=== PATIENT | female | born 1950 | race Caucasian/White ===

== ENCOUNTER 2021-01-18 08:19 | Outpatient (CLI) | payer MEDICARE, SELFPAY ==
--- NOTE | 2021-01-18 08:35 | USCV_ITS ---
Hermelinda Chamberlain Age: 71 Gender: F : 1950 Exam Date: 01/18/2021 08:39 Ordering Phys: Gayatri Russo MD ([email or web address]) Technologist: Carrol Izaguirre Exam Location: [facility] [place] Indication: STENOSIS Risk Factors: Previous Vascular Surgery: Right Brachial BP: / Left Brachial BP: / Right Left Velocity (cm/s) Spectral Plaque Velocity (cm/s) Spectral Plaque Syst/Diast Broadening Syst/Diast Broadening 62.80/ 17.60 Prox CCA 59.80 / 14.00 58.40/ 16.50 Mid CCA 51.30 / 15.50 66.20/ 16.50 Distal CCA 62.10 / 17.10 36.40/ 15.40 Prox ICA 67.10 / 24.00 59.50/ 20.90 Mid ICA 83.20 / 27.10 76.10/ 28.70 Distal ICA 96.20 / 35.10 102.50 ECA 93.20 1.30 ICA/CCA 1.88 Antegrade Vertebral Antegrade 36.30/ 6.90 cm/s 30.10/ 12.00 cm/s Tri Subclavian Tri 150.8 50.60 0 FINDINGS Mild to moderate scattered plaques in the right common carotid artery. Moderate plaques of the right bifurcation. Moderate heterogeneous plaques at the left bifurcation Mild to moderate scattered plaques in the left common carotid artery CONCLUSIONS Moderate heterogeneous plaques at the bifurcations bilaterally with Doppler velocities consistent with less than 50% stenosis. Mild to moderate scattered plaques in the common carotid arteries bilaterally. No similar previous studies are available for comparison. Dr Gayatri Russo MD [facility] (Electronically Signed) Final Date: 18 January 2021 19:57 S
== END 2021-01-18 08:20 | disposition home or self-care (01) ==
LOC: RAD 08:22
PROVIDERS: PCP Nurse Practitioner Family; Visit Provider Internal Medicine Cardiovascular Disease
DX: I65.23 Occlusion and stenosis of bilateral carotid arteries (principal)
CPT/HCPCS: 93880

== ENCOUNTER 2021-04-03 08:34 | Outpatient (CLI) | payer MEDICARE, SELFPAY ==
[2021-04-03 08:52] VITALS: BMI 23.6
--- NOTE | 2021-04-03 08:52 | ECG_ITS ---
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 Interpretive Statements NAME OF STUDY: LEXISCAN SESTAMIBI STRESS TEST INDICATION: Shortness of Breath PROCEDURE: At the baseline, the blood pressure was 138/68 mmHg, oxygen saturation 94% with a heart rate of 96 bpm. The electrocardiogram showed normal sinus rhythm, normal axis with nonspecific inferolateral ST depression. The Lexiscan was infused over a period of 20 seconds. A total of 0.4 milligrams of Lexiscan was infused. The stress phase was continued for a total of 5 minutes. Heart rate at the end of the stress phase was 96 bpm, oxygen saturation 94% with a blood pressure of 136/55 mmHg. The EKG at the peak infusion revealed sinus rhythm with no significant ST-T wave changes. Sestamibi was injected 20 seconds after the Lexiscan infusion. Blood pressure at the end of the recovery phase was 130/53 mmHg, oxygen saturation 94% with a heart rate of 96 beats per minute. CONCLUSION: 1. No significant EKG changes with the LexiScan infusion. 2. No LexiScan induced chest pain or cardiac arrhythmia. 3. Normal blood pressure and heart rate response. 4. Sestamibi/sestamibi perfusion scan pending; see separate report. Electronically Signed On 04-06-2021 18:20:58 CDT by Anju Spencer M.D. [id number]
--- NOTE | 2021-04-03 08:52 | NMCV_ITS ---
NM yvrose perf SPECT r/s* [id number] PrebbHermelinda davies Age: 71 Gender: F : 1950 Exam Date: 04/03/2021 09:24 Ordering Phys: Gayatri Russo MD ([email or web address]) Technologist: RADHA Little Exam Location: [facility] Indications: SOB STRESS TEST [facility] IMAGE PROTOCOL Rest/Stress 1 Lexiscan Day Radiopharmaceutical Dose (mCi) Administration Site Administered by Rest: Tc-99m 10.8 IV RADHA Arroyo Sestamibi Stress:Tc-99m 32.9 IV RADHA Arroyo Sestamibi Rest: 03-Apr-2021 60 Discovery 630 Stress: 03-Apr-2021 30 Discovery 630 0.4mg Lexiscan. Images obtained in supine and prone position. SPECT RESULTS Technical Quality: Excellent Raw Data Analysis: Image Corrections: No attenuation or motion correction applied Summed Stress Score: 0 Summed Rest Score: 1 Summed Difference Score: 0 PERFUSION FINDINGS Small sized perfusion abnormality of mild severity of apical lateral wall on rest images with subtle reversibility in supine stress images with improved tracer uptake in prone stress images. This is likely suggestive of attenuation artifact. FUNCTIONAL RESULTS (calculated via Gated SPECT) Stress Image LV EF (%): 79 Stress EDV (mL):57 TID: 1 Stress ESV (mL):12 FUNCTIONAL FINDINGS: The left ventricle is normal in size. Transient Ischemia Dilatation of 1. There is normal left ventricular systolic function. The left ventricular ejection fraction is normal with a value of 79%. There is normal left ventricular wall thickening with no regional wall motion abnormality. Normal end-diastolic and end-systolic volumes. IMPRESSIONS 1. Myocardial perfusion imaging is normal. Attenuation artifact noted in apical lateral wall. 2. Overall left ventricular systolic function is normal without regional wall motion abnormalities. 3. The left ventricular ejection fraction is normal with a value of 79%. 4. No coronary ischemia based on the study. Anju Spencer MD (Electronically Signed) Final Date: 06 Apr 2021 18:34 S
[2021-04-03] MEDS: regadenoson 0.4 Mg/5 ml Syringe IVP (10:45)
[2021-04-03 10:46] VITALS: BP 130/53; PULSE 96
== END 2021-04-03 08:35 | disposition home or self-care (01) ==
LOC: CDL 08:39
PROVIDERS: PCP Nurse Practitioner Family; Visit Provider Internal Medicine Cardiovascular Disease
DX: R06.02 Shortness of breath (principal)
CPT/HCPCS: 78452; 93017; A9500; J2785

== ENCOUNTER → 2022-03-31 14:27 | Outpatient (BNVA) | payer MEDICARE, SELFPAY | PROVIDERS: PCP Nurse Practitioner Family; Visit Provider Specialist | DX: J98.59 Other diseases of mediastinum, not elsewhere classified (principal); M19.012 Primary osteoarthritis, left shoulder; M25.512 Pain in left shoulder | CPT/HCPCS: 73030; 99203; 99205 ==

== ENCOUNTER 2022-04-21 09:09 | Outpatient (CLI) | payer MEDICARE, SELFPAY ==
[2022-04-21 10:05] LABS: Blood Urea Nitrogen 25 mg/dL (8-23); Glomerular Filtration Rate 44.4 mL/min (90-130)
[2022-04-21] MEDS: iodixanol 320 mg/mL 100mL Btl IV (10:10)
--- NOTE | 2022-04-21 10:30 | CT_ITS ---
WS: [id number] CT CHEST TECHNIQUE: Contrast enhanced CT of the chest with coronal and sagittal reformatted images. CLINICAL INFORMATION: mass COMPARISON: Radiograph March 31, 2022 DLP: 551.[address] scans at [facility] use at least one of these dose optimization techniques: automated e xposure control; mA and/or kV adjustment per patient size (includes targeted exams where dose is matc hed to clinical indication); or iterative reconstruction. FINDINGS: Heterogeneously enhancing RIGHT upper lobe mass with mediastinal invasion. Findings compatible with n eoplasm. Heterogeneous mass measures approximately 4.7 x 4.4 x 7.4 cm AP by transverse by craniocauda l. Associated mass effect and compression of the SVC. Associated anterior mediastinal and paratrachea l lymphadenopathy. Subcarinal lymphadenopathy.Interlobular septal thickening about the RIGHT upper lo be mass suspicious for lymphangitic spread of disease. Slightly prominent ascending thoracic aorta measuring 3.4 CM. Moderate aortic calcification. Normal c aliber descending thoracic aorta. Celiac and SMA are patent. Cholecystectomy clips. Partially visualized enhancing lesions in the liver incompletely evaluated and may represent incidental hemangiomas. Recommend CT abdomen pelvis with co ntrast for further evaluation considering concern for metastatic disease. Normal portal vein and sple barbara vein. Postoperative changes partially visualized cervical spine. Moderate spondylitic changes tho racic spine. CT/CT chest w con* [id number] IMPRESSION: 1. Large RIGHT upper lobe mass compatible with neoplasm with mediastinal invas ion and compression of the SVC described above. 2. Associated anterior mediastinal, peribronchial, and subcarinal lymphadenopa thy. 3. Enhancing lesions partially visualized in the RIGHT hepatic lobe nonspecifi c but may represents flash hemangiomas. Recommend further evaluation contrast-e nhanced CT abdomen pelvis with liver protocol to exclude metastatic disease. La rgest measures 9 mm. 4. Prior cholecystectomy. Message LEFT for Dr. Pal via the dial lathe operator 04/21/2022 10:57 AM
== END 2022-04-21 09:10 | disposition home or self-care (01) ==
PROVIDERS: Radiology Neuroradiology; PCP Nurse Practitioner Family; Visit Provider Specialist
DX: J98.59 Other diseases of mediastinum, not elsewhere classified (principal); R59.0 Localized enlarged lymph nodes; K76.9 Liver disease, unspecified; Z90.49 Acquired absence of other specified parts of digestive tract
CPT/HCPCS: 71260; 82565; 84520

== ENCOUNTER 2022-04-29 06:28 | Day surgery (SDC) | payer MEDICARE, SELFPAY ==
[2022-04-29 06:52] VITALS: BP 128/72; PULSE 93; RESP 18; TEMP 36.2; O2SAT 98
--- NOTE | 2022-04-29 06:57 | ECG_ITS ---
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 Measurements Intervals [place] Rate: 84 P: 70 ND: 126 QRS: 38 QRSD: 94 T: 82 QT: 387 QTc: 458 Interpretive Statements SINUS RHYTHM POSSIBLE LEFT ATRIAL ENLARGEMENT [-0.1mV P-WAVE IN V1/V2] NONSPECIFIC T-WAVE ABNORMALITY No previous ECG available for comparison Electronically Signed On 04-29-2022 22:33:09 CDT by Gayatri Russo M.D. [id number]
[2022-04-29] MEDS: sodium chloride 0.9% 1,000 ML 30 ML IV (07:10)
[2022-04-29 07:35] LABS: Anion Gap 15.4 (5-19); Blood Urea Nitrogen 40 mg/dL (8-23); Calcium 8.9 mg/dL (8.5-10.5); Carbon Dioxide 25 mmol/L (22-29); Chloride 100 mmol/L (98-107); Glomerular Filtration Rate 40.5 mL/min (90-130); Glucose 126 mg/dL (65-115); Osmolality Calculated 295 mOsm/kg (285-295); Potassium 3.4 mmol/L (3.5-5.1); Sodium 137 mmol/L (136-145)
--- NOTE | 2022-04-29 08:28 | ANES.PREANE2 ---
Pre-Anesthetic Assessment Height/Weight: Height 1.63 m Weight 60.781 kg Temp Pulse Resp BP Pulse Ox 97.1 F L 93 18 128/72 98 04/29/22 06:52 04/29/22 06:52 04/29/22 06:52 04/29/22 06:52 04/29/22 06:52 Preop Diagnosis: Right paratracheal mass Operation Date: 04/29/22 08:25 Proposed Procedures p Bronch, EBUS, 45098, 21756, 20585,91472(Not Applicable) - Cole Sarah MD s Ebus(Not Applicable) - Cole Sarah MD Familial anesthetic complications: none Was Beta Airam taken within 24 hours: N/A Was Clonidine taken within 24 hours: N/A Last intake: Intake Last Liquid Date 04/28/22 Last Liquid Time 20:00 Last Solid Date 04/28/22 Last Solid Time 20:00 Last Intake: 20:00 Social Tobacco and No alcohol 1ppd pack(s) per day 50+ pack years Exam alert, oriented x 3, clear to auscultation bilaterally and regular rate & rhythm Airway Submandibular: within normal limits Cervical ROM: within normal limits Mallampati: Class I Dentition: false Pulmonary Chronic Obstructive Pulmonary Disease lung mass CV/HEM Hypertension neg stress test last year Chronic Renal Insufficiency Hepatic None reported GI None reported Metabolic Diabetes Mellitus (avg 150) and Thyroid Disease Musc/skel Lower Back Pain and Osteoarthritis/DJD Neuropsych None reported Anesthetic Plan ASA status: 3 Anesthesia: General Risk of > 500 ml blood loss (7ml/kg in children): No Medications/Allergies Home Medications Medication Instructions Recorded Confirmed Last Taken Type diphenhydramine HCl 25 mg capsule 25 mg PO TID PRN 12/07/20 04/28/22 Unknown History (Benadryl) insulin aspart U-100 100 unit/mL 5 unit SUBCUT TID 12/07/20 04/29/22 04/28/22 History (3 mL) subcutaneous pen (Novolog 4 units Flexpen U-100 Insulin aspart) levothyroxine 125 mcg capsule 125 mcg PO DAILY 12/07/20 04/28/22 04/28/22 History losartan 25 mg tablet 12.5 mg PO DAILY tab 12/07/20 04/28/22 04/28/22 History topiramate 25 mg tablet 50 mg PO .QHS 12/07/20 04/28/22 04/28/22 History triamterene 37.5 1 tab PO DAILY 12/07/20 04/29/22 04/27/22 History mg-hydrochlorothiazide 25 mg tablet insulin detemir U-100 100 unit/mL 18 unit SUBCUT BID ml 12/12/20 04/29/22 04/28/22 History (3 mL) subcutaneous pen (Levemir 9 units FlexTouch U-100 Insulin) loratadine 10 mg capsule 10 mg PO DAILY PRN 12/12/20 04/29/22 04/25/22 History hydrocodone 5 mg-acetaminophen 325 1 tab PO BID PRN 04/28/22 04/28/22 04/28/22 History mg tablet Allergies Allergy/AdvReac Type Severity Reaction Status Date / Time azithromycin Allergy rash Verified 04/28/22 14:59 phenylephrine Allergy rash Verified 04/28/22 14:59 Shugasi-MBU-BbG Reductase Allergy Blindness Verified 04/28/22 14:59 Inhibitor [Leswcqq-Ziq-Npv Reductase Inhibitor] Sulfa (Sulfonamide Allergy rash Verified 04/28/22 14:59 Antibiotics) Current Medications Generic Name Dose Route Start Last Admin Trade Name Freq PRN Reason Stop Dose Admin Sodium Chloride 1,000 mls @ 30 mls/hr 04/29/22 06:45 04/29/22 07:10 Sodium Chloride 0.9% IV 04/30/22 06:44 30 mls/hr .Q24H SHAGUFTA Administration PFSH Anesthesia Medical History Abnormal ankle brachial index (RAYMUNDO) History of diabetes mellitus History of hypertension History of hypothyroidism Hx of chronic kidney disease Hx of degenerative disc disease Hx of hyperlipidemia Hx of obesity Hx of osteoarthritis Hx of recurrent urinary tract infection Hx of smoking Rupture of colon Surgical History History of back surgery Family History Father Hypertension CAD (coronary artery disease) Chronic kidney disease (CKD) Diabetes Mother Cancer Lung disease Grandfather Stroke Denies family history of Clotting disorder Dementia Suicide Anesthesia complication Bleeding disorder Social History Smoking and tobacco status: current every day smoker Alcohol intake: never Data Anesthesia : 04/29/22 07:10 BMP 04/29/22 07:10 Sodium 137 Potassium 3.4 L Chloride 100 Carbon Dioxide 25 BUN 40 H Creatinine 1.3 H Glucose 126 H Calcium 8.9 Cardiac Studies: Sestamibi Stress Test (Cardiology) 04/03/21
--- NOTE | 2022-04-29 08:28 | W.PM.OPSFHP ---
Same Day Surgery H&P Indication for Procedure/HPI DATE OF PROCEDURE: April 29, 2022 CHIEF COMPLAINT/INDICATIONFOR SURGICAL PROCEDURE: This is a 72-year-old lady coming in with a recently identified lung mass suspicious for malignancy. PREOP DIAGNOSIS: Right paratracheal mass PLANNED PROCEDURE: Bronchoscopy with inspection of the airway, possible endobronchial biopsy, bronchoalveolar lavage, endobronchial sound guided transbronchial needle aspiration of lymph nodes and control of bleeding. Operation Date: 04/29/22 08:25 Proposed Procedures p Bronch, EBUS, 62859, 27245, 61973,13485(Not Applicable) - Cole Sarah MD s Ebus(Not Applicable) - Cole Sarah MD The patient underwent a chest x-ray for evaluation of shoulder pain and was incidentally found to have right paratracheal lesion. This was followed by a CT scan of the chest which revealed large right upper lobe lung mass measuring 4.7 x 4.4 x 7.4 cm. There is also prominent paratracheal and mediastinal lymphadenopathy. The patient had a PET CT scan performed yesterday meriting the result. The patient complains of minimal weight loss. Her appetite is good. She has been experiencing deconditioning over some time. Medications/Allergies* Home Medications Medication Instructions Recorded Confirmed Type diphenhydramine HCl 25 mg capsule 25 mg PO TID PRN 12/07/20 04/28/22 History (Benadryl) insulin aspart U-100 100 unit/mL 5 unit SUBCUT TID 12/07/20 04/29/22 History (3 mL) subcutaneous pen (Novolog Flexpen U-100 Insulin aspart) levothyroxine 125 mcg capsule 125 mcg PO DAILY 12/07/20 04/28/22 History losartan 25 mg tablet 12.5 mg PO DAILY tab 12/07/20 04/28/22 History topiramate 25 mg tablet 50 mg PO .QHS 12/07/20 04/28/22 History triamterene 37.5 1 tab PO DAILY 12/07/20 04/29/22 History mg-hydrochlorothiazide 25 mg tablet insulin detemir U-100 100 unit/mL 18 unit SUBCUT BID ml 12/12/20 04/29/22 History (3 mL) subcutaneous pen (Levemir FlexTouch U-100 Insulin) loratadine 10 mg capsule 10 mg PO DAILY PRN 12/12/20 04/29/22 History hydrocodone 5 mg-acetaminophen 325 1 tab PO BID PRN 04/28/22 04/28/22 History mg tablet Allergies/Adverse Reactions Allergy/AdvReac Type Severity Reaction Status Date / Time azithromycin Allergy rash Verified 04/28/22 14:59 phenylephrine Allergy rash Verified 04/28/22 14:59 Xpsajdq-OLS-NvF Reductase Allergy Blindness Verified 04/28/22 14:59 Inhibitor [Ofqimsg-Eis-Xpu Reductase Inhibitor] Sulfa (Sulfonamide Allergy rash Verified 04/28/22 14:59 Antibiotics) Current Medications: Generic Name Dose Route Start Last Admin Trade Name Freq PRN Reason Stop Dose Admin Sodium Chloride 1,000 mls @ 30 mls/hr 04/29/22 06:45 04/29/22 07:10 Sodium Chloride 0.9% IV 04/30/22 06:44 30 mls/hr .Q24H SHAGUFTA Administration Pertinent History/Comorbid Conditions* Medical History (Updated 04/02/22 @ 17:25 by Jacqueline Pal MD) Abnormal ankle brachial index (RAYMUNDO) History of diabetes mellitus History of hypertension History of hypothyroidism Hx of chronic kidney disease Hx of degenerative disc disease Hx of hyperlipidemia Hx of obesity Hx of osteoarthritis Hx of recurrent urinary tract infection Hx of smoking Rupture of colon Surgical History (Updated 12/12/20 @ 16:28 by Gayatri Russo MD) History of back surgery Family History (Updated 12/12/20 @ 16:08 by Jayne Ellis RN) Diabetes Father CAD (coronary artery disease) Father Chronic kidney disease (CKD) Father Lung disease Mother Cancer Mother Hypertension Father Stroke Grandfather Denies family history of Clotting disorder Dementia Suicide Anesthesia complication Bleeding disorder Social History Smoking and tobacco status: current every day smoker Alcohol intake: never Pertinent Exam Findings alert, oriented x 3 and clear to auscultation bilaterally General: Patient is awake alert and oriented, in no distress. Neck: No JVD Respiratory: Auscultation: Bilateral clear to auscultation both anterior and posteriorly, no crackles wheezing or rhonchi Cardiovascular: Regular rate and rhythm, S1-S2 present, no murmur, no peripheral edema Abdomen: Soft, nontender, nondistended, positive bowel sound Musculoskeletal: No clubbing Skin: No rash Neuro: Mental status is normal, no gross cranial nerve deficit, gross normal motor function Recommendations Surgery/Procedure today Other Plans: I have discussed the risk and benefit of the procedure with the patient including complications. Will proceed with the procedure. Coding Level of Care Code Acute Calibrator Barometers for Simon Ash
[2022-04-29] MEDS: lidocaine 1% INJ 20 mL XX (09:08)
--- NOTE | 2022-04-29 09:49 | PM.OP ---
Operative Report Date of procedure: April 29, 2022 Pre-op diagnosis: Preop Diagnosis Right paratracheal mass Post-op diagnosis: Lung cancer Brief History: This is a 72-year-old lady with incidentally found large right upper lobe lung mass as well as evidence mediastinal and paratracheal PET positive lymphadenopathy coming in for bronchoscopic evaluation. Procedure: Name of the procedure: Bronchoscopy with inspection of the airway, endobronchial ultrasound-guided transbronchial needle aspiration of lymph nodes and control of bleeding. Indication: Suspected lung cancer Anesthesia: General anesthesia. Local anesthesia: The vocal cords, trachea, maritza in the right and left mainstem bronchi were anesthetized with 1% lidocaine, 8 mL. Description of the procedure: The procedure was explained to the patient and the consent was obtained. The patient was brought to the OR. The patient underwent laryngeal mask airway placement for general anesthesia. Following induction of general anesthesia, the bronchoscope was advanced through the LMA. The vocal cords were normal. The vocal cords were anesthetized with 1% lidocaine. 3 mL of lidocaine was used. The bronchoscope was passed through the vocal cords under direct visualization. Upper and lower trachea appeared normal. The upper and lower trachea arrested with 1% lidocaine. The maritza was sharp. The maritza, the right and left mainstem bronchi are anesthetized with 1% lidocaine. In a systematic manner bilateral bronchial tree was then examined. The bronchoscope was advanced into the left mainstem bronchus.The left upper lobe, lingula and left lower lobe bronchi were examined up to the third subsegmental level and no abnormalities were identified. There is no endobronchial lesion, active bleeding or mucous plug. The bronchoscope was then introduced into the right mainstem bronchus. The right upper lobe, right middle lobe and right lower lobe bronchi were examined up to the third subsegmental level and no abnormalities were identified. The endobronchial ultrasound was introduced through the ET tube. Large right paratracheal mass involving 4R station was seen. There was also subcarinal lymphadenopathy. Fine-needle aspiration was obtained from the right paratracheal lung mass and station 4 lymph node . Inga was positive for malignancy. Samples: 1. Fine-needle aspiration was sent for histopathology. Complications: There was no immediate complications.
[2022-04-29 09:54] VITALS: BP 118/84; PULSE 83; RESP 16; TEMP 36.3; O2SAT 99
[2022-04-29 10:00] VITALS: BP 124/60; PULSE 79; RESP 16; TEMP 36.3; O2SAT 97
[2022-04-29 10:05] VITALS: BP 118/61; PULSE 78; RESP 16; TEMP 36.3; O2SAT 97
[2022-04-29 10:15] VITALS: BP 105/59; PULSE 79; RESP 18; TEMP 36.3; O2SAT 97
--- NOTE | 2022-04-29 14:12 | ANE.PACU2 ---
Inpatient post-anesthesia follow up: Airway intact: Yes Vital signs: Temperature 97.3 F Pulse Rate 79 Respiratory Rate 18 Blood Pressure 105/59 Pulse Oximetry 97 Oxygen Delivery Me thod Room Air Oxygen Flow Rate 5 Fraction of Inspir ed Oxygen Hydration adequate: Yes Nausea and vomiting: No Pain level: 2 Mental status: Baseline
[2022-04-29 21:58] LABS: Cyto Order Verification Order Verified
[2022-05-02 15:10] LABS: Miscellaneous Test See Scanned Lab Rpt
== END 2022-04-29 10:40 | disposition home or self-care (01) ==
PROVIDERS: Anesthesiology; PCP Nurse Practitioner Family; Visit Provider Internal Medicine Critical Care Medicine
PROC: 0BJ08ZZ Inspection of Tracheobronchial Tree, Via Natural or Artificial Opening Endoscopic (ICD-10-PCS; CPT 31622; principal; 2022-04-29 08:15)
PROC: BB4BZZZ Ultrasonography of Pleura (ICD-10-PCS; 2022-04-29 08:15)
DX: C34.90 Malignant neoplasm of unspecified part of unspecified bronchus or lung (principal); J44.9 Chronic obstructive pulmonary disease, unspecified; E11.22 Type 2 diabetes mellitus with diabetic chronic kidney disease; I12.9 Hypertensive chronic kidney disease with stage 1 through stage 4 chronic kidney disease, or unspecified chronic kidney disease; N18.9 Chronic kidney disease, unspecified; Z79.4 Long term (current) use of insulin; E78.5 Hyperlipidemia, unspecified; M19.90 Unspecified osteoarthritis, unspecified site; Z82.49 Family history of ischemic heart disease and other diseases of the circulatory system; F17.200 Nicotine dependence, unspecified, uncomplicated
CPT/HCPCS: 31622; 31652; 36415; 80048; 80503; 88305; 88342; 93005; J2704; J7030

== ENCOUNTER 2022-05-05 07:59 | Oncology outpatient (recurring) (ONCR) | payer MEDICARE, SELFPAY | END 2022-05-05 23:59 | disposition home or self-care (01) | PROVIDERS: PCP Nurse Practitioner Family; Visit Provider Internal Medicine Hematology & Oncology | DX: C34.11 Malignant neoplasm of upper lobe, right bronchus or lung (principal); F17.210 Nicotine dependence, cigarettes, uncomplicated; E11.65 Type 2 diabetes mellitus with hyperglycemia; Z79.4 Long term (current) use of insulin; E11.51 Type 2 diabetes mellitus with diabetic peripheral angiopathy without gangrene; G89.29 Other chronic pain; M25.511 Pain in right shoulder; M25.512 Pain in left shoulder; F43.22 Adjustment disorder with anxiety | CPT/HCPCS: 99204 ==

== ENCOUNTER → 2022-05-14 13:41 | Outpatient (BNVA) | payer MEDICARE, SELFPAY | PROVIDERS: PCP Nurse Practitioner Family; Visit Provider Surgery | DX: C34.91 Malignant neoplasm of unspecified part of right bronchus or lung (principal) | CPT/HCPCS: 99203 ==

== ENCOUNTER 2022-05-20 11:15 | Day surgery (SDC) | payer MEDICARE, SELFPAY ==
[2022-05-20] VITALS (11 sets, daily range): BP systolic 131–146; BP diastolic 56–89; PULSE 78–91; RESP 16–18; TEMP 36.2–36.6; O2SAT 95–99; BMI 22.3
--- NOTE | 2022-05-20 | SCC_ITS ---
Procedure done: 1. Placement of PowerPort catheter via the right internal jugular vein 2. Fluoroscopic guidance and interpretation for placement of catheter 3. Ultrasound guidance to access the right internal jugular vein 12 seconds of fluoroscopic guidance, for a cumulative dose of 1.34 mGy, was provided to Dr. Ramirez by the radiology department. C-arm images of the chest were saved for the patient's permanent record. [facility]
--- NOTE | 2022-05-20 11:25 | SC_ITS ---
WS: [id number] INTRAOPERATIVE TECHNIQUE: 2 Spot fluoroscopic images for intraoperative purposes. FLUOROSCOPY TIME: 12 seconds CLINICAL INFORMATION: PowerPort placement COMPARISON: None. FINDINGS: RIGHT Port-A-Cath with tip in the distal SVC in good position. No visualized pneumothorax. Persistent stable RIGHT upper parasternal lymphadenopathy with known RIGHT upper lobe mass and mediastinal inva trey. Postoperative changes lower cervical spine. SC/C-arm FL for CVA [id number] IMPRESSION: Images obtained for intraoperative purposes.
[2022-05-20 11:51] LABS: Glucose Point of Care 95 mg/dL (70-110)
[2022-05-20] MEDS: sodium chloride 0.9% 1,000 ML 30 ML IV (11:55)
--- NOTE | 2022-05-20 14:03 | W.PM.OPSUD ---
Surgery/Procedure H&P Update DATE OF PROCEDURE: May 20, 2022 DATE H&P PERFORMED: 05/14/22 H&P UPDATE INFORMATION: I have reviewed H&P completed within last 30 days, I have examined patient prior to procedure and No changes to prior documentation PREOP DIAGNOSIS: Lung cancer PRIMARY INDICATION FOR PROCEDURE: The same PLANNED PROCEDURE: Operation Date: 05/20/22 12:50 Proposed Procedures p Placement of power port 50281,C34.91(Not Applicable) - Henri Ramirez MD
[2022-05-20] MEDS: ceFAZolin 2,000 MG in sodium chloride 0.9% (plus) 50 ML 100 MG IV (14:13)
[2022-05-20] MEDS: lidocaine 2% INJ 20 mL INJECTION (14:40)
[2022-05-20] MEDS: heparin, porcine 1,000 unit/mL INJ 10 mL 10000 UNIT IRRIGATION (14:40)
--- NOTE | 2022-05-20 14:53 | ANES.PREANE2 ---
Pre-Anesthetic Assessment Height/Weight: Height 1.63 m Weight 58.967 kg Temp Pulse Resp BP Pulse Ox 97.9 F 91 17 132/68 97 05/20/22 11:46 05/20/22 11:46 05/20/22 11:46 05/20/22 11:46 05/20/22 11:46 Preop Diagnosis: Lung cancer Operation Date: 05/20/22 12:50 Proposed Procedures p Placement of power port 62644,C34.91(Not Applicable) - Henri Ramirez MD Familial anesthetic complications: none Was Beta Airam taken within 24 hours: N/A Was Clonidine taken within 24 hours: N/A Last intake: Intake Last Liquid Date 05/20/22 Last Liquid Time 08:00 Last Solid Date 05/19/22 Last Solid Time 22:00 Social Tobacco and No alcohol Exam alert, oriented x 3 and regular rate & rhythm Airway Submandibular: within normal limits Cervical ROM: within normal limits Mallampati: Class II Dentition: false Pulmonary Chronic Obstructive Pulmonary Disease CV/HEM Hypertension and Peripheral Vascular Disease Metabolic Diabetes Mellitus, Hyperlipidemia and Thyroid Disease Musc/skel Lower Back Pain Neuropsych Anxiety Anesthetic Plan ASA status: 3 Anesthesia: MAC Medications/Allergies Home Medications Medication Instructions Recorded Confirmed Last Taken Type insulin aspart U-100 100 unit/mL 5 unit SUBCUT TID PRN 12/07/20 05/20/22 05/19/22 History (3 mL) subcutaneous pen (Novolog Flexpen U-100 Insulin aspart) levothyroxine 125 mcg capsule 125 mcg PO DAILY 12/07/20 05/20/22 05/20/22 History losartan 25 mg tablet 12.5 mg PO DAILY tab 12/07/20 05/20/22 05/19/22 History topiramate 25 mg tablet 50 mg PO .QHS 12/07/20 05/20/22 05/19/22 History triamterene 37.5 1 tab PO DAILY 12/07/20 05/20/22 05/19/22 History mg-hydrochlorothiazide 25 mg tablet insulin detemir U-100 100 unit/mL See Rx Instructions .ROUTE 12/12/20 05/20/22 05/19/22 History (3 mL) subcutaneous pen (Levemir .COMPLEX ml FlexTouch U-100 Insulin) loratadine 10 mg capsule 10 mg PO DAILY PRN 0205/20/22 05/18/22 History docusate sodium 100 mg capsule 100 mg PO DAILY PRN 05/05/22 05/20/22 05/19/22 History (Colace) hydrocodone 10 mg-acetaminophen 1 tab PO Q6H PRN 05/05/22 05/20/22 05/19/22 History 325 mg tablet lorazepam 0.5 mg tablet (Ativan) 0.5 mg PO .q6-8hr PRN #30 tab 05/05/22 05/20/22 05/19/22 Rx oxycodone-acetaminophen 10 mg-325 1 - 2 tab PO .q4-6hr PRN 30 Days 05/05/22 05/20/22 05/19/22 Rx mg tablet (Percocet) #60 tab Allergies Allergy/AdvReac Type Severity Reaction Status Date / Time azithromycin Allergy rash Verified 05/20/22 11:36 phenylephrine Allergy rash Verified 05/20/22 11:36 Xuvkeqi-MRL-SaW Reductase Allergy Blindness Verified 05/20/22 11:36 Inhibitor [Nspiwwt-Agb-Kfh Reductase Inhibitor] Sulfa (Sulfonamide Allergy rash Verified 05/20/22 11:36 Antibiotics) Current Medications Generic Name Dose Route Start Last Admin Trade Name Freq PRN Reason Stop Dose Admin Sodium Chloride 1,000 mls @ 30 mls/hr 05/20/22 11:30 05/20/22 11:55 Sodium Chloride 0.9% IV 05/21/22 11:29 30 mls/hr .Q24H SHAGUFTA Administration PFSH Anesthesia Medical History Abnormal ankle brachial index (RAYMUNDO) Cancer of right lung History of diabetes mellitus History of hypertension History of hypothyroidism Hx of chronic kidney disease Hx of degenerative disc disease Hx of hyperlipidemia Hx of obesity Hx of osteoarthritis Hx of recurrent urinary tract infection Hx of smoking Rupture of colon Surgical History History of back surgery Family History Father Hypertension CAD (coronary artery disease) Chronic kidney disease (CKD) Diabetes Mother Cancer Lung disease Grandfather Stroke Denies family history of Clotting disorder Dementia Suicide Anesthesia complication Bleeding disorder Social History Smoking and tobacco status: current every day smoker (0.5 ppd) cigarettes Packs smoked per day: 0.5 Alcohol intake: never Data Anesthesia Cardiac Studies: Sestamibi Stress Test (Cardiology) 04/03/21
--- NOTE | 2022-05-20 14:58 | PM.OP ---
Operative Report Date of procedure: May 20, 2022 Pre-op diagnosis: Preop Diagnosis Lung cancer Post-op diagnosis: The same Procedure done: 1. Placement of PowerPort catheter via the right internal jugular vein 2. Fluoroscopic guidance and interpretation for placement of catheter 3. Ultrasound guidance to access the right internal jugular vein Surgeon: Henri Ramirez MD Kaiawhina Kohanga Reo: Shanae Lawrence and Ivy Circulating nurse Na Anesthesia: MAC (Dr. Griffiths) Estimated blood loss (mL): 5 Procedure: Patient was identified in the holding area and taken to the operative room and placed in supine position IV propofol was given by the anesthesia provider ,both arms were tucked,Time-out was done verifying the patient's name/date of /planned procedure and destination after the procedure, all were in agreement. SCDs confirmed to be functioning, preoperative antibiotics administered per protocol, and beta kaela protocol was confirmed, appropriate positioning of the patient was done by me. Medications were reviewed to assess for anticoagulant usage. Risks and benefits and prevention of central line associated blood stream infection (CLABSI) were discussed with the patient/CPOA, and a consent was obtained. Monitors were in place and monitored throughout the procedure. All necessary supplies were available prior to start. Hand hygiene was completed prior to starting. Maximum barrier technique was utilized including a sterile gown, sterile gloves with a hat and mask. Site was was prepped with [chlorhexidine] and a full body drape was placed. 5 mL of 2% lidocaine was injected into the skin with a 25 gauge needle. Prep& drape was done under the usual sterile technique, lidocaine 2% was injected at the site of the stick, started by right Internal Juglar vein stick that retrieved venous blood was obtained from the first stick under ultrasound guidance and there was no evidence of intraluminal thrombosis, interpretation was done by me through the whole entire procedure, a guidewire was then threaded and under the guidance of fluoroscopy position was confirmed to be in the IVC with my interpretation, there was no PVC changes, at that point the guidewire was secured to the drapes with a hemostat and the needle was taken out. There was no resistance while passing the wire. Considering the large superior mediastinal mass. Attention was then deviated towards creation of a pocket for the port were lidocaine 2% was injected using an 15 blade knife skin incision was created at the right upper Chest ,dissection using the Bovie to create a pocket for the poer port to be accommodated, hemostasis was secured, after the port being appropriately flushed it was inserted into the pocket and a tunneler was used to accommodate the catheter of the port cath to be delivered through the incision first created at the site of the stick , and then I was able to retrieve the catheter at the index site of the stick. At that point under fluoroscopy an estimated length was measured for the catheter and was cut at the designed level, followed by that a dilator with the sheath introduced onto the guidewire the dilator and the wire were retrieved and the catheter of the port was introduced via the sheath where it was peeled off and the catheter maintained to be in the SVC that was confirmed with fluoroscopy, and the fluoroscopy interpretation was done by me throughout the entire procedure. Multiple flushes of the port was done by diluted heparin and I was able to retrieve without difficulty venous blood as well as appropriate flushing was achieved. The port was kept in its pocket, 3-0 Vicryl deep subdermal interrupted sutures, skin was then closed by 4-0 Monocryl as subcuticular closure.The port was appropriately flushed with heparin and venous blood was withdrawn without difficulty The stick site was closed by 4-0 Monocryl and Dermabond was used followed by dressing. Patient tolerated the procedure well was taken to the recovery area Count was correct at the end of the procedure I was present for the whole entire procedure CXR was obtained after th eprocedure confrirming the port to be in good position and without Pneumothorax.
--- NOTE | 2022-05-20 15:05 | XRR_ITS ---
PROCEDURE INFORMATION: Exam: XR Chest Exam date and time: 05/20/2022 3:26 PM Age: 72 years old Clinical indication: Other vascular access device placement or adjustment; Port; Additional info: Stat post right internal jugular vein, powerport placement TECHNIQUE: Imaging protocol: Radiologic exam of the chest. Views: 1 view. COMPARISON: CT chest w con* [id number] 04/21/2022 10:03 AM FINDINGS: Tubes, catheters and devices: Indwelling right venous port catheter with tip in the superior vena cava a near the right atrial junction. Lungs: No alveolar consolidation is seen. Pleural spaces: No pleural effusion. Heart/Mediastinum: Right paratracheal masslike opacity is consistent with findings on 04/21/[address] No cardiomegaly. Bones/joints: No acute bony abnormality is seen radiographically. XR/XR chest 1V portable [id number] IMPRESSION: Right paratracheal mass, consistent with findings on 04/21/[address]
[2022-05-20] MEDS: fentaNYL 50 mcg/mL INJ 2mL IVP (15:21)
--- NOTE | 2022-05-20 16:16 | ANE.PACU2 ---
Inpatient post-anesthesia follow up: Airway intact: Yes Vital signs: Temperature 97.9 F Pulse Rate 80 Respiratory Rate 16 Blood Pressure 146/74 Pulse Oximetry 97 Oxygen Delivery Me thod Room Air Oxygen Flow Rate Fraction of Inspir ed Oxygen Hydration adequate: Yes Nausea and vomiting: No Pain level: 2 Mental status: Baseline
== END 2022-05-20 16:30 | disposition home or self-care (01) ==
PROVIDERS: PCP Nurse Practitioner Family; Visit Provider Surgery
PROC: (CPT 36561; principal; 2022-05-20 12:40)
DX: C34.91 Malignant neoplasm of unspecified part of right bronchus or lung (principal); J44.9 Chronic obstructive pulmonary disease, unspecified; E11.22 Type 2 diabetes mellitus with diabetic chronic kidney disease; I73.9 Peripheral vascular disease, unspecified; E78.5 Hyperlipidemia, unspecified; Z79.4 Long term (current) use of insulin; E03.9 Hypothyroidism, unspecified; M19.90 Unspecified osteoarthritis, unspecified site; I12.9 Hypertensive chronic kidney disease with stage 1 through stage 4 chronic kidney disease, or unspecified chronic kidney disease; N18.9 Chronic kidney disease, unspecified; F17.210 Nicotine dependence, cigarettes, uncomplicated
CPT/HCPCS: 36561; 36416; 71045; 77001; 82962; C1788; J1644; J2250; J2405; J2704; J3010; J7030

== ENCOUNTER → 2022-05-27 11:01 | Outpatient (BNVA) | payer MEDICARE, SELFPAY | PROVIDERS: PCP Nurse Practitioner Family; Visit Provider Surgery | DX: Z95.828 Presence of other vascular implants and grafts (principal) | CPT/HCPCS: 99213 ==

== ENCOUNTER 2022-05-29 09:02 | Oncology outpatient (recurring) (ONCR) | payer MEDICARE, SELFPAY ==
--- NOTE | 2022-05-13 09:30 | CT_ITS ---
WS: [id number] CT ABDOMEN CONTRAST TECHNIQUE: Contrast enhanced CT of the abdomen with coronal and sagittal reformatted images. CLINICAL INFORMATION: With Liver Protocol Coordinate with Prior CT Chest from 04/21 COMPARISON: CT chest April 21, 2022 and PET/CT April 28, 2022 DLP: 1394.[address] scans at [facility] use at least one of these dose optimization techniques: automated e xposure control; mA and/or kV adjustment per patient size (includes targeted exams where dose is matc hed to clinical indication); or iterative reconstruction. FINDINGS: The previously described small enhancing lesions are faintly visualized today on the arterial phase a nd likely represent benign flash cavernous/hemangiomas or incidental transient perfusion anomalies. N o enhancing lesions visualized in the portal venous or delayed imaging. No convincing evidence of hep atic metastatic disease. Prior cholecystectomy. Lung bases are well aerated. Normal GE junction. Adrenal glands are normal. LE FT renal atrophy. Incidental bilateral renal cysts largest in the RIGHT measuring 2.5 CM. Normal port al vein and splenic vein. S-shaped thoracolumbar scoliosis. CT/CT abdomen w con* [id number] IMPRESSION: 1. The previously described small enhancing lesions are faintly visualized tod ay on the arterial phase and likely represent benign cavernous/hemangiomas or i ncidental transient perfusion anomalies. These are likely benign. 2. No other suspicious findings.
[2022-05-13] MEDS: iodixanol 320 mg/mL 100mL Btl IV (09:54)
--- NOTE | 2022-05-22 07:15 | MR_ITS ---
WS: [id number] MRI HEAD WITH CONTRAST TECHNIQUE: Sagittal T1, T2 axial, T2 axial FLAIR, axial susceptibility weighted imaging, axial diffus ion weighted images, and coronal T2 images were obtained. Pre and post-T1 axial and post T1 coronal i mages. ADC and FSPGR images. CLINICAL INFORMATION: Staging COMPARISON: None. FINDINGS: Tiny focus of partially restricted diffusion in the LEFT occipital lobe may represent tiny subacute l acunar infarct or T2 shine through. Small amount of T2 signal abnormality in this area. No enhancemen t. No enhancing lesions to indicate metastatic disease. No evidence of mass or mass effect. Dural venous sinuses are patent. Mild small vessel changes. Mild parenchymal volume loss. Normal post erior fossa. Normal vascular flow voids at the skull base. No extra-axial fluid collections. Paranasa l sinuses are well aerated. Slight mucosal thickening mastoid tips. No hemosiderin on the susceptibil ity weighted images. Normal optic chiasm and pituitary infundibulum. Normal cavernous sinuses and Mec conner's cave. No other suspicious findings. MR/MR head wo/w con [id number] IMPRESSION: 1. No enhancing lesions to indicate metastatic disease. 2. No evidence of mass or mass effect. 3. Tiny 2mm focus of partially restricted diffusion LEFT occipital lobe likely due to tiny subacute lacunar infarct or focus of T2 shine through. 4. Mild small vessel changes with mild parenchymal volume loss. 5. No hemosiderin on susceptibly weighted images. 6. No other significant findings.
[2022-05-22] MEDS: gadobenate dimeglumine 20 mL vial IV (08:16)
--- NOTE | 2022-05-28 11:30 | N.ONRAD NP_ITS ---
Radiation Oncology New Patient Visit Patient: Hermelinda Chamberlain MR#: [id number] : 1950> Age: 72> Sex: Female> Dictated by: Dr. Vlad Thakkar Date of Service: 05/28/2022 Referring Physician(s) : Renae Mays M.D. Diagnosis: Lung, right, squamous cell carcinoma Radiotherapy to date: Summary > No prior radiation therapy. Chief Complaint / History of Present Illness: Mrs. Chamberlain is a 72-year-old insulin-dependent diabetic who underwent imaging for shoulder pain. She was found to have a right lung mass. A CT confirmed a large right upper lobe mass with SVC compression and mediastinal lymphadenopathy. 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 She underwent a PET scan which did not show any evidence of metastatic disease, though technical difficulties made it difficult to evaluate the liver. She subsequently underwent a CT of the abdomen which did not show any evidence of metastatic disease. She has had an MRI of the brain but that does not show any metastases. She has seen Dr. Mays who has recommended chemoradiation. He will use CarboTaxol or Abraxane. Being insulin-dependent, she may have difficulty tolerating high-dose steroids. He also plans durvalumab after completing chemoradiation. She is referred for evaluation and the initiation of radiation planning. Current Medications: Insulin, levothyroxine, losartan, topiramate, triamterene-HCTZ. Allergies: Azithromycin phenylephrine, statins, sulfa. Medical History: No history of collagen vascular disease. No previous radiation therapy. Insulin-dependent diabetes, hypothyroidism, hypertension, chronic kidney disease, hyperlipidemia, degenerative disc disease, osteoarthritis Surgical History: Back surgery and neck surgery. Family History: Social History: Current Complaints / Review of Systems: . Vital Signs: Performed on 05/28/2022 9:35 AM BMI - 23.001 kg/m2 (high), Height - 64 in, Weight - 134 lbs, Temperature - 99.1 f, Pulse - 84 /min, Respiration - 20 /min, O2 Sat - 100 %, Pain - 4, Fatigue - 0 and BP - 116/ 57 mm(hg)(/low). Physical Exam: General alert, oriented, no acute distress. Neck: Supple. No masses. No cervical or supraclavicular lymphadenopathy. Lungs: Clear to percussion. On auscultation no rales rhonchi or wheezes. Heart: Regular rhythm. No murmur, gallop, or rub. Abdomen: No distention. No organomegaly, mass, or tenderness. Musculoskeletal: Normal gait. No bone tenderness. Neurologic: No gross abnormalities. Performance Status: ECOG 1 Pathology: Squamous cell carcinoma with clear cell features. Lab: Imaging: See HPI Impression: Locally advanced and unresectable non-small cell carcinoma of the lung. Mrs. Chamberlain is a candidate for chemoradiation. I discussed that with her. She understands the cancer is unresectable. I discussed a typical course of radiation delivered over 6 to 6-1/2 weeks. I reviewed side effects and possible complications. Discussed the possibility of esophageal stenosis requiring dilatation. Also discussed pulmonary fibrosis that could impact her breathing negatively. We also discussed the heart, but based on the location of the cancer, it is not anticipated there is any major risk of injury. She wishes to proceed as recommended. Plan: Schedule simulation. Signed by: 05/28/2022 11:29:07 AM <<Signature on File>> Time spent with patient: CPT Code: CPT Code:
--- NOTE | 2022-05-29 | CT_ITS ---
Radiation Therapy Planning CT images; total exam DLP: 321.72 mGy-cm MTDD
== END 2022-06-08 23:59 | disposition home or self-care (01) ==
PROVIDERS: PCP Nurse Practitioner Family; Visit Provider Specialist
DX: Z51.0 Encounter for antineoplastic radiation therapy (principal); C34.90 Malignant neoplasm of unspecified part of unspecified bronchus or lung
CPT/HCPCS: 70553; 74160; 77300; 77301; 77334; 77338; 77470; 99205

== ENCOUNTER → 2022-07-08 08:00 | Outpatient (BNVA) | payer MEDICARE, SELFPAY | PROVIDERS: PCP Nurse Practitioner Family; Visit Provider Internal Medicine Hematology & Oncology | DX: Z53.9 Procedure and treatment not carried out, unspecified reason (principal) | CPT/HCPCS: 99214 ==

== ENCOUNTER 2022-07-09 07:52 | Oncology outpatient (recurring) (ONCR) | payer MEDICARE, SELFPAY ==
[2022-06-10 08:35] LABS: Basophils # 0.1 10^3/uL (0.0-0.1); Basophils % 0.6 %; Eosinophils # 0.2 10^3/uL (0.0-0.8); Eosinophils % 2.2 %; Hematocrit 31.1 % (37.0-47.0); Hemoglobin 9.9 g/dL (11.5-15.3); Lymphocytes # 1.6 10^3/uL (0.8-4.8); Lymphocytes % 18.2 %; Mean Corpuscular HGB Conc 31.8 g/dL (30.0-36.0); Mean Corpuscular Hemoglobin 30.3 pg (28.0-34.0); Mean Corpuscular Volume 95.1 fl (81-99); Mean Platelet Volume 10.1 fL (7.4-10.4); Monocytes # 0.7 10^3/uL (0.2-0.9); Monocytes % 7.5 %; Neutrophils # 6.22 10^3/uL (1.8-7.7); Neutrophils % 70.8 %; Nucleated Red Blood Cells % 0 %; Platelet Count 337 10^3/cmm (130-400); Red Blood Count 3.27 10^6/uL (4.1-5.3); Red Cell Distribution Width 13.4 % (12.1-15.1); White Blood Count 8.8 10^3/uL (4.0-10.0)
[2022-06-10 09:12] LABS: Alanine Aminotransferase 9 U/L (0-33); Albumin Level 3.3 g/dL (3.5-5.2); Alkaline Phosphatase 110 IU/L (35-105); Anion Gap 15.7 (5-19); Aspartate Amino Transferase 20 U/L (0-32); Blood Urea Nitrogen 18 mg/dL (8-23); Calcium 8.5 mg/dL (8.5-10.5); Carbon Dioxide 23 mmol/L (22-29); Chloride 103 mmol/L (98-107); Glomerular Filtration Rate 49.1 mL/min (90-130); Glucose 280 mg/dL (65-115); Osmolality Calculated 296 mOsm/kg (285-295); Potassium 4.7 mmol/L (3.5-5.1); Sodium 137 mmol/L (136-145); Total Bilirubin 0.2 mg/dL (0.15-1.2); Total Protein 7.3 g/dL (6.6-8.7)
[2022-06-10] MEDS: sodium chloride 0.9% 250 ML 75 ML IV (09:45)
[2022-06-10] MEDS: acetaminophen 325 mg Tablet 650 MG PO (09:46)
[2022-06-10] MEDS: diphenhydrAMINE 50 mg/mL SDV 1mL 25 MG IVP (09:47)
[2022-06-10] MEDS: palonosetron 0.25 mg/5 mL SDV IVP (09:48)
[2022-06-10] MEDS: famotidine 20 mg/2 mL INJ IVP (09:48)
[2022-06-10] MEDS: dexamethasone 20 MG in sodium chloride 0.9% 50 ML 188 MG IV (10:10)
[2022-06-10] MEDS: CARBOplatin 140 MG in sodium chloride 0.9% 500 ML 514 MG IV (12:02)
[2022-06-10 13:21] VITALS: BP 109/62; PULSE 62; RESP 18; TEMP 36.4; O2SAT 96
[2022-06-10 13:33] VITALS: BP 118/59; PULSE 88; TEMP 35.6; O2SAT 98
--- NOTE | 2022-06-16 08:56 | ONCRAD TMN_ITS ---
Radiation Oncology Treatment Management Note Patient Name: Hermelinda Chamberlain Date of : 1950 Date of Service: 06/16/2022 Attending Physician: Ariel Quesada M.D. Hremelinda Chamberlain is a 67 year-old white female diagnosed with a recently diagnosed clinical stage IIIA (T2N2) squamous cell carcinoma of the lung. The patient has received 10 Gy of a prescribed 60 Singh with an intensity modulated radiotherapy plan utilizing a step and shoot treatment technique. She has been prescribed carboplatin (AUC 2) and paclitaxel (50 mg/m???) weekly during therapy. Upon review of systems, she denied pulmonary symptoms. On physical examination, the patient weighed 135 lbs. Her temperature was 98.1 ???F and the blood pressure was 106/64 mmHg. The pulse was 102 bpm and her respiratory rate was 18. Oxygen saturation while breathing room air was 97%. There was no erythema within the treatment ying. Auscultation of the posterior lung ying identified clear breath sounds. Continue thoracic radiotherapy as prescribed. Signed by: Dr. Ariel Quesada 06/16/2022 8:55:15 AM
[2022-06-17 08:15] LABS: Basophils # 0.1 10^3/uL (0.0-0.1); Basophils % 0.8 %; Eosinophils # 0.2 10^3/uL (0.0-0.8); Hemoglobin 10.2 g/dL (11.5-15.3); Lymphocytes # 0.7 10^3/uL (0.8-4.8); Lymphocytes % 9.4 %; Mean Corpuscular HGB Conc 31.9 g/dL (30.0-36.0); Mean Corpuscular Hemoglobin 30.6 pg (28.0-34.0); Mean Corpuscular Volume 96.1 fl (81-99); Mean Platelet Volume 9.7 fL (7.4-10.4); Monocytes # 0.5 10^3/uL (0.2-0.9); Monocytes % 6.6 %; Neutrophils # 5.85 10^3/uL (1.8-7.7); Neutrophils % 79.4 %; Nucleated Red Blood Cells % 0 %; Platelet Count 330 10^3/cmm (130-400); Red Blood Count 3.33 10^6/uL (4.1-5.3); Red Cell Distribution Width 13.6 % (12.1-15.1); White Blood Count 7.4 10^3/uL (4.0-10.0)
[2022-06-17 08:36] LABS: Alanine Aminotransferase 8 U/L (0-33); Albumin Level 3.4 g/dL (3.5-5.2); Alkaline Phosphatase 95 IU/L (35-105); Anion Gap 15.5 (5-19); Aspartate Amino Transferase 14 U/L (0-32); Blood Urea Nitrogen 21 mg/dL (8-23); Calcium 8.5 mg/dL (8.5-10.5); Carbon Dioxide 23 mmol/L (22-29); Chloride 104 mmol/L (98-107); Globulin 3.9 g/dL (1.3-4.6); Glomerular Filtration Rate 54.8 mL/min (90-130); Glucose 244 mg/dL (65-115); Osmolality Calculated 297 mOsm/kg (285-295); Potassium 4.5 mmol/L (3.5-5.1); Sodium 138 mmol/L (136-145); Total Bilirubin 0.2 mg/dL (0.15-1.2); Total Protein 7.3 g/dL (6.6-8.7)
[2022-06-17] MEDS: dexamethasone 20 MG in sodium chloride 0.9% 50 ML 188 MG IV (10:10)
[2022-06-17] MEDS: acetaminophen 325 mg Tablet 650 MG PO (10:15)
[2022-06-17] MEDS: sodium chloride 0.9% 250 ML 75 ML IV (10:15)
[2022-06-17] MEDS: palonosetron 0.25 mg/5 mL SDV IVP (10:35)
[2022-06-17] MEDS: famotidine 20 mg/2 mL INJ IVP (10:40)
[2022-06-17] MEDS: diphenhydrAMINE 50 mg/mL SDV 1mL 25 MG IVP (10:42)
[2022-06-17] MEDS: CARBOplatin 150 MG in sodium chloride 0.9% 500 ML 515 MG IV (12:27)
[2022-06-17 14:10] VITALS: BP 136/74; PULSE 75; RESP 18; TEMP 36.9; O2SAT 98
--- NOTE | 2022-06-23 09:12 | ONCRAD TMN_ITS ---
Radiation Oncology Treatment Management Note Patient Name: Hermelinda Chamberlain Date of : 1950 Date of Service: 06/23/2022 Attending Physician: Ariel Quesada M.D. Hermelinda Chamberlain is a 67 year-old white female diagnosed with a recently diagnosed clinical stage IIIA (T2N2) squamous cell carcinoma of the lung. The patient has received 20 Gy of a prescribed 60 Singh with an intensity modulated radiotherapy plan utilizing a step and shoot treatment technique. She has been prescribed carboplatin (AUC 2) and paclitaxel (50 mg/m???) weekly during therapy. Upon review of systems, she described odynophagia. On physical examination, the patient weighed 132 lbs. Her temperature was 99.4 ???F and the blood pressure was 104/65 mmHg. The pulse was 99 bpm and her respiratory rate was 18. Oxygen saturation while breathing room air was 98%. There was no erythema within the treatment ying. Auscultation of the posterior lung ying identified bronchial breath sounds. Continue thoracic radiotherapy as planned. I will prescribe oxycodone elixir for odynophagia. Signed by: Dr. Ariel Quesada 06/23/2022 9:11:04 AM
[2022-06-24 08:32] VITALS: BMI 22.8
[2022-06-24 08:58] LABS: Basophils # 0.1 10^3/uL (0.0-0.1); Basophils % 0.9 %; Eosinophils # 0.1 10^3/uL (0.0-0.8); Eosinophils % 1.1 %; Hematocrit 30.7 % (37.0-47.0); Hemoglobin 9.7 g/dL (11.5-15.3); Lymphocytes # 0.5 10^3/uL (0.8-4.8); Lymphocytes % 7.1 %; Mean Corpuscular HGB Conc 31.6 g/dL (30.0-36.0); Mean Corpuscular Hemoglobin 30.2 pg (28.0-34.0); Mean Corpuscular Volume 95.6 fl (81-99); Mean Platelet Volume 9.8 fL (7.4-10.4); Monocytes # 0.6 10^3/uL (0.2-0.9); Monocytes % 9.1 %; Neutrophils # 5.17 10^3/uL (1.8-7.7); Nucleated Red Blood Cells % 0 %; Platelet Count 280 10^3/cmm (130-400); Red Blood Count 3.21 10^6/uL (4.1-5.3); Red Cell Distribution Width 13.9 % (12.1-15.1); White Blood Count 6.4 10^3/uL (4.0-10.0)
[2022-06-24 09:29] LABS: Alanine Aminotransferase 13 U/L (0-33); Albumin Level 3.3 g/dL (3.5-5.2); Alkaline Phosphatase 101 U/L (35-105); Anion Gap 15.5 (5-19); Aspartate Amino Transferase 15 U/L (0-32); Blood Urea Nitrogen 18 mg/dL (8-23); Calcium 8.5 mg/dL (8.5-10.5); Carbon Dioxide 22 mmol/L (22-29); Chloride 102 mmol/L (98-107); Globulin 3.7 g/dL (1.3-4.6); Glomerular Filtration Rate 54.8 mL/min (90-130); Glucose 232 mg/dL (65-115); Osmolality Calculated 289 mOsm/kg (285-295); Potassium 4.5 mmol/L (3.5-5.1); Sodium 135 mmol/L (136-145); Total Bilirubin 0.3 mg/dL (0.15-1.2)
[2022-06-24] MEDS: sodium chloride 0.9% 250 ML 75 ML IV (10:55)
[2022-06-24] MEDS: acetaminophen 325 mg Tablet 650 MG PO (10:55)
[2022-06-24] MEDS: famotidine 20 mg/2 mL INJ IVP (10:57)
[2022-06-24] MEDS: diphenhydrAMINE 50 mg/mL SDV 1mL 25 MG IVP (11:01)
[2022-06-24] MEDS: dexamethasone 20 MG in sodium chloride 0.9% 50 ML 188 MG IV (11:02)
[2022-06-24] MEDS: palonosetron 0.25 mg/5 mL SDV IVP (11:09)
[2022-06-24] MEDS: PACLitaxeL 80 MG in sodium chloride 0.9%(non-DEHP) 250 ML 263.33 MG IV (11:33)
[2022-06-24] MEDS: CARBOplatin 150 MG in sodium chloride 0.9% 500 ML 515 MG IV (12:39)
[2022-06-24 14:02] VITALS: BP 129/70; PULSE 107; RESP 18; TEMP 37.3; O2SAT 97
--- NOTE | 2022-06-30 08:58 | ONCRAD TMN_ITS ---
Radiation Oncology Treatment Management Note Patient Name: Hermelinda Chamberlain Date of : 1950 Date of Service: 06/30/2022 Attending Physician: Ariel Quesada M.D. Hermelinda Chamberlain is a 67 year-old white female diagnosed with a recently diagnosed clinical stage IIIA (T2N2) squamous cell carcinoma of the lung. The patient has received 30 Gy of a prescribed 60 Singh with an intensity modulated radiotherapy plan utilizing a step and shoot treatment technique. She has been prescribed carboplatin (AUC 2) and paclitaxel (50 mg/m???) weekly during therapy. Upon review of systems, she described an intermittent cough. The odynophagia has improved with pain medication. On physical examination, the patient weighed 130 lbs. Her temperature was 98.2 ???F and the blood pressure was 111/70 mmHg. The pulse was 100 bpm and her respiratory rate was 16. Oxygen saturation while breathing room air was 99%. There was no erythema within the treatment ying. Auscultation of the posterior lung ying identified clear breath sounds. Continue thoracic radiotherapy as prescribed. I recommended OTC an anti-tussive. Signed by: Dr. Ariel Quesada 06/30/2022 8:56:43 AM
[2022-07-01 10:02] LABS: Basophils % 0.6 %; Eosinophils % 0.8 %; Hematocrit 30.1 % (37.0-47.0); Hemoglobin 9.7 g/dL (11.5-15.3); Lymphocytes # 0.4 10^3/uL (0.8-4.8); Lymphocytes % 7.4 %; Mean Corpuscular HGB Conc 32.2 g/dL (30.0-36.0); Mean Corpuscular Hemoglobin 30.2 pg (28.0-34.0); Mean Corpuscular Volume 93.8 fl (81-99); Mean Platelet Volume 9.4 fL (7.4-10.4); Monocytes # 0.5 10^3/uL (0.2-0.9); Monocytes % 9.3 %; Neutrophils # 4.27 10^3/uL (1.8-7.7); Nucleated Red Blood Cells % 0 %; Platelet Count 251 10^3/cmm (130-400); Red Blood Count 3.21 10^6/uL (4.1-5.3); Red Cell Distribution Width 14.2 % (12.1-15.1); White Blood Count 5.3 10^3/uL (4.0-10.0)
[2022-07-01 10:24] LABS: Alanine Aminotransferase 8 U/L (0-33); Albumin Level 3.3 g/dL (3.5-5.2); Alkaline Phosphatase 114 U/L (35-105); Aspartate Amino Transferase 13 U/L (0-32); Blood Urea Nitrogen 16 mg/dL (8-23); Calcium 9.3 mg/dL (8.5-10.5); Carbon Dioxide 24 mmol/L (22-29); Chloride 99 mmol/L (98-107); Globulin 4.1 g/dL (1.3-4.6); Glomerular Filtration Rate 49.1 mL/min (90-130); Glucose 103 mg/dL (65-115); Osmolality Calculated 279 mOsm/kg (285-295); Sodium 134 mmol/L (136-145); Total Bilirubin 0.3 mg/dL (0.15-1.2); Total Protein 7.4 g/dL (6.6-8.7)
[2022-07-01] MEDS: acetaminophen 325 mg Tablet 650 MG PO (11:19)
[2022-07-01] MEDS: sodium chloride 0.9% 250 ML 75 ML IV (11:19)
[2022-07-01] MEDS: palonosetron 0.25 mg/5 mL SDV IVP (11:21)
[2022-07-01] MEDS: famotidine 20 mg/2 mL INJ IVP (11:22)
[2022-07-01] MEDS: diphenhydrAMINE 50 mg/mL SDV 1mL 25 MG IVP (11:25)
[2022-07-01] MEDS: dexamethasone 20 MG in sodium chloride 0.9% 50 ML 188 MG IV (11:39)
[2022-07-01] MEDS: PACLitaxeL 80 MG in sodium chloride 0.9%(non-DEHP) 250 ML 263.33 MG IV (12:00)
[2022-07-01] MEDS: CARBOplatin 140 MG in sodium chloride 0.9% 500 ML 514 MG IV (13:11)
[2022-07-01 14:18] VITALS: BP 128/73; PULSE 98; RESP 16; TEMP 36.4; O2SAT 98
--- NOTE | 2022-07-07 09:16 | ONCRAD TMN_ITS ---
Radiation Oncology Weekly Treatment Management Patient: Cintia Soria MR#: [id number] : 1950> Attending Physician: Dr. Vlad Thakkar Date of Service: 07/07/2022 Referring Physician(s) : Renae Mays Diagnosis: C34.91 - Malignant neoplasm of unspecified part of right bronchus or lung, Diagnosed 04/29/2022 (Active) [facility] date: [facility], Ref. ID: [id number], Energy: 6X, Dose/Fx (cGy): 200, #Fx: , Dose Correction (cGy): 0, Total Dose (cGy): 4,000, Start Date: 06/10/2022, End Date: , 07/07/2022, Elapsed Days: 27 Reason for visit: The patient is being seen today as part of their regularly scheduled weekly on treatment visits to assess for acute toxicities from radiotherapy. Review of Systems: She has 20 of 30 prescribed treatments. He has decreased appetite and increased fatigue. She is diabetic and checks her blood sugars multiple times per day. She has had 1 blood sugar as low as 50 and 1 as high as 220. She is having difficulty eating because of odynophagia and lack of appetite. She has liquid oxycodone which helps the odynophagia and also helps with her cough. We discussed that [employer]ure now has products for diabetics. She is aware of that and will try to supplement her diet. She has no complaints of skin reaction. She is receiving concomitant weekly carboplatin and Taxol. She has not had any purulent sputum, fever, or chills. Vital Signs: Performed on 07/07/2022 8:22 AM BMI - 21.868 kg/m2, Height - 64 in, Weight - 127.4 lbs, Temperature - 97.3 f, Pulse - 111 /min (high), Respiration - 16 /min, O2 Sat - 97 %, Pain - 4, Fatigue - 4 and BP - 104/ 55 mm(hg)(/low). Physical Exam: No cervical or supraclavicular lymphadenopathy. Lungs clear to percussion. On auscultation she has rhonchi over the left lower lobe posteriorly. Otherwise clear with no rales or wheezes. Heart rhythm is regular. No murmur or gallop. Imaging: Radiation therapy imaging related to accurate target localization (i.e. KV, MV and CBCT) was reviewed. Appropriate changes, if any, were made to ensure treatment accuracy. Plan: Continue combined modality therapy as planned. Discussed dietary products for diabetics. She will continue to check her blood sugars about 4 times per day. Continue oxycodone. Signed by: Dr. Richard Thakkar 07/07/2022 9:14:33 AM
[2022-07-08 09:12] LABS: Basophils % 0.5 %; Eosinophils % 0.7 %; Hematocrit 29.6 % (37.0-47.0); Hemoglobin 9.4 g/dL (11.5-15.3); Lymphocytes # 0.3 10^3/uL (0.8-4.8); Lymphocytes % 6.6 %; Mean Corpuscular HGB Conc 31.8 g/dL (30.0-36.0); Mean Corpuscular Hemoglobin 30.1 pg (28.0-34.0); Mean Corpuscular Volume 94.9 fl (81-99); Mean Platelet Volume 10.1 fL (7.4-10.4); Monocytes # 0.4 10^3/uL (0.2-0.9); Monocytes % 8.6 %; Neutrophils % 83.1 %; Nucleated Red Blood Cells % 0 %; Platelet Count 167 10^3/cmm (130-400); Red Blood Count 3.12 10^6/uL (4.1-5.3); Red Cell Distribution Width 15.3 % (12.1-15.1); White Blood Count 4.1 10^3/uL (4.0-10.0)
[2022-07-08 09:30] LABS: Alanine Aminotransferase 8 U/L (0-33); Albumin Level 3.5 g/dL (3.5-5.2); Alkaline Phosphatase 115 U/L (35-105); Aspartate Amino Transferase 14 U/L (0-32); Blood Urea Nitrogen 17 mg/dL (8-23); Calcium 8.9 mg/dL (8.5-10.5); Carbon Dioxide 24 mmol/L (22-29); Chloride 100 mmol/L (98-107); Globulin 3.5 g/dL (1.3-4.6); Glomerular Filtration Rate 54.8 mL/min (90-130); Glucose 122 mg/dL (65-115); Osmolality Calculated 283 mOsm/kg (285-295); Sodium 135 mmol/L (136-145); Total Bilirubin 0.3 mg/dL (0.15-1.2)
[2022-07-08] MEDS: famotidine 20 mg/2 mL INJ IVP (11:20)
[2022-07-08] MEDS: sodium chloride 0.9% 250 ML 100 ML IV (11:20)
[2022-07-08] MEDS: diphenhydrAMINE 50 mg/mL SDV 1mL 25 MG IVP (11:21)
[2022-07-08] MEDS: dexamethasone 20 MG in sodium chloride 0.9% 50 ML 188 MG IV (11:25)
[2022-07-08] MEDS: palonosetron 0.25 mg/5 mL SDV IVP (11:25)
[2022-07-08] MEDS: acetaminophen 325 mg Tablet 650 MG PO (11:29)
[2022-07-08] MEDS: PACLitaxeL 80 MG in sodium chloride 0.9%(non-DEHP) 250 ML 263.33 MG IV (11:57)
[2022-07-08] MEDS: CARBOplatin 150 MG in sodium chloride 0.9% 500 ML 515 MG IV (13:02)
[2022-07-08 14:09] VITALS: BP 127/75; PULSE 97; TEMP 36.8; O2SAT 97
== END 2022-07-09 23:59 | disposition home or self-care (01) ==
PROVIDERS: Internal Medicine Hematology & Oncology; Nurse Practitioner Family; PCP Nurse Practitioner Family; Visit Provider Specialist
DX: Z51.0 Encounter for antineoplastic radiation therapy (principal); C34.11 Malignant neoplasm of upper lobe, right bronchus or lung; C77.2 Secondary and unspecified malignant neoplasm of intra-abdominal lymph nodes; C78.7 Secondary malignant neoplasm of liver and intrahepatic bile duct
CPT/HCPCS: 77014; 77336; 77386; 80053; 85025; 96367; 96375; 96413; 96415; 96417; 99214; 99215; J1100; J1200; J2469; J3490; J7030; J7040; J7050; J9045; J9267

== ENCOUNTER 2022-07-28 08:30 | Oncology outpatient (recurring) (ONCR) | payer MEDICARE, SELFPAY ==
--- NOTE | 2022-07-15 08:43 | ONCRAD TMN_ITS ---
Radiation Oncology Treatment Management Note Patient Name: Hermelinda Chamberlain Date of : 1950 Date of Service: 07/15/2022 Attending Physician: Ariel Quesada M.D. Hermelinda Chamberlain is a 67 year-old white female diagnosed with a recently diagnosed clinical stage IIIA (T2N2) squamous cell carcinoma of the lung. The patient has received 48 Gy of a prescribed 60 Singh with an intensity modulated radiotherapy plan utilizing a step and shoot treatment technique. She has been prescribed carboplatin (AUC 2) and paclitaxel (50 mg/m???) weekly during therapy. Upon review of systems, she did not report any significant changes in her pulmonary function. On physical examination, the patient weighed 124 lbs. Her temperature was 987 ???F and the blood pressure was 121/71 mmHg. The pulse was 115 bpm and her respiratory rate was 18. Oxygen saturation while breathing room air was 99%. There was no erythema within the treatment ying. Auscultation of the posterior lung ying identified intermittent rhonchi. Continue thoracic radiotherapy as planned. Signed by: Dr. Ariel Quesada 07/15/2022 8:46:02 AM
[2022-07-16 09:09] VITALS: BP 103/67; PULSE 119; RESP 6; TEMP 36.4; O2SAT 97
[2022-07-16 09:10] LABS: Basophils % 1.4 %; Eosinophils % 0.3 %; Hemoglobin 9.1 g/dL (11.5-15.3); Lymphocytes # 0.2 10^3/uL (0.8-4.8); Mean Corpuscular HGB Conc 32.5 g/dL (30.0-36.0); Mean Corpuscular Hemoglobin 31.1 pg (28.0-34.0); Mean Corpuscular Volume 95.6 fl (81-99); Mean Platelet Volume 10.4 fL (7.4-10.4); Monocytes # 0.3 10^3/uL (0.2-0.9); Monocytes % 8.7 %; Neutrophils # 2.31 10^3/uL (1.8-7.7); Neutrophils % 80.9 %; Nucleated Red Blood Cells % 0 %; Platelet Count 102 10^3/cmm (130-400); Red Blood Count 2.93 10^6/uL (4.1-5.3); Red Cell Distribution Width 16.1 % (12.1-15.1); White Blood Count 2.9 10^3/uL (4.0-10.0)
[2022-07-16 09:20] LABS: Alanine Aminotransferase 8 U/L (0-33); Albumin Level 3.2 g/dL (3.5-5.2); Alkaline Phosphatase 118 U/L (35-105); Anion Gap 15.7 (5-19); Aspartate Amino Transferase 14 U/L (0-32); Blood Urea Nitrogen 14 mg/dL (8-23); Calcium 9.1 mg/dL (8.5-10.5); Carbon Dioxide 24 mmol/L (22-29); Chloride 97 mmol/L (98-107); Globulin 3.6 g/dL (1.3-4.6); Glomerular Filtration Rate 54.8 mL/min (90-130); Glucose 217 mg/dL (65-115); Osmolality Calculated 283 mOsm/kg (285-295); Potassium 3.7 mmol/L (3.5-5.1); Sodium 133 mmol/L (136-145); Total Bilirubin 0.3 mg/dL (0.15-1.2); Total Protein 6.8 g/dL (6.6-8.7)
--- NOTE | 2022-07-16 10:19 | PC.NURSE ---
Lab results shown to Dr. Mays and called to pt. Per Dr. Mays counts are borderline for tx. Decision made to delay pt's scheduled chemo tx tomorrow. Informed pt that CTC would recheck CBC on Thursday07/21/22 and if counts have recovered-pt will get treated after seeing Dr. Mays. Pt voiced understanding. Aundrea Cantor in radiation notified of pt's tx delay/lc
[2022-07-21 08:25] LABS: Basophils % 1.1 %; Eosinophils % 0.7 %; Hematocrit 29.6 % (37.0-47.0); Hemoglobin 9.5 g/dL (11.5-15.3); Lymphocytes # 0.3 10^3/uL (0.8-4.8); Lymphocytes % 9.3 %; Mean Corpuscular HGB Conc 32.1 g/dL (30.0-36.0); Mean Corpuscular Hemoglobin 31.4 pg (28.0-34.0); Mean Corpuscular Volume 97.7 fl (81-99); Mean Platelet Volume 9.9 fL (7.4-10.4); Monocytes # 0.3 10^3/uL (0.2-0.9); Monocytes % 11.8 %; Neutrophils # 2.13 10^3/uL (1.8-7.7); Neutrophils % 76.4 %; Nucleated Red Blood Cells % 0 %; Platelet Count 154 10^3/cmm (130-400); Red Blood Count 3.03 10^6/uL (4.1-5.3); Red Cell Distribution Width 18.3 % (12.1-15.1); White Blood Count 2.8 10^3/uL (4.0-10.0)
[2022-07-21 08:58] LABS: Alanine Aminotransferase 7 U/L (0-33); Albumin Level 3.4 g/dL (3.5-5.2); Alkaline Phosphatase 134 U/L (35-105); Anion Gap 12.9 (5-19); Aspartate Amino Transferase 13 U/L (0-32); Blood Urea Nitrogen 9 mg/dL (8-23); Calcium 8.6 mg/dL (8.5-10.5); Carbon Dioxide 30 mmol/L (22-29); Chloride 97 mmol/L (98-107); Ferritin 285 ng/mL (15-150); Globulin 3.3 g/dL (1.3-4.6); Glomerular Filtration Rate 61.9 mL/min (90-130); Glucose 204 mg/dL (65-115); Iron 49 ug/dL (37-145); Osmolality Calculated 287 mOsm/kg (285-295); Percent Saturation 29.1 % (20-50); Potassium 3.9 mmol/L (3.5-5.1); Sodium 136 mmol/L (136-145); Total Bilirubin 0.2 mg/dL (0.15-1.2); Total Iron Binding Capacity 168 mcg/dl; Total Protein 6.7 g/dL (6.6-8.7); Unsaturated Iron Binding 119 ug/dL (112-347)
[2022-07-21 09:13] LABS: Vitamin B12 653 pg/mL (232-1245)
[2022-07-21] MEDS: sodium chloride 0.9% 250 ML 75 ML IV (12:15)
[2022-07-21] MEDS: acetaminophen 325 mg Tablet 650 MG PO (12:15)
[2022-07-21] MEDS: palonosetron 0.25 mg/5 mL SDV IVP (12:16)
[2022-07-21] MEDS: famotidine 20 mg/2 mL INJ IVP (12:17)
[2022-07-21] MEDS: diphenhydrAMINE 50 mg/mL SDV 1mL 25 MG IVP (12:18)
[2022-07-21] MEDS: dexamethasone 20 MG in sodium chloride 0.9% 50 ML 188 MG IV (12:29)
[2022-07-21] MEDS: CARBOplatin 150 MG in sodium chloride 0.9% 500 ML 515 MG IV (14:04)
[2022-07-21 15:09] VITALS: BP 106/62; PULSE 101; RESP 16; TEMP 36; O2SAT 99
--- NOTE | 2022-07-23 08:18 | N.ONRD TS_ITS ---
Radiation OncologyTreatment Summary Patient Name: Hermelinda Chamberlain Date of : 1950 Date of Service: 07/23/2022 Attending Physician: Ariel Quesada M.D. Hermelinda Chamberlain has completed definitive thoracic radiotherapy for the management of a clinical stage IIIA (T2N2) squamous cell carcinoma of the lung. Thoracic radiation therapy was delivered between the dates of June 10, 2022 through July 23, 2022. A prescribed dose of 60 Gy was delivered in 30 fractions encompassing 44 elapsed days. The right upper-lobe mass and mediastinal lymphadenopathy were treated utilizing an intensity modulated radiotherapy plan with a step and shoot treatment technique. The plan required seven gantry angles (0???, 35???, 185???, 220???, 255???, 290???, and 325???) replicating an arc. The collimator rotation 0???. The field sizes spanned between 11.3 cm x 14 cm to 14.2 cm x 13.8 cm. The SSDs measured a minimum of 84 cm to a maximum of 92.2 cm. The ports delivered 180 MU, 161 MU, 127 MU, 82 MU, 127 MU, 135 MU, and 149 MU corresponding to the gantry angles described. All treatments were performed with the [employer] linear accelerator and an isocentric technique. The dose was calculated by Anisotropic Analytic Algorithm. A photon energy of 6 MV was prescribed with the plan normalized to deliver 100% of the prescription dose to 96.5% of the planning target volume. She was prescribed Carboplatin (AUC 2) and Paclitaxel (50 mg/m???) weekly during radiotherapy under the supervision of Renae Mays M.D (June 10, 2022 through July 21, 2022). The plan was designed and approved by the [facility] physician. Signed by: Dr. Ariel Quesada 07/23/2022 8:17:01 AM
[2022-07-28 09:11] LABS: Basophils % 1.3 %; Eosinophils % 0.6 %; Hematocrit 28.3 % (37.0-47.0); Lymphocytes # 0.3 10^3/uL (0.8-4.8); Mean Corpuscular HGB Conc 31.8 g/dL (30.0-36.0); Mean Corpuscular Hemoglobin 31.7 pg (28.0-34.0); Mean Corpuscular Volume 99.6 fl (81-99); Mean Platelet Volume 10.1 fL (7.4-10.4); Monocytes # 0.3 10^3/uL (0.2-0.9); Neutrophils # 2.49 10^3/uL (1.8-7.7); Neutrophils % 80.1 %; Nucleated Red Blood Cells % 0 %; Platelet Count 200 10^3/cmm (130-400); Red Blood Count 2.84 10^6/uL (4.1-5.3); Red Cell Distribution Width 19.3 % (12.1-15.1); White Blood Count 3.1 10^3/uL (4.0-10.0)
[2022-07-28 09:53] LABS: Alanine Aminotransferase 6 U/L (0-33); Albumin Level 3.1 g/dL (3.5-5.2); Alkaline Phosphatase 140 U/L (35-105); Anion Gap 10.9 (5-19); Aspartate Amino Transferase 24 U/L (0-32); Blood Urea Nitrogen 10 mg/dL (8-23); Calcium 8.6 mg/dL (8.5-10.5); Carbon Dioxide 27 mmol/L (22-29); Chloride 100 mmol/L (98-107); Globulin 3.4 g/dL (1.3-4.6); Glomerular Filtration Rate 70.9 mL/min (90-130); Glucose 229 mg/dL (65-115); Osmolality Calculated 284 mOsm/kg (285-295); Potassium 3.9 mmol/L (3.5-5.1); Sodium 134 mmol/L (136-145); Total Bilirubin 0.3 mg/dL (0.15-1.2); Total Protein 6.5 g/dL (6.6-8.7)
[2022-07-28 10:01] LABS: Chol HDL Ratio 3.25 mg/dL (0.0-4.40); Cholesterol 156 mg/dL (0-200); Estmated Average Glucose 192; HDL Cholesterol 48 mg/dL (60-100); Hemoglobin A1C 8.3 % (4.0-6.0); LDL Cholesterol Calculated 73 mg/dL (50-129); LDL HDL Ratio 1.52 RATIO (0.00-3.22); Thyroid Stimulating Hormone 3.32 uIU/mL (0.27-4.20); Triglycerides 174 mg/dL (0-150)
[2022-07-28 11:14] LABS: Ferritin 325 ng/mL (15-150); Iron 52 ug/dL (37-145); Percent Saturation 28.4 % (20-50); Total Iron Binding Capacity 183 mcg/dl; Unsaturated Iron Binding 131 ug/dL (112-347)
[2022-07-28 11:31] LABS: Vitamin B12 520 pg/mL (232-1245)
[2022-07-28 11:45] LABS: Add On to Lab Order(s) Added
== END 2022-08-08 23:59 | disposition home or self-care (01) ==
PROVIDERS: Internal Medicine Hematology & Oncology; Nurse Practitioner; Nurse Practitioner Family; PCP Nurse Practitioner Family; Visit Provider Radiology Radiation Oncology
DX: C34.11 Malignant neoplasm of upper lobe, right bronchus or lung; C77.2 Secondary and unspecified malignant neoplasm of intra-abdominal lymph nodes; C78.7 Secondary malignant neoplasm of liver and intrahepatic bile duct; F17.210 Nicotine dependence, cigarettes, uncomplicated; D64.9 Anemia, unspecified; E11.9 Type 2 diabetes mellitus without complications; E03.9 Hypothyroidism, unspecified; E78.5 Hyperlipidemia, unspecified; Z79.899 Other long term (current) drug therapy; Z92.3 Personal history of irradiation; Z92.21 Personal history of antineoplastic chemotherapy
CPT/HCPCS: 36591; 77014; 77336; 77386; 80053; 80061; 82607; 82728; 83036; 83540; 83550; 84443; 85025; 96367; 96375; 96413; 96417; 99214; J1100; J1200; J2469; J3490; J7030; J7040; J7050; J9045; J9267

== ENCOUNTER 2022-08-06 14:01 | Outpatient (CLI) | payer MEDICARE, SELFPAY ==
--- NOTE | 2022-08-06 14:30 | CT_ITS ---
WS: [id number] CT CHEST TECHNIQUE: Contrast enhanced CT of the chest with coronal and sagittal reformatted images. CLINICAL INFORMATION: Post chemo/radiation COMPARISON: PET CT April 28, [address] chest April 21, 2022 DLP: 488.[address] scans at [facility] use at least one of these dose optimization techniques: automated e xposure control; mA and/or kV adjustment per patient size (includes targeted exams where dose is matc hed to clinical indication); or iterative reconstruction. FINDINGS: Previously described RIGHT upper lobe mass with mediastinal invasion has improved compared to the dante or studies. This measures approximately 2.8 x 2.9 x 2.5 cm AP by transverse by craniocaudal. This is improved compared to previous. Previously this measured 4.7 x 4.4 x 7.4 cm AP by transverse by cranio caudal. Improved compression of the SVC today. Previously described large bulky lymphadenopathy in the medias tinum has significantly improved. Mild residual pretracheal lymphadenopathy measuring 15 mm. Findings consistent with interval response to therapy. Previously described interlobular septal thickening in the RIGHT upper lobe about the mass appears im proved compared to previous. Fibrotic appearing changes in this area likely due to treatment-related effect. Fibrosis/compressive atelectasis in the anterior upper lobes bilaterally. This may be due to treatment-related changes. Prominent ascending thoracic aorta measuring 3.4 cm is unchanged. Proximal main pulmonary arteries ar e normal. Coronary calcification. Aortic calcification. No axillary lymphadenopathy. Diffuse fatty infiltration liver. Cholecystectomy clips. Normal GE junction. Mild thoracic curve. Mod erate thoracic kyphosis. Disc space narrowing in the mid and lower thoracic spine. Endplate degenerat yonathan changes. CT/CT chest w con* [id number] IMPRESSION: 1. Findings compatible with interval response to therapy described above. 2. Interval improvement in the RIGHT upper lobe mass with mediastinal invasion . No evidence of progressed disease. 3. Improved previously described bulky mediastinal lymphadenopathy. 4. Improved compression of the SVC today 5. No other remarkable findings.
[2022-08-06] MEDS: iohexol 350 mg/mL 100 mL Btl IV (14:46)
== END 2022-08-06 14:02 | disposition home or self-care (01) ==
LOC: RAD 14:01
PROVIDERS: PCP Nurse Practitioner Family; Visit Provider Internal Medicine Hematology & Oncology
DX: C34.91 Malignant neoplasm of unspecified part of right bronchus or lung (principal)
CPT/HCPCS: 71260

== ENCOUNTER 2022-09-08 08:30 | Oncology outpatient (recurring) (ONCR) | payer MEDICARE, SELFPAY ==
[2022-08-11 08:35] LABS: Basophils % 0.8 %; Eosinophils % 0.4 %; Hematocrit 31.3 % (37.0-47.0); Lymphocytes # 0.5 10^3/uL (0.8-4.8); Lymphocytes % 8.5 %; Mean Corpuscular HGB Conc 31.9 g/dL (30.0-36.0); Mean Corpuscular Hemoglobin 32.9 pg (28.0-34.0); Mean Platelet Volume 9.7 fL (7.4-10.4); Monocytes # 0.6 10^3/uL (0.2-0.9); Monocytes % 10.5 %; Neutrophils # 4.21 10^3/uL (1.8-7.7); Nucleated Red Blood Cells % 0 %; Platelet Count 235 10^3/cmm (130-400); Red Blood Count 3.04 10^6/uL (4.1-5.3); Red Cell Distribution Width 21.9 % (12.1-15.1); White Blood Count 5.3 10^3/uL (4.0-10.0)
[2022-08-11 09:03] LABS: Alanine Aminotransferase 11 U/L (0-33); Albumin Level 3.4 g/dL (3.5-5.2); Alkaline Phosphatase 144 U/L (35-105); Anion Gap 14.8 (5-19); Aspartate Amino Transferase 16 U/L (0-32); Blood Urea Nitrogen 16 mg/dL (8-23); Carbon Dioxide 25 mmol/L (22-29); Chloride 101 mmol/L (98-107); Globulin 3.3 g/dL (1.3-4.6); Glomerular Filtration Rate 61.9 mL/min (90-130); Glucose 112 mg/dL (65-115); Osmolality Calculated 286 mOsm/kg (285-295); Potassium 3.8 mmol/L (3.5-5.1); Sodium 137 mmol/L (136-145); Total Bilirubin 0.2 mg/dL (0.15-1.2); Total Protein 6.7 g/dL (6.6-8.7)
[2022-08-11] MEDS: sodium chloride 0.9% (100 ml) 100 ML 300 ML (10:40)
[2022-08-11 11:50] VITALS: BP 118/63; PULSE 99; RESP 16; TEMP 36.4; O2SAT 100
[2022-08-25 08:12] VITALS: BMI 20.5
[2022-08-25 08:23] LABS: Basophils % 0.6 %; Eosinophils # 0.1 10^3/uL (0.0-0.8); Eosinophils % 2.3 %; Hematocrit 30.6 % (37.0-47.0); Hemoglobin 9.8 g/dL (11.5-15.3); Lymphocytes # 0.6 10^3/uL (0.8-4.8); Mean Corpuscular Volume 106.3 fl (81-99); Mean Platelet Volume 9.8 fL (7.4-10.4); Monocytes # 0.6 10^3/uL (0.2-0.9); Monocytes % 12.9 %; Neutrophils % 71.8 %; Nucleated Red Blood Cells % 0 %; Platelet Count 200 10^3/cmm (130-400); Red Blood Count 2.88 10^6/uL (4.1-5.3); Red Cell Distribution Width 19.7 % (12.1-15.1); White Blood Count 4.7 10^3/uL (4.0-10.0)
[2022-08-25 09:00] LABS: Alanine Aminotransferase 12 U/L (0-33); Albumin Level 3.6 g/dL (3.5-5.2); Alkaline Phosphatase 137 U/L (35-105); Anion Gap 14.9 (5-19); Aspartate Amino Transferase 15 U/L (0-32); Blood Urea Nitrogen 22 mg/dL (8-23); Calcium 9.1 mg/dL (8.5-10.5); Carbon Dioxide 26 mmol/L (22-29); Chloride 103 mmol/L (98-107); Globulin 3.3 g/dL (1.3-4.6); Glomerular Filtration Rate 70.9 mL/min (90-130); Glucose 99 mg/dL (65-115); Osmolality Calculated 293 mOsm/kg (285-295); Potassium 3.9 mmol/L (3.5-5.1); Sodium 140 mmol/L (136-145); Thyroid Stimulating Hormone 0.37 uIU/mL (0.27-4.20); Total Bilirubin 0.2 mg/dL (0.15-1.2); Total Protein 6.9 g/dL (6.6-8.7)
[2022-08-25] MEDS: sodium chloride 0.9% 250 ML 75 ML IV (10:26)
[2022-08-25 11:50] VITALS: BP 134/77; PULSE 105; RESP 16; TEMP 36.6; O2SAT 96
[2022-09-08 08:37] LABS: Basophils % 0.8 %; Eosinophils # 0.1 10^3/uL (0.0-0.8); Eosinophils % 2.6 %; Hematocrit 31.7 % (37.0-47.0); Hemoglobin 10.3 g/dL (11.5-15.3); Lymphocytes # 0.8 10^3/uL (0.8-4.8); Lymphocytes % 15.3 %; Mean Corpuscular HGB Conc 32.5 g/dL (30.0-36.0); Mean Corpuscular Hemoglobin 34.6 pg (28.0-34.0); Mean Corpuscular Volume 106.4 fl (81-99); Monocytes # 0.6 10^3/uL (0.2-0.9); Monocytes % 11.3 %; Neutrophils # 3.49 10^3/uL (1.8-7.7); Neutrophils % 69.4 %; Nucleated Red Blood Cells % 0 %; Platelet Count 208 10^3/cmm (130-400); Red Blood Count 2.98 10^6/uL (4.1-5.3); Red Cell Distribution Width 15.9 % (12.1-15.1)
[2022-09-08 09:08] LABS: Alanine Aminotransferase 18 U/L (0-33); Albumin Level 3.3 g/dL (3.5-5.2); Alkaline Phosphatase 137 U/L (35-105); Anion Gap 11.8 (5-19); Aspartate Amino Transferase 20 U/L (0-32); Blood Urea Nitrogen 21 mg/dL (8-23); Calcium 9.4 mg/dL (8.5-10.5); Carbon Dioxide 24 mmol/L (22-29); Chloride 103 mmol/L (98-107); Globulin 3.6 g/dL (1.3-4.6); Glomerular Filtration Rate 54.8 mL/min (90-130); Glucose 101 mg/dL (65-115); Osmolality Calculated 283 mOsm/kg (285-295); Potassium 3.8 mmol/L (3.5-5.1); Sodium 135 mmol/L (136-145); Thyroid Stimulating Hormone 1.68 uIU/mL (0.27-4.20); Total Bilirubin 0.2 mg/dL (0.15-1.2); Total Protein 6.9 g/dL (6.6-8.7)
[2022-09-08] MEDS: sodium chloride 0.9% 250 ML 74 ML IV (10:45)
== END 2022-09-08 23:59 | disposition home or self-care (01) ==
PROVIDERS: Internal Medicine Hematology & Oncology; Nurse Practitioner; PCP Nurse Practitioner Family; Visit Provider Radiology Radiation Oncology
DX: Z51.12 Encounter for antineoplastic immunotherapy (principal); C34.91 Malignant neoplasm of unspecified part of right bronchus or lung
CPT/HCPCS: 80053; 84443; 85025; 96413; 99214; J7050; J9173

== ENCOUNTER 2022-10-06 11:00 | Oncology outpatient (recurring) (ONCR) | payer MEDICARE, SELFPAY ==
[2022-09-22 08:58] LABS: Basophils % 1.1 %; Eosinophils # 0.2 10^3/uL (0.0-0.8); Eosinophils % 5.2 %; Hematocrit 31.9 % (37.0-47.0); Hemoglobin 10.2 g/dL (11.5-15.3); Lymphocytes # 0.7 10^3/uL (0.8-4.8); Lymphocytes % 17.9 %; Mean Corpuscular Hemoglobin 34.5 pg (28.0-34.0); Mean Corpuscular Volume 107.8 fl (81-99); Mean Platelet Volume 9.8 fL (7.4-10.4); Monocytes # 0.4 10^3/uL (0.2-0.9); Monocytes % 12.1 %; Neutrophils # 2.31 10^3/uL (1.8-7.7); Neutrophils % 63.4 %; Nucleated Red Blood Cells % 0 %; Platelet Count 192 10^3/cmm (130-400); Red Blood Count 2.96 10^6/uL (4.1-5.3); Red Cell Distribution Width 13.4 % (12.1-15.1); White Blood Count 3.6 10^3/uL (4.0-10.0)
[2022-09-22 09:09] VITALS: BMI 21.7
[2022-09-22 09:33] LABS: Alanine Aminotransferase 22 U/L (0-33); Albumin Level 3.5 g/dL (3.5-5.2); Alkaline Phosphatase 133 U/L (35-105); Anion Gap 12.9 (5-19); Aspartate Amino Transferase 19 U/L (0-32); Blood Urea Nitrogen 22 mg/dL (8-23); Calcium 9.2 mg/dL (8.5-10.5); Carbon Dioxide 25 mmol/L (22-29); Chloride 105 mmol/L (98-107); Globulin 3.2 g/dL (1.3-4.6); Glomerular Filtration Rate 61.9 mL/min (90-130); Glucose 137 mg/dL (65-115); Osmolality Calculated 293 mOsm/kg (285-295); Potassium 3.9 mmol/L (3.5-5.1); Sodium 139 mmol/L (136-145); Thyroid Stimulating Hormone 2.77 uIU/mL (0.27-4.20); Total Bilirubin 0.3 mg/dL (0.15-1.2); Total Protein 6.7 g/dL (6.6-8.7)
[2022-09-22] MEDS: sodium chloride 0.9% 250 ML 75 ML IV (11:50)
[2022-09-22 13:18] VITALS: BP 139/78; PULSE 95; RESP 16; TEMP 36.2; O2SAT 98
[2022-10-06 10:25] LABS: Basophils % 0.3 %; Eosinophils # 0.1 10^3/uL (0.0-0.8); Eosinophils % 0.9 %; Hematocrit 34.5 % (37.0-47.0); Lymphocytes # 0.6 10^3/uL (0.8-4.8); Lymphocytes % 9.8 %; Mean Corpuscular HGB Conc 31.9 g/dL (30.0-36.0); Mean Corpuscular Hemoglobin 34.3 pg (28.0-34.0); Mean Corpuscular Volume 107.5 fl (81-99); Monocytes # 0.5 10^3/uL (0.2-0.9); Monocytes % 7.6 %; Neutrophils # 5.12 10^3/uL (1.8-7.7); Neutrophils % 80.8 %; Nucleated Red Blood Cells % 0 %; Platelet Count 187 10^3/cmm (130-400); Red Blood Count 3.21 10^6/uL (4.1-5.3); Red Cell Distribution Width 12.7 % (12.1-15.1); White Blood Count 6.3 10^3/uL (4.0-10.0)
[2022-10-06 11:01] LABS: Alanine Aminotransferase 16 U/L (0-33); Albumin Level 3.8 g/dL (3.5-5.2); Alkaline Phosphatase 136 U/L (35-105); Anion Gap 13.7 (5-19); Aspartate Amino Transferase 16 U/L (0-32); Blood Urea Nitrogen 20 mg/dL (8-23); Calcium 9.1 mg/dL (8.5-10.5); Carbon Dioxide 22 mmol/L (22-29); Chloride 101 mmol/L (98-107); Globulin 3.1 g/dL (1.3-4.6); Glomerular Filtration Rate 44.4 mL/min (90-130); Glucose 256 mg/dL (65-115); Osmolality Calculated 287 mOsm/kg (285-295); Potassium 3.7 mmol/L (3.5-5.1); Sodium 133 mmol/L (136-145); Thyroid Stimulating Hormone 12.79 uIU/mL (0.27-4.20); Total Bilirubin 0.2 mg/dL (0.15-1.2); Total Protein 6.9 g/dL (6.6-8.7)
[2022-10-06] MEDS: ipratropium-albuterol 3 mL Neb INHALATION (13:35)
== END 2022-10-08 23:59 | disposition home or self-care (01) ==
PROVIDERS: Internal Medicine Hematology & Oncology; PCP Nurse Practitioner Family; Visit Provider Radiology Radiation Oncology
DX: Z51.12 Encounter for antineoplastic immunotherapy (principal); C34.11 Malignant neoplasm of upper lobe, right bronchus or lung; C77.8 Secondary and unspecified malignant neoplasm of lymph nodes of multiple regions; C78.7 Secondary malignant neoplasm of liver and intrahepatic bile duct; F17.210 Nicotine dependence, cigarettes, uncomplicated; E03.2 Hypothyroidism due to medicaments and other exogenous substances; T45.1X5A Adverse effect of antineoplastic and immunosuppressive drugs, initial encounter; D64.9 Anemia, unspecified; D70.9 Neutropenia, unspecified; R73.9 Hyperglycemia, unspecified; Z79.899 Other long term (current) drug therapy
CPT/HCPCS: 80053; 84443; 85025; 96413; 99214; 99215; J7050; J9173

== ENCOUNTER 2022-11-04 09:30 | Oncology outpatient (recurring) (ONCR) | payer MEDICARE, SELFPAY ==
[2022-10-20 08:18] VITALS: BMI 21.8
[2022-10-20 08:30] LABS: Basophils % 0.6 %; Eosinophils # 0.1 10^3/uL (0.0-0.8); Eosinophils % 1.8 %; Hematocrit 35.6 % (37.0-47.0); Hemoglobin 11.3 g/dL (11.5-15.3); Lymphocytes # 0.8 10^3/uL (0.8-4.8); Lymphocytes % 15.1 %; Mean Corpuscular HGB Conc 31.7 g/dL (30.0-36.0); Mean Corpuscular Hemoglobin 33.5 pg (28.0-34.0); Mean Corpuscular Volume 105.6 fl (81-99); Mean Platelet Volume 10.7 fL (7.4-10.4); Monocytes # 0.5 10^3/uL (0.2-0.9); Monocytes % 8.7 %; Neutrophils # 3.98 10^3/uL (1.8-7.7); Neutrophils % 73.4 %; Nucleated Red Blood Cells % 0 %; Platelet Count 204 10^3/cmm (130-400); Red Blood Count 3.37 10^6/uL (4.1-5.3); Red Cell Distribution Width 12.3 % (12.1-15.1); White Blood Count 5.4 10^3/uL (4.0-10.0)
[2022-10-20 08:58] LABS: Alanine Aminotransferase 26 U/L (0-33); Albumin Level 3.9 g/dL (3.5-5.2); Alkaline Phosphatase 155 U/L (35-105); Anion Gap 13.8 (5-19); Aspartate Amino Transferase 24 U/L (0-32); Blood Urea Nitrogen 21 mg/dL (8-23); Calcium 9.6 mg/dL (8.5-10.5); Carbon Dioxide 23 mmol/L (22-29); Chloride 99 mmol/L (98-107); Glomerular Filtration Rate 49.1 mL/min (90-130); Glucose 254 mg/dL (65-115); Osmolality Calculated 286 mOsm/kg (285-295); Potassium 3.8 mmol/L (3.5-5.1); Sodium 132 mmol/L (136-145); Thyroid Stimulating Hormone 13.44 uIU/mL (0.27-4.20); Total Bilirubin 0.2 mg/dL (0.15-1.2); Total Protein 6.9 g/dL (6.6-8.7)
[2022-10-20] MEDS: sodium chloride 0.9% 250 ML 75 ML IV (11:54)
[2022-10-20 13:09] VITALS: BP 121/70; PULSE 94; RESP 16; TEMP 36.7; O2SAT 98
[2022-11-04 09:25] VITALS: BMI 21.2
[2022-11-04 09:58] LABS: Basophils % 0.3 %; Eosinophils # 0.1 10^3/uL (0.0-0.8); Eosinophils % 0.8 %; Hematocrit 38.9 % (37.0-47.0); Hemoglobin 12.4 g/dL (11.5-15.3); Lymphocytes # 0.6 10^3/uL (0.8-4.8); Lymphocytes % 10.3 %; Mean Corpuscular HGB Conc 31.9 g/dL (30.0-36.0); Mean Corpuscular Hemoglobin 32.9 pg (28.0-34.0); Mean Corpuscular Volume 103.2 fl (81-99); Mean Platelet Volume 10.7 fL (7.4-10.4); Monocytes # 0.6 10^3/uL (0.2-0.9); Monocytes % 9.3 %; Neutrophils # 4.75 10^3/uL (1.8-7.7); Nucleated Red Blood Cells % 0 %; Platelet Count 162 10^3/cmm (130-400); Red Blood Count 3.77 10^6/uL (4.1-5.3); Red Cell Distribution Width 12.5 % (12.1-15.1)
[2022-11-04 10:32] LABS: Alanine Aminotransferase 24 U/L (0-33); Alkaline Phosphatase 149 U/L (35-105); Anion Gap 11.7 (5-19); Aspartate Amino Transferase 23 U/L (0-32); Blood Urea Nitrogen 23 mg/dL (8-23); Carbon Dioxide 25 mmol/L (22-29); Chloride 102 mmol/L (98-107); Globulin 3.2 g/dL (1.3-4.6); Glomerular Filtration Rate 40.5 mL/min (90-130); Glucose 138 mg/dL (65-115); Osmolality Calculated 286 mOsm/kg (285-295); Potassium 3.7 mmol/L (3.5-5.1); Sodium 135 mmol/L (136-145); Thyroid Stimulating Hormone 1.86 uIU/mL (0.27-4.20); Total Bilirubin 0.2 mg/dL (0.15-1.2); Total Protein 7.2 g/dL (6.6-8.7)
[2022-11-04] MEDS: sodium chloride 0.9% 250 ML 75 ML IV (12:00)
[2022-11-04 13:40] VITALS: BP 124/78; PULSE 68; RESP 18; TEMP 36.7; O2SAT 98
== END 2022-11-08 23:59 | disposition home or self-care (01) ==
PROVIDERS: Internal Medicine Hematology & Oncology; Nurse Practitioner; PCP Nurse Practitioner Family; Visit Provider Specialist
DX: Z51.12 Encounter for antineoplastic immunotherapy (principal); C34.11 Malignant neoplasm of upper lobe, right bronchus or lung; C78.7 Secondary malignant neoplasm of liver and intrahepatic bile duct; C77.8 Secondary and unspecified malignant neoplasm of lymph nodes of multiple regions; F17.210 Nicotine dependence, cigarettes, uncomplicated; Z79.899 Other long term (current) drug therapy
CPT/HCPCS: 80053; 84443; 85025; 96413; 99214; J7050; J9173

== ENCOUNTER → 2022-11-20 10:35 | Outpatient (BNVA) | payer MEDICARE, SELFPAY | PROVIDERS: PCP Nurse Practitioner Family; Visit Provider Internal Medicine Hematology & Oncology | DX: D64.9 Anemia, unspecified (principal); E03.9 Hypothyroidism, unspecified; I10 Essential (primary) hypertension | CPT/HCPCS: 84132; 84443 ==

== ENCOUNTER 2022-12-01 08:30 | Oncology outpatient (recurring) (ONCR) | payer MEDICARE, SELFPAY ==
[2022-11-17 09:19] LABS: Basophils % 0.4 %; Eosinophils # 0.1 10^3/uL (0.0-0.8); Eosinophils % 0.9 %; Hematocrit 36.7 % (37.0-47.0); Hemoglobin 11.8 g/dL (11.5-15.3); Lymphocytes # 0.9 10^3/uL (0.8-4.8); Lymphocytes % 13.2 %; Mean Corpuscular HGB Conc 32.2 g/dL (30.0-36.0); Mean Corpuscular Hemoglobin 32.8 pg (28.0-34.0); Mean Corpuscular Volume 101.9 fl (81-99); Mean Platelet Volume 9.9 fL (7.4-10.4); Monocytes # 0.6 10^3/uL (0.2-0.9); Monocytes % 8.8 %; Neutrophils # 5.12 10^3/uL (1.8-7.7); Nucleated Red Blood Cells % 0 %; Platelet Count 208 10^3/cmm (130-400); Red Cell Distribution Width 12.4 % (12.1-15.1); White Blood Count 6.7 10^3/uL (4.0-10.0)
[2022-11-17 09:50] LABS: Alanine Aminotransferase 26 U/L (0-33); Albumin Level 4.2 g/dL (3.5-5.2); Alkaline Phosphatase 137 U/L (35-105); Anion Gap 14.2 (5-19); Aspartate Amino Transferase 25 U/L (0-32); Blood Urea Nitrogen 22 mg/dL (8-23); Calcium 8.8 mg/dL (8.5-10.5); Carbon Dioxide 24 mmol/L (22-29); Chloride 104 mmol/L (98-107); Globulin 2.9 g/dL (1.3-4.6); Glomerular Filtration Rate 54.8 mL/min (90-130); Glucose 87 mg/dL (65-115); Osmolality Calculated 291 mOsm/kg (285-295); Potassium 3.2 mmol/L (3.5-5.1); Sodium 139 mmol/L (136-145); Thyroid Stimulating Hormone 17.44 uIU/mL (0.27-4.20); Total Bilirubin 0.2 mg/dL (0.15-1.2); Total Protein 7.1 g/dL (6.6-8.7)
[2022-11-17 13:56] VITALS: BP 126/74; PULSE 82; RESP 16; TEMP 36.6; O2SAT 97
[2022-12-01 09:32] LABS: Basophils % 0.3 %; Eosinophils # 0.1 10^3/uL (0.0-0.8); Eosinophils % 0.9 %; Hematocrit 35.5 % (37.0-47.0); Hemoglobin 11.4 g/dL (11.5-15.3); Lymphocytes # 0.7 10^3/uL (0.8-4.8); Lymphocytes % 6.9 %; Mean Corpuscular HGB Conc 32.1 g/dL (30.0-36.0); Mean Corpuscular Hemoglobin 32.7 pg (28.0-34.0); Mean Corpuscular Volume 101.7 fl (81-99); Mean Platelet Volume 10.8 fL (7.4-10.4); Monocytes # 0.8 10^3/uL (0.2-0.9); Monocytes % 8.3 %; Neutrophils # 7.79 10^3/uL (1.8-7.7); Neutrophils % 83.3 %; Nucleated Red Blood Cells % 0 %; Platelet Count 198 10^3/cmm (130-400); Red Blood Count 3.49 10^6/uL (4.1-5.3); Red Cell Distribution Width 13.2 % (12.1-15.1); White Blood Count 9.4 10^3/uL (4.0-10.0)
[2022-12-01 10:03] LABS: Alanine Aminotransferase 18 U/L (0-33); Albumin Level 4.1 g/dL (3.5-5.2); Alkaline Phosphatase 147 U/L (35-105); Anion Gap 14.7 (5-19); Aspartate Amino Transferase 18 U/L (0-32); Blood Urea Nitrogen 19 mg/dL (8-23); Calcium 9.1 mg/dL (8.5-10.5); Carbon Dioxide 24 mmol/L (22-29); Chloride 102 mmol/L (98-107); Globulin 3.1 g/dL (1.3-4.6); Glomerular Filtration Rate 54.8 mL/min (90-130); Glucose 81 mg/dL (65-115); Osmolality Calculated 285 mOsm/kg (285-295); Potassium 3.7 mmol/L (3.5-5.1); Sodium 137 mmol/L (136-145); Thyroid Stimulating Hormone 7.41 uIU/mL (0.27-4.20); Total Bilirubin 0.3 mg/dL (0.15-1.2); Total Protein 7.2 g/dL (6.6-8.7)
[2022-12-01 12:45] VITALS: BP 118/69; PULSE 102; RESP 16; TEMP 37; O2SAT 98
== END 2022-12-09 23:59 | disposition home or self-care (01) ==
PROVIDERS: Internal Medicine Hematology & Oncology; PCP Nurse Practitioner Family; Visit Provider Specialist
DX: Z51.12 Encounter for antineoplastic immunotherapy (principal); C34.11 Malignant neoplasm of upper lobe, right bronchus or lung; T45.1X5A Adverse effect of antineoplastic and immunosuppressive drugs, initial encounter; F17.210 Nicotine dependence, cigarettes, uncomplicated; E03.2 Hypothyroidism due to medicaments and other exogenous substances; Z79.899 Other long term (current) drug therapy
CPT/HCPCS: 80053; 84443; 85025; 96413; 99214; J7050; J9173

== ENCOUNTER 2022-12-29 08:30 | Oncology outpatient (recurring) (ONCR) | payer MEDICARE, SELFPAY ==
[2022-12-15 08:44] LABS: Basophils % 0.3 %; Eosinophils # 0.1 10^3/uL (0.0-0.8); Eosinophils % 1.3 %; Hematocrit 35.3 % (37.0-47.0); Hemoglobin 11.2 g/dL (11.5-15.3); Lymphocytes # 0.8 10^3/uL (0.8-4.8); Mean Corpuscular HGB Conc 31.7 g/dL (30.0-36.0); Mean Corpuscular Hemoglobin 32.7 pg (28.0-34.0); Mean Corpuscular Volume 102.9 fl (81-99); Mean Platelet Volume 10.5 fL (7.4-10.4); Monocytes # 0.5 10^3/uL (0.2-0.9); Monocytes % 7.5 %; Neutrophils # 4.89 10^3/uL (1.8-7.7); Neutrophils % 78.4 %; Nucleated Red Blood Cells % 0 %; Platelet Count 229 10^3/cmm (130-400); Red Blood Count 3.43 10^6/uL (4.1-5.3); Red Cell Distribution Width 13.7 % (12.1-15.1); White Blood Count 6.2 10^3/uL (4.0-10.0)
[2022-12-15 08:45] VITALS: BMI 21.2
[2022-12-15 09:14] LABS: Alanine Aminotransferase 23 U/L (0-33); Albumin Level 3.9 g/dL (3.5-5.2); Alkaline Phosphatase 134 U/L (35-105); Anion Gap 12.6 (5-19); Aspartate Amino Transferase 23 U/L (0-32); Blood Urea Nitrogen 16 mg/dL (8-23); Carbon Dioxide 24 mmol/L (22-29); Chloride 102 mmol/L (98-107); Globulin 2.7 g/dL (1.3-4.6); Glomerular Filtration Rate 49.1 mL/min (90-130); Glucose 136 mg/dL (65-115); Osmolality Calculated 283 mOsm/kg (285-295); Potassium 3.6 mmol/L (3.5-5.1); Sodium 135 mmol/L (136-145); Thyroid Stimulating Hormone 1.07 uIU/mL (0.27-4.20); Total Bilirubin 0.3 mg/dL (0.15-1.2); Total Protein 6.6 g/dL (6.6-8.7)
[2022-12-15 12:00] VITALS: BP 116/68; PULSE 87; RESP 16; TEMP 36.4; O2SAT 97
[2022-12-29 08:39] LABS: Basophils % 0.5 %; Eosinophils # 0.1 10^3/uL (0.0-0.8); Eosinophils % 1.8 %; Hemoglobin 11.5 g/dL (11.5-15.3); Lymphocytes # 0.9 10^3/uL (0.8-4.8); Lymphocytes % 15.6 %; Mean Corpuscular HGB Conc 31.9 g/dL (30.0-36.0); Mean Corpuscular Volume 103.4 fl (81-99); Mean Platelet Volume 10.1 fL (7.4-10.4); Monocytes # 0.5 10^3/uL (0.2-0.9); Monocytes % 9.5 %; Neutrophils # 4.11 10^3/uL (1.8-7.7); Neutrophils % 72.1 %; Nucleated Red Blood Cells % 0 %; Platelet Count 248 10^3/cmm (130-400); Red Blood Count 3.48 10^6/uL (4.1-5.3); White Blood Count 5.7 10^3/uL (4.0-10.0)
[2022-12-29 09:02] LABS: Alanine Aminotransferase 19 U/L (0-33); Albumin Level 3.8 g/dL (3.5-5.2); Alkaline Phosphatase 135 U/L (35-105); Anion Gap 16.5 (5-19); Aspartate Amino Transferase 20 U/L (0-32); Blood Urea Nitrogen 20 mg/dL (8-23); Calcium 9.3 mg/dL (8.5-10.5); Carbon Dioxide 22 mmol/L (22-29); Chloride 107 mmol/L (98-107); Globulin 3.1 g/dL (1.3-4.6); Glomerular Filtration Rate 49.1 mL/min (90-130); Glucose 69 mg/dL (65-115); Osmolality Calculated 295 mOsm/kg (285-295); Potassium 3.5 mmol/L (3.5-5.1); Sodium 142 mmol/L (136-145); Thyroid Stimulating Hormone 5.28 uIU/mL (0.27-4.20); Total Bilirubin 0.2 mg/dL (0.15-1.2); Total Protein 6.9 g/dL (6.6-8.7)
[2022-12-29 12:30] VITALS: BP 128/74; PULSE 86; RESP 16; TEMP 36.2; O2SAT 98
== END 2023-01-06 23:59 | disposition home or self-care (01) ==
PROVIDERS: Internal Medicine Hematology & Oncology; PCP Nurse Practitioner Family; Visit Provider Specialist
DX: Z51.12 Encounter for antineoplastic immunotherapy (principal); C34.11 Malignant neoplasm of upper lobe, right bronchus or lung; C77.2 Secondary and unspecified malignant neoplasm of intra-abdominal lymph nodes; C78.7 Secondary malignant neoplasm of liver and intrahepatic bile duct; F17.210 Nicotine dependence, cigarettes, uncomplicated; E03.2 Hypothyroidism due to medicaments and other exogenous substances; F41.9 Anxiety disorder, unspecified; Z79.899 Other long term (current) drug therapy; T45.1X5A Adverse effect of antineoplastic and immunosuppressive drugs, initial encounter; R53.83 Other fatigue; Z95.828 Presence of other vascular implants and grafts
CPT/HCPCS: 80053; 84443; 85025; 96413; 99214; J7050; J9173

== ENCOUNTER 2023-01-10 06:38 | Outpatient (CLI) | payer MEDICARE, SELFPAY ==
--- NOTE | 2023-01-10 12:30 | PETR_ITS ---
PROCEDURE INFORMATION: Exam: PET/CT Skull Base to Mid-thigh Exam date and time: 01/10/2023 12:38 PM Age: 73 years old Clinical indication: Condition or disease; Primary cancer: Lung cancer; Follow-up oncological assessment; Additional info: C34.91 - malignant neoplasm of unspecified part of right . . . LABS AND CLINICAL REPORTS: Glucose: 178 mg/dl Treatment strategy for malignancy (PET staging): Restaging (PS) TECHNIQUE: Imaging protocol: Following at least four-hour fasting and following the injection of F-18-FDG, low dose CT images were obtained. Then, PET images were obtained. Attenuation corrected images were constructed using the CT scan. Fused images of PET and CT were reviewed. The standardized uptake values (SUV) reported below are maximum values within a region of interest, expressed in gm/ml. Exam includes orbital meatal line to mid-thigh. Radiopharmaceutical: 13.69 mCi F-18 FDG (Fluorodeoxyglucose), IV. Time of imaging post radiopharmaceutical administration: 1 hour Injection site: Left antecubital COMPARISON: CT chest 08/06/2022, PT PET Scan 04/28/2022 2:01 PM, CT abdomen and pelvis 05/13/2022 FINDINGS: Limitations: The reported injection to scan time on the prior PET-CT of 04/28/2022 utilized for calculation of initial SUV values was outside of recommended parameters (45-75 minutes) which can result in decreased PET sensitivity and limits the utility of comparison of SUV values to the prior exam. Utilizing information from the technologist worksheet from 04/28/2022 appears the correct injection to scan time was 50 minutes (injection time reported as 1310 and scan time as 1400). Subsequently, SUV values on the PET-CT of 04/28/2022 where recalculated using a corrected injection to scan time of 50 minutes which correspond to the SUV values on the prior exam referenced in the report below. Tubes, catheters and devices: A right internal jugular central venous port catheter terminates in the SVC. Brain: Visualized brain has normal physiologic uptake. Pharynx: No abnormal uptake. Larynx: No abnormal uptake. Lungs, pleura and trachea: Pleural based medial right upper lobe spiculated soft tissue density mass currently measures 3.0 x 2.1 cm on series 3, image 42, SUV max 2.5 (recalculated on the prior PET-CT with an SUV max 14.9). This lesion previously measured 3.4 x 2.8 cm in the axial plane on the CT from 08/06/2022 and measuring approximately 4.6 x 4.7 cm on the prior PET-CT (remeasured on the prior examinations using a measurement technique comparable to the current measurement technique). Mild non radiotracer avid interstitial prominence in the right upper lobe is noted. Streaky linear density in the anteromedial left upper lobe is compatible with scarring. Heart: Normal physiologic uptake. Mediastinal space: No abnormal uptake. Liver: No abnormal uptake. Gallbladder and bile ducts: No abnormal uptake. Cholecystectomy clips are present. Pancreas: No abnormal uptake. Spleen: No abnormal uptake. Adrenal glands: No abnormal uptake. Kidneys and ureters: Moderate atrophy of the left kidney is noted. No evidence of radiotracer excretion into the left intrarenal collecting system during the course of the exam. Physiologic appearing activity is noted in the right kidney with excretion of radiotracer into the intrarenal collecting system. Rounded low-density structures within the right kidney are consistent with simple cysts for example measuring 2.4 cm in diameter in the inferior pole. Stomach and bowel: No abnormal uptake. Vasculature: No abnormal uptake. There are diffuse atherosclerotic changes including within the coronary arteries. Lymph nodes: No abnormal uptake. Significant interval decrease in size of lymph nodes compared to the prior PET-CT, similar in size compared with 08/06/2022. Example: A mildly prominent precarinal lymph node measures 1.7 cm in diameter on series 3, image 49 (similar to the comparison CT from 08/06/2022) is significantly decreased in size since the prior PET-CT where it measured approximately 3.8 x 3.4 cm (with a recalculated SUV max 7.8 on the prior PET-CT). No additional enlarged lymph nodes are identified. Bones/joints: No abnormal uptake in the visualized axial and appendicular skeleton. The bones appear demineralized. Degenerative spondylosis in the spine is noted. Moderate curvature of the lumbar spine convex to the left is present. There are bilateral L3 laminectomies. Anterior metallic fusion from C5 through C7 is noted. Soft tissues: No abnormal uptake in the visualized head, neck, chest, abdomen, pelvis, and extremities. METRICS: Mediastinal blood pool: SUV max 2.5 Liver uptake: SUV max 3.2, SUV mean 2.8 [facility] [id number] IMPRESSION: 1. A medial right upper lobe mass is slightly decreased in size compared with 08/06/2022 and significantly decreased in size compared with 04/28/2022. Mild uptake within the lesion (SUV max 2.5) is the same as background mediastinal blood pool activity which is significantly decreased since the prior PET-CT and suggestive of interval response to therapy with probable residual post treatment inflammatory changes. A minimal degree of residual neoplastic involvement cannot be excluded. 2. Significant interval decrease in size of mediastinal lymph nodes since the prior PET-CT. Residual mild prominence of mediastinal lymph nodes are similar to 07/29 with no current abnormal uptake consistent with an interval response to therapy. 3. Simple appearing right renal cysts, further characterized on the dedicated CT abdomen and pelvis of 05/13/2022. Moderate atrophy of the left kidney is noted with evidence of asymmetric decreased function compared with the right. 4. Additional nonurgent findings as detailed above.
== END 2023-01-10 06:39 | disposition home or self-care (01) ==
PROVIDERS: PCP Nurse Practitioner Family; Visit Provider Internal Medicine Hematology & Oncology
DX: C34.91 Malignant neoplasm of unspecified part of right bronchus or lung (principal)
CPT/HCPCS: 78815; A9552

== ENCOUNTER 2023-01-20 09:30 | Oncology outpatient (recurring) (ONCR) | payer MEDICARE, SELFPAY ==
[2023-01-13 09:00] LABS: Basophils % 0.6 %; Eosinophils # 0.1 10^3/uL (0.0-0.8); Eosinophils % 1.2 %; Hematocrit 35.8 % (37.0-47.0); Hemoglobin 11.3 g/dL (11.5-15.3); Lymphocytes # 0.8 10^3/uL (0.8-4.8); Lymphocytes % 11.5 %; Mean Corpuscular HGB Conc 31.6 g/dL (30.0-36.0); Mean Corpuscular Hemoglobin 32.6 pg (28.0-34.0); Mean Corpuscular Volume 103.2 fl (81-99); Mean Platelet Volume 10.6 fL (7.4-10.4); Monocytes # 0.6 10^3/uL (0.2-0.9); Monocytes % 8.5 %; Neutrophils % 77.6 %; Nucleated Red Blood Cells % 0 %; Platelet Count 211 10^3/cmm (130-400); Red Blood Count 3.47 10^6/uL (4.1-5.3); Red Cell Distribution Width 13.8 % (12.1-15.1); White Blood Count 7.2 10^3/uL (4.0-10.0)
[2023-01-13 09:29] LABS: Alanine Aminotransferase 22 U/L (0-33); Albumin Level 3.8 g/dL (3.5-5.2); Alkaline Phosphatase 115 U/L (35-105); Anion Gap 15.7 (5-19); Aspartate Amino Transferase 22 U/L (0-32); Blood Urea Nitrogen 23 mg/dL (8-23); Calcium 9.1 mg/dL (8.5-10.5); Carbon Dioxide 23 mmol/L (22-29); Chloride 106 mmol/L (98-107); Globulin 3.1 g/dL (1.3-4.6); Glucose 82 mg/dL (65-115); Osmolality Calculated 295 mOsm/kg (285-295); Potassium 3.7 mmol/L (3.5-5.1); Sodium 141 mmol/L (136-145); Thyroid Stimulating Hormone 1.97 uIU/mL (0.27-4.20); Total Bilirubin 0.2 mg/dL (0.15-1.2); Total Protein 6.9 g/dL (6.6-8.7)
[2023-01-20 09:37] LABS: Basophils % 0.7 %; Eosinophils # 0.1 10^3/uL (0.0-0.8); Eosinophils % 2.2 %; Hematocrit 36.4 % (37.0-47.0); Hemoglobin 11.4 g/dL (11.5-15.3); Lymphocytes # 0.8 10^3/uL (0.8-4.8); Lymphocytes % 14.5 %; Mean Corpuscular HGB Conc 31.3 g/dL (30.0-36.0); Mean Corpuscular Volume 102.2 fl (81-99); Mean Platelet Volume 10.8 fL (7.4-10.4); Monocytes # 0.5 10^3/uL (0.2-0.9); Monocytes % 9.1 %; Neutrophils # 4.21 10^3/uL (1.8-7.7); Neutrophils % 72.6 %; Nucleated Red Blood Cells % 0 %; Platelet Count 220 10^3/cmm (130-400); Red Blood Count 3.56 10^6/uL (4.1-5.3); Red Cell Distribution Width 13.6 % (12.1-15.1); White Blood Count 5.8 10^3/uL (4.0-10.0)
[2023-01-20 09:48] LABS: Alanine Aminotransferase 28 U/L (0-33); Albumin Level 3.9 g/dL (3.5-5.2); Alkaline Phosphatase 138 U/L (35-105); Aspartate Amino Transferase 25 U/L (0-32); Blood Urea Nitrogen 18 mg/dL (8-23); Calcium 9.3 mg/dL (8.5-10.5); Carbon Dioxide 24 mmol/L (22-29); Chloride 105 mmol/L (98-107); Globulin 3.2 g/dL (1.3-4.6); Glucose 269 mg/dL (65-115); Osmolality Calculated 299 mOsm/kg (285-295); Sodium 139 mmol/L (136-145); Total Bilirubin 0.2 mg/dL (0.15-1.2); Total Protein 7.1 g/dL (6.6-8.7)
[2023-01-20] MEDS: sodium chloride 0.9% 250 ML 75 ML IV (11:48)
[2023-01-20 13:48] VITALS: BP 124/72; PULSE 85
== END 2023-02-06 23:59 | disposition home or self-care (01) ==
PROVIDERS: Internal Medicine Hematology & Oncology; Nurse Practitioner; Absent Provider Nurse Practitioner Family; PCP Nurse Practitioner Family
DX: Z51.12 Encounter for antineoplastic immunotherapy (principal); C34.11 Malignant neoplasm of upper lobe, right bronchus or lung; C77.8 Secondary and unspecified malignant neoplasm of lymph nodes of multiple regions; N28.1 Cyst of kidney, acquired; F17.210 Nicotine dependence, cigarettes, uncomplicated; E03.9 Hypothyroidism, unspecified; Z79.899 Other long term (current) drug therapy; N28.89 Other specified disorders of kidney and ureter
CPT/HCPCS: 80053; 84439; 84443; 85025; 96413; 96415; 99214; J7050; J9173

== ENCOUNTER 2023-02-24 09:00 | Oncology outpatient (recurring) (ONCR) | payer MEDICARE, SELFPAY ==
[2023-02-10 08:13] VITALS: BP 124/61; PULSE 94; RESP 16; TEMP 36.7; O2SAT 98
[2023-02-10 08:32] LABS: Basophils % 0.6 %; Eosinophils # 0.1 10^3/uL (0.0-0.8); Eosinophils % 1.8 %; Hematocrit 36.2 % (37.0-47.0); Hemoglobin 11.6 g/dL (11.5-15.3); Lymphocytes # 0.8 10^3/uL (0.8-4.8); Lymphocytes % 11.9 %; Mean Corpuscular Hemoglobin 33.4 pg (28.0-34.0); Mean Corpuscular Volume 104.3 fl (81-99); Mean Platelet Volume 10.3 fL (7.4-10.4); Monocytes # 0.6 10^3/uL (0.2-0.9); Monocytes % 8.5 %; Neutrophils # 5.44 10^3/uL (1.8-7.7); Neutrophils % 76.8 %; Nucleated Red Blood Cells % 0 %; Platelet Count 218 10^3/cmm (130-400); Red Blood Count 3.47 10^6/uL (4.1-5.3); Red Cell Distribution Width 13.3 % (12.1-15.1); White Blood Count 7.1 10^3/uL (4.0-10.0)
[2023-02-10 09:13] LABS: Alanine Aminotransferase 26 U/L (0-33); Alkaline Phosphatase 120 U/L (35-105); Anion Gap 14.9 (5-19); Aspartate Amino Transferase 23 U/L (0-32); Blood Urea Nitrogen 18 mg/dL (8-23); Calcium 8.8 mg/dL (8.5-10.5); Carbon Dioxide 23 mmol/L (22-29); Chloride 110 mmol/L (98-107); Glucose 87 mg/dL (65-115); Osmolality Calculated 299 mOsm/kg (285-295); Potassium 3.9 mmol/L (3.5-5.1); Sodium 144 mmol/L (136-145); Total Bilirubin 0.2 mg/dL (0.15-1.2)
[2023-02-10 12:56] VITALS: BP 115/71; PULSE 91; RESP 16; TEMP 35.9; O2SAT 97
[2023-02-24 08:37] VITALS: BP 109/69; PULSE 106; RESP 16; TEMP 35.7; O2SAT 95
[2023-02-24 09:09] LABS: Basophils % 0.7 %; Eosinophils # 0.2 10^3/uL (0.0-0.8); Eosinophils % 3.3 %; Hematocrit 35.6 % (37.0-47.0); Hemoglobin 11.4 g/dL (11.5-15.3); Lymphocytes # 1.6 10^3/uL (0.8-4.8); Lymphocytes % 28.9 %; Mean Corpuscular Hemoglobin 32.7 pg (28.0-34.0); Mean Platelet Volume 10.7 fL (7.4-10.4); Monocytes # 0.5 10^3/uL (0.2-0.9); Monocytes % 9.6 %; Neutrophils # 3.14 10^3/uL (1.8-7.7); Nucleated Red Blood Cells % 0 %; Platelet Count 214 10^3/cmm (130-400); Red Blood Count 3.49 10^6/uL (4.1-5.3); Red Cell Distribution Width 12.9 % (12.1-15.1); White Blood Count 5.5 10^3/uL (4.0-10.0)
[2023-02-24 09:27] LABS: Alanine Aminotransferase 99 U/L (0-33); Albumin Level 3.9 g/dL (3.5-5.2); Alkaline Phosphatase 124 U/L (35-105); Anion Gap 13.5 (5-19); Aspartate Amino Transferase 100 U/L (0-32); Blood Urea Nitrogen 31 mg/dL (8-23); Calcium 8.5 mg/dL (8.5-10.5); Carbon Dioxide 24 mmol/L (22-29); Chloride 107 mmol/L (98-107); Creatinine Clr Calc Pharmacy 38.1054; Globulin 2.9 g/dL (1.3-4.6); Glucose 67 mg/dL (65-115); Osmolality Calculated 297 mOsm/kg (285-295); Potassium 3.5 mmol/L (3.5-5.1); Sodium 141 mmol/L (136-145); Total Bilirubin 0.2 mg/dL (0.15-1.2); Total Protein 6.8 g/dL (6.6-8.7)
[2023-02-24 09:28] LABS: Thyroid Stimulating Hormone 1.65 uIU/mL (0.27-4.20)
== END 2023-03-08 23:59 | disposition home or self-care (01) ==
PROVIDERS: Nurse Practitioner Family; PCP Nurse Practitioner Family; Visit Provider Internal Medicine Hematology & Oncology
DX: C34.11 Malignant neoplasm of upper lobe, right bronchus or lung; C77.8 Secondary and unspecified malignant neoplasm of lymph nodes of multiple regions; C78.7 Secondary malignant neoplasm of liver and intrahepatic bile duct; N26.1 Atrophy of kidney (terminal); F17.210 Nicotine dependence, cigarettes, uncomplicated; E03.9 Hypothyroidism, unspecified; R74.01 Elevation of levels of liver transaminase levels; Z79.899 Other long term (current) drug therapy
CPT/HCPCS: 80053; 84443; 85025; 96413; 99214; J7050; J9173

== ENCOUNTER 2023-03-24 09:30 | Oncology outpatient (recurring) (ONCR) | payer MEDICARE, SELFPAY ==
[2023-03-10 09:15] VITALS: BP 144/79; PULSE 101; RESP 18; TEMP 36.8; O2SAT 97
[2023-03-10 09:17] LABS: Basophils # 0.1 10^3/uL (0.0-0.1); Eosinophils # 0.2 10^3/uL (0.0-0.8); Eosinophils % 2.9 %; Hematocrit 35.8 % (37.0-47.0); Hemoglobin 11.5 g/dL (11.5-15.3); Lymphocytes % 19.2 %; Mean Corpuscular HGB Conc 32.1 g/dL (30.0-36.0); Mean Corpuscular Hemoglobin 32.2 pg (28.0-34.0); Mean Corpuscular Volume 100.3 fl (81-99); Mean Platelet Volume 10.6 fL (7.4-10.4); Monocytes # 0.5 10^3/uL (0.2-0.9); Monocytes % 9.6 %; Neutrophils # 3.49 10^3/uL (1.8-7.7); Neutrophils % 66.9 %; Nucleated Red Blood Cells % 0 %; Platelet Count 191 10^3/cmm (130-400); Red Blood Count 3.57 10^6/uL (4.1-5.3); Red Cell Distribution Width 12.7 % (12.1-15.1); White Blood Count 5.2 10^3/uL (4.0-10.0)
[2023-03-10 09:43] LABS: Alanine Aminotransferase 55 U/L (0-33); Alkaline Phosphatase 136 U/L (35-105); Anion Gap 14.9 (5-19); Aspartate Amino Transferase 31 U/L (0-32); Blood Urea Nitrogen 29 mg/dL (8-23); Calcium 9.3 mg/dL (8.5-10.5); Carbon Dioxide 23 mmol/L (22-29); Chloride 104 mmol/L (98-107); Globulin 2.9 g/dL (1.3-4.6); Glucose 165 mg/dL (65-115); Osmolality Calculated 296 mOsm/kg (285-295); Potassium 3.9 mmol/L (3.5-5.1); Sodium 138 mmol/L (136-145); Thyroid Stimulating Hormone 3.88 uIU/mL (0.27-4.20); Total Bilirubin 0.2 mg/dL (0.15-1.2); Total Protein 6.9 g/dL (6.6-8.7)
[2023-03-10] MEDS: sodium chloride 0.9% 250 ML 75 ML IV (10:55)
[2023-03-10 12:23] VITALS: BP 139/82; PULSE 90; RESP 18; TEMP 37; O2SAT 97
[2023-03-24 10:28] VITALS: BP 107/67; PULSE 97; RESP 16; TEMP 36.3; O2SAT 98
[2023-03-24 12:30] VITALS: BP 123/75; PULSE 90; RESP 16; TEMP 36.3; O2SAT 99
== END 2023-03-24 23:59 | disposition home or self-care (01) ==
PROVIDERS: PCP Nurse Practitioner Family; Visit Provider Internal Medicine Hematology & Oncology
DX: Z51.12 Encounter for antineoplastic immunotherapy (principal); C34.11 Malignant neoplasm of upper lobe, right bronchus or lung
CPT/HCPCS: 80053; 84443; 85025; 96375; 96413; 99213; J1642; J7050; J9173

== ENCOUNTER 2023-04-07 09:00 | Oncology outpatient (recurring) (ONCR) | payer MEDICARE, SELFPAY ==
[2023-04-07 09:03] VITALS: BP 129/76; PULSE 98; RESP 16; TEMP 35.7; O2SAT 98
[2023-04-07 09:26] LABS: Basophils # 0.1 10^3/uL (0.0-0.1); Basophils % 0.7 %; Eosinophils # 0.1 10^3/uL (0.0-0.8); Eosinophils % 1.2 %; Hematocrit 36.1 % (37.0-47.0); Hemoglobin 11.4 g/dL (11.5-15.3); Lymphocytes # 0.7 10^3/uL (0.8-4.8); Lymphocytes % 9.5 %; Mean Corpuscular HGB Conc 31.6 g/dL (30.0-36.0); Mean Corpuscular Hemoglobin 32.2 pg (28.0-34.0); Mean Platelet Volume 10.8 fL (7.4-10.4); Monocytes # 0.6 10^3/uL (0.2-0.9); Monocytes % 7.9 %; Neutrophils # 5.55 10^3/uL (1.8-7.7); Neutrophils % 80.1 %; Nucleated Red Blood Cells % 0 %; Platelet Count 197 10^3/cmm (130-400); Red Blood Count 3.54 10^6/uL (4.1-5.3); Red Cell Distribution Width 13.2 % (12.1-15.1); White Blood Count 6.9 10^3/uL (4.0-10.0)
[2023-04-07 09:50] LABS: Alanine Aminotransferase 49 U/L (0-33); Albumin Level 3.9 g/dL (3.5-5.2); Alkaline Phosphatase 123 U/L (35-105); Anion Gap 13.7 (5-19); Aspartate Amino Transferase 34 U/L (0-32); Blood Urea Nitrogen 34 mg/dL (8-23); Calcium 8.8 mg/dL (8.5-10.5); Carbon Dioxide 24 mmol/L (22-29); Chloride 105 mmol/L (98-107); Globulin 2.8 g/dL (1.3-4.6); Glucose 187 mg/dL (65-115); Osmolality Calculated 301 mOsm/kg (285-295); Potassium 3.7 mmol/L (3.5-5.1); Sodium 139 mmol/L (136-145); Thyroid Stimulating Hormone 18.03 uIU/mL (0.27-4.20); Total Bilirubin 0.2 mg/dL (0.15-1.2); Total Protein 6.7 g/dL (6.6-8.7)
[2023-04-07 12:26] VITALS: BP 138/78; PULSE 94; RESP 16; TEMP 36.3; O2SAT 99
== END 2023-04-08 23:59 | disposition home or self-care (01) ==
PROVIDERS: Nurse Practitioner Family; PCP Nurse Practitioner Family; Visit Provider Internal Medicine Hematology & Oncology
DX: Z51.12 Encounter for antineoplastic immunotherapy (principal); C34.11 Malignant neoplasm of upper lobe, right bronchus or lung; I10 Essential (primary) hypertension; Z79.899 Other long term (current) drug therapy; C77.8 Secondary and unspecified malignant neoplasm of lymph nodes of multiple regions; C78.7 Secondary malignant neoplasm of liver and intrahepatic bile duct; F17.210 Nicotine dependence, cigarettes, uncomplicated; E03.9 Hypothyroidism, unspecified; R11.2 Nausea with vomiting, unspecified
CPT/HCPCS: 80053; 84443; 85025; 96375; 96413; 99214; J1642; J7050; J9173

== ENCOUNTER 2023-04-18 15:41 | Emergency (ER) | payer MEDICARE, SELFPAY ==
[2023-04-18 15:57] VITALS: BP 147/75; PULSE 109; RESP 14; TEMP 36.5; O2SAT 98
[2023-04-18 17:00] VITALS: BP 140/86; RESP 18; O2SAT 98
--- NOTE | 2023-04-18 17:11 | CTR_ITS ---
PROCEDURE INFORMATION: Exam: CT Abdomen And Pelvis With Contrast Exam date and time: 04/18/2023 6:23 PM Age: 73 years old Clinical indication: Abdominal pain; Localized; Left lower quadrant (llq); Prior surgery; Surgery date: 6+ months; Surgery type: Gb, appy; Additional info: Llq abd pain, HX diverticulitis TECHNIQUE: Imaging protocol: Computed tomography of the abdomen and pelvis with contrast. Radiation optimization: All CT scans at this facility use at least one of these dose optimization techniques: automated exposure control; mA and/or kV adjustment per patient size (includes targeted exams where dose is matched to clinical indication); or iterative reconstruction. Contrast material: OMNI 350; Contrast volume: 100 ml; Contrast route: INTRAVENOUS (IV); REPORTING DATA: Count of CT and Cardiac NM exams in prior 12 months: This patient has received 6 known CTs and 0 known cardiac nuclear medicine studies in the 12 months prior to the current study. COMPARISON: 1. PT PET [facility] SUBSEQ [id number] 01/10/2023 12:[address] abdomen w con* [id number] 05/13/2022 9:45 AM RADIATION DOSE METRICS: Total DLP (mGy-cm): 394.68 FINDINGS: Lungs: History of lung cancer on prior PET CT exam report. Normal heart size with coronary calcification. Liver: Normal. No mass. Gallbladder and bile ducts: Cholecystectomy clips. No abnormal bile duct dilatation. Pancreas: Normal. No ductal dilation. Spleen: Normal. No splenomegaly. Adrenal glands: Normal. No mass. Kidneys and ureters: Left renal atrophy. No hydronephrosis or suspicious mass on either side. Small simple renal cysts bilaterally, the largest measuring 2.8 cm in the right lower pole and a few mm in the left kidney. A few punctate nonobstructing left renal calculi and/or arterial calcifications are noted. No hydronephrosis or obstructing calculi on either side. Stomach and bowel: There is probable mild duodenal wall thickening. No bowel obstruction, pneumatosis or other suspicious bowel wall thickening. Moderate amount of fecal retention. No obvious bowel dilatation, pneumatosis or other suspicious bowel wall thickening . Appendix: Prior appendectomy. Intraperitoneal space: Unremarkable. No free air. No significant fluid collection. Vasculature: Diffuse arterial calcifications without aortic aneurysm. Lymph nodes: No enlarged lymph nodes. Urinary bladder: Unremarkable as visualized. Reproductive: Unremarkable as visualized. Bones/joints: A few punctate sclerotic foci in the bony pelvis and proximal right femur similar to prior exam. No acute osseous findings otherwise. Osteopenia.. Leftward lumbar spine scoliosis. Soft tissues: No acute findings. CT/CT abdomen pelvis w con* [id number] IMPRESSION: 1. Mild duodenal wall thickening which may represent duodenitis. Follow-up should be obtained. 2. Otherwise no acute findings or obvious metastatic disease in the abdomen/pelvis. Other nonacute findings as described. COMMENTS: Consistent with the [employer]'s Incidental Findings Committee white paper (J Am Loni Radiol 2018): Any incidental renal lesion less than 1 cm or classified as too small to characterize, or any incidental cystic renal lesion characterized as simple-appearing, is likely benign. No follow-up imaging is recommended for these lesions per consensus recommendations based on imaging criteria.
--- NOTE | 2023-04-18 17:44 | W.ED.ABDPA2 ---
HPI - Abdominal Pain General: Chief Complaint: Abdominal Pain Stated Complaint: LLQ abd and back pain Time Seen by Provider: 04/18/23 17:10 History of Present Illness: Patient presents to the ER with complaints of left lower quadrant abdominal pain that radiates into her back. Patient says this feels like with time she had diverticulitis before. This is been going on for least 2 days and is getting worse. She was treated with oral antibiotics that time and got better and then was several years ago. Patient Nuys any nausea vomiting diarrhea at this time. Review of Systems General: Reports: 10 or more systems reviewed and unremarkable except in HPI and below PFSH ED PFSH: Medical History Abnormal ankle brachial index (RAYMUNDO) Cancer of right lung History of diabetes mellitus History of hypertension History of hypothyroidism Hx of chronic kidney disease Hx of degenerative disc disease Hx of hyperlipidemia Hx of obesity Hx of osteoarthritis Hx of recurrent urinary tract infection Hx of smoking Rupture of colon Surgical History History of appendectomy 1957 History of back surgery History of cholecystectomy 1995 Hx of colonoscopy 10 yrs ago Hx of neck surgery Port-A-Cath in place Family History Father Hypertension CAD (coronary artery disease) Chronic kidney disease (CKD) Diabetes Mother Cancer Lung disease Grandfather Stroke Denies family history of Clotting disorder Dementia Suicide Anesthesia complication Bleeding disorder Social History Smoking and tobacco status: former smoker (smoked x 50 years) Alcohol intake: never Substance/Drug Use: never Physical Exam Const: COMMON NORMALS: no acute distress, average body habitus, patient oriented x3, no limitations, healthy appearing, alert and well nourished HENMT: COMMON NORMALS: normocephalic, atraumatic, hearing grossly normal bilaterally, external ears normal, Normal external nose present and moist oral mucous membranes HEAD & SCALP: normocephalic and atraumatic NOSE: Normal external nose present EXTERNAL EAR: Yes external ears normal Eye: COMMON NORMALS: Equal, round and reactive pupils present, EOMs intact bilaterally, conjunctivae normal and no scleral icterus CONJUNCTIVA: Yes conjunctivae normal PUPIL: Yes Equal, round and reactive pupils present Neck/C-Spine: COMMON NORMALS: full ROM, no lymphadenopathy, supple, no meningeal signs, no JVD and Thyroid normal THYROID: Thyroid normal Lymph: LYMPHATIC: no lymphadenopathy noted Chest: COMMONS NORMALS: normal inspection of the chest and normal palpation of entire chest wall Resp: COMMON NORMALS: normal respiratory effort, No retractions, No use of accessory muscles and clear to auscultation bilaterally AUSCULTATION: clear to auscultation bilaterally Cardio: COMMON NORMALS: no JVD, regular rate, regular rhythm, S1 normal heart sound present, S2 normal heart sound present, No gallops present (Cardio), No clicks present (Cardio), No murmurs present (Cardio) and No rub (Cardio) RATE: regular rate RHYTHM: regular rhythm HEART SOUNDS: S1 normal heart sound present and S2 normal heart sound present GI: COMMON NORMALS: Normal to inspection, nondistended, normoactive bowel sounds present, Soft to palpation, No hepatosplenomegaly present, no masses and no bruits PALPATION: Yes Soft to palpation and Yes No hepatosplenomegaly present OTHER: Tender to palpate over left lower quadrant. : COMMON NORMALS: Yes no CVA tenderness BLADDER/KIDNEY EXAM: Yes no CVA tenderness Back/Pelvis: COMMON NORMALS: no CVA tenderness Neuro: COMMON NORMALS: patient oriented x3 SENSORIUM/ORIENTATION: Yes alert MENINGEAL SIGNS: Yes no meningeal signs Course Vital Signs: Vital signs: Vital Signs Temperature 97.7 F 04/18/23 15:57 Pulse Rate 89 04/18/23 19:11 Respiratory Rate 16 04/18/23 19:11 Blood Pressure 142/68 04/18/23 19:11 Pulse Oximetry 95 04/18/23 19:11 Oxygen Delivery Me thod Room Air 04/18/23 18:00 MDM - Abdominal Pain Medical Decision Making Patient presents today with left lower quadrant abdominal pain similar to her diverticulitis episode approximately 2 years ago. Patient denies any nausea vomiting diarrhea at this moment. Lab work was obtained which is prebenign other than a sodium 133 BUN/creatinine of [address] with contrast of her abdomen pelvis was obtained which showed mild duodenal wall thickening which may represent duodenitis otherwise negative. These findings was discussed with the patient in detail patient elected to go home and follow-up on an as-needed basis. Differential Diagnosis Likely abdominal pain and diverticulitis; Unlikely acute appendicitis, calculus of kidney, constipation, endometriosis, gastroenteritis, pancreatitis or small bowel obstruction Medical Records I reviewed the patient's medical records. Lab Data I reviewed the patient's lab results. 04/18/23 17:40 04/18/23 17:40 Labs/Radiology: Radiology Impressions Abdomen/Pelvis CT 04/18/23 17:11 IMPRESSION: 1. Mild duodenal wall thickening which may represent duodenitis. Follow-up should be obtained. 2. Otherwise no acute findings or obvious metastatic disease in the abdomen/pelvis. Other nonacute findings as described. COMMENTS: Consistent with the [employer]'s Incidental Findings Committee white paper (J Am Loni Radiol 2018): Any incidental renal lesion less than 1 cm or classified as too small to characterize, or any incidental cystic renal lesion characterized as simple-appearing, is likely benign. No follow-up imaging is recommended for these lesions per consensus recommendations based on imaging criteria. Laboratory Results WBC 6.5 10^3/uL (4.0-10.0) 04/18/23 17:40 RBC 3.80 10^6/uL (4.1-5.3) L 04/18/23 17:40 Hgb 12.3 g/dL (11.5-15.3) 04/18/23 17:40 Hct 39.4 % (37.0-47.0) 04/18/23 17:40 MCV 103.7 fl (81-99) H 04/18/23 17:40 MCH 32.4 pg (28.0-34.0) 04/18/23 17:40 MCHC 31.2 g/dL (30.0-36.0) 04/18/23 17:40 RDW 13.4 % (12.1-15.1) 04/18/23 17:40 Plt Count 210 10^3/cmm (130-400) 04/18/23 17:40 MPV 10.2 fL (7.4-10.4) 04/18/23 17:40 Neut % (Auto) 78.1 % 04/18/23 17:40 Lymph % (Auto) 13.2 % 04/18/23 17:40 [place] % (Auto) 7.4 % 04/18/23 17:40 Eos % (Auto) 0.6 % 04/18/23 17:40 Baso % (Auto) 0.5 % 04/18/23 17:40 Neut # (Auto) 5.11 10^3/uL (1.8-7.7) 04/18/23 17:40 Lymph # (Auto) 0.9 10^3/uL (0.8-4.8) 04/18/23 17:40 [place] # (Auto) 0.5 10^3/uL (0.2-0.9) 04/18/23 17:40 Eos # (Auto) 0.0 10^3/uL (0.0-0.8) 04/18/23 17:40 Baso # (Auto) 0.0 10^3/uL (0.0-0.1) 04/18/23 17:40 Nucleated RBC % (auto) 0 % 04/18/23 17:40 Nucleated RBCs # 0.0 /100WBC 04/18/23 17:40 Sodium 133 mmol/L (136-145) L 04/18/23 17:40 Potassium 4.1 mmol/L (3.5-5.1) 04/18/23 17:40 Chloride 101 mmol/L (98-107) 04/18/23 17:40 Carbon Dioxide 25 mmol/L (22-29) 04/18/23 17:40 Anion Gap 11.1 (5-19) 04/18/23 17:40 BUN 19 mg/dL (8-23) 04/18/23 17:40 Creatinine 1.2 mg/dL (0.5-0.9) H 04/18/23 17:40 GFR Calculation Not Reportable 04/18/23 17:40 Glucose 135 mg/dL (65-115) H 04/18/23 17:40 Calculated Osmolality 280 mOsm/kg (285-295) L 04/18/23 17:40 Calcium 9.2 mg/dL (8.5-10.5) 04/18/23 17:40 Total Bilirubin 0.2 mg/dL (0.15-1.2) 04/18/23 17:40 AST 31 U/L (0-32) 04/18/23 17:40 ALT 38 U/L (0-33) H 04/18/23 17:40 Alkaline Phosphatase 126 U/L (35-105) H 04/18/23 17:40 Total Protein 7.0 g/dL (6.6-8.7) 04/18/23 17:40 Albumin 4.0 g/dL (3.5-5.2) 04/18/23 17:40 Globulin 3.0 g/dL (1.3-4.6) 04/18/23 17:40 Lipase 11 U/L (13-60) L 04/18/23 17:40 Urine Color Yellow (Yellow) 04/18/23 17:50 Urine Appearance Clear (CLEAR) 04/18/23 17:50 Urine pH 7 (5-7) 04/18/23 17:50 Ur Specific Combs 1.010 (1.005-1.030) 04/18/23 17:50 Urine Protein Neg (Negative) 04/18/23 17:50 Urine Glucose (UA) 4+ (Normal) H 04/18/23 17:50 Urine Ketones 1+ (Negative) H 04/18/23 17:50 Urine Blood Neg (Negative) 04/18/23 17:50 Urine Nitrate Negative (Negative) 04/18/23 17:50 Urine Bilirubin Neg (Negative) 04/18/23 17:50 Urine Urobilinogen Norm mg/dL (Negative) 04/18/23 17:50 Ur Leukocyte Esterase Negative (Negative) 04/18/23 17:50 Discharge Plan Discharge Patient Disposition: Home Clinical Impression: Duodenitis Condition: Stable Prescriptions: No Action topiramate 25 mg tablet 50 mg PO .QHS loratadine 10 mg capsule 10 mg PO DAILY PRN (Reason: allergy symptoms) insulin aspart U-100 [Novolog FlexPen U-100 Insulin] 100 unit/mL (3 mL) insulin pen See Rx Instructions SUBCUT TID PRN (Reason: high blood sugar) Rx Instructions: sliding scale subcutaneously three times daily PRN; sliding scale - max of 50 units daily hydrocodone-acetaminophen 10-325 mg tablet 1 tab PO Q6H PRN (Reason: Pain) docusate sodium [Colace] 100 mg capsule 100 mg PO DAILY PRN (Reason: Constipation) insulin glargine [Lantus Solostar U-100 Insulin] 100 unit/mL (3 mL) insulin pen See Rx Instructions SUBCUT .COMPLEX Rx Instructions: 16 units in AM, 14 units @ HS subcutaneously Robitussin Cough-Chest Miguel Angel DM 10-200 mg capsule 1 tab-cap PO Q8H PRN pseudoephedrine HCl [Sudafed] 30 mg tablet 30 mg PO BID PRN prenat.vits,williams,[id number] Tablet 1 tab PO DAILY diphenhydramine HCl [Benadryl] 25 mg capsule 25 mg PO .hs PRN prochlorperazine maleate [Compazine] 10 mg tablet 10 mg PO Q6H PRN (Reason: nausea and vomiting) Qty: 60 0RF albuterol sulfate 90 mcg/actuation HFA aerosol inhaler 2 inh inhalation .Q4-6h PRN (Reason: wheezing) Qty: 8.5 0RF lorazepam 1 mg tablet See Rx Instructions PO Q8H PRN (Reason: nausea and vomiting) Qty: 30 0RF Rx Instructions: 0.5 tab to 1 tab orally every 8 hours PRN; levothyroxine 150 mcg tablet 150 mcg PO DAILY Qty: 30 3RF Discharge Orders: Discharge ED (Routine); Ordered 04/18/23 Ordered By: Mariusz Blair Referrals: Liliana Kat APRN [Primary Care Provider] - 1 week Patient Instructions: Duodenitis (ED) Activity Restrictions/Additional Instructions: Please follow-up with your family practice doctor in the next 7 to 10 days as needed for further evaluation and treatment. If symptoms worsen please feel free to return to the ER. Coding Level of Care Code ED Electrical Tester [employer] for Simon Ash
[2023-04-18 17:46] LABS: Basophils % 0.5 %; Eosinophils % 0.6 %; Hematocrit 39.4 % (37.0-47.0); Hemoglobin 12.3 g/dL (11.5-15.3); Lymphocytes # 0.9 10^3/uL (0.8-4.8); Lymphocytes % 13.2 %; Mean Corpuscular HGB Conc 31.2 g/dL (30.0-36.0); Mean Corpuscular Hemoglobin 32.4 pg (28.0-34.0); Mean Corpuscular Volume 103.7 fl (81-99); Mean Platelet Volume 10.2 fL (7.4-10.4); Monocytes # 0.5 10^3/uL (0.2-0.9); Monocytes % 7.4 %; Neutrophils # 5.11 10^3/uL (1.8-7.7); Neutrophils % 78.1 %; Nucleated Red Blood Cells % 0 %; Platelet Count 210 10^3/cmm (130-400); Red Cell Distribution Width 13.4 % (12.1-15.1); White Blood Count 6.5 10^3/uL (4.0-10.0)
[2023-04-18 17:56] LABS: Add Urine Microscopic? NO; Charge for UA Resulting for Rev
[2023-04-18 17:59] LABS: Urine Appearance Clear (CLEAR); Urine Color Yellow (Yellow); pH Urine 7 (5-7)
[2023-04-18 18:00] VITALS: PULSE 90; RESP 16; O2SAT 97
[2023-04-18 18:04] LABS: Bilirubin Urine Neg (Negative); Blood Urine Neg (Negative); Glucose Urine UA 4+ (Normal); Ketones Urine 1+ (Negative); Leukocyte Esterase Urine Negative (Negative); Nitrate Urine Negative (Negative); Protein Urine Neg (Negative); Urobilinogen Urine Norm (Negative)
[2023-04-18 18:10] LABS: Alkaline Phosphatase 126 U/L (35-105); Anion Gap 11.1 (5-19); Aspartate Amino Transferase 31 U/L (0-32); Blood Urea Nitrogen 19 mg/dL (8-23); Calcium 9.2 mg/dL (8.5-10.5); Carbon Dioxide 25 mmol/L (22-29); Chloride 101 mmol/L (98-107); Glucose 135 mg/dL (65-115); Lipase 11 U/L (13-60); Osmolality Calculated 280 mOsm/kg (285-295); Potassium 4.1 mmol/L (3.5-5.1); Sodium 133 mmol/L (136-145); Total Bilirubin 0.2 mg/dL (0.15-1.2)
[2023-04-18] MEDS: iohexol 350 mg/mL 500 mL Btl (per mL) IV (18:20)
[2023-04-18 18:21] LABS: Alanine Aminotransferase 38 U/L (0-33)
[2023-04-18 19:11] VITALS: BP 142/68; PULSE 89; RESP 16; O2SAT 95
[2023-04-18 20:08] VITALS: BP 136/76; PULSE 90; RESP 16; O2SAT 99
== END 2023-04-18 20:11 | disposition home or self-care (01) ==
PROVIDERS: Emergency Provider Emergency Medicine; PCP Nurse Practitioner Family
DX: K29.80 Duodenitis without bleeding (principal); Z79.4 Long term (current) use of insulin; Z87.891 Personal history of nicotine dependence; Z85.118 Personal history of other malignant neoplasm of bronchus and lung; I12.9 Hypertensive chronic kidney disease with stage 1 through stage 4 chronic kidney disease, or unspecified chronic kidney disease; E11.22 Type 2 diabetes mellitus with diabetic chronic kidney disease; N18.9 Chronic kidney disease, unspecified; E78.5 Hyperlipidemia, unspecified
CPT/HCPCS: 36415; 74177; 80053; 81003; 83690; 85025; 96374; 99285; J1642; Q9967

== ENCOUNTER 2023-05-05 09:30 | Oncology outpatient (recurring) (ONCR) | payer MEDICARE, SELFPAY ==
[2023-04-21 09:14] VITALS: BP 130/79; PULSE 95; RESP 18; TEMP 36.4; O2SAT 97
[2023-04-21 09:27] LABS: Basophils # 0.1 10^3/uL (0.0-0.1); Basophils % 0.9 %; Eosinophils # 0.1 10^3/uL (0.0-0.8); Eosinophils % 2.4 %; Hematocrit 37.4 % (37.0-47.0); Lymphocytes % 18.6 %; Mean Corpuscular HGB Conc 32.1 g/dL (30.0-36.0); Mean Corpuscular Hemoglobin 32.3 pg (28.0-34.0); Mean Corpuscular Volume 100.8 fl (81-99); Mean Platelet Volume 9.9 fL (7.4-10.4); Monocytes # 0.5 10^3/uL (0.2-0.9); Monocytes % 8.6 %; Neutrophils % 68.9 %; Nucleated Red Blood Cells % 0 %; Platelet Count 207 10^3/cmm (130-400); Red Blood Count 3.71 10^6/uL (4.1-5.3); Red Cell Distribution Width 13.4 % (12.1-15.1); White Blood Count 5.4 10^3/uL (4.0-10.0)
[2023-04-21 10:11] LABS: Alanine Aminotransferase 34 U/L (0-33); Alkaline Phosphatase 125 U/L (35-105); Anion Gap 13.7 (5-19); Aspartate Amino Transferase 26 U/L (0-32); Blood Urea Nitrogen 24 mg/dL (8-23); Calcium 9.6 mg/dL (8.5-10.5); Carbon Dioxide 26 mmol/L (22-29); Chloride 104 mmol/L (98-107); Globulin 2.9 g/dL (1.3-4.6); Glucose 81 mg/dL (65-115); Osmolality Calculated 293 mOsm/kg (285-295); Potassium 3.7 mmol/L (3.5-5.1); Sodium 140 mmol/L (136-145); Thyroid Stimulating Hormone 24.02 uIU/mL (0.27-4.20); Total Bilirubin 0.2 mg/dL (0.15-1.2); Total Protein 6.9 g/dL (6.6-8.7)
[2023-04-21] MEDS: sodium chloride 0.9% 250 ML 50 ML IV (11:38)
[2023-04-21 12:45] VITALS: BP 127/70; PULSE 86; RESP 16; TEMP 36.4; O2SAT 98
[2023-05-05 09:16] VITALS: BP 145/76; PULSE 100; RESP 18; TEMP 36; O2SAT 98
[2023-05-05 09:34] LABS: Basophils % 0.6 %; Eosinophils # 0.1 10^3/uL (0.0-0.8); Eosinophils % 2.1 %; Hemoglobin 11.5 g/dL (11.5-15.3); Lymphocytes # 0.8 10^3/uL (0.8-4.8); Lymphocytes % 15.5 %; Mean Corpuscular HGB Conc 31.9 g/dL (30.0-36.0); Mean Corpuscular Hemoglobin 32.5 pg (28.0-34.0); Mean Corpuscular Volume 101.7 fl (81-99); Mean Platelet Volume 10.5 fL (7.4-10.4); Monocytes # 0.6 10^3/uL (0.2-0.9); Monocytes % 11.8 %; Neutrophils # 3.58 10^3/uL (1.8-7.7); Neutrophils % 69.6 %; Nucleated Red Blood Cells % 0 %; Platelet Count 202 10^3/cmm (130-400); Red Blood Count 3.54 10^6/uL (4.1-5.3); Red Cell Distribution Width 13.2 % (12.1-15.1); White Blood Count 5.2 10^3/uL (4.0-10.0)
[2023-05-05 09:56] LABS: Alanine Aminotransferase 21 U/L (0-33); Albumin Level 3.9 g/dL (3.5-5.2); Alkaline Phosphatase 126 U/L (35-105); Anion Gap 14.8 (5-19); Aspartate Amino Transferase 18 U/L (0-32); Blood Urea Nitrogen 24 mg/dL (8-23); Calcium 9.7 mg/dL (8.5-10.5); Carbon Dioxide 25 mmol/L (22-29); Chloride 104 mmol/L (98-107); Globulin 2.9 g/dL (1.3-4.6); Glucose 188 mg/dL (65-115); Osmolality Calculated 299 mOsm/kg (285-295); Potassium 3.8 mmol/L (3.5-5.1); Sodium 140 mmol/L (136-145); Total Bilirubin 0.3 mg/dL (0.15-1.2); Total Protein 6.8 g/dL (6.6-8.7)
[2023-05-05 11:13] VITALS: BP 137/76; PULSE 102; RESP 16; TEMP 36.2; O2SAT 97
[2023-05-05] MEDS: sodium chloride 0.9% 250 ML 75 ML IV (11:24)
[2023-05-05 14:00] VITALS: BP 141/78; PULSE 91; RESP 16; TEMP 36.9; O2SAT 97
[2023-05-06 10:07] LABS: Estmated Average Glucose 217; Hemoglobin A1C 9.2 % (4.0-6.0)
[2023-05-06 10:14] LABS: Chol HDL Ratio 2.85 mg/dL (0.0-4.40); Cholesterol 191 mg/dL (0-200); HDL Cholesterol 67 mg/dL (60-100); LDL Cholesterol Calculated 101 mg/dL (50-129); LDL HDL Ratio 1.51 RATIO (0.00-3.22); Triglycerides 113 mg/dL (0-150)
== END 2023-05-05 23:59 | disposition home or self-care (01) ==
PROVIDERS: PCP Nurse Practitioner Family; Visit Provider Internal Medicine Hematology & Oncology
DX: Z51.12 Encounter for antineoplastic immunotherapy (principal); C34.11 Malignant neoplasm of upper lobe, right bronchus or lung; C78.7 Secondary malignant neoplasm of liver and intrahepatic bile duct; C77.8 Secondary and unspecified malignant neoplasm of lymph nodes of multiple regions; E03.9 Hypothyroidism, unspecified; F17.210 Nicotine dependence, cigarettes, uncomplicated; Z79.899 Other long term (current) drug therapy; E86.0 Dehydration; R79.89 Other specified abnormal findings of blood chemistry; J44.9 Chronic obstructive pulmonary disease, unspecified; Z79.51 Long term (current) use of inhaled steroids
CPT/HCPCS: 96413 ×3; 80053; 80061; 83036; 84443; 85025; 99214; J1642; J7050; J9173

== ENCOUNTER 2023-06-02 09:00 | Oncology outpatient (recurring) (ONCR) | payer MEDICARE, SELFPAY ==
[2023-05-19 09:21] VITALS: BP 150/74; PULSE 104; RESP 16; TEMP 36.2; O2SAT 98
[2023-05-19 09:33] LABS: Basophils % 0.5 %; Eosinophils # 0.1 10^3/uL (0.0-0.8); Eosinophils % 1.7 %; Hematocrit 36.9 % (37.0-47.0); Hemoglobin 11.8 g/dL (11.5-15.3); Lymphocytes # 1.2 10^3/uL (0.8-4.8); Lymphocytes % 19.3 %; Mean Corpuscular Hemoglobin 32.7 pg (28.0-34.0); Mean Corpuscular Volume 102.2 fl (81-99); Mean Platelet Volume 9.9 fL (7.4-10.4); Monocytes # 0.6 10^3/uL (0.2-0.9); Monocytes % 10.6 %; Neutrophils # 4.03 10^3/uL (1.8-7.7); Neutrophils % 67.6 %; Nucleated Red Blood Cells % 0 %; Platelet Count 216 10^3/cmm (130-400); Red Blood Count 3.61 10^6/uL (4.1-5.3); Red Cell Distribution Width 13.2 % (12.1-15.1)
[2023-05-19 09:59] LABS: Alanine Aminotransferase 23 U/L (0-33); Alkaline Phosphatase 115 U/L (35-105); Anion Gap 14.1 (5-19); Aspartate Amino Transferase 22 U/L (0-32); Blood Urea Nitrogen 27 mg/dL (8-23); Calcium 9.4 mg/dL (8.5-10.5); Carbon Dioxide 24 mmol/L (22-29); Chloride 105 mmol/L (98-107); Globulin 3.1 g/dL (1.3-4.6); Glucose 133 mg/dL (65-115); Osmolality Calculated 295 mOsm/kg (285-295); Potassium 4.1 mmol/L (3.5-5.1); Sodium 139 mmol/L (136-145); Total Bilirubin 0.2 mg/dL (0.15-1.2); Total Protein 7.1 g/dL (6.6-8.7)
[2023-05-19] MEDS: sodium chloride 0.9% 250 ML 75 ML IV (12:42)
[2023-05-19 14:14] VITALS: BP 132/66; RESP 18; TEMP 36.8; O2SAT 97
[2023-06-02 09:09] VITALS: BP 142/78; PULSE 99; TEMP 36.2; O2SAT 95
[2023-06-02 09:10] VITALS: BMI 24.5
[2023-06-02 09:28] LABS: Basophils # 0.1 10^3/uL (0.0-0.1); Eosinophils # 0.2 10^3/uL (0.0-0.8); Eosinophils % 2.8 %; Hematocrit 35.5 % (37.0-47.0); Hemoglobin 11.4 g/dL (11.5-15.3); Lymphocytes % 16.4 %; Mean Corpuscular HGB Conc 32.1 g/dL (30.0-36.0); Mean Corpuscular Hemoglobin 32.5 pg (28.0-34.0); Mean Corpuscular Volume 101.1 fl (81-99); Mean Platelet Volume 10.5 fL (7.4-10.4); Monocytes # 0.6 10^3/uL (0.2-0.9); Monocytes % 9.7 %; Neutrophils # 4.05 10^3/uL (1.8-7.7); Neutrophils % 69.8 %; Nucleated Red Blood Cells % 0 %; Platelet Count 212 10^3/cmm (130-400); Red Blood Count 3.51 10^6/uL (4.1-5.3); Red Cell Distribution Width 13.2 % (12.1-15.1); White Blood Count 5.8 10^3/uL (4.0-10.0)
[2023-06-02 10:18] LABS: Alanine Aminotransferase 20 U/L (0-33); Albumin Level 3.8 g/dL (3.5-5.2); Alkaline Phosphatase 111 U/L (35-105); Anion Gap 13.9 (5-19); Aspartate Amino Transferase 20 U/L (0-32); Blood Urea Nitrogen 28 mg/dL (8-23); Calcium 9.3 mg/dL (8.5-10.5); Carbon Dioxide 26 mmol/L (22-29); Chloride 105 mmol/L (98-107); Globulin 2.3 g/dL (1.3-4.6); Glucose 116 mg/dL (65-115); Osmolality Calculated 298 mOsm/kg (285-295); Potassium 3.9 mmol/L (3.5-5.1); Sodium 141 mmol/L (136-145); Total Bilirubin 0.2 mg/dL (0.15-1.2); Total Protein 6.1 g/dL (6.6-8.7)
== END 2023-06-08 23:59 | disposition home or self-care (01) ==
PROVIDERS: Nurse Practitioner Family; PCP Nurse Practitioner Family; Visit Provider Internal Medicine Hematology & Oncology
DX: C34.11 Malignant neoplasm of upper lobe, right bronchus or lung; R06.2 Wheezing; R06.00 Dyspnea, unspecified; Z87.891 Personal history of nicotine dependence
CPT/HCPCS: 80053; 84443; 85025; 96413; 99214; J1642; J7050; J9173

== ENCOUNTER 2023-06-15 08:26 | Outpatient (CLI) | payer MEDICARE, SELFPAY ==
--- NOTE | 2023-06-15 09:00 | CT_ITS ---
WS: [id number] CT chest w con* [id number] HISTORY: Rule out pneumonitis TECHNIQUE: Axial imaging performed through the thorax. Coronal and sagittal reformats are submitted. All CT scans at [facility] use at least one of these dose optimization techniques: automated exposure control; mA and/or kV adjustment per patient size (includes targeted exams where dose is mat ched to clinical indication); or iterative reconstruction. CONTRAST: Omnipaque 350; 100 mL IV. DLP: 173.82 mGy.cm COMPARISON: 08/06/2022, PET/CT 01/10/2023 Lungs and central airway: Medial RIGHT upper lobe treated neoplasm is identified measuring 2.4 x 2.4 cm. Significant decrease in size since 08/06/2022 and without significant change since the PET/CT of . There is adjacent pleural thickening and interstitial thickening in the RIGHT upper lobe whi ch may be post radiation change. No additional mass or nodule. No additional areas of pneumonitis. Mi ld emphysema. Pleura: No effusion. Pleural thickening in the RIGHT upper lobe. Heart and pericardium: Normal size heart with no pericardial effusion. Extensive bilateral coronary a rtery calcifications. Mediastinum and darrell: No adenopathy or enlarging lymph nodes. Largest lymph node is 12 mm in the infe rior RIGHT paratracheal region. This lymph node has decreased in size since 08/06/2022 and was negativ e on the recent PET/CT. Vessels: Moderate atherosclerotic plaque aorta. Mild atherosclerosis. Chest wall and lower neck: Right-sided Mediport. Bilateral breast nodules are stable and were negativ e on PET/CT. Upper abdomen: Prior cholecystectomy. Negative adrenal glands. Cortical thinning and atrophy superior pole LEFT kidney. Osseous structures: Moderate spondylitic changes in the mid to lower thoracic spine. No destructive b one process. CT/CT chest w con* [id number] IMPRESSION: 1. Residual, post treatment medial, RIGHT upper lobe neoplasm is unchanged sin ce the PET/CT of 01/10/2023. Adjacent interstitial thickening versus pneumonitis without progression. 2. No additional mass or nodule or pneumonitis. 3. No increase in size of mediastinal hilar lymph nodes. 4. Emphysema. 5. Moderate atherosclerosis aorta and coronary artery calcifications. 6. Prior cholecystectomy.
[2023-06-15] MEDS: iohexol 350 mg/mL 500 mL Btl (per mL) IV (09:13)
== END 2023-06-15 08:27 | disposition home or self-care (01) ==
PROVIDERS: PCP Nurse Practitioner Family; Visit Provider Internal Medicine Hematology & Oncology
DX: C34.11 Malignant neoplasm of upper lobe, right bronchus or lung (principal); J43.9 Emphysema, unspecified; I70.0 Atherosclerosis of aorta; I25.10 Atherosclerotic heart disease of native coronary artery without angina pectoris; Z90.49 Acquired absence of other specified parts of digestive tract
CPT/HCPCS: 71260; Q9967

== ENCOUNTER 2023-07-01 08:15 | Oncology outpatient (recurring) (ONCR) | payer MEDICARE, SELFPAY ==
[2023-06-17 16:31] LABS: Basophils % 0.7 %; Eosinophils # 0.1 10^3/uL (0.0-0.8); Eosinophils % 1.6 %; Hematocrit 36.2 % (37.0-47.0); Hemoglobin 11.8 g/dL (11.5-15.3); Lymphocytes % 15.8 %; Mean Corpuscular HGB Conc 32.6 g/dL (30.0-36.0); Mean Corpuscular Hemoglobin 33.1 pg (28.0-34.0); Mean Corpuscular Volume 101.7 fl (81-99); Mean Platelet Volume 11.3 fL (7.4-10.4); Monocytes # 0.4 10^3/uL (0.2-0.9); Monocytes % 6.9 %; Neutrophils # 4.59 10^3/uL (1.8-7.7); Neutrophils % 74.8 %; Nucleated Red Blood Cells % 0 %; Platelet Count 195 10^3/cmm (130-400); Red Blood Count 3.56 10^6/uL (4.1-5.3); Red Cell Distribution Width 12.4 % (12.1-15.1); White Blood Count 6.1 10^3/uL (4.0-10.0)
[2023-06-17 16:36] LABS: Alanine Aminotransferase 28 U/L (0-33); Albumin Level 3.9 g/dL (3.5-5.2); Alkaline Phosphatase 122 U/L (35-105); Anion Gap 12.1 (5-19); Aspartate Amino Transferase 23 U/L (0-32); Blood Urea Nitrogen 19 mg/dL (8-23); Calcium 9.1 mg/dL (8.5-10.5); Carbon Dioxide 25 mmol/L (22-29); Chloride 104 mmol/L (98-107); Free T4 Free Thyroxine 1.56 ng/dL (0.82-1.77); Globulin 2.9 g/dL (1.3-4.6); Glucose 251 mg/dL (65-115); Osmolality Calculated 295 mOsm/kg (285-295); Potassium 4.1 mmol/L (3.5-5.1); Sodium 137 mmol/L (136-145); Thyroid Stimulating Hormone 1.69 uIU/mL (0.27-4.20); Total Bilirubin 0.2 mg/dL (0.15-1.2); Total Protein 6.8 g/dL (6.6-8.7)
[2023-06-18 08:15] VITALS: BP 132/74; PULSE 102; RESP 16; TEMP 36.9; O2SAT 98
[2023-06-18 10:08] VITALS: BP 115/67; PULSE 96; RESP 17; TEMP 36.7; O2SAT 98
[2023-07-01 08:08] VITALS: BMI 24.2
[2023-07-01 08:09] VITALS: BP 127/75; PULSE 73; RESP 18; TEMP 36.4; O2SAT 96
[2023-07-01 08:30] LABS: Basophils # 0.1 10^3/uL (0.0-0.1); Basophils % 0.8 %; Eosinophils # 0.2 10^3/uL (0.0-0.8); Eosinophils % 2.7 %; Lymphocytes # 1.1 10^3/uL (0.8-4.8); Lymphocytes % 18.8 %; Mean Corpuscular Hemoglobin 33.4 pg (27-33); Mean Corpuscular Volume 101.4 fl (85-98); Mean Platelet Volume 10.2 fL (7.4-10.4); Monocytes # 0.6 10^3/uL (0.2-0.9); Monocytes % 9.7 %; Neutrophils # 3.97 10^3/uL (1.8-7.7); Neutrophils % 67.5 %; Nucleated Red Blood Cells % 0 %; Platelet Count 204 10^3/cmm (157-399); Red Blood Count 3.65 10^6/uL (3.85-5.65); Red Cell Distribution Width 12.7 % (12.1-15.1); White Blood Count 5.89 10^3/uL (3.29-11.43)
[2023-07-01 09:03] LABS: Alanine Aminotransferase 28 U/L (0-33); Alkaline Phosphatase 115 U/L (35-105); Anion Gap 13.1 (5-19); Aspartate Amino Transferase 22 U/L (0-32); Blood Urea Nitrogen 30 mg/dL (8-23); Calcium 9.1 mg/dL (8.5-10.5); Carbon Dioxide 26 mmol/L (22-29); Chloride 108 mmol/L (98-107); Globulin 2.7 g/dL (1.3-4.6); Glucose 83 mg/dL (65-115); Osmolality Calculated 301 mOsm/kg (285-295); Potassium 4.1 mmol/L (3.5-5.1); Sodium 143 mmol/L (136-145); Thyroid Stimulating Hormone 2.88 uIU/mL (0.27-4.20); Total Bilirubin 0.2 mg/dL (0.15-1.2); Total Protein 6.7 g/dL (6.6-8.7)
[2023-07-01 13:00] VITALS: BP 138/67; PULSE 88; TEMP 37.1; O2SAT 96
== END 2023-07-01 23:59 | disposition home or self-care (01) ==
PROVIDERS: PCP Nurse Practitioner Family; Visit Provider Internal Medicine Medical Oncology
DX: Z51.12 Encounter for antineoplastic immunotherapy (principal); C34.11 Malignant neoplasm of upper lobe, right bronchus or lung; C77.8 Secondary and unspecified malignant neoplasm of lymph nodes of multiple regions; E03.9 Hypothyroidism, unspecified; F17.210 Nicotine dependence, cigarettes, uncomplicated; Z79.899 Other long term (current) drug therapy
CPT/HCPCS: 36415; 36591; 80053; 84439; 84443; 85025; 96413; 99214; J1642; J7050; J9173

== ENCOUNTER 2023-07-29 08:30 | Oncology outpatient (recurring) (ONCR) | payer MEDICARE, SELFPAY ==
[2023-07-15 08:01] VITALS: BMI 24.3
[2023-07-15 08:02] VITALS: BP 140/82; PULSE 106; RESP 18; TEMP 36.4; O2SAT 92
[2023-07-15 08:16] LABS: Basophils % 0.7 %; Eosinophils # 0.2 10^3/uL (0.0-0.8); Hematocrit 38.3 % (36-47); Lymphocytes # 1.4 10^3/uL (0.8-4.8); Lymphocytes % 22.5 %; Mean Corpuscular HGB Conc 32.6 g/dL (30-55); Mean Corpuscular Hemoglobin 32.6 pg (27-33); Mean Platelet Volume 10.6 fL (7.4-10.4); Monocytes # 0.6 10^3/uL (0.2-0.9); Monocytes % 9.7 %; Neutrophils # 3.87 10^3/uL (1.8-7.7); Neutrophils % 63.6 %; Nucleated Red Blood Cells % 0 %; Platelet Count 226 10^3/cmm (157-399); Red Blood Count 3.83 10^6/uL (3.85-5.65); White Blood Count 6.08 10^3/uL (3.29-11.43)
[2023-07-15 08:32] LABS: Alanine Aminotransferase 21 U/L (0-33); Albumin Level 4.2 g/dL (3.5-5.2); Alkaline Phosphatase 124 U/L (35-105); Anion Gap 13.9 (5-19); Aspartate Amino Transferase 21 U/L (0-32); Blood Urea Nitrogen 25 mg/dL (8-23); Calcium 9.2 mg/dL (8.5-10.5); Carbon Dioxide 25 mmol/L (22-29); Chloride 106 mmol/L (98-107); Glucose 142 mg/dL (65-115); Osmolality Calculated 299 mOsm/kg (285-295); Potassium 3.9 mmol/L (3.5-5.1); Sodium 141 mmol/L (136-145); Total Bilirubin 0.2 mg/dL (0.15-1.2); Total Protein 7.2 g/dL (6.6-8.7)
[2023-07-15 09:31] VITALS: BP 123/70; PULSE 72; RESP 16; TEMP 36.7
[2023-07-15] MEDS: sodium chloride 0.9% 250 ML 75 ML IV (09:42)
[2023-07-15 11:10] VITALS: BP 134/63; PULSE 88; RESP 16; TEMP 36.8; O2SAT 97
[2023-07-29 08:12] VITALS: BP 126/77; PULSE 100; RESP 16; TEMP 36.9; O2SAT 99
[2023-07-29 08:27] LABS: Basophils % 0.6 %; Eosinophils # 0.2 10^3/uL (0.0-0.8); Eosinophils % 2.2 %; Hematocrit 37.4 % (36-47); Lymphocytes # 1.2 10^3/uL (0.8-4.8); Lymphocytes % 17.2 %; Mean Corpuscular HGB Conc 32.9 g/dL (30-55); Mean Corpuscular Volume 100.3 fl (85-98); Monocytes # 0.6 10^3/uL (0.2-0.9); Monocytes % 8.1 %; Neutrophils # 4.81 10^3/uL (1.8-7.7); Neutrophils % 71.3 %; Nucleated Red Blood Cells % 0 %; Platelet Count 200 10^3/cmm (157-399); Red Blood Count 3.73 10^6/uL (3.85-5.65); Red Cell Distribution Width 13.2 % (12.1-15.1); White Blood Count 6.75 10^3/uL (3.29-11.43)
[2023-07-29 08:50] LABS: Alanine Aminotransferase 26 U/L (0-33); Albumin Level 4.1 g/dL (3.5-5.2); Alkaline Phosphatase 130 U/L (35-105); Anion Gap 12.2 (5-19); Aspartate Amino Transferase 20 U/L (0-32); Blood Urea Nitrogen 24 mg/dL (8-23); Calcium 9.5 mg/dL (8.5-10.5); Carbon Dioxide 26 mmol/L (22-29); Chloride 110 mmol/L (98-107); Globulin 2.9 g/dL (1.3-4.6); Glucose 66 mg/dL (65-115); Osmolality Calculated 300 mOsm/kg (285-295); Potassium 4.2 mmol/L (3.5-5.1); Sodium 144 mmol/L (136-145); Total Bilirubin 0.2 mg/dL (0.15-1.2)
[2023-07-29 10:50] LABS: Thyroid Stimulating Hormone 9.79 uIU/mL (0.27-4.20)
[2023-07-29 12:00] VITALS: BP 138/63; PULSE 92; TEMP 36.8; O2SAT 97
== END 2023-07-29 23:59 | disposition home or self-care (01) ==
PROVIDERS: PCP Nurse Practitioner Family; Visit Provider Internal Medicine Medical Oncology
DX: Z51.12 Encounter for antineoplastic immunotherapy (principal); C34.11 Malignant neoplasm of upper lobe, right bronchus or lung; E03.9 Hypothyroidism, unspecified; Z87.891 Personal history of nicotine dependence
CPT/HCPCS: 80053; 84443; 85025; 96413; 99215; J1642; J7050; J9173

== ENCOUNTER 2023-08-26 07:39 | Oncology outpatient (recurring) (ONCR) | payer MEDICARE, SELFPAY ==
[2023-08-12 09:52] VITALS: BP 124/74; PULSE 93; RESP 16; TEMP 35.9; O2SAT 98
[2023-08-12 10:08] LABS: Basophils % 0.5 %; Eosinophils # 0.2 10^3/uL (0.0-0.8); Eosinophils % 1.9 %; Hematocrit 36.7 % (36-47); Lymphocytes # 0.9 10^3/uL (0.8-4.8); Mean Corpuscular Hemoglobin 32.5 pg (27-33); Mean Corpuscular Volume 98.7 fl (85-98); Mean Platelet Volume 10.6 fL (7.4-10.4); Monocytes # 0.6 10^3/uL (0.2-0.9); Monocytes % 6.8 %; Neutrophils # 6.87 10^3/uL (1.8-7.7); Neutrophils % 80.4 %; Nucleated Red Blood Cells % 0 %; Platelet Count 207 10^3/cmm (157-399); Red Blood Count 3.72 10^6/uL (3.85-5.65); Red Cell Distribution Width 13.5 % (12.1-15.1); White Blood Count 8.53 10^3/uL (3.29-11.43)
[2023-08-12 10:36] LABS: Alanine Aminotransferase 27 U/L (0-33); Albumin Level 3.9 g/dL (3.5-5.2); Alkaline Phosphatase 125 U/L (35-105); Anion Gap 15.1 (5-19); Aspartate Amino Transferase 21 U/L (0-32); Blood Urea Nitrogen 23 mg/dL (8-23); Calcium 9.2 mg/dL (8.5-10.5); Carbon Dioxide 25 mmol/L (22-29); Chloride 106 mmol/L (98-107); Globulin 2.8 g/dL (1.3-4.6); Glucose 145 mg/dL (65-115); Osmolality Calculated 300 mOsm/kg (285-295); Potassium 4.1 mmol/L (3.5-5.1); Sodium 142 mmol/L (136-145); Thyroid Stimulating Hormone 7.79 uIU/mL (0.27-4.20); Total Bilirubin 0.2 mg/dL (0.15-1.2); Total Protein 6.7 g/dL (6.6-8.7)
[2023-08-12 11:01] LABS: Chol HDL Ratio 2.88 mg/dL (0.0-4.40); Cholesterol 199 mg/dL (0-200); HDL Cholesterol 69 mg/dL (60-100); LDL Cholesterol Calculated 107 mg/dL (50-129); LDL HDL Ratio 1.55 RATIO (0.00-3.22); Triglycerides 117 mg/dL (0-150)
[2023-08-12 11:19] LABS: Estmated Average Glucose 197; Hemoglobin A1C 8.5 % (4.0-6.0)
[2023-08-12] MEDS: sodium chloride 0.9% 250 ML 75 ML IV (12:19)
[2023-08-12 14:20] VITALS: BP 145/62; PULSE 86; RESP 16; TEMP 37.3; O2SAT 98
[2023-08-26 07:53] VITALS: BP 120/72; PULSE 99; RESP 16; TEMP 36.3; O2SAT 98
[2023-08-26 08:23] LABS: Basophils % 0.6 %; Eosinophils # 0.1 10^3/uL (0.0-0.8); Eosinophils % 1.7 %; Hematocrit 39.1 % (36-47); Lymphocytes % 14.4 %; Mean Corpuscular HGB Conc 32.2 g/dL (30-55); Mean Corpuscular Hemoglobin 32.4 pg (27-33); Mean Corpuscular Volume 100.5 fl (85-98); Mean Platelet Volume 10.7 fL (7.4-10.4); Monocytes # 0.6 10^3/uL (0.2-0.9); Monocytes % 8.6 %; Neutrophils # 5.35 10^3/uL (1.8-7.7); Neutrophils % 74.1 %; Nucleated Red Blood Cells % 0 %; Platelet Count 245 10^3/cmm (157-399); Red Blood Count 3.89 10^6/uL (3.85-5.65); Red Cell Distribution Width 13.4 % (12.1-15.1); White Blood Count 7.21 10^3/uL (3.29-11.43)
[2023-08-26 08:48] LABS: Alanine Aminotransferase 21 U/L (0-33); Alkaline Phosphatase 125 U/L (35-105); Anion Gap 16.1 (5-19); Aspartate Amino Transferase 25 U/L (0-32); Blood Urea Nitrogen 34 mg/dL (8-23); Calcium 9.1 mg/dL (8.5-10.5); Carbon Dioxide 23 mmol/L (22-29); Chloride 103 mmol/L (98-107); Free T4 Free Thyroxine 1.51 ng/dL (0.82-1.77); Globulin 3.4 g/dL (1.3-4.6); Glucose 156 mg/dL (65-115); Osmolality Calculated 297 mOsm/kg (285-295); Potassium 4.1 mmol/L (3.5-5.1); Sodium 138 mmol/L (136-145); Thyroid Stimulating Hormone 1.59 uIU/mL (0.27-4.20); Total Bilirubin 0.2 mg/dL (0.15-1.2); Total Protein 7.4 g/dL (6.6-8.7)
[2023-08-26] MEDS: sodium chloride 0.9% 500 ML 999 ML IV (09:15)
[2023-08-26 09:50] VITALS: BP 126/68
[2023-08-26 10:46] VITALS: PULSE 96; RESP 16; TEMP 36.1; O2SAT 98
== END 2023-08-26 23:59 | disposition home or self-care (01) ==
PROVIDERS: PCP Nurse Practitioner Family; Visit Provider Internal Medicine Medical Oncology
DX: E11.9 Type 2 diabetes mellitus without complications (principal); C34.91 Malignant neoplasm of unspecified part of right bronchus or lung; Z51.11 Encounter for antineoplastic chemotherapy; C34.90 Malignant neoplasm of unspecified part of unspecified bronchus or lung; E03.9 Hypothyroidism, unspecified; Z79.899 Other long term (current) drug therapy; I10 Essential (primary) hypertension
CPT/HCPCS: 80053; 80061; 83036; 84439; 84443; 85025; 96365; 96413; 99214; 99215; J1642; J7040; J7050; J9173

== ENCOUNTER 2023-09-22 06:01 | Outpatient (CLI) | payer MEDICARE, SELFPAY ==
--- NOTE | 2023-09-22 07:00 | CT_ITS ---
WS: [id number] CT CHEST, ABDOMEN, AND PELVIS TECHNIQUE: Contrast-enhanced CT of the chest, abdomen, and pelvis with coronal and sagittal reformatt ed images. CLINICAL INFORMATION: Follow up lung cancer COMPARISON: CT chest 06/15/2023 and abdomen pelvis 04/18/2023 PET/CT 01/10/2023 DLP: 596.[address] scans at [facility] use at least one of these dose optimization techniques: automated e xposure control; mA and/or kV adjustment per patient size (includes targeted exams where dose is matc hed to clinical indication); or iterative reconstruction. CT CHEST: RIGHT upper lobe neoplasm medially previously measured 2.4 x 2.4 cm. This measures approximately 2.3 x 2.4 cm not significantly changed compared to previous. No evidence of progression. Associated pleur al thickening and interstitial thickening is unchanged likely due to treatment-related radiation gates ges. 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 6 mm subpleu ral nodule LEFT lower lobe medially. This is unchanged. Moderate thoracic kyphosis. Moderate to advan cecilio spondylitic changes mid and lower thoracic spine. No axillary lymphadenopathy. Slightly ectatic a scending thoracic aorta unchanged measuring 3.3 cm. Normal caliber descending thoracic aorta. No prog ressed mediastinal or hilar lymphadenopathy. CT ABDOMEN AND PELVIS: Diffuse fatty infiltration of the liver. Normal spleen. Cholecystectomy. Normal portal vein and splen ic vein. Small esophageal hernia. Adrenal glands are normal. Normal renal parenchymal enhancement. LE FT renal atrophy. Incidental RIGHT renal cysts are unchanged. Aortic calcification. Tiny fat-containi ng umbilical hernia. Constipation in the transverse colon. Mild lumbar curve. Moderate spondylitic ch anges lumbar spine. IMPRESSION: 1. Stable RIGHT upper lobe treated neoplasm described above. 2. No evidence of progressed disease in the chest. 3. No evidence of metastatic disease in the abdomen or pelvis.
[2023-09-22] MEDS: iohexol 350 mg/mL 500 mL Btl (per mL) PO (07:44)
[2023-09-22] MEDS: iohexol 350 mg/mL 500 mL Btl (per mL) IV (07:47)
== END 2023-09-22 06:02 | disposition home or self-care (01) ==
LOC: RAD 06:01
PROVIDERS: PCP Nurse Practitioner Family; Visit Provider Internal Medicine Medical Oncology
DX: C34.90 Malignant neoplasm of unspecified part of unspecified bronchus or lung (principal)
CPT/HCPCS: 71260; 74177; Q9967

== ENCOUNTER 2023-09-23 11:02 | Oncology outpatient (recurring) (ONCR) | payer MEDICARE, SELFPAY ==
[2023-09-09 08:00] VITALS: BP 131/68; PULSE 108; RESP 16; TEMP 36.8; O2SAT 98
[2023-09-09 08:13] LABS: Basophils # 0.1 10^3/uL (0.0-0.1); Eosinophils # 0.2 10^3/uL (0.0-0.8); Eosinophils % 2.5 %; Hematocrit 38.9 % (36-47); Lymphocytes # 1.9 10^3/uL (0.8-4.8); Lymphocytes % 26.8 %; Mean Corpuscular HGB Conc 32.1 g/dL (30-55); Mean Corpuscular Hemoglobin 32.6 pg (27-33); Mean Corpuscular Volume 101.6 fl (85-98); Mean Platelet Volume 10.8 fL (7.4-10.4); Monocytes # 0.8 10^3/uL (0.2-0.9); Monocytes % 10.8 %; Neutrophils % 58.3 %; Nucleated Red Blood Cells % 0 %; Platelet Count 238 10^3/cmm (157-399); Red Blood Count 3.83 10^6/uL (3.85-5.65); Red Cell Distribution Width 13.6 % (12.1-15.1)
[2023-09-09 08:45] LABS: Alanine Aminotransferase 30 U/L (0-33); Albumin Level 4.1 g/dL (3.5-5.2); Alkaline Phosphatase 114 U/L (35-105); Anion Gap 14.7 (5-19); Aspartate Amino Transferase 28 U/L (0-32); Blood Urea Nitrogen 23 mg/dL (8-23); Calcium 9.7 mg/dL (8.5-10.5); Carbon Dioxide 22 mmol/L (22-29); Chloride 107 mmol/L (98-107); Globulin 3.1 g/dL (1.3-4.6); Glucose 44 mg/dL (65-115); Osmolality Calculated 291 mOsm/kg (285-295); Potassium 3.7 mmol/L (3.5-5.1); Sodium 140 mmol/L (136-145); Thyroid Stimulating Hormone 0.61 uIU/mL (0.27-4.20); Total Bilirubin 0.2 mg/dL (0.15-1.2); Total Protein 7.2 g/dL (6.6-8.7)
[2023-09-09 11:36] VITALS: BP 123/75; PULSE 88; RESP 16; TEMP 36.2; O2SAT 99
== END 2023-10-08 23:59 | disposition home or self-care (01) ==
PROVIDERS: Nurse Practitioner Family; PCP Nurse Practitioner Family; Visit Provider Internal Medicine Medical Oncology
DX: Z51.12 Encounter for antineoplastic immunotherapy (principal); C34.11 Malignant neoplasm of upper lobe, right bronchus or lung; E11.9 Type 2 diabetes mellitus without complications; Z79.899 Other long term (current) drug therapy; C77.8 Secondary and unspecified malignant neoplasm of lymph nodes of multiple regions; I10 Essential (primary) hypertension; E03.9 Hypothyroidism, unspecified; C78.7 Secondary malignant neoplasm of liver and intrahepatic bile duct; F17.210 Nicotine dependence, cigarettes, uncomplicated
CPT/HCPCS: 80053; 84443; 85025; 96413; 99214; J1642; J7050; J9173

== ENCOUNTER 2023-10-13 14:31 | Outpatient (CLI) | payer MEDICARE, SELFPAY ==
--- NOTE | 2023-10-13 08:30 | PETR_ITS ---
PROCEDURE INFORMATION: Exam: PET/CT Skull Base to Mid-thigh Exam date and time: 10/13/2023 9:32 AM Age: 73 years old Clinical indication: Condition or disease; Primary cancer: Malignant neoplasm part of unspecified bronchus or lung; Follow-up oncological assessment; Prior surgery; Surgery date: 6+ months; Surgery type: Gb, port, back; Additional info: Restaging LABS AND CLINICAL REPORTS: Glucose: 200 mg/dl Treatment strategy for malignancy (PET staging): Restaging (PS) TECHNIQUE: Imaging protocol: Following at least four-hour fasting and following the injection of radiopharmaceutical, low dose CT images were obtained. Then, PET images were obtained. Attenuation corrected images were constructed using the CT scan. Fused images of PET and CT were reviewed. The standardized uptake values (SUV) reported below are maximum values within a region of interest, expressed in gm/ml. Exam includes orbital meatal line to mid-thigh. Radiopharmaceutical: 11.97 mCi F-18 FDG (Fluorodeoxyglucose), IV. Time of imaging post radiopharmaceutical administration: 1 hour Injection site: Right antecubital COMPARISON: CT chest, abdomen and pelvis 09/22/2023, [facility] SUB[facility] [id number] 01/10/2023 12:38 PM FINDINGS: Tubes, catheters and devices: A right internal jugular central venous port catheter terminates in the distal SVC. Brain: Visualized brain has normal physiologic uptake. Pharynx: No abnormal uptake. Larynx: No abnormal uptake. Lungs, pleura and trachea: Pleural based soft tissue density at the right lung apex measuring up to 3.8 x 1.7 cm in the axial plane anteriorly demonstrates mild new uptake, SUV max 3.2, appears similar compared with 09/22/2023 and increased since the prior PET-CT. A slightly more inferiorly and medially soft tissue density known previously treated pleural based mass which appears similar to the CT of 01/10/2023 and slightly decreased in size compared to the PET-CT (where it measured 3.0 x 2.1 cm) currently measures approximately 2.4 x 2.4 cm on series 3, image 59 (SUV max 2.2, previously 2.5). Heart: Normal physiologic uptake. Mediastinal space: No abnormal uptake. Liver: No abnormal uptake. Gallbladder and bile ducts: No abnormal uptake. Cholecystectomy clips are present. Pancreas: No abnormal uptake. Spleen: No abnormal uptake. Adrenal glands: No abnormal uptake. Kidneys and ureters: Normal physiologic uptake. A nonobstructing 2 mm stone in the left renal superior pole is noted within additional 1-2 mm stone in the inferior pole. No hydronephrosis. Moderate atrophy of the left kidney compared with the right is noted. The right kidney contains several rounded non radiotracer avid low-density lesions measuring up to 2.5 cm on series 3, image 152 with features of benign simple cysts on the comparison CT of 09/22/2023. Stomach and bowel: No abnormal uptake. Vasculature: No abnormal uptake. Lymph nodes: No abnormal uptake. A precarinal 1.7 cm lymph node on series 3, image 72 is not radiotracer avid and appears similar to the prior examinations. Bones/joints: No abnormal uptake in the visualized axial and appendicular skeleton. Degenerative changes in the spine are present with mild leftward curvature of the lumbar spine. Anterior metallic fusion from C5 through C7 is noted. Bilateral L2 laminectomies are present. Soft tissues: A small focus of physiologic appearing uptake (SUV max 3.2) in the dorsal paraspinous musculature adjacent to the T11 vertebral body on the left is noted without a corresponding lesion on CT series 3 image 113. METRICS: Mediastinal blood pool: SUV max 3.0 PET/PET skull[facility] SUBSEQ [id number] IMPRESSION: 1. A known treated malignancy in the medial right lung apex is slightly decreased in size compared with the prior PET-CT with continued decrease in mild uptake in this region (SUV max 2.2, previously 2.5) likely representing residual post treatment inflammatory changes. More superiorly located adjacent contiguous soft tissue density extending to the superior right lung apex pleural surface has increased in size compared with the prior PET-CT with new uptake in this region (SUV max 3.2). Although the low level of uptake in this area is suggestive of increasing post treatment inflammatory changes and scarring, new malignant involvement cannot be entirely excluded. 2. Similar mildly prominent precarinal lymph node which is unchanged in size and continues to be non radiotracer avid. 3. Benign-appearing right renal cysts. 4. Nonobstructing left nephrolithiasis. 5. Additional nonurgent findings as detailed above.
== END 2023-10-13 14:32 | disposition home or self-care (01) ==
LOC: RAD 14:31
PROVIDERS: PCP Nurse Practitioner Family; Visit Provider Nurse Practitioner Family
DX: C34.91 Malignant neoplasm of unspecified part of right bronchus or lung (principal)
CPT/HCPCS: 78815; A9552

== ENCOUNTER 2023-11-04 15:05 | Oncology outpatient (recurring) (ONCR) | payer MEDICARE, SELFPAY | END 2023-11-08 23:59 | disposition home or self-care (01) | PROVIDERS: PCP Nurse Practitioner Family; Visit Provider Internal Medicine Medical Oncology | DX: Z45.2 Encounter for adjustment and management of vascular access device; Z53.9 Procedure and treatment not carried out, unspecified reason | CPT/HCPCS: 96523; 99214; J1642 ==

== ENCOUNTER 2023-12-03 08:10 | Oncology outpatient (recurring) (ONCR) | payer MEDICARE, SELFPAY ==
[2023-12-03 08:43] VITALS: BP 151/82; PULSE 96; RESP 16; TEMP 36.4; O2SAT 97
[2023-12-03 08:46] LABS: Basophils % 0.5 %; Eosinophils # 0.1 10^3/uL (0.0-0.8); Eosinophils % 1.2 %; Lymphocytes % 16.2 %; Mean Corpuscular Hemoglobin 33.2 pg (27-33); Mean Corpuscular Volume 100.5 fl (85-98); Mean Platelet Volume 10.3 fL (7.4-10.4); Monocytes # 0.5 10^3/uL (0.2-0.9); Monocytes % 8.9 %; Neutrophils % 72.9 %; Nucleated Red Blood Cells % 0 %; Platelet Count 206 10^3/cmm (157-399); Red Blood Count 3.68 10^6/uL (3.85-5.65); Red Cell Distribution Width 13.2 % (12.1-15.1); White Blood Count 6.04 10^3/uL (3.29-11.43)
[2023-12-03 09:08] LABS: Alanine Aminotransferase 19 U/L (0-33); Albumin Level 3.8 g/dL (3.5-5.2); Alkaline Phosphatase 128 U/L (35-105); Anion Gap 16.3 (5-19); Aspartate Amino Transferase 22 U/L (0-32); Blood Urea Nitrogen 24 mg/dL (8-23); Calcium 9.6 mg/dL (8.5-10.5); Carbon Dioxide 23 mmol/L (22-29); Chloride 104 mmol/L (98-107); Globulin 3.2 g/dL (1.3-4.6); Glucose 255 mg/dL (65-115); Osmolality Calculated 301 mOsm/kg (285-295); Potassium 4.3 mmol/L (3.5-5.1); Sodium 139 mmol/L (136-145); Total Bilirubin 0.2 mg/dL (0.15-1.2)
[2023-12-03 12:05] VITALS: BP 141/79; PULSE 96; RESP 18; TEMP 36.8; O2SAT 97
== END 2023-12-09 23:59 | disposition home or self-care (01) ==
PROVIDERS: Nurse Practitioner Family; PCP Nurse Practitioner Family; Visit Provider Internal Medicine Medical Oncology
DX: E11.9 Type 2 diabetes mellitus without complications (principal); C34.11 Malignant neoplasm of upper lobe, right bronchus or lung; Z79.899 Other long term (current) drug therapy; C34.90 Malignant neoplasm of unspecified part of unspecified bronchus or lung; I10 Essential (primary) hypertension; E03.9 Hypothyroidism, unspecified; C77.8 Secondary and unspecified malignant neoplasm of lymph nodes of multiple regions; C78.7 Secondary malignant neoplasm of liver and intrahepatic bile duct; F17.210 Nicotine dependence, cigarettes, uncomplicated; Z51.12 Encounter for antineoplastic immunotherapy
CPT/HCPCS: 99214; 80053; 85025; 96413; J1642; J7050; J9173

== ENCOUNTER 2023-12-31 09:15 | Oncology outpatient (recurring) (ONCR) | payer MEDICARE, SELFPAY ==
[2023-12-17 09:02] LABS: Basophils % 0.4 %; Eosinophils # 0.1 10^3/uL (0.0-0.8); Hematocrit 36.4 % (36-47); Lymphocytes % 13.3 %; Mean Platelet Volume 10.5 fL (7.4-10.4); Monocytes # 0.6 10^3/uL (0.2-0.9); Monocytes % 7.7 %; Neutrophils # 6.06 10^3/uL (1.8-7.7); Neutrophils % 77.2 %; Nucleated Red Blood Cells % 0 %; Platelet Count 223 10^3/cmm (157-399); Red Blood Count 3.64 10^6/uL (3.85-5.65); Red Cell Distribution Width 13.3 % (12.1-15.1); White Blood Count 7.84 10^3/uL (3.29-11.43)
[2023-12-17 09:15] LABS: Alanine Aminotransferase 24 U/L (0-33); Albumin Level 3.8 g/dL (3.5-5.2); Alkaline Phosphatase 127 U/L (35-105); Anion Gap 14.9 (5-19); Aspartate Amino Transferase 28 U/L (0-32); Blood Urea Nitrogen 19 mg/dL (8-23); Calcium 8.7 mg/dL (8.5-10.5); Carbon Dioxide 26 mmol/L (22-29); Chloride 105 mmol/L (98-107); Globulin 3.1 g/dL (1.3-4.6); Glucose 156 mg/dL (65-115); Osmolality Calculated 299 mOsm/kg (285-295); Potassium 3.9 mmol/L (3.5-5.1); Sodium 142 mmol/L (136-145); Total Bilirubin 0.3 mg/dL (0.15-1.2); Total Protein 6.9 g/dL (6.6-8.7)
[2023-12-17] MEDS: DURVALUMAB IV (10:38)
[2023-12-17] MEDS: SODIUM CHLORIDE 0.9% IV (10:38)
[2023-12-17 11:45] VITALS: BP 137/77; PULSE 89; RESP 16; TEMP 36.8; O2SAT 97
[2023-12-31 09:28] LABS: Basophils % 0.5 %; Eosinophils # 0.1 10^3/uL (0.0-0.8); Eosinophils % 2.1 %; Lymphocytes % 16.1 %; Mean Corpuscular HGB Conc 32.7 g/dL (30-55); Mean Corpuscular Hemoglobin 32.7 pg (27-33); Mean Platelet Volume 10.6 fL (7.4-10.4); Monocytes # 0.6 10^3/uL (0.2-0.9); Monocytes % 8.8 %; Neutrophils # 4.51 10^3/uL (1.8-7.7); Nucleated Red Blood Cells % 0 %; Platelet Count 215 10^3/cmm (157-399); Red Cell Distribution Width 13.4 % (12.1-15.1); White Blood Count 6.26 10^3/uL (3.29-11.43)
[2023-12-31 10:07] LABS: Alanine Aminotransferase 18 U/L (0-33); Albumin Level 3.8 g/dL (3.5-5.2); Alkaline Phosphatase 133 U/L (35-105); Anion Gap 14.9 (5-19); Aspartate Amino Transferase 20 U/L (0-32); Blood Urea Nitrogen 21 mg/dL (8-23); Calcium 8.8 mg/dL (8.5-10.5); Carbon Dioxide 24 mmol/L (22-29); Chloride 106 mmol/L (98-107); Globulin 3.1 g/dL (1.3-4.6); Glucose 104 mg/dL (65-115); Osmolality Calculated 295 mOsm/kg (285-295); Potassium 3.9 mmol/L (3.5-5.1); Sodium 141 mmol/L (136-145); Thyroid Stimulating Hormone 1.67 uIU/mL (0.27-4.20); Total Bilirubin 0.2 mg/dL (0.15-1.2); Total Protein 6.9 g/dL (6.6-8.7)
[2023-12-31 10:45] LABS: Creatinine Clr Calc Pharmacy 41.1973
[2023-12-31] MEDS: SODIUM CHLORIDE 0.9% IV (11:59)
[2023-12-31] MEDS: DURVALUMAB IV (11:59)
== END 2024-01-07 23:59 | disposition home or self-care (01) ==
PROVIDERS: Nurse Practitioner Family; PCP Nurse Practitioner Family; Visit Provider Internal Medicine Medical Oncology
DX: C34.11 Malignant neoplasm of upper lobe, right bronchus or lung (principal); Z79.899 Other long term (current) drug therapy; E03.9 Hypothyroidism, unspecified; Z53.9 Procedure and treatment not carried out, unspecified reason; Z11.2 Encounter for screening for other bacterial diseases; Z87.891 Personal history of nicotine dependence
CPT/HCPCS: 80053; 84443; 85025; 96413; 99214; A4222; J1642; J7050; J9173

== ENCOUNTER 2024-01-18 13:52 | Outpatient (CLI) | payer MEDICARE, SELFPAY ==
[2024-01-18] MEDS: iohexol 350 mg/mL 500 mL Btl (per mL) PO (15:16)
[2024-01-18] MEDS: iohexol 350 mg/mL 500 mL Btl (per mL) IV (15:23)
--- NOTE | 2024-01-18 15:30 | CT_ITS ---
WS: [id number] CT CHEST, ABDOMEN AND PELVIS WITH CONTRAST HISTORY: restaging TECHNIQUE: Contiguous 5 mm axial imaging performed through the chest, abdomen and pelvis with IV cont rast, oral contrast has been provided. Coronal and sagittal reformats chest. Coronal and sagittal ref ormats through the abdomen and pelvis. All CT scans at [facility] use at least one of these d ose optimization techniques: automated exposure control; mA and/or kV adjustment per patient size (in cludes targeted exams where dose is matched to clinical indication); or iterative reconstruction. CONTRAST: Omnipaque 350; 100 mL IV. DLP: 643.96 mGy.cm COMPARISON: 09/22/2023, chest CT 06/15/[address]: Posttreatment related changes at the RIGHT apex are reidentified. There is evidence for fib rosis and traction bronchiectasis. No progression of disease or new mass identified. No new mass or p ulmonary nodule. No pneumonia. No pericardial or pleural effusion. Mild atherosclerosis aorta. Normal size pulmonary artery. Coronary artery calcifications. RIGHT subclavian Port-A-Cath. Normal size hea rt. There is a small amount of oral contrast within the distal esophagus from poor emptying or reflux disease. Abdomen CT: Normal liver and spleen. No metastatic disease within the spleen. Prior cholecystectomy. Mild pancreatic atrophy with no duct dilatation. Normal adrenal glands. Moderate atrophy LEFT kidney. The atrophied kidney still doesn't enhance. RIGHT kidney is normal size with numerous small acquired cysts. There are some hypodensities which are too small to characterize. No obstruction. Moderate at herosclerosis aorta. Well distended stomach. No small bowel obstruction. Diffuse constipation. No obstructive pattern. Pedro endix is been removed. Pelvic CT: Well-distended urinary bladder. No free fluid. No adenopathy. Advanced degenerative changes in the lumbar spine. Multilevel areas of osteochondrosis. Disc bases ar e narrowed. No destructive bone lesions. IMPRESSION: 1. Stable posttreatment fibrotic changes at the RIGHT apex. No new mass, nodule or adenopathy within the chest. 2. No metastatic disease within the liver or adrenal glands. 3. No adenopathy in the abdomen or pelvis. 4. Prior appendectomy and cholecystectomy. 5. Moderate atrophy LEFT kidney. 6. Numerous cysts and too small to characterize hypodensities RIGHT kidney, unchanged.
== END 2024-01-18 13:53 | disposition home or self-care (01) ==
LOC: RAD 13:53
PROVIDERS: PCP Nurse Practitioner Family; Visit Provider Nurse Practitioner Family
DX: C34.90 Malignant neoplasm of unspecified part of unspecified bronchus or lung (principal); N26.1 Atrophy of kidney (terminal); N28.1 Cyst of kidney, acquired
CPT/HCPCS: 71260; 74177; Q9967

== ENCOUNTER 2024-01-18 15:00 | Oncology outpatient (recurring) (ONCR) | payer MEDICARE, SELFPAY ==
[2024-01-14 08:43] LABS: Basophils % 0.7 %; Eosinophils # 0.2 10^3/uL (0.0-0.8); Eosinophils % 2.8 %; Hematocrit 36.7 % (36-47); Lymphocytes # 1.1 10^3/uL (0.8-4.8); Lymphocytes % 18.1 %; Mean Corpuscular HGB Conc 32.4 g/dL (30-55); Mean Corpuscular Hemoglobin 33.1 pg (27-33); Mean Corpuscular Volume 102.2 fl (85-98); Mean Platelet Volume 10.9 fL (7.4-10.4); Monocytes # 0.5 10^3/uL (0.2-0.9); Monocytes % 8.1 %; Neutrophils # 4.21 10^3/uL (1.8-7.7); Neutrophils % 69.8 %; Nucleated Red Blood Cells % 0 %; Platelet Count 214 10^3/cmm (157-399); Red Blood Count 3.59 10^6/uL (3.85-5.65); Red Cell Distribution Width 13.6 % (12.1-15.1); White Blood Count 6.03 10^3/uL (3.29-11.43)
[2024-01-14 09:11] LABS: Alanine Aminotransferase 22 U/L (0-33); Albumin Level 3.7 g/dL (3.5-5.2); Alkaline Phosphatase 120 U/L (35-105); Aspartate Amino Transferase 26 U/L (0-32); Blood Urea Nitrogen 24 mg/dL (8-23); Calcium 8.7 mg/dL (8.5-10.5); Carbon Dioxide 25 mmol/L (22-29); Chloride 106 mmol/L (98-107); Globulin 3.1 g/dL (1.3-4.6); Glucose 122 mg/dL (65-115); Osmolality Calculated 301 mOsm/kg (285-295); Sodium 143 mmol/L (136-145); Total Bilirubin 0.2 mg/dL (0.15-1.2); Total Protein 6.8 g/dL (6.6-8.7)
[2024-01-14 10:38] VITALS: BMI 25.0
[2024-01-14] MEDS: durvalumab 1,500 MG in sodium chloride 0.9% 250 ML 280 MG IV (11:18)
[2024-01-14 12:10] VITALS: BP 139/84; PULSE 90; TEMP 36.6; O2SAT 97
== END 2024-02-07 23:59 | disposition home or self-care (01) ==
PROVIDERS: Nurse Practitioner Family; PCP Nurse Practitioner Family; Visit Provider Internal Medicine Medical Oncology
DX: Z45.1 Encounter for adjustment and management of infusion pump; C34.90 Malignant neoplasm of unspecified part of unspecified bronchus or lung; N26.1 Atrophy of kidney (terminal); N28.1 Cyst of kidney, acquired
CPT/HCPCS: 71260; 74177; 80053; 85025; 96413; 96523; 99214; A4222; J1642; J7050; J9173; Q9967

== ENCOUNTER 2024-02-11 11:08 | Oncology outpatient (recurring) (ONCR) | payer MEDICARE, SELFPAY ==
[2024-02-11 11:29] LABS: Basophils % 0.5 %; Eosinophils # 0.1 10^3/uL (0.0-0.8); Eosinophils % 1.3 %; Hematocrit 38.4 % (36-47); Lymphocytes % 16.5 %; Mean Corpuscular HGB Conc 32.8 g/dL (30-55); Mean Corpuscular Hemoglobin 33.1 pg (27-33); Mean Corpuscular Volume 100.8 fl (85-98); Mean Platelet Volume 11.1 fL (7.4-10.4); Monocytes # 0.5 10^3/uL (0.2-0.9); Monocytes % 8.8 %; Neutrophils # 4.36 10^3/uL (1.8-7.7); Neutrophils % 72.6 %; Nucleated Red Blood Cells % 0 %; Platelet Count 210 10^3/cmm (157-399); Red Blood Count 3.81 10^6/uL (3.85-5.65); Red Cell Distribution Width 13.5 % (12.1-15.1); White Blood Count 6.01 10^3/uL (3.29-11.43)
[2024-02-11 11:59] LABS: Alanine Aminotransferase 22 U/L (0-33); Alkaline Phosphatase 134 U/L (35-105); Aspartate Amino Transferase 25 U/L (0-32); Blood Urea Nitrogen 21 mg/dL (8-23); Calcium 9.4 mg/dL (8.5-10.5); Carbon Dioxide 23 mmol/L (22-29); Chloride 106 mmol/L (98-107); Globulin 3.3 g/dL (1.3-4.6); Glucose 140 mg/dL (65-115); Osmolality Calculated 297 mOsm/kg (285-295); Sodium 141 mmol/L (136-145); Thyroid Stimulating Hormone 2.51 uIU/mL (0.27-4.20); Total Bilirubin 0.3 mg/dL (0.15-1.2); Total Protein 7.3 g/dL (6.6-8.7)
[2024-02-11] MEDS: durvalumab 1,500 MG in sodium chloride 0.9% 250 ML 280 MG IV (12:48)
[2024-02-11 14:12] VITALS: BP 136/76; PULSE 90; TEMP 37.2; O2SAT 95
== END 2024-03-08 23:59 | disposition home or self-care (01) ==
PROVIDERS: Nurse Practitioner Family; PCP Nurse Practitioner Family; Visit Provider Internal Medicine Medical Oncology
DX: Z45.1 Encounter for adjustment and management of infusion pump (principal); Z11.2 Encounter for screening for other bacterial diseases; C34.11 Malignant neoplasm of upper lobe, right bronchus or lung; Z79.899 Other long term (current) drug therapy; E03.9 Hypothyroidism, unspecified; Z53.9 Procedure and treatment not carried out, unspecified reason; Z87.891 Personal history of nicotine dependence; Z51.12 Encounter for antineoplastic immunotherapy; Z92.3 Personal history of irradiation; Z95.828 Presence of other vascular implants and grafts; C34.91 Malignant neoplasm of unspecified part of right bronchus or lung
CPT/HCPCS: 80053; 84443; 85025; 96413; 99214; A4222; J7050; J9173

== ENCOUNTER 2024-04-07 10:15 | Oncology outpatient (recurring) (ONCR) | payer MEDICARE, SELFPAY ==
[2024-03-10] MEDS: sodium chloride 0.9% 250 ML 50 ML IV (14:56)
[2024-03-10] MEDS: durvalumab 1,500 MG in sodium chloride 0.9% 250 ML 280 MG IV (15:01)
[2024-03-10 16:20] VITALS: BP 117/70; PULSE 91; RESP 16; TEMP 36.1; O2SAT 95
[2024-04-07 10:23] LABS: Basophils % 0.7 %; Eosinophils # 0.1 10^3/uL (0.0-0.8); Eosinophils % 2.2 %; Hematocrit 39.1 % (36-47); Lymphocytes # 0.9 10^3/uL (0.8-4.8); Lymphocytes % 15.9 %; Mean Corpuscular HGB Conc 32.2 g/dL (30-55); Mean Corpuscular Hemoglobin 32.3 pg (27-33); Mean Corpuscular Volume 100.3 fl (85-98); Mean Platelet Volume 11.1 fL (7.4-10.4); Monocytes # 0.5 10^3/uL (0.2-0.9); Monocytes % 8.1 %; Neutrophils # 4.28 10^3/uL (1.8-7.7); Neutrophils % 72.6 %; Nucleated Red Blood Cells % 0 %; Platelet Count 204 10^3/cmm (157-399); Red Cell Distribution Width 13.8 % (12.1-15.1)
[2024-04-07 10:51] LABS: Alanine Aminotransferase 28 U/L (0-33); Albumin Level 3.9 g/dL (3.5-5.2); Alkaline Phosphatase 141 U/L (35-105); Anion Gap 14.1 (5-19); Aspartate Amino Transferase 22 U/L (0-32); Blood Urea Nitrogen 27 mg/dL (8-23); Calcium 8.7 mg/dL (8.5-10.5); Carbon Dioxide 23 mmol/L (22-29); Chloride 105 mmol/L (98-107); Globulin 3.3 g/dL (1.3-4.6); Glucose 163 mg/dL (65-115); Osmolality Calculated 295 mOsm/kg (285-295); Potassium 4.1 mmol/L (3.5-5.1); Sodium 138 mmol/L (136-145); Thyroid Stimulating Hormone 8.83 uIU/mL (0.27-4.20); Total Bilirubin 0.2 mg/dL (0.15-1.2); Total Protein 7.2 g/dL (6.6-8.7)
[2024-04-07] MEDS: durvalumab 1,500 MG in sodium chloride 0.9% 250 ML 280 MG IV (12:24)
[2024-04-07 13:41] VITALS: BP 133/78; PULSE 91; RESP 17; TEMP 36.2; O2SAT 98
== END 2024-04-08 23:59 | disposition home or self-care (01) ==
PROVIDERS: PCP Nurse Practitioner Family; Visit Provider Internal Medicine Medical Oncology
DX: Z53.9 Procedure and treatment not carried out, unspecified reason; C34.11 Malignant neoplasm of upper lobe, right bronchus or lung; E03.9 Hypothyroidism, unspecified; I10 Essential (primary) hypertension; Z51.12 Encounter for antineoplastic immunotherapy; Z79.899 Other long term (current) drug therapy
CPT/HCPCS: 80053; 84443; 85025; 96413; 99214; A4222; J7050; J9173

== ENCOUNTER 2024-05-05 13:00 | Oncology outpatient (recurring) (ONCR) | payer MEDICARE, SELFPAY ==
--- NOTE | 2024-04-22 08:00 | CTR_ITS ---
PROCEDURE INFORMATION: Exam: CT Chest With Contrast; Diagnostic Exam date and time: 04/22/2024 8:26 AM Age: 74 years old Clinical indication: Condition or disease; Lung condition and disease; Cancer of the lung; Bilateral; Unspecified; Prior surgery; Surgery date: 6+ months; Surgery type: Port neck back; Additional info: Lung cancer TECHNIQUE: Imaging protocol: Diagnostic computed tomography of the chest with contrast. Radiation optimization: All CT scans at this facility use at least one of these dose optimization techniques: automated exposure control; mA and/or kV adjustment per patient size (includes targeted exams where dose is matched to clinical indication); or iterative reconstruction. Contrast material: OMNI 350; Contrast volume: 95 ml; Contrast route: INTRAVENOUS (IV); COMPARISON: CT chest abdpel w/*[id number] 01/18/2024 3:18 PM RADIATION DOSE METRICS: Total DLP (mGy-cm): 257.97 FINDINGS: Tubes, catheters and devices: A right-sided VAD is in good position with the catheter tip in the lower SVC. Lungs: There is extensive pleural thickening and parenchymal fibrosis involving right lung apex. I see no lung mass or infiltrate. Pleural spaces: See Lungs finding. Heart: Unremarkable. No cardiomegaly. No pericardial effusion. Lymph nodes: A 2 cm precarinal lymph node is noted along with a 2 cm subcarinal lymph node. Vasculature: Unremarkable. No aortic aneurysm. Bones/joints: Unremarkable. No acute fracture. Soft tissues: Unremarkable. CT/CT chest w con* [id number] IMPRESSION: Stable right apical pleural and parenchymal disease. I see no evidence of interval disease progression
[2024-04-22] MEDS: iohexol 350 mg/mL 500 mL Btl (per mL) IV (08:30)
[2024-05-05 12:34] VITALS: BP 117/73; PULSE 100; RESP 16; O2SAT 97
[2024-05-05] MEDS: durvalumab 1,500 MG in sodium chloride 0.9% 250 ML 280 MG IV (13:03)
[2024-05-05 14:11] VITALS: BP 136/82; PULSE 87; RESP 17; O2SAT 97
== END 2024-05-08 23:59 | disposition home or self-care (01) ==
PROVIDERS: PCP Nurse Practitioner Family; Visit Provider Internal Medicine Medical Oncology
DX: Z53.9 Procedure and treatment not carried out, unspecified reason (principal); C34.11 Malignant neoplasm of upper lobe, right bronchus or lung; Z51.12 Encounter for antineoplastic immunotherapy
CPT/HCPCS: 71260; 96413; 96523; A4222; J7050; J9173; Q9967

== ENCOUNTER 2024-06-02 10:04 | Oncology outpatient (recurring) (ONCR) | payer MEDICARE, SELFPAY ==
[2024-06-02 10:26] LABS: Basophils % 0.6 %; Eosinophils # 0.1 10^3/uL (0.0-0.8); Eosinophils % 1.7 %; Hematocrit 38.5 % (36-47); Lymphocytes % 14.9 %; Mean Corpuscular HGB Conc 32.5 g/dL (30-55); Mean Corpuscular Hemoglobin 32.6 pg (27-33); Mean Corpuscular Volume 100.5 fl (85-98); Monocytes # 0.5 10^3/uL (0.2-0.9); Monocytes % 7.8 %; Neutrophils % 74.5 %; Nucleated Red Blood Cells % 0 %; Platelet Count 211 10^3/cmm (157-399); Red Blood Count 3.83 10^6/uL (3.85-5.65); Red Cell Distribution Width 13.2 % (12.1-15.1); White Blood Count 6.57 10^3/uL (3.29-11.43)
[2024-06-02 10:51] LABS: Alanine Aminotransferase 28 U/L (0-33); Albumin Level 3.8 g/dL (3.5-5.2); Alkaline Phosphatase 143 U/L (35-105); Anion Gap 14.9 (5-19); Aspartate Amino Transferase 29 U/L (0-32); Blood Urea Nitrogen 26 mg/dL (8-23); Carbon Dioxide 22 mmol/L (22-29); Chloride 106 mmol/L (98-107); Free T4 Free Thyroxine 1.65 ng/dL (0.82-1.77); Globulin 3.2 g/dL (1.3-4.6); Glucose 195 mg/dL (65-115); Osmolality Calculated 298 mOsm/kg (285-295); Potassium 3.9 mmol/L (3.5-5.1); Sodium 139 mmol/L (136-145); Thyroid Stimulating Hormone 2.97 uIU/mL (0.27-4.20); Total Bilirubin 0.3 mg/dL (0.15-1.2)
[2024-06-02] MEDS: durvalumab 1,500 MG in sodium chloride 0.9% 250 ML 280 MG IV (11:51)
[2024-06-02 12:59] VITALS: BP 132/79; PULSE 96; RESP 16; TEMP 36.8; O2SAT 96
== END 2024-06-08 23:59 | disposition home or self-care (01) ==
PROVIDERS: PCP Nurse Practitioner Family; Visit Provider Internal Medicine Medical Oncology
DX: C34.11 Malignant neoplasm of upper lobe, right bronchus or lung (principal); Z51.12 Encounter for antineoplastic immunotherapy; I10 Essential (primary) hypertension; E11.9 Type 2 diabetes mellitus without complications; Z79.4 Long term (current) use of insulin; Z79.899 Other long term (current) drug therapy
CPT/HCPCS: 80053; 84439; 84443; 85025; 96413; 99214; A4222; J7050; J9173

== ENCOUNTER 2024-06-30 12:42 | Oncology outpatient (recurring) (ONCR) | payer MEDICARE, SELFPAY ==
[2024-06-30] MEDS: durvalumab 1,500 MG in sodium chloride 0.9% 250 ML 280 MG IV (14:27)
[2024-06-30 15:32] VITALS: BP 125/74; PULSE 90; RESP 16; TEMP 36.3; O2SAT 99
== END 2024-07-09 23:59 | disposition home or self-care (01) ==
PROVIDERS: PCP Nurse Practitioner Family; Visit Provider Internal Medicine Medical Oncology
DX: Z51.12 Encounter for antineoplastic immunotherapy (principal); C34.11 Malignant neoplasm of upper lobe, right bronchus or lung; I10 Essential (primary) hypertension; E11.9 Type 2 diabetes mellitus without complications; Z79.4 Long term (current) use of insulin; Z79.899 Other long term (current) drug therapy
CPT/HCPCS: 80053; 84443; 85025; 96413; A4222; J7050; J9173

== ENCOUNTER 2024-06-30 12:42 | Oncology outpatient (recurring) (ONCR) | payer MEDICARE, SELFPAY ==
[2024-06-30 13:15] LABS: Basophils % 0.4 %; Eosinophils # 0.1 10^3/uL (0.0-0.8); Eosinophils % 0.9 %; Hematocrit 38.5 % (36-47); Lymphocytes # 0.8 10^3/uL (0.8-4.8); Lymphocytes % 11.4 %; Monocytes # 0.6 10^3/uL (0.2-0.9); Monocytes % 7.7 %; Neutrophils # 5.85 10^3/uL (1.8-7.7); Neutrophils % 79.2 %; Nucleated Red Blood Cells % 0 %; Platelet Count 205 10^3/cmm (157-399); Red Blood Count 3.85 10^6/uL (3.85-5.65); Red Cell Distribution Width 12.9 % (12.1-15.1); White Blood Count 7.39 10^3/uL (3.29-11.43)
[2024-06-30 13:41] LABS: Alanine Aminotransferase 36 U/L (0-33); Albumin Level 3.7 g/dL (3.5-5.2); Alkaline Phosphatase 143 U/L (35-105); Anion Gap 15.8 (5-19); Aspartate Amino Transferase 27 U/L (0-32); Blood Urea Nitrogen 18 mg/dL (8-23); Calcium 8.9 mg/dL (8.5-10.5); Carbon Dioxide 23 mmol/L (22-29); Chloride 104 mmol/L (98-107); Globulin 2.9 g/dL (1.3-4.6); Glucose 233 mg/dL (65-115); Osmolality Calculated 297 mOsm/kg (285-295); Potassium 3.8 mmol/L (3.5-5.1); Sodium 139 mmol/L (136-145); Thyroid Stimulating Hormone 3.38 uIU/mL (0.27-4.20); Total Bilirubin 0.2 mg/dL (0.15-1.2); Total Protein 6.6 g/dL (6.6-8.7)
== END 2024-07-09 23:59 | disposition home or self-care (01) ==
PROVIDERS: Nurse Practitioner Family; PCP Nurse Practitioner Family; Visit Provider Internal Medicine Medical Oncology
DX: E11.9 Type 2 diabetes mellitus without complications; C34.91 Malignant neoplasm of unspecified part of right bronchus or lung
CPT/HCPCS: 80053; 84443; 85025

== ENCOUNTER 2024-07-28 09:18 | Oncology outpatient (recurring) (ONCR) | payer MEDICARE, SELFPAY ==
[2024-07-28 10:01] LABS: Basophils # 0.1 10^3/uL (0.0-0.1); Basophils % 0.7 %; Eosinophils # 0.1 10^3/uL (0.0-0.8); Eosinophils % 1.5 %; Hematocrit 40.8 % (36-47); Lymphocytes # 1.4 10^3/uL (0.8-4.8); Mean Corpuscular HGB Conc 32.8 g/dL (30-55); Mean Corpuscular Hemoglobin 33.1 pg (27-33); Mean Corpuscular Volume 100.7 fl (85-98); Mean Platelet Volume 10.6 fL (7.4-10.4); Monocytes # 0.7 10^3/uL (0.2-0.9); Monocytes % 10.4 %; Neutrophils # 4.86 10^3/uL (1.8-7.7); Neutrophils % 68.1 %; Nucleated Red Blood Cells % 0 %; Platelet Count 244 10^3/cmm (157-399); Red Blood Count 4.05 10^6/uL (3.85-5.65); Red Cell Distribution Width 13.1 % (12.1-15.1); White Blood Count 7.14 10^3/uL (3.29-11.43)
[2024-07-28 10:25] LABS: Alanine Aminotransferase 32 U/L (0-33); Albumin Level 4.1 g/dL (3.5-5.2); Alkaline Phosphatase 134 U/L (35-105); Anion Gap 14.7 (5-19); Aspartate Amino Transferase 32 U/L (0-32); Blood Urea Nitrogen 29 mg/dL (8-23); Calcium 9.7 mg/dL (8.5-10.5); Carbon Dioxide 25 mmol/L (22-29); Chloride 106 mmol/L (98-107); Globulin 3.1 g/dL (1.3-4.6); Glucose 90 mg/dL (65-115); Osmolality Calculated 299 mOsm/kg (285-295); Potassium 3.7 mmol/L (3.5-5.1); Sodium 142 mmol/L (136-145); Thyroid Stimulating Hormone 1.27 uIU/mL (0.27-4.20); Total Bilirubin 0.2 mg/dL (0.15-1.2); Total Protein 7.2 g/dL (6.6-8.7)
[2024-07-28] MEDS: durvalumab 1,500 MG in sodium chloride 0.9% 250 ML 280 MG IV (12:02)
[2024-07-28] MEDS: ipratropium-albuterol 3 mL Neb INHALATION (13:15)
[2024-07-28 13:29] VITALS: BP 128/79; PULSE 103; RESP 18; O2SAT 99
== END 2024-08-08 23:59 | disposition home or self-care (01) ==
PROVIDERS: Nurse Practitioner Family; PCP Nurse Practitioner Family; Visit Provider Internal Medicine Medical Oncology
DX: Z51.12 Encounter for antineoplastic immunotherapy (principal); C34.11 Malignant neoplasm of upper lobe, right bronchus or lung; E11.9 Type 2 diabetes mellitus without complications; Z79.4 Long term (current) use of insulin; Z79.899 Other long term (current) drug therapy; Z95.828 Presence of other vascular implants and grafts; Z87.891 Personal history of nicotine dependence; Z92.3 Personal history of irradiation; Z79.69 Long term (current) use of other immunomodulators and immunosuppressants
CPT/HCPCS: 80053; 84443; 85025; 96413; 99214; A4222; J7050; J9173

== ENCOUNTER 2024-08-11 13:44 | Outpatient (CLI) | payer MEDICARE, SELFPAY ==
--- NOTE | 2024-08-11 14:00 | CTR_ITS ---
PROCEDURE INFORMATION: Exam: CT Chest With Contrast; Diagnostic Exam date and time: 08/11/2024 2:31 PM Age: 74 years old Clinical indication: Condition or disease; Lung condition and disease; Cancer of the lung; Bilateral; Unspecified; Primary cancer: Lung cancer; Additional info: Restaging TECHNIQUE: Imaging protocol: Diagnostic computed tomography of the chest with contrast. Radiation optimization: All CT scans at this facility use at least one of these dose optimization techniques: automated exposure control; mA and/or kV adjustment per patient size (includes targeted exams where dose is matched to clinical indication); or iterative reconstruction. Contrast material: OMNI 350; Contrast volume: 100 ml; Contrast route: INTRAVENOUS (IV); COMPARISON: CT chest w con* [id number] 04/22/2024 8:26 AM RADIATION DOSE METRICS: Total DLP (mGy-cm): 251.24 FINDINGS: Tubes, catheters and devices: There is a right chest port with the line tip appropriately positioned in the lower SVC near the cavoatrial junction. Lungs: Stable right apical pleural thickening and adjacent pleuroparenchymal scarring, similar to findings on 04/22/2024. No discrete pulmonary mass is visible. There is superior retraction of the right hilum and volume loss in the right upper lobe. No suspicious pulmonary nodule. Pleural spaces: There is no pleural effusion or pneumothorax. Heart: Heart size is normal. There is no pericardial effusion. Lymph nodes: Mild asymmetric soft tissue density in the upper right hilum with no discrete lymph node enlargement visible. Vasculature: There is moderate aortic atherosclerotic disease. There is hemodynamically significant stenosis at the superior mesenteric artery origin. Bones/joints: No suspicious bone lesions. Soft tissues: 1.8 x 1.3 cm nodule in the lateral right breast is stable since 04/22/2024. CT/CT chest w con* [id number] IMPRESSION: 1. Stable right apical pleuroparenchymal scarring and pleural thickening since 04/22/2024 consistent with treatment effect and or residual neoplasm. No sign of disease progression. 2. 1.8 cm nodule in the right breast, stable since 04/22/2024. Recommend correlation with mammography. 3. Incidental findings above.
[2024-08-11] MEDS: iohexol 350 mg/mL 500 mL Btl (per mL) IV (14:40)
== END 2024-08-11 13:45 | disposition home or self-care (01) ==
LOC: RAD 13:45
PROVIDERS: PCP Nurse Practitioner Family; Visit Provider Nurse Practitioner Family
DX: C34.90 Malignant neoplasm of unspecified part of unspecified bronchus or lung (principal); J92.9 Pleural plaque without asbestos; I70.0 Atherosclerosis of aorta; N63.10 Unspecified lump in the right breast, unspecified quadrant; Z95.9 Presence of cardiac and vascular implant and graft, unspecified
CPT/HCPCS: 71260

== ENCOUNTER 2024-08-25 10:08 | Oncology outpatient (recurring) (ONCR) | payer MEDICARE, SELFPAY ==
[2024-08-25 10:35] LABS: Basophils # 0.1 10^3/uL (0.0-0.1); Basophils % 0.8 %; Eosinophils # 0.1 10^3/uL (0.0-0.8); Eosinophils % 1.6 %; Hematocrit 38.2 % (36-47); Lymphocytes % 15.5 %; Mean Corpuscular Hemoglobin 33.3 pg (27-33); Mean Corpuscular Volume 101.1 fl (85-98); Mean Platelet Volume 10.8 fL (7.4-10.4); Monocytes # 0.5 10^3/uL (0.2-0.9); Monocytes % 8.8 %; Neutrophils # 4.44 10^3/uL (1.8-7.7); Neutrophils % 72.8 %; Nucleated Red Blood Cells % 0 %; Platelet Count 212 10^3/cmm (157-399); Red Blood Count 3.78 10^6/uL (3.85-5.65); Red Cell Distribution Width 13.2 % (12.1-15.1); White Blood Count 6.11 10^3/uL (3.29-11.43)
[2024-08-25 11:05] LABS: Alanine Aminotransferase 20 U/L (0-33); Albumin Level 4.1 g/dL (3.5-5.2); Alkaline Phosphatase 141 U/L (35-105); Anion Gap 14.5 (5-19); Aspartate Amino Transferase 24 U/L (0-32); Blood Urea Nitrogen 19 mg/dL (8-23); Calcium 9.2 mg/dL (8.5-10.5); Carbon Dioxide 23 mmol/L (22-29); Chloride 107 mmol/L (98-107); Creatinine Clr Calc Pharmacy 43.6813; Globulin 2.9 g/dL (1.3-4.6); Glucose 210 mg/dL (65-115); Iron 71 ug/dL (37-145); Osmolality Calculated 298 mOsm/kg (285-295); Percent Saturation 28.6 % (20-50); Potassium 4.5 mmol/L (3.5-5.1); Sodium 140 mmol/L (136-145); Thyroid Stimulating Hormone 0.64 uIU/mL (0.27-4.20); Total Bilirubin 0.3 mg/dL (0.15-1.2); Total Iron Binding Capacity 248 mcg/dl; Unsaturated Iron Binding 177 ug/dL (112-347)
[2024-08-25] MEDS: durvalumab 1,500 MG in sodium chloride 0.9% 250 ML 280 MG IV (12:30)
[2024-08-25 13:44] VITALS: BP 137/77; PULSE 94; TEMP 36.8; O2SAT 94
== END 2024-09-08 23:59 | disposition home or self-care (01) ==
PROVIDERS: Nurse Practitioner Family; PCP Nurse Practitioner Family; Visit Provider Internal Medicine Medical Oncology
DX: Z51.12 Encounter for antineoplastic immunotherapy (principal); C34.11 Malignant neoplasm of upper lobe, right bronchus or lung; Z79.899 Other long term (current) drug therapy; Z95.828 Presence of other vascular implants and grafts; Z87.891 Personal history of nicotine dependence; Z92.3 Personal history of irradiation; Z79.69 Long term (current) use of other immunomodulators and immunosuppressants
CPT/HCPCS: 80053; 83540; 83550; 84443; 85025; 96413; 99214; A4222; J7050; J9173

== ENCOUNTER 2024-10-04 11:30 | Oncology outpatient (recurring) (ONCR) | payer MEDICARE, SELFPAY ==
[2024-09-22 12:07] LABS: Basophils # 0.1 10^3/uL (0.0-0.1); Basophils % 0.7 %; Eosinophils # 0.1 10^3/uL (0.0-0.8); Eosinophils % 1.8 %; Hematocrit 38.8 % (36-47); Lymphocytes # 1.1 10^3/uL (0.8-4.8); Lymphocytes % 13.7 %; Mean Corpuscular Hemoglobin 31.8 pg (27-33); Mean Corpuscular Volume 99.5 fl (85-98); Mean Platelet Volume 11.1 fL (7.4-10.4); Monocytes # 0.5 10^3/uL (0.2-0.9); Monocytes % 6.7 %; Neutrophils # 5.86 10^3/uL (1.8-7.7); Neutrophils % 76.4 %; Nucleated Red Blood Cells % 0 %; Platelet Count 210 10^3/cmm (157-399); Red Cell Distribution Width 13.8 % (12.1-15.1); White Blood Count 7.66 10^3/uL (3.29-11.43)
[2024-09-22 12:35] LABS: Alanine Aminotransferase 35 U/L (0-33); Albumin Level 3.8 g/dL (3.5-5.2); Alkaline Phosphatase 131 U/L (35-105); Aspartate Amino Transferase 33 U/L (0-32); Blood Urea Nitrogen 18 mg/dL (8-23); Carbon Dioxide 23 mmol/L (22-29); Chloride 105 mmol/L (98-107); Creatinine Clr Calc Pharmacy 40.4054; Globulin 2.7 g/dL (1.3-4.6); Glucose 254 mg/dL (65-115); Lactate Dehydrogenase 151 U/L (135-214); Osmolality Calculated 297 mOsm/kg (285-295); Sodium 138 mmol/L (136-145); Thyroid Stimulating Hormone 28.11 uIU/mL (0.27-4.20); Total Bilirubin 0.2 mg/dL (0.15-1.2); Total Protein 6.5 g/dL (6.6-8.7)
--- NOTE | 2024-09-30 16:00 | PETR_ITS ---
PROCEDURE INFORMATION: Exam: PET/CT Skull Base to Mid-thigh Exam date and time: 09/30/2024 1:05 PM Age: 74 years old Clinical indication: Restaging of lung cancer with the primary tumor in the right upper lobe. Abnormal findings; 1.8 cm nodule right breast per CT scan 08/31/24; Prior surgery; Surgery date: 6+ months; Surgery type: Port, gb. LABS AND CLINICAL REPORTS: Glucose: 153 mg/dl Treatment strategy for malignancy (PET staging): Restaging (PS) TECHNIQUE: Imaging protocol: Following at least four-hour fasting and following the injection of radiopharmaceutical, low dose CT images were obtained. Then, PET images were obtained. Attenuation corrected images were constructed using the CT scan. Fused images of PET and CT were reviewed. The standardized uptake values (SUV) reported below are maximum values within a region of interest, expressed in gm/ml. Exam includes orbital meatal line to mid-thigh. SUV normalization method: BodyWeight Radiopharmaceutical: 11.8 mCi F-18 FDG (Fluorodeoxyglucose), IV. Time of imaging post radiopharmaceutical administration: 50 minutes Injection site: left ac COMPARISON: PT PET skull to thigh SUBS [id number] 10/13/2023 and 04/28/2022, CT chest with contrast 08/11/2024 FINDINGS: Tubes, catheters and devices: Port catheter placed via the right internal jugular vein terminates in the superior vena cava. Brain: Normal physiologic uptake. Pharynx: No abnormal uptake. Larynx: No abnormal uptake. Lungs, pleura and trachea: Stable right apical soft tissue density measures 3.6 SUV, previously 3.2 SUV representing nonviable sequela of treated tumor/chronic postradiation pneumonitis. No new lung nodules or masses, no pleural effusion. The Heart: Unremarkable. There is no cardiomegaly. Severe coronary artery calcification is present. There is no pericardial effusion. Mediastinal space: No abnormal uptake. Liver: No abnormal uptake. Maximum uptake is 4.3 SUV. Gallbladder and biliary ducts: No abnormal uptake. Status post cholecystectomy. Pancreas: No abnormal uptake. Spleen: No abnormal uptake. No splenomegaly. Adrenal glands: No abnormal uptake. No nodules. Kidneys and ureters: Normal physiologic uptake. No hydronephrosis. The right kidney is normal in size with preserved parenchyma with stable simple cysts measuring up to 3 cm. The left kidney smaller than normal with mildly atrophic parenchyma. Stomach and bowel: Small focus of increased uptake of 8.1 SUV in the cecal (series 301, image 234) is indeterminate. Vasculature: No abnormal uptake. No aortic aneurysm. Lymph nodes: No FDG avid lymphadenopathy in the neck, chest, abdomen, pelvis, and extremities. Skeleton: No abnormal uptake in the visualized axial and appendicular skeleton. Stable C5-C7 fusion with anterior internal fixation. Stable degenerative sclerosis in the endplates around T12-L1, L2-L3 and L3-L4 discs. Soft tissues: No abnormal uptake in the visualized head, neck, chest, abdomen, pelvis, and extremities. The finding described as nodule in the right breast in the report of CT chest on 08/11/2024 likely represents a glandular tissue unchanged since prior exams starting on 04/28/2022. PET/PET skull to thigh SUBS [id number] IMPRESSION: In comparison with prior exam of 10/13/2023 there is new small FDG avid focus in the cecum of indeterminate significance. If clinically warranted correlation with colonoscopy is recommended to exclude mass/polyp. Otherwise there is no findings concerning for metastatic disease. No abnormal uptake and no obvious mass in the right breast. Stable post treatment changes in the apex of the right lung.
[2024-10-04] MEDS: durvalumab 1,500 MG in sodium chloride 0.9% 250 ML 280 MG IV (12:09)
[2024-10-04 13:17] VITALS: BP 121/78; PULSE 92; O2SAT 99
== END 2024-10-04 23:59 | disposition home or self-care (01) ==
PROVIDERS: Nurse Practitioner Family; PCP Nurse Practitioner Family; Visit Provider Nurse Practitioner
DX: I10 Essential (primary) hypertension; Z53.9 Procedure and treatment not carried out, unspecified reason; Z51.12 Encounter for antineoplastic immunotherapy; C34.11 Malignant neoplasm of upper lobe, right bronchus or lung; Z79.899 Other long term (current) drug therapy; Z87.891 Personal history of nicotine dependence; E03.9 Hypothyroidism, unspecified; Z92.3 Personal history of irradiation
CPT/HCPCS: 78815; 80053; 83615; 84443; 85025; 96413; 99214; A4222; A9552; J7050; J9173

== ENCOUNTER → 2024-10-14 09:20 | Outpatient (BNVA) | payer MEDICARE, SELFPAY | PROVIDERS: PCP Nurse Practitioner Family; Referring Provider Internal Medicine Medical Oncology; Visit Provider Surgery | DX: R03.0 Elevated blood-pressure reading, without diagnosis of hypertension (principal); R94.8 Abnormal results of function studies of other organs and systems; Z80.0 Family history of malignant neoplasm of digestive organs; K59.00 Constipation, unspecified | CPT/HCPCS: 99204 ==

== ENCOUNTER 2024-10-19 07:31 | Day surgery (SDC) | payer MEDICARE, SELFPAY ==
[2024-10-19 07:49] VITALS: BP 162/95; PULSE 113; RESP 18; TEMP 36.5; O2SAT 97; BMI 25.7
--- NOTE | 2024-10-19 07:58 | P.ANESASSM_ITS ---
Pre-Anesthetic Assessment Height/Weight: Height 5 ft 4 in Preop Diagnosis: Constipation Operation Date: 10/19/24 08:30 Proposed Procedures p Colonoscopy 44812, G0105, R94.8, Z80.0(Not Applicable) - Luis Alberto Maria, DO Was Beta Airam taken within 24 hours: N/A Was Clonidine taken within 24 hours: N/A Social No alcohol and No tobacco Exam alert, oriented x 3, clear to auscultation bilaterally and regular rate & rhythm Airway Submandibular: within normal limits Cervical ROM: within normal limits Mallampati: Class II Dentition: false and partials Anesthetic Plan ASA status: 3 Anesthesia: Choice Other: No prior issues with anesthesia Completed bowel prep Patient has a history of lung cancer with chronic pneumonitis Type 2 diabetes on insulin No home oxygen Recent labs reviewed and acceptable for procedure Plan for MAC anesthetic Medications/Allergies Home Medications Medication Instructions Recorded Confirmed Last Taken Type topiramate 25 mg tablet 50 mg PO .QHS 12/07/20 10/18/24 10/17/24 History loratadine 10 mg capsule 10 mg PO DAILY PRN allergy symptoms 12/12/20 10/19/24 10/18/24 History docusate sodium 100 mg capsule 100 mg PO DAILY PRN Constipation 05/05/22 10/18/24 10/15/24 History (Colace) hydrocodone 10 mg-acetaminophen 1 tab PO Q6H PRN Pain 05/05/22 10/19/24 10/16/24 History 325 mg tablet insulin aspart U-100 100 unit/mL See Rx Instructions SUBCUT TID PRN 06/10/22 10/18/24 10/18/24 History (3 mL) subcutaneous pen (Novolog high blood sugar FlexPen U-100 Insulin aspart) prochlorperazine maleate 10 mg 10 mg PO Q6H PRN nausea and 06/10/22 10/19/24 1 Year Ago Rx tablet (Compazine) vomiting #60 tabs ~10/19/23 dextromethorphan-guaifenesin 10 1 tab-cap PO Q8H PRN Cough 07/01/22 10/19/24 2 Weeks Ago History mg-200 mg capsule (Robitussin ~10/05/24 Cough-Chest Congestion DM) prenat.vits,williams,pib-mpnk-gkacp 1 tab PO DAILY 09/08/22 10/18/24 10/18/24 History diphenhydramine HCl 25 mg capsule 25 mg PO .hs PRN Sleep 10/20/22 10/18/24 10/17/24 History (Benadryl) albuterol sulfate 90 mcg/actuation 2 inh inhalation .Q4-6h PRN 05/05/23 10/18/24 10/19/24 07:00 Rx aerosol inhaler wheezing #8.5 grams insulin glargine 100 unit/mL (3 20 unit SUBCUT BEDTIME 05/19/23 10/18/24 10/17/24 History mL) subcutaneous pen (Lantus Solostar U-100 Insulin) ascorbic acid (vitamin C) 500 mg 500 mg PO DAILY 06/02/23 10/18/24 10/18/24 History tablet durvalumab 50 mg/mL intravenous 1,500 mg (30 mL) IV Q28D 12/17/23 10/18/24 09/21/24 Rx solution fluticasone furoate 100 1 inh inhalation Q24H #30 ea 08/05/24 10/18/24 10/19/24 07:00 Rx mcg/actuation blister powder for inhalation (Arnuity Ellipta) levothyroxine 175 mcg tablet 175 mcg PO DAILY 10/18/24 10/18/24 10/19/24 07:00 History lorazepam 1 mg tablet 0.5 - 1 mg PO Q8H PRN nausea and 10/18/24 10/19/24 10/17/24 History vomiting Allergies Allergy/AdvReac Type Severity Reaction Status Date / Time azithromycin Allergy rash Verified 10/04/24 10:47 phenylephrine Allergy rash Verified 10/04/24 10:47 Epodfun-CZI-BeA Reductase Allergy Blindness Verified 10/04/24 10:47 Inhibitor [Vtliaxh-Vxl-Tik Reductase Inhibitor] Sulfa (Sulfonamide Allergy rash Verified 10/04/24 10:47 Antibiotics) [facility] Anesthesia Medical History (Updated 10/14/24 @ 10:21 by Luis Alberto Maria DO) Family history of colon cancer Osteoarthritis Hypertension Type 2 diabetes mellitus 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 Cancer of right lung Dyslipidemia Peripheral arterial occlusive disease Hx of smoking Hx of recurrent urinary tract infection Rupture of colon Surgical History History of elbow surgery Left [id number] Port-A-Cath in place History of cholecystectomy 1995 History of appendectomy 1957 Hx of neck surgery Hx of colonoscopy 10 yrs ago History of back surgery Family History Father Hypertension CAD (coronary artery disease) Chronic kidney disease (CKD) Diabetes Mother Cancer Lung disease Grandfather Stroke Denies family history of Clotting disorder Dementia Suicide Anesthesia complication Bleeding disorder Social History Smoking and tobacco/nicotine status: former use of tobacco/nicotine Quit status (tobacco/nicotine): has quit using Year quit tobacco: June 2022 Former quit date comment: 50 years Second hand smoke exposure: Yes Alcohol intake: never Substance/Drug Use: never Data Anesthesia Cardiac Studies: Sestamibi Stress Test (Cardiology) 04/03
[2024-10-19] MEDS: sodium chloride 0.9% 500 ML 15 ML IV (08:00)
[2024-10-19 08:07] LABS: Glucose Point of Care 364 mg/dL (70-110)
--- NOTE | 2024-10-19 08:59 | W.PM.OPSUD ---
Surgery/Procedure H&P Update DATE OF PROCEDURE: October 19, 2024 DATE H&P PERFORMED: 10/14/24 H&P UPDATE INFORMATION: I have reviewed H&P completed within last 30 days, I have examined patient prior to procedure and No changes to prior documentation PREOP DIAGNOSIS: Constipation PLANNED PROCEDURE: Operation Date: 10/19/24 08:30 Proposed Procedures p Colonoscopy 27993, G0105, R94.8, Z80.0(Not Applicable) - Luis Alberto Maria DO
[2024-10-19 09:33] VITALS: BP 140/78; PULSE 87; RESP 20; TEMP 36.3; O2SAT 98
[2024-10-19 09:46] VITALS: BP 156/80; PULSE 86; RESP 18; O2SAT 99
--- NOTE | 2024-10-19 10:06 | ANE.PACU2 ---
Inpatient post-anesthesia follow up: Airway intact: Yes Vital signs: Temperature 97.4 F Pulse Rate 86 Respiratory Rate 18 Blood Pressure 156/80 Pulse Oximetry 99 Oxygen Delivery Me thod Room Air Oxygen Flow Rate 3 Fraction of Inspir ed Oxygen Hydration adequate: Yes Nausea and vomiting: No Pain level: 1 Mental status: Baseline
== END 2024-10-19 10:06 | disposition home or self-care (01) ==
PROVIDERS: PCP Nurse Practitioner Family; Visit Provider Surgery
PROC: 0DJD8ZZ Inspection of Lower Intestinal Tract, Via Natural or Artificial Opening Endoscopic (ICD-10-PCS; CPT 45378; principal; 2024-10-19 08:30)
DX: K59.00 Constipation, unspecified (principal); D12.5 Benign neoplasm of sigmoid colon; Z80.0 Family history of malignant neoplasm of digestive organs; Z85.118 Personal history of other malignant neoplasm of bronchus and lung; Z79.4 Long term (current) use of insulin; I10 Essential (primary) hypertension; E11.9 Type 2 diabetes mellitus without complications; E03.9 Hypothyroidism, unspecified; E78.5 Hyperlipidemia, unspecified; Z87.891 Personal history of nicotine dependence
CPT/HCPCS: 36416; 45385; 82962; 88305; J2704; J7040

== ENCOUNTER 2024-11-03 09:05 | Oncology outpatient (recurring) (ONCR) | payer MEDICARE, SELFPAY ==
[2024-11-03 09:35] LABS: Basophils % 0.5 %; Eosinophils # 0.1 10^3/uL (0.0-0.8); Eosinophils % 0.9 %; Hematocrit 37.3 % (36-47); Lymphocytes # 1.3 10^3/uL (0.8-4.8); Lymphocytes % 16.7 %; Mean Corpuscular HGB Conc 33.2 g/dL (30-55); Mean Corpuscular Hemoglobin 33.1 pg (27-33); Mean Corpuscular Volume 99.5 fl (85-98); Mean Platelet Volume 10.6 fL (7.4-10.4); Monocytes # 0.5 10^3/uL (0.2-0.9); Monocytes % 5.9 %; Neutrophils # 5.86 10^3/uL (1.8-7.7); Neutrophils % 75.5 %; Nucleated Red Blood Cells % 0 %; Platelet Count 226 10^3/cmm (157-399); Red Blood Count 3.75 10^6/uL (3.85-5.65); Red Cell Distribution Width 13.2 % (12.1-15.1); White Blood Count 7.77 10^3/uL (3.29-11.43)
[2024-11-03 10:04] LABS: Alanine Aminotransferase 23 U/L (0-33); Albumin Level 3.8 g/dL (3.5-5.2); Alkaline Phosphatase 144 U/L (35-105); Anion Gap 16.1 (5-19); Aspartate Amino Transferase 26 U/L (0-32); Blood Urea Nitrogen 24 mg/dL (8-23); Calcium 9.1 mg/dL (8.5-10.5); Carbon Dioxide 22 mmol/L (22-29); Chloride 103 mmol/L (98-107); Glucose 234 mg/dL (65-115); Osmolality Calculated 296 mOsm/kg (285-295); Potassium 4.1 mmol/L (3.5-5.1); Sodium 137 mmol/L (136-145); Thyroid Stimulating Hormone 5.01 uIU/mL (0.27-4.20); Total Bilirubin 0.2 mg/dL (0.15-1.2); Total Protein 6.8 g/dL (6.6-8.7)
[2024-11-03 10:35] LABS: Carcinoembryonic Antigen 9.7 ng/mL (0.0-4.7)
[2024-11-03] MEDS: durvalumab 1,500 MG in sodium chloride 0.9% 250 ML 280 MG IV (12:49)
[2024-11-03 13:42] LABS: Vitamin B12 455 pg/mL (232-1245)
[2024-11-03 13:59] VITALS: BP 137/77; PULSE 85; RESP 16; TEMP 36.3; O2SAT 95
[2024-11-03 14:12] LABS: Folate Level > 20.0 ng/mL (4.8-37.3)
== END 2024-11-08 23:59 | disposition home or self-care (01) ==
PROVIDERS: Internal Medicine Medical Oncology; Nurse Practitioner Family; Surgery; PCP Nurse Practitioner Family; Visit Provider Nurse Practitioner
DX: I10 Essential (primary) hypertension; Z51.12 Encounter for antineoplastic immunotherapy; C34.11 Malignant neoplasm of upper lobe, right bronchus or lung; Z79.899 Other long term (current) drug therapy; Z87.891 Personal history of nicotine dependence; Z92.3 Personal history of irradiation; E03.9 Hypothyroidism, unspecified; D64.9 Anemia, unspecified
CPT/HCPCS: 80053; 82378; 82607; 82746; 84443; 85025; 96413; 99214; A4222; J7050; J9173

== ENCOUNTER 2024-11-22 13:56 | Inpatient (IN) | payer MEDICARE, SELFPAY ==
[2024-11-22] VITALS (25 sets, daily range): BP systolic 110–149; BP diastolic 57–81; PULSE 84–110; RESP 13–18; TEMP 36.1–36.8; O2SAT 88–99; BMI 25.7
--- NOTE | 2024-11-22 08:29 | W.PM.OPSUD ---
Surgery/Procedure H&P Update DATE OF PROCEDURE: November 22, 2024 DATE H&P PERFORMED: 11/03/24 H&P UPDATE INFORMATION: I have reviewed H&P completed within last 30 days, I have examined patient prior to procedure and No changes to prior documentation PLANNED PROCEDURE: Operation Date: 11/22/24 09:45 Proposed Procedures p Laparoscopic Colectomy, Partial w/ Removal Terminal Ileum 18646, D12.6(Not Applicable) - Luis Alberto Maria DO s Ileocolostomy(Not Applicable) - Luis Alberto Maria DO
--- NOTE | 2024-11-22 08:55 | ANES.PREANE2 ---
Pre-Anesthetic Assessment Height/Weight: Height 5 ft 4 in Weight 150 lb Temp Pulse Resp BP Pulse Ox O2 Del Method 97.8 F 110 H 17 138/68 99 Room Air 11/22/24 08:37 11/22/24 08:37 11/22/24 08:37 11/22/24 08:37 11/22/24 08:37 11/22/24 08:38 Preop Diagnosis: Colonic adenoma Operation Date: 11/22/24 09:45 Proposed Procedures p Laparoscopic Colectomy, Partial w/ Removal Terminal Ileum 42808, D12.6(Not Applicable) - Luis Alberto Maria DO s Ileocolostomy(Not Applicable) - Luis Alberto Maria DO Was Beta Airam taken within 24 hours: N/A Was Clonidine taken within 24 hours: N/A Last intake: Intake Last Liquid Date 11/21/24 Last Liquid Time 22:00 Last Solid Date 11/20/24 Social No alcohol and No tobacco Exam alert, oriented x 3, clear to auscultation bilaterally and regular rate & rhythm Airway Submandibular: within normal limits Cervical ROM: within normal limits Mallampati: Class II Dentition: false and partials Anesthetic Plan ASA status: 3 Anesthesia: General Other: No prior issues with anesthesia Patient has a history of lung cancer with chronic pneumonitis Type 2 diabetes on insulin Hypothyroidism on Synthroid No home oxygen Recent labs reviewed and acceptable for procedure GETA Medications/Allergies Home Medications Medication Instructions Recorded Confirmed Last Taken Type topiramate 25 mg tablet 50 mg PO .QHS 12/07/20 11/21/24 11/20/24 History loratadine 10 mg capsule 10 mg PO DAILY PRN allergy symptoms 12/12/20 11/21/24 11/21/24 History docusate sodium 100 mg capsule 100 mg PO DAILY PRN Constipation 05/05/22 11/21/24 10/15/24 History (Colace) hydrocodone 10 mg-acetaminophen 1 tab PO Q6H PRN Pain 05/05/22 11/21/24 11/14/24 History 325 mg tablet insulin aspart U-100 100 unit/mL See Rx Instructions SUBCUT TID PRN 06/10/22 11/21/24 11/21/24 History (3 mL) subcutaneous pen (Novolog high blood sugar FlexPen U-100 Insulin aspart) prochlorperazine maleate 10 mg 10 mg PO Q6H PRN nausea and 06/10/22 11/21/24 1 Year Ago Rx tablet (Compazine) vomiting #60 tabs ~10/19/23 dextromethorphan-guaifenesin 10 1 tab-cap PO Q8H PRN Cough 07/01/22 11/21/24 2 Weeks Ago History mg-200 mg capsule (Robitussin ~10/05/24 Cough-Chest Congestion DM) prenat.vits,williams,raa-aaqk-nyfdf 1 tab PO DAILY 09/08/22 11/21/24 11/20/24 History diphenhydramine HCl 25 mg capsule 25 mg PO .hs PRN Sleep 10/20/22 11/21/24 11/19/24 History (Benadryl) albuterol sulfate 90 mcg/actuation 2 inh inhalation .Q4-6h PRN 05/05/23 11/21/24 11/20/24 Rx aerosol inhaler wheezing #8.5 grams insulin glargine 100 unit/mL (3 20 unit SUBCUT BEDTIME 05/19/23 11/21/24 11/21/24 History mL) subcutaneous pen (Lantus Solostar U-100 Insulin) ascorbic acid (vitamin C) 500 mg 500 mg PO DAILY 06/02/23 11/21/24 11/20/24 History tablet durvalumab 50 mg/mL intravenous 1,500 mg (30 mL) IV Q28D 12/17/23 11/21/24 1 Month Ago Rx solution ~10/21/24 levothyroxine 175 mcg tablet 175 mcg PO DAILY 10/18/24 11/22/24 11/22/24 History lorazepam 1 mg tablet 0.5 - 1 mg PO Q8H PRN nausea and 10/18/24 11/21/24 10/17/24 History vomiting erythromycin 500 mg tablet 500 mg PO TID 1 day #3 tabs 11/03/24 11/21/24 11/21/24 Rx neomycin 500 mg tablet 1,000 mg (2 x 500 mg) PO TID #6 11/03/24 11/21/24 11/21/24 Rx tabs fluticasone furoate 100 See Rx Instructions .Route 11/11/24 11/21/24 11/21/24 Rx mcg/actuation blister powder for .COMPLEX #30 ea inhalation (Arnuity Ellipta) Allergies Allergy/AdvReac Type Severity Reaction Status Date / Time azithromycin Allergy rash Verified 11/03/24 10:38 phenylephrine Allergy rash Verified 11/03/24 10:38 Winigom-NAW-TvN Reductase Allergy Blindness Verified 11/03/24 10:38 Inhibitor [Bwwgugc-Qhy-Afn Reductase Inhibitor] Sulfa (Sulfonamide Allergy rash Verified 11/03/24 10:38 Antibiotics) PFS Anesthesia Medical History Cancer of right lung Dyslipidemia Family history of colon cancer Hx of recurrent urinary tract infection Hx of smoking Hypertension 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 Osteoarthritis Peripheral arterial occlusive disease Rupture of colon Type 2 diabetes mellitus Surgical History History of appendectomy 1957 History of back surgery History of cholecystectomy 1995 History of elbow surgery Left [id number] Hx of colonoscopy 10 yrs ago Hx of neck surgery Port-A-Cath in place Family History Father Hypertension CAD (coronary artery disease) Chronic kidney disease (CKD) Diabetes Mother Cancer Lung disease Grandfather Stroke Denies family history of Clotting disorder Dementia Suicide Anesthesia complication Bleeding disorder Social History Smoking and tobacco/nicotine status: former use of tobacco/nicotine Quit status (tobacco/nicotine): has quit using Year quit tobacco: June 2022 Former quit date comment: 50 years Second hand smoke exposure: Yes Alcohol intake: never Substance/Drug Use: never Data Anesthesia 11/22/24 09:00 11/22/24 09:00 Cardiac Studies: Sestamibi Stress Test (Cardiology) 04/03/21
[2024-11-22] MEDS: sodium chloride 0.9% 1,000 ML 30 ML IV (09:00)
[2024-11-22] MEDS: ipratropium 0.5 mg/2.5 mL Neb INHALATION (09:15)
[2024-11-22] MEDS: albuterol 2.5 mg/3 mL Neb INHALATION (09:15)
[2024-11-22 09:22] LABS: Basophils % 0.5 %; Eosinophils % 0.5 %; Hematocrit 37.5 % (36-47); Lymphocytes # 0.8 10^3/uL (0.8-4.8); Lymphocytes % 10.1 %; Mean Corpuscular HGB Conc 33.1 g/dL (30-55); Mean Corpuscular Hemoglobin 32.5 pg (27-33); Mean Corpuscular Volume 98.2 fl (85-98); Mean Platelet Volume 11.3 fL (7.4-10.4); Monocytes # 0.6 10^3/uL (0.2-0.9); Monocytes % 7.2 %; Neutrophils # 6.51 10^3/uL (1.8-7.7); Neutrophils % 81.2 %; Nucleated Red Blood Cells % 0 %; Platelet Count 220 10^3/cmm (157-399); Red Blood Count 3.82 10^6/uL (3.85-5.65); Red Cell Distribution Width 13.3 % (12.1-15.1); White Blood Count 8.02 10^3/uL (3.29-11.43)
--- NOTE | 2024-11-22 09:25 | ECG_ITS ---
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
[2024-11-22 09:42] LABS: Anion Gap 16.4 (5-19); Blood Urea Nitrogen 19 mg/dL (8-23); Calcium 8.9 mg/dL (8.5-10.5); Carbon Dioxide 22 mmol/L (22-29); Chloride 100 mmol/L (98-107); Creatinine Clr Calc Pharmacy 40.1627; Glucose 248 mg/dL (65-115); Osmolality Calculated 291 mOsm/kg (285-295); Potassium 3.4 mmol/L (3.5-5.1); Sodium 135 mmol/L (136-145)
[2024-11-22] MEDS: piperacillin-tazobactam 3.375 GM in sodium chloride 0.9% (plus) 50 ML IV (09:56)
[2024-11-22] MEDS: lidocaine-epi 2% PF 1:200,000 20 mL SDV XX (10:51)
--- NOTE | 2024-11-22 11:09 | PM.OP ---
Operative Report Date of procedure: November 22, 2024 Pre-op diagnosis: Unresectable cecal polyp with high-grade dysplasia Post-op diagnosis: same Procedure done: Laparoscopic ileocecectomy (44189) Implants: None Specimens removed/disposition: Ileocecectomy Surgeon: Luis Alberto Maria DO Anesthesia: General and Local Estimated blood loss (mL): 5 Complications: None apparent Brief History: This is a very pleasant 74-year-old female with a history of stage IV lung cancer was found to have uptake in the cecum on PET scan as part of her treatment follow-up. She underwent colonoscopy and was found to have a polyp at the appendiceal orifice that could not be completely resected endoscopically. Biopsy showed tubulovillous adenoma with high-grade dysplasia. We discussed options of ileocecectomy versus right hemicolectomy. Patient opted for the minimal approach knowing that if final pathology showed carcinoma she would subsequently need a right hemicolectomy. Laparoscopic ileocecectomy was explained. The risks and benefits were explained and documented. Procedure: Patient will operative room placed on the OR table in supine position general endotracheal intubation was achieved by the part of anesthesia. The abdomen was inspected prepped and draped in usual sterile fashion. Prior to prepping a nasogastric tube was placed and a Awad catheter was placed. A time was performed. All present were in agreement. 2% lidocaine with epinephrine was used anesthetize the skin overlying Delcid's point. A 5 mm incision was then made at this location. A Veress needle was then used to create intra-abdominal insufflation to 15 mmHg. Skin overlying the umbilicus was then localized and a 12 mm incision was made. A 12 mm trocar was then placed through the umbilicus. A 5 mm trocar was then placed in a similar fashion in the left lower quadrant and a second 5 mm trocar was placed suprapubically. The nasogastric tube was examined intra-abdominal he and found to be in excellent location. The cecum was then identified. The right white line of Toldt was taken down both sharply and bluntly using laparoscopic ligature. The 12 mm port site was then slightly elongated inferiorly. A wound protector was then placed through this incision. The terminal ileum and cecum was brought up through the incision. A [id number], functional end-to-end anastomosis was performed using a 100 mm WINNIE stapler blue load x 2. There were areas of bleeding at the edge of the anastomosis as well and as in the mesentery. Laparoscopic LigaSure was used to control the bleeding and the mesentery and electrocautery was used to control the bleeding at the edge of the anastomosis. A Lembert stitch was then placed, bearing the corner. Hemostasis was noted. The anastomosis was then placed back into the abdomen and insufflation was performed again. The abdomen was inspected and no further pathology was noted. The midline incision was then closed at the fascia with looped PDS x 2 in a running fashion. Skin was closed with 4-0 Monocryl in a subcuticular fashion. Skin glue was applied. Patient tolerated procedure well.
[2024-11-22] MEDS: ketorolac 30 mg/mL INJ 15 MG IVP ×3 (11:33→23:59)
--- NOTE | 2024-11-22 11:49 | PC.NURSE ---
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
[2024-11-22] MEDS: insulin regular-human 100 units/1 mL 5 UNIT IVP (11:55)
[2024-11-22 13:25] LABS: Glucose Point of Care 254 mg/dL (70-110)
[2024-11-22 13:25] LABS: Glucose Point of Care 301 mg/dL (70-110)
--- NOTE | 2024-11-22 14:15 | ANE.PACU2 ---
Inpatient post-anesthesia follow up: Airway intact: Yes Vital signs: Temperature 97.9 F Pulse Rate 112 Respiratory Rate 16 Blood Pressure 136/69 Pulse Oximetry 97 Oxygen Delivery Me thod Room Air Oxygen Flow Rate 2 Fraction of Inspir ed Oxygen 2 Hydration adequate: Yes Nausea and vomiting: No Pain level: 1 Mental status: Baseline
--- NOTE | 2024-11-22 15:12 | XRR_ITS ---
PROCEDURE INFORMATION: Exam: XR Chest Exam date and time: 11/22/2024 3:17 PM Age: 74 years old Clinical indication: Device placement; Ng tube; Additional info: Ng tube replacement, postoperative status. TECHNIQUE: Imaging protocol: Radiologic exam of the chest. Views: 1 view. COMPARISON: CT chest w con* [id number] 08/11/2024 2:31 PM FINDINGS: Tubes, catheters and devices: Right chest port terminates in the distal SVC. NG tube terminates in the stomach. Lungs: Right apical scarring. No consolidation. Pleural spaces: Unremarkable. No pleural effusion. No pneumothorax. Heart/Mediastinum: Unremarkable. No cardiomegaly. Bones/joints: Partially visualized ACDF hardware in the lower cervical spine. Intraperitoneal space: Free air noted in the upper abdomen. XR/XR chest 1V portable [id number] IMPRESSION: 1. NG tube terminates in the stomach. 2. No acute cardiopulmonary findings. 3. Free air noted in the upper abdomen, consistent with recent postoperative status.
[2024-11-22] MEDS: pantoprazole 40 mg SDV IVP (15:46)
[2024-11-22] MEDS: D5-NS 0.45% + KCL 20 mEq 20 MEQ/1,000 ML BAG 125 MEQ IV (15:47)
[2024-11-22] MEDS: heparin 5,000 unit/mL INJ 1 mL 5000 UNIT SUBCUT ×2 (15:47→23:59)
[2024-11-22 16:23] LABS: Glucose Point of Care 352 mg/dL (70-110)
[2024-11-22] MEDS: insulin lispro 100 unit/1 mL SUBCUT ×2 (17:04→21:39)
[2024-11-22 20:20] LABS: Glucose Point of Care 333 mg/dL (70-110)
--- NOTE | 2024-11-22 22:26 | XRR_ITS ---
PROCEDURE INFORMATION: Exam: XR Chest Exam date and time: 11/22/2024 10:31 PM Age: 74 years old Clinical indication: Device placement; Ng tube; Prior surgery; Surgery date: 6+ months; Surgery type: Port; Additional info: Ng tube placement confirmation TECHNIQUE: Imaging protocol: Radiologic exam of the chest. Views: 1 view. COMPARISON: CR XR chest 1V portable [id number] 11/22/2024 3:17 PM FINDINGS: Tubes, catheters and devices: The NG tube tracks into the stomach. Right-sided Port-A-Cath. Lungs: Unremarkable. No consolidation. Pleural spaces: Unremarkable. No pleural effusion. No pneumothorax. Heart/Mediastinum: Unremarkable. No cardiomegaly. Diaphragm: Crescentic air underneath the right hemidiaphragm consistent with intraperitoneal air. This is concerning for bowel perforation in the absence of recent abdominal surgery. Bones/joints: Unremarkable. XR/XR chest 1V portable [id number] IMPRESSION: 1. The NG tube tracks into the stomach. 2. Crescentic air underneath the right hemidiaphragm consistent with intraperitoneal air. This is concerning for bowel perforation in the absence of recent abdominal surgery.
--- NOTE | 2024-11-22 22:26 | PC.NURSE ---
Air vent on NG tube air vent occluded, suction not working. Trouble shooting attempts to resolve occlusion failed. Replaced NG tube in the right nare, ordered xray per protocol for confirmation of correct placement.
[2024-11-23] VITALS (7 sets, daily range): BP systolic 118–147; BP diastolic 56–69; PULSE 97–112; RESP 15–18; TEMP 36.4–36.8; O2SAT 93–98
[2024-11-23] MEDS: sodium chlor 0.45% +KCl 20 mEq 20 MEQ/1,000 ML BAG 125 MEQ IV ×4 (01:51→23:20)
[2024-11-23 06:23] LABS: Glucose Point of Care 338 mg/dL (70-110)
[2024-11-23] MEDS: ketorolac 30 mg/mL INJ 15 MG IVP ×2 (06:29→11:44)
[2024-11-23] MEDS: heparin 5,000 unit/mL INJ 1 mL 5000 UNIT SUBCUT (06:30)
[2024-11-23] MEDS: insulin lispro 100 unit/1 mL SUBCUT ×3 (09:03→21:18)
[2024-11-23 09:06] LABS: Basophils % 0.2 %; Hematocrit 30.2 % (36-47); Lymphocytes # 0.9 10^3/uL (0.8-4.8); Lymphocytes % 9.4 %; Mean Corpuscular HGB Conc 31.1 g/dL (30-55); Mean Corpuscular Hemoglobin 32.2 pg (27-33); Mean Corpuscular Volume 103.4 fl (85-98); Mean Platelet Volume 11.4 fL (7.4-10.4); Monocytes # 0.9 10^3/uL (0.2-0.9); Monocytes % 8.5 %; Neutrophils # 8.11 10^3/uL (1.8-7.7); Neutrophils % 81.5 %; Nucleated Red Blood Cells % 0 %; Platelet Count 174 10^3/cmm (157-399); Red Blood Count 2.92 10^6/uL (3.85-5.65); Red Cell Distribution Width 13.6 % (12.1-15.1); White Blood Count 9.96 10^3/uL (3.29-11.43)
--- NOTE | 2024-11-23 09:16 | PC.CHAP ---
Pastoral Care Encounter/Spiritual Assessment Type of Contact [] Declined operating system designer visit [] Patient/Family/Request visit [] Outpatient visit [] Follow-up visit [] Physician referral [] Code/Alert [x] Routine visit [] Staff referral [] Actively dying [] Patient sleeping [] Family support [] [] Out of room [] Palliative care [] [] Receiving care in room [] Pre-surgical visit [] Trauma [] Long length of stay [] ICU visit [] Other: Relational/Emotional Strength [x] Patient feels connected with others/family/visitors/staff [] Distress [] Loneliness/isolation [] Abandonment Spirituality of Patient [x] Person of Brigida [] Attends Latter-Day of their Brigida [x] Believes in Prayer [] Reads Bible or Yazidi materials [] There are Spiritual issues to be addressed Brand Ambassador Interventions [x] Prayer [x] Active listening [x] Non-anxious presence [x] Spiritual/emotional support [] Crisis/trauma care [] Spiritual counseling [] Bereavement support [] Provided bereavement packet [] Provided Bible/devotional materials [] Provided toy/stuffed animal, coloring book to patient or family member [] Provided Communion [] Anointing/Shelby [] Salvation [x] Completed spiritual assessment [] Other: Impact on Illness or Injury [] Angry [] Fearful [] Anxious [] Often cries [] Exhaustion [] Unable to work [] Unable to attend restorationist [] Unable to walk/stand [] Unable to read [] Unable to drive [] Unable to eat/drink [] Unable to sleep [] Unable to be with family [] Patient intubated [] Other: Summary Time spent with patient 5 min
[2024-11-23 09:25] LABS: Blood Urea Nitrogen 22 mg/dL (8-23); Calcium 8.1 mg/dL (8.5-10.5); Carbon Dioxide 19 mmol/L (22-29); Chloride 104 mmol/L (98-107); Creatinine Clr Calc Pharmacy 44.6082; Glucose 346 mg/dL (65-115); Osmolality Calculated 301 mOsm/kg (285-295); Sodium 137 mmol/L (136-145)
[2024-11-23 11:39] LABS: Glucose Point of Care 199 mg/dL (70-110)
[2024-11-23] MEDS: pantoprazole 40 mg SDV IVP ×2 (11:44→16:57)
--- NOTE | 2024-11-23 16:19 | P.PN_ITS ---
Subjective 2 Subjective: 74-year-old female postoperative day 1 s tatus post laparoscopic ileocecectomy. I have been requested to evaluate the patient as my colleague Dr. Maria will be out of town starting today. She is doing okay, slightly tachycardic, has passed gas but had 2-3 bloody bowel movements. Effluent from the NG tube also slightly bloody Vitals/I&O/Wt Last Vital Signs Temp 97.6 F 11/23/24 15:22 Pulse 101 H 11/23/24 15:22 Resp 15 11/23/24 15:22 BP 127/66 11/23/24 15:22 Pulse Ox 95 11/23/24 15:22 O2 Del Method Room Air 11/23/24 15:22 O2 Flow Rate 2 11/22/24 13:30 FiO2 2 11/22/24 12:05 11/23/24 11/23/24 11/23/24 06:59 14:59 22:59 Intake Total 1000 / 1100 904.167 / 904.167 Output Total 700 / 1060 Balance 300 / 40 904.167 / 904.167 Weight last 48 hrs Weight 156 lb Weight 150 lb Weight 150 lb Physical Exam 2 HENMT: OTHER: NG output appears bloody. GI: OTHER: Abdomen examination is benign at the time no significant distention or tenderness. Urinary Catheter Management: Awad: Cath Placed During This Visit: yes Reason for Continuing Indwelling Catheter: Other Urinary Catheter Date of Insertion: 11/22/24 Urinary Catheter Time of Insertion: 10:08 Data 11/23/24 08:31 11/23/24 08:31 A&P Assessment and plan (1) Abnormal PET scan of colon: Plan Patient is having evidence of some minimal bleeding with bloody effluent from the NG tube as well as 2-3 small bloody bowel movements. She is stable. At the moment we will continue conservative management. I will stop Toradol and hold heparin, I will change her to Tylenol IV and Dilaudid. I will obtain a new CBC to see the trend. Will continue current management, if hemoglobin continues to trend down I might decide to obtain additional imaging in the next 24 to 48 hours. Awad catheter will be removed. Attestations 2 Medical Necessity Statement*: Patient will require 48 to 72 hours of hospital stay for postoperative management after ileocecectomy Coding Level of Care Code Acute Code for Chg Fwd Diagnoses Abnormal PET scan of colon R94.8
[2024-11-23] MEDS: tranexamic acid 1,000 MG/100 ML PREMIX 600 MG IV ×2 (16:50→23:19)
[2024-11-23 16:52] LABS: Glucose Point of Care 125 mg/dL (70-110)
[2024-11-23] MEDS: acetaminophen 1,000 MG/100 ML PIGGYBACK 400 MG IV (16:56)
--- NOTE | 2024-11-23 16:58 | PC.NURSE ---
Dr. Maria gave verbal orders to pull the NG tube out and start a clear liquid diet.
--- NOTE | 2024-11-23 17:02 | PC.NURSE ---
Dr. Britt gave verbal orders to hold the heparin on patient.
[2024-11-23 17:18] LABS: Basophils % 0.5 %; Eosinophils % 0.3 %; Hematocrit 28.6 % (36-47); Lymphocytes % 11.3 %; Mean Corpuscular HGB Conc 31.5 g/dL (30-55); Mean Corpuscular Hemoglobin 32.1 pg (27-33); Mean Corpuscular Volume 102.1 fl (85-98); Mean Platelet Volume 11.5 fL (7.4-10.4); Monocytes # 0.6 10^3/uL (0.2-0.9); Monocytes % 7.3 %; Neutrophils # 7.02 10^3/uL (1.8-7.7); Neutrophils % 80.1 %; Nucleated Red Blood Cells % 0 %; Platelet Count 175 10^3/cmm (157-399); Red Cell Distribution Width 13.6 % (12.1-15.1); White Blood Count 8.76 10^3/uL (3.29-11.43)
[2024-11-23 21:03] LABS: Glucose Point of Care 272 mg/dL (70-110)
[2024-11-24] MEDS: acetaminophen 1,000 MG/100 ML PIGGYBACK 400 MG IV ×2 (01:13→09:32)
[2024-11-24 03:24] VITALS: BP 121/67; PULSE 99; RESP 18; TEMP 36.6; O2SAT 93
[2024-11-24] MEDS: pantoprazole 40 mg SDV IVP ×2 (03:55→17:07)
[2024-11-24 05:06] LABS: Basophils % 0.4 %; Eosinophils % 0.4 %; Lymphocytes # 0.8 10^3/uL (0.8-4.8); Lymphocytes % 11.7 %; Mean Corpuscular HGB Conc 31.4 g/dL (30-55); Mean Corpuscular Hemoglobin 32.6 pg (27-33); Mean Corpuscular Volume 103.9 fl (85-98); Mean Platelet Volume 11.3 fL (7.4-10.4); Monocytes # 0.5 10^3/uL (0.2-0.9); Monocytes % 7.4 %; Neutrophils % 79.7 %; Nucleated Red Blood Cells % 0 %; Platelet Count 157 10^3/cmm (157-399); Red Blood Count 2.79 10^6/uL (3.85-5.65); Red Cell Distribution Width 13.7 % (12.1-15.1); White Blood Count 7.03 10^3/uL (3.29-11.43)
[2024-11-24 05:42] LABS: Anion Gap 23.8 (5-19); Blood Urea Nitrogen 17 mg/dL (8-23); Calcium 8.4 mg/dL (8.5-10.5); Carbon Dioxide 15 mmol/L (22-29); Chloride 100 mmol/L (98-107); Creatinine Clr Calc Pharmacy 44.8864; Glucose 300 mg/dL (65-115); Osmolality Calculated 291 mOsm/kg (285-295); Potassium 4.8 mmol/L (3.5-5.1); Sodium 134 mmol/L (136-145)
[2024-11-24 06:38] LABS: Glucose Point of Care 405 mg/dL (70-110)
[2024-11-24 06:38] LABS: Glucose Point of Care 341 mg/dL (70-110)
--- NOTE | 2024-11-24 07:00 | P.PN_ITS ---
Subjective 2 Subjective: Postoperative day 2 status post ileocecectomy.Patient is doing okay, tolerated clear liquids with no significant abdominal pain has passed urine and still passing some flatus mixed with blood residue Vitals/I&O/Wt Last Vital Signs Temp 97.8 F 11/24/24 03:24 Pulse 99 11/24/24 03:24 Resp 18 11/24/24 03:24 BP 121/67 11/24/24 03:24 Pulse Ox 93 11/24/24 03:24 O2 Del Method Room Air 11/24/24 03:24 O2 Flow Rate 2 11/22/24 13:30 FiO2 2 11/22/24 12:05 11/23/24 11/24/24 11/24/24 22:59 06:59 14:59 Intake Total 2380.417 / 3284.584 1310.833 / 4595.417 Output Total 550 / 550 Balance 2380.417 / 3284.584 760.833 / 4045.417 Weight last 48 hrs Weight 158 lb 1.6 oz Weight 156 lb Weight 150 lb Weight 150 lb Physical Exam 2 GI: OTHER: Abdomen soft, appropriately tender to palpation, nondistended. Urinary Catheter Management: Awad: Cath Placed During This Visit: yes, but has since been removed by the nurse Reason for Continuing Indwelling Catheter: Decision to DC Catheter Urinary Catheter Date of Insertion: 11/22/24 Urinary Catheter Time of Insertion: 10:08 Date Urinary Catheter Removed: 11/24/24 Time Urinary Catheter Discontinued: 06:05 Data 11/24/24 04:55 11/24/24 04:55 A&P Assessment and plan (1) High grade dysplasia in colonic adenoma: Plan Progression has been good, hemoglobin has remained stable, we will continue clear liquid diet this morning if by noon she is tolerating fine without evidence of nausea we will probably transition to a GI soft diet. We will continue IV fluids this morning and we will probably plan to discontinue when she is tolerating liquids well. Plan is for possible discharge tomorrow if Clinical course continue to improve and patient is tolerating diet. Attestations 2 Medical Necessity Statement*: Per medical Coding Level of Care Code Acute Code for Chg Fwd Diagnoses High grade dysplasia in colonic adenoma D12.6
[2024-11-24 08:00] VITALS: BP 137/76; PULSE 103; RESP 16; TEMP 36.7; O2SAT 96
[2024-11-24] MEDS: insulin lispro 100 unit/1 mL SUBCUT ×4 (08:05→20:36)
[2024-11-24] MEDS: sodium chlor 0.45% +KCl 20 mEq 20 MEQ/1,000 ML BAG 125 MEQ IV (08:05)
[2024-11-24 11:10] VITALS: BP 111/61; PULSE 99; RESP 14; TEMP 36.7; O2SAT 95
[2024-11-24 11:39] LABS: Glucose Point of Care 293 mg/dL (70-110)
[2024-11-24 11:59] LABS: Basophils % 0.3 %; Eosinophils % 0.2 %; Hematocrit 32.2 % (36-47); Lymphocytes % 11.2 %; Mean Corpuscular HGB Conc 31.1 g/dL (30-55); Mean Corpuscular Hemoglobin 32.7 pg (27-33); Mean Corpuscular Volume 105.2 fl (85-98); Mean Platelet Volume 11.1 fL (7.4-10.4); Monocytes # 0.7 10^3/uL (0.2-0.9); Neutrophils # 7.45 10^3/uL (1.8-7.7); Neutrophils % 80.9 %; Nucleated Red Blood Cells % 0 %; Platelet Count 199 10^3/cmm (157-399); Red Blood Count 3.06 10^6/uL (3.85-5.65); Red Cell Distribution Width 13.6 % (12.1-15.1); White Blood Count 9.22 10^3/uL (3.29-11.43)
[2024-11-24 12:16] LABS: Anion Gap 23.5 (5-19); Blood Urea Nitrogen 15 mg/dL (8-23); Calcium 8.9 mg/dL (8.5-10.5); Carbon Dioxide 16 mmol/L (22-29); Chloride 100 mmol/L (98-107); Creatinine Clr Calc Pharmacy 41.1458; Glucose 262 mg/dL (65-115); Osmolality Calculated 290 mOsm/kg (285-295); Potassium 4.5 mmol/L (3.5-5.1); Sodium 135 mmol/L (136-145)
[2024-11-24 16:00] VITALS: BP 134/70; PULSE 100; RESP 16; TEMP 36.5; O2SAT 97
[2024-11-24 16:35] LABS: Glucose Point of Care 170 mg/dL (70-110)
--- NOTE | 2024-11-24 19:21 | PC.NURSE ---
Heparin This nurse called Dr. Britt to clarify heparin orders. Dr. Britt stated to continue holding the heparin and pt will potentially DC tomorrow.
[2024-11-24 19:36] VITALS: BP 109/67; PULSE 97; RESP 16; TEMP 36.7; O2SAT 95
[2024-11-24 20:30] LABS: Glucose Point of Care 198 mg/dL (70-110)
[2024-11-25] VITALS: BP 141/66; PULSE 102; RESP 16; TEMP 36.7; O2SAT 95
[2024-11-25 03:26] VITALS: BP 112/72; PULSE 104; RESP 16; TEMP 36.4; O2SAT 96
[2024-11-25] MEDS: pantoprazole 40 mg SDV IVP (04:11)
[2024-11-25 06:29] LABS: Glucose Point of Care 440 mg/dL (70-110)
--- NOTE | 2024-11-25 06:58 | PM.DCS ---
Discharge Providers Date of Admission: 11/22/24 13:56 Date of Discharge: November 25, 2024 Attending Provider at Admission: Luis Alberto Maria DO Attending Provider at Discharge: Luis Alberto Maria DO Primary Care Provider: Liliana Kat APRN Diagnoses at Discharge Discharge Diagnosis (1) High grade dysplasia in colonic adenoma: Status: Acute Reason for Visit Reason for Visit: D12.6 Hospital Course Hospital Course Is a 75-year-old female who underwent an ileocecectomy for high grade adenoma on the appendiceal orifice. Patient postoperative course was good, she did have an episode of lower GI bleed on postoperative day 1 which was considered to be expected due to the recent anastomosis and subsided after withholding DVT prophylaxis and with observation. Patient is doing well today, passing gas having formed bowel movements tolerating soft diet. Last hemoglobin was 10. Vital signs have been stable, her heart rate is in the high 90s which appears to be her baseline based on previous measurement. Patient will be allowed to transition to the outpatient setting and will follow-up with Dr. Maria in 1 week. Physical Exam GI: OTHER: Abdomen soft appropriately tender to palpation, surgical incisions are healing well. Urinary Catheter Management: Awad: Cath Placed During This Visit: yes, but has since been removed by the nurse Reason for Continuing Indwelling Catheter: Decision to DC Catheter Urinary Catheter Date of Insertion: 11/22/24 Urinary Catheter Time of Insertion: 10:08 Date Urinary Catheter Removed: 11/24/24 Time Urinary Catheter Discontinued: 06:05 Discharge Data Studies Completed and Pending Completed Studies During Hospitalization Category Date Time Status CXRP [XR chest 1V portable 93035] Stat Exams 11/22/24 15:12 Completed CXRP [XR chest 1V portable 20413] Stat Exams 11/22/24 22:26 Completed Pending at discharge Category Date Time Status Pathology: Surgical [PTH] Routine Pth 11/22/24 11:21 Received Radiology Impressions Chest X-Ray 11/22/24 22:26 IMPRESSION: 1. The NG tube tracks into the stomach. 2. Crescentic air underneath the right hemidiaphragm consistent with intraperitoneal air. This is concerning for bowel perforation in the absence of recent abdominal surgery. ADDENDUM: 11/23/24 0004 THIS REPORT CONTAINS FINDINGS THAT MAY BE CRITICAL TO PATIENT CARE. The findings were verbally communicated via telephone conference with Dr Crockett at 12:03 AM SAMPLES AND REPAIRS PREPARER on 11/23/2024. The findings were acknowledged and understood. Laboratory Results WBC 9.22 10^3/uL (3.29-11.43) 11/24/24 11:42 RBC 3.06 10^6/uL (3.85-5.65) L 11/24/24 11:42 Hgb 10.00 g/dL (11.27-16.99) L 11/24/24 11:42 Hct 32.2 % (36-47) L 11/24/24 11:42 MCV 105.2 fl (85-98) H 11/24/24 11:42 MCH 32.7 pg (27-33) 11/24/24 11:42 MCHC 31.1 g/dL (30-55) 11/24/24 11:42 RDW 13.6 % (12.1-15.1) 11/24/24 11:42 Plt Count 199 10^3/cmm (157-399) 11/24/24 11:42 MPV 11.1 fL (7.4-10.4) H 11/24/24 11:42 Neut % (Auto) 80.9 % 11/24/24 11:42 Lymph % (Auto) 11.2 % 11/24/24 11:42 [place] % (Auto) 7.0 % 11/24/24 11:42 Eos % (Auto) 0.2 % 11/24/24 11:42 Baso % (Auto) 0.3 % 11/24/24 11:42 Neut # (Auto) 7.45 10^3/uL (1.8-7.7) 11/24/24 11:42 Lymph # (Auto) 1.0 10^3/uL (0.8-4.8) 11/24/24 11:42 [place] # (Auto) 0.7 10^3/uL (0.2-0.9) 11/24/24 11:42 Eos # (Auto) 0.0 10^3/uL (0.0-0.8) 11/24/24 11:42 Baso # (Auto) 0.0 10^3/uL (0.0-0.1) 11/24/24 11:42 Nucleated RBC % (auto) 0 % 11/24/24 11:42 Nucleated RBCs # 0.0 /100WBC 11/24/24 11:42 Sodium 135 mmol/L (136-145) L 11/24/24 11:42 Potassium 4.5 mmol/L (3.5-5.1) 11/24/24 11:42 Chloride 100 mmol/L (98-107) 11/24/24 11:42 Carbon Dioxide 16 mmol/L (22-29) L 11/24/24 11:42 Anion Gap 23.5 (5-19) H 11/24/24 11:42 BUN 15 mg/dL (8-23) 11/24/24 11:42 Creatinine 1.2 mg/dL (0.5-0.9) H 11/24/24 11:42 GFR Calculation Not Reportable 11/24/24 11:42 Glucose 262 mg/dL (65-115) H 11/24/24 11:42 POC Glucose 440 mg/dL (70-110) H 11/25/24 06:22 Calculated Osmolality 290 mOsm/kg (285-295) 11/24/24 11:42 Calcium 8.9 mg/dL (8.5-10.5) 11/24/24 11:42 Blood Type O Positive 11/23/24 16:28 Rho(D) Type Rh positive 11/23/24 16:28 Antibody Screen Negative 11/23/24 16:28 Vitals Last Vital Signs Temp 97.6 F 11/25/24 03:26 Pulse 104 H 11/25/24 03:26 Resp 16 11/25/24 03:26 BP 112/72 11/25/24 03:26 Pulse Ox 96 11/25/24 03:26 O2 Del Method Room Air 11/25/24 03:26 O2 Flow Rate 2 11/22/24 13:30 FiO2 2 11/22/24 12:05 Discharge Plan Discharge Patient Disposition: Home Condition: Stable Prescriptions: Continued topiramate 25 mg tablet 50 mg PO .QHS loratadine 10 mg capsule 10 mg PO DAILY PRN (Reason: allergy symptoms) insulin aspart U-100 [Novolog FlexPen U-100 Insulin] 100 unit/mL (3 mL) insulin pen See Rx Instructions SUBCUT TID PRN (Reason: high blood sugar) Rx Instructions: sliding scale subcutaneously three times daily PRN; sliding scale - max of 50 units daily insulin glargine [Lantus Solostar U-100 Insulin] 100 unit/mL (3 mL) insulin pen 20 unit SUBCUT BEDTIME Rx Instructions: HS subcutaneously Robitussin Cough-Chest Miguel Angel DM 10-200 mg capsule 1 tab-cap PO Q8H PRN (Reason: Cough) prenat.vits,williams,mvo-zaww-ublrr Tablet 1 tab PO DAILY diphenhydramine HCl [Benadryl] 25 mg capsule 25 mg PO .hs PRN (Reason: Sleep) durvalumab 50 mg/mL solution 1,500 mg IV Q28D Rx Instructions: administer over 60 mins prochlorperazine maleate [Compazine] 10 mg tablet 10 mg PO Q6H PRN (Reason: nausea and vomiting) Qty: 60 0RF albuterol sulfate 90 mcg/actuation HFA aerosol inhaler 2 inh inhalation .Q4-6h PRN (Reason: wheezing) Qty: 8.5 0RF ascorbic acid (vitamin C) 500 mg tablet 500 mg PO DAILY Arnuity Ellipta 100 mcg/actuation blister with device See Rx Instructions .ROUTE .COMPLEX Qty: 30 0RF Dose Instruction: INHALE 1 PUFF BY MOUTH EVERY 24 HOURS Rx Instructions: INHALE 1 PUFF BY MOUTH EVERY 24 HOURS levothyroxine 175 mcg tablet 175 mcg PO DAILY Rx Instructions: Take 1 tablet by mouth once daily lorazepam 1 mg tablet 0.5 - 1 mg PO Q8H PRN (Reason: nausea and vomiting) Rx Instructions: 0.5 tab to 1 tab orally every 8 hours PRN; hydrocodone-acetaminophen 10-325 mg tablet 1 tab PO Q6H PRN (Reason: Pain) Qty: 20 0RF docusate sodium 100 mg capsule 100 mg PO DAILY PRN (Reason: Constipation) Qty: 30 0RF Discontinued erythromycin 500 mg tablet 500 mg PO TID 1 Days Qty: 3 0RF Rx Instructions: take 1 tablet at 3pm, 4pm, and 10pm on the day before surgery neomycin 500 mg tablet 1,000 mg PO TID Qty: 6 0RF Rx Instructions: take 2 tabs at 3pm,4pm, and 10pm the day before surgery Discharge Orders: Discharge Order (Routine); Ordered 11/25/24 Ordered By: Ariel Britt Referrals: Ariel Britt MD [Physician] - (no follow up) Luis Alberto Maria DO [Physician] - (1 week) Discharge Diet: GI Soft Discharge Activity: Limit activity as instructed Patient Instructions: Acute Wound Care (DC), Opioid Safety, Post Anesthesia Care Activity Restrictions/Additional Instructions: Please follow-up GI soft diet as indicated in your discharge instructions. No heavy lifting more than 10 to 15 pounds over the next 6 weeks. You can shower starting tomorrow let soap and water run over your wounds and then pat dry. Return to the hospital you have fever significant abdominal pain and distention, nausea and vomit obstipation purulence coming from your wounds. Discharge Attestations Time Spent in Discharge Care*: less than 30 min Quality Metrics Clinical Quality Measures [ No reported AMI, CVA or VTE this stay] Coding Level of Care Code Acute Code for Chg Fwd Diagnoses High grade dysplasia in colonic adenoma D12.6
[2024-11-25 08:00] VITALS: BP 138/77; PULSE 109; RESP 15; TEMP 36.6; O2SAT 97
[2024-11-25] MEDS: insulin lispro 100 unit/1 mL SUBCUT ×2 (08:37→10:37)
[2024-11-25] MEDS: HYDROcodone-acetaminophen 7.5-325 mg Tablet 1 TAB PO (08:39)
--- NOTE | 2024-11-25 09:33 | PC.SOCIAL ---
IMM Update pg 2 of IMM Updated and reviewed w/ patient. Copy provided and copy dated, initialed and placed in chart.
[2024-11-25 10:34] LABS: Glucose Point of Care 452 mg/dL (70-110)
--- NOTE | 2024-11-25 10:53 | PC.NURSE ---
Discharge Note Patient discharged to home via private vehicle accompanied by . Discharge instructions reviewed with patient and/or traveling sales representative. Mobile pharmacy medications and/or prescriptions provided. Belongings/home medications returned.
[2024-11-25 10:55] VITALS: BP 138/73; PULSE 109; RESP 15; TEMP 36.6; O2SAT 97
[2024-11-28 13:10] LABS: Mismatch Repari Proteins-IHC See Report
== END 2024-11-25 11:25 | disposition home or self-care (01) | DRG 330 ==
LOC: MEDSURG 14:34
PROVIDERS: Surgery; Admitting Provider Surgery; PCP Nurse Practitioner Family; Visit Provider Surgery
PROC: 0DTE4ZZ Resection of Large Intestine, Percutaneous Endoscopic Approach (ICD-10-PCS; principal; 2024-11-22 09:35)
DX: D12.0 Benign neoplasm of cecum (principal); C34.91 Malignant neoplasm of unspecified part of right bronchus or lung; K92.1 Melena; Z79.4 Long term (current) use of insulin; Z79.891 Long term (current) use of opiate analgesic; J84.10 Pulmonary fibrosis, unspecified; E11.9 Type 2 diabetes mellitus without complications; E03.9 Hypothyroidism, unspecified; Z79.60 Long term (current) use of unspecified immunomodulators and immunosuppressants; Z88.2 Allergy status to sulfonamides; Z80.0 Family history of malignant neoplasm of digestive organs; Z87.440 Personal history of urinary (tract) infections; Z87.891 Personal history of nicotine dependence; I10 Essential (primary) hypertension; R00.0 Tachycardia, unspecified; I73.9 Peripheral vascular disease, unspecified; M19.90 Unspecified osteoarthritis, unspecified site; Z95.828 Presence of other vascular implants and grafts; Z90.49 Acquired absence of other specified parts of digestive tract; Z82.3 Family history of stroke; Z83.3 Family history of diabetes mellitus; Z82.49 Family history of ischemic heart disease and other diseases of the circulatory system
CPT/HCPCS: 36415; 36416; 51702; 71045; 80048; 82962; 85025; 86850; 86900; 88307; 88341; 88342; 93005; 94640; 96372; J0131; J1100; J1171; J1642; J1644; J1815; J1885; J2405; J2470; J2543; J2704; J3010; J3480; J3490; J7030; J7613; J7644

== ENCOUNTER → 2024-11-28 15:35 | Outpatient (BNVA) | payer MEDICARE, SELFPAY | PROVIDERS: PCP Nurse Practitioner Family; Visit Provider Surgery | DX: C34.11 Malignant neoplasm of upper lobe, right bronchus or lung (principal); D12.6 Benign neoplasm of colon, unspecified; Z51.81 Encounter for therapeutic drug level monitoring; D36.9 Benign neoplasm, unspecified site | CPT/HCPCS: 36415; 80048; 80076; 84443; 85025; 99214 ==

== ENCOUNTER 2024-12-01 15:55 | Inpatient (IN) | payer MEDICARE, SELFPAY ==
[2024-12-01] VITALS (14 sets, daily range): BP systolic 110–163; BP diastolic 62–92; PULSE 84–102; RESP 14–18; TEMP 36.1–36.7; O2SAT 95–100; BMI 24.5
[2024-12-01] MEDS: sodium chloride 0.9% 1,000 ML 30 ML IV (10:47)
[2024-12-01 11:02] LABS: Basophils # 0.1 10^3/uL (0.0-0.1); Basophils % 0.8 %; Eosinophils # 0.2 10^3/uL (0.0-0.8); Eosinophils % 2.8 %; Hematocrit 33.3 % (36-47); Lymphocytes # 0.7 10^3/uL (0.8-4.8); Lymphocytes % 10.3 %; Mean Corpuscular HGB Conc 32.1 g/dL (30-55); Mean Corpuscular Hemoglobin 32.8 pg (27-33); Mean Corpuscular Volume 102.1 fl (85-98); Mean Platelet Volume 10.4 fL (7.4-10.4); Monocytes # 0.6 10^3/uL (0.2-0.9); Monocytes % 8.9 %; Neutrophils # 4.85 10^3/uL (1.8-7.7); Neutrophils % 75.8 %; Nucleated Red Blood Cells % 0 %; Platelet Count 239 10^3/cmm (157-399); Red Blood Count 3.26 10^6/uL (3.85-5.65); Red Cell Distribution Width 14.4 % (12.1-15.1)
--- NOTE | 2024-12-01 11:04 | ANES.PREANE2 ---
Pre-Anesthetic Assessment Height/Weight: Height 5 ft 4 in Weight 145 lb Temp Pulse Resp BP Pulse Ox O2 Del Method 98.1 F 102 H 16 118/68 99 Room Air 12/01/24 10:19 12/01/24 10:19 12/01/24 10:19 12/01/24 10:19 12/01/24 10:19 12/01/24 10:19 Preop Diagnosis: colon mass Operation Date: 12/01/24 12:00 Proposed Procedures p Laparoscopic Right Hemicolectomy 67561, C18.9(Right) - Luis Alberto Maria, DO Was Beta Airam taken within 24 hours: N/A Was Clonidine taken within 24 hours: N/A Last intake: Intake Last Liquid Date 11/30/24 Last Liquid Time 23:59 Last Solid Date 11/29/24 Last Solid Time 21:00 Social No alcohol and No tobacco Exam alert, oriented x 3, clear to auscultation bilaterally and regular rate & rhythm Airway Submandibular: within normal limits Cervical ROM: within normal limits Mallampati: Class II Dentition: false and partials Anesthetic Plan ASA status: 3 Anesthesia: General Other: No prior issues with anesthesia. recently had a colonoscopy under MAC anesthesia and did well Patient has a history of lung cancer with chronic pneumonitis Type 2 diabetes on insulin Hypothyroidism on Synthroid No home oxygen Recent labs reviewed and acceptable for procedure GETA Medications/Allergies Home Medications Medication Instructions Recorded Confirmed Last Taken Type topiramate 25 mg tablet 50 mg PO .QHS 12/07/20 12/01/24 11/29/24 History loratadine 10 mg capsule 10 mg PO DAILY PRN allergy symptoms 12/12/20 12/01/24 11/30/24 History insulin aspart U-100 100 unit/mL See Rx Instructions SUBCUT TID PRN 06/10/22 12/01/24 11/30/24 History (3 mL) subcutaneous pen (Novolog high blood sugar FlexPen U-100 Insulin aspart) prochlorperazine maleate 10 mg 10 mg PO Q6H PRN nausea and 06/10/22 12/01/24 1 Year Ago Rx tablet (Compazine) vomiting #60 tabs ~10/19/23 dextromethorphan-guaifenesin 10 1 tab-cap PO Q8H PRN Cough 07/01/22 12/01/24 2 Weeks Ago History mg-200 mg capsule (Robitussin ~10/05/24 Cough-Chest Congestion DM) prenat.vits,williams,tlb-aaqn-ijuxm 1 tab PO DAILY 09/08/22 12/01/24 11/20/24 History diphenhydramine HCl 25 mg capsule 25 mg PO .hs PRN Sleep 10/20/22 12/01/24 11/29/24 History (Benadryl) albuterol sulfate 90 mcg/actuation 2 inh inhalation .Q4-6h PRN 05/05/23 12/01/24 11/29/24 Rx aerosol inhaler wheezing #8.5 grams insulin glargine 100 unit/mL (3 20 unit SUBCUT BEDTIME 05/19/23 12/01/24 11/30/24 History mL) subcutaneous pen (Lantus Solostar U-100 Insulin) ascorbic acid (vitamin C) 500 mg 500 mg PO DAILY 06/02/23 12/01/24 11/30/24 History tablet durvalumab 50 mg/mL intravenous 1,500 mg (30 mL) IV Q28D 12/17/23 12/01/24 1 Month Ago Rx solution ~10/21/24 levothyroxine 175 mcg tablet 175 mcg PO DAILY 10/18/24 12/01/24 12/01/24 History lorazepam 1 mg tablet 0.5 - 1 mg PO Q8H PRN nausea and 10/18/24 12/01/24 11/30/24 History vomiting fluticasone furoate 100 See Rx Instructions .Route 11/11/24 12/01/24 11/30/24 Rx mcg/actuation blister powder for .COMPLEX #30 ea inhalation (Arnuity Ellipta) docusate sodium 100 mg capsule 100 mg PO DAILY PRN Constipation 11/25/24 12/01/24 11/28/24 Rx #30 caps hydrocodone 10 mg-acetaminophen 1 tab PO Q6H PRN Pain #20 tabs 11/25/24 12/01/24 11/27/24 Rx 325 mg tablet erythromycin 500 mg tablet 500 mg PO TID 1 day #3 tabs 11/28/24 12/01/24 11/30/24 Rx pantoprazole 40 mg tablet,delayed 40 mg PO ONCE 6 weeks #42 tabs 11/28/24 12/01/24 11/30/24 Rx release (Protonix) neomycin 500 mg tablet 1 g (2 x 500 mg) PO ONCE #6 tabs 11/29/24 12/01/24 11/30/24 Rx Allergies Allergy/AdvReac Type Severity Reaction Status Date / Time azithromycin Allergy rash Verified 11/28/24 14:42 phenylephrine Allergy rash Verified 11/28/24 14:42 Cuexdxo-OXR-RsH Reductase Allergy Blindness Verified 11/28/24 14:42 Inhibitor [Ejcxhps-Xwr-Lxh Reductase Inhibitor] Sulfa (Sulfonamide Allergy rash Verified 11/28/24 14:42 Antibiotics) Current Medications Generic Name Dose Route Start Last Admin Trade Name Freq PRN Reason Stop Dose Admin Sodium Chloride 1,000 mls @ 30 mls/hr 11/30/24 14:45 12/01/24 10:47 Sodium Chloride 0.9% IV 12/01/24 14:44 30 mls/hr .Q24H SHAGUFTA Administration PFSH Anesthesia Medical History Family history of colon cancer Osteoarthritis Hypertension Type 2 diabetes mellitus 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 Cancer of right lung Dyslipidemia Peripheral arterial occlusive disease Hx of smoking Hx of recurrent urinary tract infection Rupture of colon Surgical History History of elbow surgery Left [id number] Port-A-Cath in place History of cholecystectomy 1995 History of appendectomy 1957 Hx of neck surgery Hx of colonoscopy 10 yrs ago History of back surgery Family History Father Hypertension CAD (coronary artery disease) Chronic kidney disease (CKD) Diabetes Mother Cancer Lung disease Grandfather Stroke Denies family history of Clotting disorder Dementia Suicide Anesthesia complication Bleeding disorder Social History Smoking and tobacco/nicotine status: former use of tobacco/nicotine Quit status (tobacco/nicotine): has quit using Year quit tobacco: June 2022 Former quit date comment: 50 years Second hand smoke exposure: Yes Alcohol intake: never Substance/Drug Use: never Data Anesthesia 12/01/24 10:47 12/01/24 10:47 Short CBC 12/01/24 Range/Units 10:47 WBC 6.40 (3.29-11.43) 10^3/uL Hgb 10.70 L (11.27-16.99) g/dL Hct 33.3 L (36-47) % MCV 102.1 H (85-98) fl Plt Count 239 (157-399) 10^3/cmm Neut % (Auto) 75.8 % Neut # (Auto) 4.85 (1.8-7.7) 10^3/uL Cardiac Studies: Sestamibi Stress Test (Cardiology) 04/03/21
[2024-12-01 11:25] LABS: Alanine Aminotransferase 11 U/L (0-33); Albumin Level 3.6 g/dL (3.5-5.2); Alkaline Phosphatase 118 U/L (35-105); Anion Gap 15.8 (5-19); Aspartate Amino Transferase 20 U/L (0-32); Blood Urea Nitrogen 12 mg/dL (8-23); Calcium 8.2 mg/dL (8.5-10.5); Carbon Dioxide 23 mmol/L (22-29); Chloride 105 mmol/L (98-107); Globulin 2.5 g/dL (1.3-4.6); Glucose 162 mg/dL (65-115); Osmolality Calculated 293 mOsm/kg (285-295); Potassium 3.8 mmol/L (3.5-5.1); Sodium 140 mmol/L (136-145); Total Bilirubin 0.3 mg/dL (0.15-1.2); Total Protein 6.1 g/dL (6.6-8.7)
--- NOTE | 2024-12-01 12:09 | W.PM.OPSUD ---
Surgery/Procedure H&P Update DATE OF PROCEDURE: December 01, 2024 DATE H&P PERFORMED: 11/28/23 H&P UPDATE INFORMATION: I have reviewed H&P completed within last 30 days, I have examined patient prior to procedure and No changes to prior documentation PREOP DIAGNOSIS: colon mass PLANNED PROCEDURE: Operation Date: 12/01/24 12:00 Proposed Procedures p Laparoscopic Right Hemicolectomy 51351, C18.9(Right) - Luis Alberto Maria DO
[2024-12-01] MEDS: piperacillin-tazobactam 3.375 GM in sodium chloride 0.9% (plus) 50 ML IV (12:30)
[2024-12-01] MEDS: lidocaine-epi 2% PF 1:200,000 20 mL SDV XX (13:00)
--- NOTE | 2024-12-01 14:38 | PM.OP ---
Operative Report Date of procedure: December 01, 2024 Pre-op diagnosis: Colon cancer Post-op diagnosis: same Procedure done: Laparoscopic right hemicolectomy Implants: None Specimens removed/disposition: Right colon and terminal ileum Surgeon: Luis Alberto Maria DO Anesthesia: General and Local Estimated blood loss (mL): 20 Complications: None apparent Brief History: This very pleasant 74-year-old female who previously had an unresectable cecal polyp at the appendiceal orifice. She underwent laparoscopic ileocecectomy. She did well and was discharged home on postop day #3. Pathology found adenocarcinoma in the polyp and 3 negative lymph nodes. Completion right hemicolectomy was indicated. The risks and benefits were explained and documented. Procedure: Patient was wheeled operative placed on the OR table in the supine position. General endotracheal ovation was achieved by department anesthesia. The abdomen was inspected prepped and draped in usual sterile fashion. Prior to this, nasogastric tube was placed by anesthesia and Awad catheter was placed by nursing. A timeout was performed. All present were in agreement. I went through her exact same previous incisions with a 15 blade scalpel after localizing with 2% lidocaine with epinephrine. A Veress needle was placed into the left upper quadrant over Delcid's point. Intra-abdominal insufflation was brought to 15 mmHg. A 12 mm trocar was placed into the umbilicus. A 5 mm trocar was placed left the umbilicus and a second 5 mm trocar was placed suprapubically. The right white line of Toldt was taken down with laparoscopic LigaSure and bluntly. The gastrocolic ligament was then transected using the laparoscopic ligature. The hepatic flexure was taken down in a similar fashion. There was adequate mobilization of the ileum and colon at this point. The 12 mm trocar was removed and the rest of the incision was opened. A wound protector was then placed into this incision. The ileum and right colon were then taken up out of the incision. Identified the middle colic artery. A 3-0 Vicryl suture was then placed proximal to the middle colic artery and in the distal terminal ileum. An enterotomy and colotomy were made with electrocautery and expanded with hemostats. A 100 mm blue load WINNIE stapler was then used to make a [id number] functional end to end anastomosis with 2 loads. Left cuff LigaSure was then used to transect the mesentery down near the root. There was about 20 cc of blood loss. Specimen was passed off. The anastomosis looked very pink and healthy. The bowel was then placed back into the abdomen and we went back to a laparoscopic view. There is no active bleeding or other pathology noted in the abdomen. Nasogastric tube was noted to be in good place. Midline incision was closed with #1 PDS in a running fashion x 2. 5 mm port sites were closed with Monocryl in a subcuticular interrupted fashion. Skin glue was applied. Patient tolerated procedure well.
[2024-12-01 16:34] LABS: Glucose Point of Care 208 mg/dL (70-110)
[2024-12-01] MEDS: HYDROmorphone 1 mg/mL INJ 1 mL IVP ×2 (16:40→20:42)
[2024-12-01] MEDS: sodium chlor 0.9% + KCl 20 mEq 20 MEQ/1,000 ML BAG 100 MEQ IV (16:40)
[2024-12-01] MEDS: pantoprazole 40 mg SDV IVP (16:41)
[2024-12-01] MEDS: insulin lispro 100 unit/1 mL SUBCUT (17:47)
[2024-12-01 20:31] LABS: Glucose Point of Care 154 mg/dL (70-110)
[2024-12-02] VITALS (8 sets, daily range): BP systolic 119–134; BP diastolic 56–70; PULSE 100–115; RESP 14–18; TEMP 36.5–36.8; O2SAT 96–97
[2024-12-02] MEDS: HYDROmorphone 1 mg/mL INJ 1 mL IVP ×3 (01:44→15:55)
[2024-12-02] MEDS: sodium chlor 0.9% + KCl 20 mEq 20 MEQ/1,000 ML BAG 100 MEQ IV ×2 (02:23→12:11)
[2024-12-02 03:46] LABS: Basophils % 0.3 %; Hematocrit 31.4 % (36-47); Lymphocytes # 0.5 10^3/uL (0.8-4.8); Mean Corpuscular HGB Conc 31.5 g/dL (30-55); Mean Corpuscular Volume 104.7 fl (85-98); Mean Platelet Volume 10.4 fL (7.4-10.4); Monocytes # 0.4 10^3/uL (0.2-0.9); Monocytes % 3.6 %; Neutrophils # 10.61 10^3/uL (1.8-7.7); Neutrophils % 91.2 %; Nucleated Red Blood Cells % 0 %; Platelet Count 234 10^3/cmm (157-399); Red Cell Distribution Width 14.4 % (12.1-15.1); White Blood Count 11.63 10^3/uL (3.29-11.43)
[2024-12-02 04:07] LABS: Blood Urea Nitrogen 12 mg/dL (8-23); Calcium 7.7 mg/dL (8.5-10.5); Carbon Dioxide 20 mmol/L (22-29); Chloride 105 mmol/L (98-107); Creatinine Clr Calc Pharmacy 34.5524; Glucose 321 mg/dL (65-115); Osmolality Calculated 298 mOsm/kg (285-295); Sodium 138 mmol/L (136-145)
[2024-12-02 06:24] LABS: Glucose Point of Care 293 mg/dL (70-110)
[2024-12-02] MEDS: insulin lispro 100 unit/1 mL SUBCUT ×2 (07:57→12:33)
[2024-12-02] MEDS: piperacillin-tazobactam 3.375 GM in sodium chloride 0.9% (plus) 50 ML IV ×2 (09:51→16:53)
[2024-12-02] MEDS: phenol oral Spray 177 mL 3 SPRAY MUCOUS MEM (11:11)
--- NOTE | 2024-12-02 11:56 | P.PN_ITS ---
Subjective 2 Subjective: Patient seen and examined. She reports belching and belly rumbling but denies any flatus or bowel movement. Pain controlled Vitals/I&O/Wt Last Vital Signs Temp 97.7 F 12/02/24 08:00 Pulse 108 H 12/02/24 08:00 Resp 17 12/02/24 09:51 BP 123/70 12/02/24 08:00 Pulse Ox 96 12/02/24 08:00 O2 Del Method Room Air 12/02/24 08:00 O2 Flow Rate 4 12/01/24 14:58 12/01/24 12/02/24 12/02/24 22:59 06:59 14:59 Intake Total 60 / 110 971.667 / 1081.667 Output Total 850 / 1000 300 / 1300 Balance -790 / -890 671.667 / -218.333 Weight last 48 hrs Weight 85 lb 6.4 oz Weight 145 lb Weight 145 lb Physical Exam 2 Narrative: General: No acute distress, awake alert and oriented x 3 Abdomen: Soft, nondistended, appropriately tender Urinary Catheter Management: Awad: Cath Placed During This Visit: yes, but has since been removed by the nurse Reason for Continuing Indwelling Catheter: Decision to DC Catheter Urinary Catheter Date of Insertion: 12/01/24 Urinary Catheter Time of Insertion: 12:30 Date Urinary Catheter Removed: 12/02/24 Time Urinary Catheter Discontinued: 06:39 Data 12/02/24 03:36 12/02/24 03:36 A&P Assessment and plan (1) Colon cancer: (2) S/P right hemicolectomy: Plan Postoperative day #1 status post right hemicolectomy for adenocarcinoma Continue NG tube and n.p.o. may have ice chips Ambulate Await return of bowel function Attestations 2 Medical Necessity Statement*: Patient will require multiple more nights in the hospital for recovery after right hemicolectomy for colon cancer and return of bowel function Coding Level of Care Code Acute Code for Chg Fwd Diagnoses Colon cancer C18.9 S/P right hemicolectomy Z90.49
[2024-12-02 12:03] LABS: Glucose Point of Care 252 mg/dL (70-110)
[2024-12-02 12:32] LABS: Glucose Point of Care 293 mg/dL (70-110)
[2024-12-02 14:15] LABS: Glucose Point of Care 219 mg/dL (70-110)
[2024-12-02] MEDS: ondansetron 2 mg/ML SDV 2 mL 4 MG IVP (14:16)
[2024-12-02] MEDS: pantoprazole 40 mg SDV IVP (15:54)
[2024-12-02 17:22] LABS: Glucose Point of Care 157 mg/dL (70-110)
[2024-12-02 20:51] LABS: Glucose Point of Care 445 mg/dL (70-110)
[2024-12-03] VITALS: BP 105/52; PULSE 108; RESP 17; TEMP 36.9; O2SAT 96
[2024-12-03] MEDS: piperacillin-tazobactam 3.375 GM in sodium chloride 0.9% (plus) 50 ML IV ×2 (01:16→08:52)
[2024-12-03 04:00] VITALS: BP 111/57; PULSE 107; RESP 15; TEMP 36.7; O2SAT 97
[2024-12-03 05:27] LABS: Basophils # 0.1 10^3/uL (0.0-0.1); Basophils % 0.6 %; Eosinophils # 0.1 10^3/uL (0.0-0.8); Eosinophils % 1.3 %; Hematocrit 28.8 % (36-47); Lymphocytes # 0.6 10^3/uL (0.8-4.8); Lymphocytes % 6.9 %; Mean Corpuscular HGB Conc 30.9 g/dL (30-55); Mean Corpuscular Volume 106.7 fl (85-98); Mean Platelet Volume 10.4 fL (7.4-10.4); Monocytes # 0.7 10^3/uL (0.2-0.9); Monocytes % 7.9 %; Neutrophils # 7.35 10^3/uL (1.8-7.7); Neutrophils % 82.6 %; Nucleated Red Blood Cells % 0 %; Platelet Count 244 10^3/cmm (157-399); Red Cell Distribution Width 14.6 % (12.1-15.1); White Blood Count 8.89 10^3/uL (3.29-11.43)
[2024-12-03 05:50] LABS: Anion Gap 16.8 (5-19); Blood Urea Nitrogen 12 mg/dL (8-23); Calcium 8.3 mg/dL (8.5-10.5); Carbon Dioxide 19 mmol/L (22-29); Chloride 110 mmol/L (98-107); Creatinine Clr Calc Pharmacy 44.2481; Glucose 254 mg/dL (65-115); Osmolality Calculated 300 mOsm/kg (285-295); Potassium 4.8 mmol/L (3.5-5.1); Sodium 141 mmol/L (136-145)
[2024-12-03 06:36] LABS: Glucose Point of Care 290 mg/dL (70-110)
[2024-12-03 07:22] VITALS: BP 116/55; PULSE 104; RESP 17; TEMP 36.9; O2SAT 93
[2024-12-03] MEDS: insulin lispro 100 unit/1 mL SUBCUT ×2 (08:52→12:30)
[2024-12-03] MEDS: levothyroxine 175 mcg Tablet PO (08:52)
[2024-12-03] MEDS: ascorbic acid 500 mg Tablet PO (08:52)
--- NOTE | 2024-12-03 08:54 | PM.DCS ---
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 She came in as an outpatient underwent laparoscopic right hemicolectomy. She did well postoperatively. She was tolerating diet and having bowel movements upon discharge on postoperative day #2 Physical Exam Narrative: General : Patient is well developed , no acute distress, oriented x3 Head : Normal cephalic, a-traumatic. Ears : Pinnae and external canal are normal. Hearing is normal. Eyes : PERRLA, Sclera and injection are normal. No conjunctival discharge. Nose : Mucous membranes are without erythema. Throat : buccal mucosa is normal, gums are without significant recession or hypertrophy. Lungs : Equal chest rise bilaterally, no use of accessory muscles, trachea is midline. Cor : Rate and rhythm are normal. Abdomen : Soft, ND, appropriately tender, no g/r/m, incisions intact without erythema or exudate Extremities : No edema, no cyanosis or clubbing, dorsalis pedis pulses are present bilaterally, non-tender to palpation of calves. Upper extremities are normal bilaterally. Back : non-tender to palpation, no CVA tenderness. Neuro : CN II - XII intact, Upper and lower extremities have equal and full strength Urinary Catheter Management: Awad: Cath Placed During This Visit: yes, but has since been removed by the nurse Reason for Continuing Indwelling Catheter: Decision to DC Catheter Urinary Catheter Date of Insertion: 12/01/24 Urinary Catheter Time of Insertion: 12:30 Date Urinary Catheter Removed: 12/02/24 Time Urinary Catheter Discontinued: 06:39 Discharge Data Studies Completed and Pending Pending at discharge Category Date Time Status Basic Metabolic Panel AM LABS Lab 12/04/24 04:00 Ordered Complete Blood Count w/Auto AM LABS Lab 12/04/24 04:00 Ordered Pathology: Surgical [PTH] Routine Pth 12/01/24 13:55 Received Laboratory Results WBC 8.89 10^3/uL (3.29-11.43) 12/03/24 04:50 RBC 2.70 10^6/uL (3.85-5.65) L 12/03/24 04:50 Hgb 8.90 g/dL (11.27-16.99) L 12/03/24 04:50 Hct 28.8 % (36-47) L 12/03/24 04:50 MCV 106.7 fl (85-98) H 12/03/24 04:50 MCH 33.0 pg (27-33) 12/03/24 04:50 MCHC 30.9 g/dL (30-55) 12/03/24 04:50 RDW 14.6 % (12.1-15.1) 12/03/24 04:50 Plt Count 244 10^3/cmm (157-399) 12/03/24 04:50 MPV 10.4 fL (7.4-10.4) 12/03/24 04:50 Neut % (Auto) 82.6 % 12/03/24 04:50 Lymph % (Auto) 6.9 % 12/03/24 04:50 [place] % (Auto) 7.9 % 12/03/24 04:50 Eos % (Auto) 1.3 % 12/03/24 04:50 Baso % (Auto) 0.6 % 12/03/24 04:50 Neut # (Auto) 7.35 10^3/uL (1.8-7.7) 12/03/24 04:50 Lymph # (Auto) 0.6 10^3/uL (0.8-4.8) L 12/03/24 04:50 [place] # (Auto) 0.7 10^3/uL (0.2-0.9) 12/03/24 04:50 Eos # (Auto) 0.1 10^3/uL (0.0-0.8) 12/03/24 04:50 Baso # (Auto) 0.1 10^3/uL (0.0-0.1) 12/03/24 04:50 Nucleated RBC % (auto) 0 % 12/03/24 04:50 Nucleated RBCs # 0.0 /100WBC 12/03/24 04:50 Sodium 141 mmol/L (136-145) 12/03/24 04:50 Potassium 4.8 mmol/L (3.5-5.1) 12/03/24 04:50 Chloride 110 mmol/L (98-107) H 12/03/24 04:50 Carbon Dioxide 19 mmol/L (22-29) L 12/03/24 04:50 Anion Gap 16.8 (5-19) 12/03/24 04:50 BUN 12 mg/dL (8-23) 12/03/24 04:50 Creatinine 1.0 mg/dL (0.5-0.9) H 12/03/24 04:50 GFR Calculation Not Reportable 12/03/24 04:50 Glucose 254 mg/dL (65-115) H 12/03/24 04:50 POC Glucose 290 mg/dL (70-110) H 12/03/24 06:25 Calculated Osmolality 300 mOsm/kg (285-295) H 12/03/24 04:50 Calcium 8.3 mg/dL (8.5-10.5) L 12/03/24 04:50 Total Bilirubin 0.3 mg/dL (0.15-1.2) 12/01/24 10:47 AST 20 U/L (0-32) 12/01/24 10:47 ALT 11 U/L (0-33) 12/01/24 10:47 Alkaline Phosphatase 118 U/L (35-105) H 12/01/24 10:47 Total Protein 6.1 g/dL (6.6-8.7) L 12/01/24 10:47 Albumin 3.6 g/dL (3.5-5.2) 12/01/24 10:47 Globulin 2.5 g/dL (1.3-4.6) 12/01/24 10:47 Blood Type O Positive 12/01/24 12:40 Rho(D) Type Rh positive 12/01/24 12:40 Antibody Screen Negative 12/01/24 12:40 Procedures Performed Laparoscopic right hemicolectomy Vitals Last Vital Signs Temp 98.4 F 12/03/24 07:22 Pulse 104 H 12/03/24 07:22 Resp 17 12/03/24 07:22 BP 116/55 12/03/24 07:22 Pulse Ox 93 12/03/24 07:22 O2 Del Method Room Air 12/03/24 07:22 O2 Flow Rate 4 01/23/25 14:58 Discharge Plan Discharge Patient Disposition: Home Condition: Stable Prescriptions: Continued topiramate 25 mg tablet 50 mg PO .QHS loratadine 10 mg capsule 10 mg PO DAILY PRN (Reason: allergy symptoms) insulin aspart U-100 [Novolog FlexPen U-100 Insulin] 100 unit/mL (3 mL) insulin pen See Rx Instructions SUBCUT TID PRN (Reason: high blood sugar) Rx Instructions: sliding scale subcutaneously three times daily PRN; sliding scale - max of 50 units daily insulin glargine [Lantus Solostar U-100 Insulin] 100 unit/mL (3 mL) insulin pen 20 unit SUBCUT BEDTIME Rx Instructions: HS subcutaneously Robitussin Cough-Chest Miguel Angel DM 10-200 mg capsule 1 tab-cap PO Q8H PRN (Reason: Cough) prenat.vits,williams,wyw-cnsz-tcfip Tablet 1 tab PO DAILY diphenhydramine HCl [Benadryl] 25 mg capsule 25 mg PO .hs PRN (Reason: Sleep) durvalumab 50 mg/mL solution 1,500 mg IV Q28D Rx Instructions: administer over 60 mins prochlorperazine maleate [Compazine] 10 mg tablet 10 mg PO Q6H PRN (Reason: nausea and vomiting) Qty: 60 0RF albuterol sulfate 90 mcg/actuation HFA aerosol inhaler 2 inh inhalation .Q4-6h PRN (Reason: wheezing) Qty: 8.5 0RF ascorbic acid (vitamin C) 500 mg tablet 500 mg PO DAILY pantoprazole [Protonix] 40 mg tablet,delayed release (DR/EC) 40 mg PO ONCE 42 Days Qty: 42 0RF erythromycin 500 mg tablet 500 mg PO TID 1 Days Qty: 3 0RF Rx Instructions: take 1 tablet at 3 PM, 4PM, and 10PM day before surgery Arnuity Ellipta 100 mcg/actuation blister with device See Rx Instructions .ROUTE .COMPLEX Qty: 30 0RF Dose Instruction: INHALE 1 PUFF BY MOUTH EVERY 24 HOURS Rx Instructions: INHALE 1 PUFF BY MOUTH EVERY 24 HOURS neomycin 500 mg tablet 1 g PO ONCE Qty: 6 0RF Rx Instructions: take 2 tabs at 3 PM, 4 PM, and 10PM day before surgery levothyroxine 175 mcg tablet 175 mcg PO DAILY Rx Instructions: Take 1 tablet by mouth once daily lorazepam 1 mg tablet 0.5 - 1 mg PO Q8H PRN (Reason: nausea and vomiting) Rx Instructions: 0.5 tab to 1 tab orally every 8 hours PRN; hydrocodone-acetaminophen 10-325 mg tablet 1 tab PO Q6H PRN (Reason: Pain) Qty: 20 0RF docusate sodium 100 mg capsule 100 mg PO DAILY PRN (Reason: Constipation) Qty: 30 0RF Discharge Orders: Discharge Order (Routine); Ordered 12/03/24 Ordered By: Luis Alberto Maria Referrals: Luis Alberto Maria DO [Physician] - 12/05/24 11:15 am (Please disregard the appointment Your appointment will be 12/12/24 at 11:35 a.m. ) Discharge Diet: Advance as tolerated Discharge Activity: Limit activity as instructed Patient Instructions: Acute Wound Care (DC), Opioid Safety, Post Anesthesia Care Activity Restrictions/Additional Instructions: No lifting, pushing or pulling over 15 pounds for 6 weeks. Do not soak incisions underwater for 2 weeks. Shower daily. Let the glue fall off on its own. Discharge Attestations Time Spent in Discharge Care*: less than 30 min Quality Metrics Clinical Quality Measures [ No reported AMI, CVA or VTE this stay] Coding Level of Care Code Acute Code for g Fwd Diagnoses Colon cancer C18.9 S/P right hemicolectomy Z90.49
[2024-12-03] MEDS: budesonide 0.5 mg/2 mL Neb INHALATION (09:01)
[2024-12-03] MEDS: albuterol 2.5 mg/3 mL Neb INHALATION (09:01)
[2024-12-03 09:03] VITALS: PULSE 110; RESP 16; O2SAT 98
[2024-12-03 11:48] VITALS: BP 107/67; PULSE 109; RESP 16; TEMP 36.6; O2SAT 97
[2024-12-03 11:57] LABS: Glucose Point of Care 326 mg/dL (70-110)
--- NOTE | 2024-12-03 13:51 | PC.NURSE ---
Patient's port de-accessed at this time. Flushed with 2 normal saline flushes per protocol. Patient tolerated well.
--- NOTE | 2024-12-03 14:22 | PC.NURSE ---
Chest port-a-cath was de-accessed by DAVION Gutierrez. Discharge paperwork was discussed. All questions were answered. Patient taken to entrance via wheelchair with all belongings.
[2024-12-03 14:24] VITALS: BP 107/67; PULSE 109; RESP 16; O2SAT 97
--- OUTSIDE RECORDS SUMMARY | 2024-12-13 05:32 | XMS_ITS | Clinical Summary ---
Author Organization [facility] Address [address] [place] [address] Phone Care Team Providers Care Hospice Liaison Name Role Phone Unavailable Primary Care Provider Unavailabl e Medications Malathion (OVIDE) 0.5 % Topical LotnIndications:E xposure to communicable disease Apply to affected area daily. 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 Gender Identity Not on file Sexual Orientation Not on file Plan of Treatment Health Maintenance Due Date Last Done Comments DTAP/TDAP/TD VACCINES (1 - Tdap) 01/09/1971 BREAST CANCER SCREENING 1992 COLORECTAL SCREENING 01/09/1997 Colorectal Cancer Screening 01/09/1997 FIT-DNA Q 3 years 01/09/1997 FIT/FOBT Q 1 year 01/09/1997 Flex Sig/CT Colonography Q 5 years 01/09/1997 PNEUMOCOCCAL VACCINE 65+ YEA RS (1 of 1 - PCV) 01/09/2002 ZOSTER VACCINE (1 of 2) 01/09/2002 OSTEOPOROSIS SCREENING 01/09/2017 INFLUENZA VACCINE (#1) 2024 09/24/2014, 2011 RSV VACCINE (60+ or ) (1 - 1-dose 75+ series) 01/09/2027
--- OUTSIDE RECORDS SUMMARY | 2024-12-13 05:32 | XMS_ITS ---
Author Organization Unknown ALLERGIES AND ADVERSE REACTIONS No information ASSESSMENT No information CHIEF COMPLAINT No information Vital Signs BpStanding BpSitting BpSupine Date Temperature HeartRate Weight Hei ght Spo2 Respiration Bmi HeadCircumference FieldCount TimeRecorded NeckCircumferen ce WaistCircumference Pulse 05/24 09:05 :00 97.1 100 151,9.6 5,4 97 18 26.0 09:05:00 100 OBJECTIVE DATA No information PHYSICAL EXAMINATION No information TREATMENT PLAN No information PROBLEMS No information RESULTS No information REVIEW OF SYSTEMS No information SUBJECTIVE DATA No information MEDICATIONS No information
== END 2024-12-03 14:05 | disposition home or self-care (01) | DRG 331 ==
LOC: MEDSURG 18:45
PROVIDERS: Admitting Provider Surgery; PCP Nurse Practitioner Family; Visit Provider Surgery
PROC: 0DTF4ZZ Resection of Right Large Intestine, Percutaneous Endoscopic Approach (ICD-10-PCS; CPT 44205; principal; 2024-12-01 12:00)
DX: C18.9 Malignant neoplasm of colon, unspecified (principal); E11.51 Type 2 diabetes mellitus with diabetic peripheral angiopathy without gangrene; E89.0 Postprocedural hypothyroidism; Y84.2 Radiological procedure and radiotherapy as the cause of abnormal reaction of the patient, or of later complication, without mention of misadventure at the time of the procedure; Z80.0 Family history of malignant neoplasm of digestive organs; Z79.4 Long term (current) use of insulin; Z85.118 Personal history of other malignant neoplasm of bronchus and lung; Z87.891 Personal history of nicotine dependence
CPT/HCPCS: 36415; 36416; 36591; 51702; 80048; 80053; 82962; 85025; 86850; 86900; 88309; 94640; 96372; J0131; J1100; J1171; J1815; J2405; J2470; J2543; J2704; J3010; J3480; J3490; J7030; J7613; J7626

== ENCOUNTER → 2024-12-12 10:57 | Outpatient (BNVA) | payer MEDICARE, SELFPAY | PROVIDERS: PCP Nurse Practitioner Family; Visit Provider Surgery | DX: R03.0 Elevated blood-pressure reading, without diagnosis of hypertension (principal); C18.9 Malignant neoplasm of colon, unspecified; Z80.0 Family history of malignant neoplasm of digestive organs; Z98.890 Other specified postprocedural states | CPT/HCPCS: 99024 ==

== ENCOUNTER 2025-01-02 13:34 | Oncology outpatient (recurring) (ONCR) | payer MEDICARE, SELFPAY | END 2025-01-06 23:59 | disposition home or self-care (01) | LOC: ONCMED 13:34 | PROVIDERS: PCP Nurse Practitioner Family; Visit Provider Nurse Practitioner | DX: C34.11 Malignant neoplasm of upper lobe, right bronchus or lung (principal); C18.9 Malignant neoplasm of colon, unspecified; E03.9 Hypothyroidism, unspecified; Z87.891 Personal history of nicotine dependence; Z90.49 Acquired absence of other specified parts of digestive tract; Z92.3 Personal history of irradiation; Z79.899 Other long term (current) drug therapy | CPT/HCPCS: 99214 ==

== ENCOUNTER 2025-02-02 11:15 | Oncology outpatient (recurring) (ONCR) | payer MEDICARE, SELFPAY ==
[2025-01-16 10:47] LABS: Basophils % 0.5 %; Eosinophils # 0.1 10^3/uL (0.0-0.8); Eosinophils % 1.7 %; Hematocrit 39.1 % (36-47); Lymphocytes # 0.9 10^3/uL (0.8-4.8); Lymphocytes % 12.1 %; Mean Corpuscular HGB Conc 31.7 g/dL (30-55); Mean Corpuscular Hemoglobin 31.9 pg (27-33); Mean Corpuscular Volume 100.5 fl (85-98); Mean Platelet Volume 11.2 fL (7.4-10.4); Monocytes # 0.6 10^3/uL (0.2-0.9); Monocytes % 7.8 %; Neutrophils # 6.05 10^3/uL (1.8-7.7); Neutrophils % 77.5 %; Nucleated Red Blood Cells % 0 %; Platelet Count 221 10^3/cmm (157-399); Red Blood Count 3.89 10^6/uL (3.85-5.65); Red Cell Distribution Width 13.2 % (12.1-15.1)
[2025-01-16 11:13] LABS: Alanine Aminotransferase 15 U/L (0-33); Albumin Level 3.9 g/dL (3.5-5.2); Alkaline Phosphatase 139 U/L (35-105); Anion Gap 14.6 (5-19); Aspartate Amino Transferase 19 U/L (0-32); Blood Urea Nitrogen 16 mg/dL (8-23); Calcium 9.5 mg/dL (8.5-10.5); Carbon Dioxide 23 mmol/L (22-29); Chloride 105 mmol/L (98-107); Globulin 3.2 g/dL (1.3-4.6); Glucose 104 mg/dL (65-115); Osmolality Calculated 289 mOsm/kg (285-295); Potassium 3.6 mmol/L (3.5-5.1); Sodium 139 mmol/L (136-145); Thyroid Stimulating Hormone 0.91 uIU/mL (0.27-4.20); Total Bilirubin 0.2 mg/dL (0.15-1.2); Total Protein 7.1 g/dL (6.6-8.7)
[2025-01-17 07:57] VITALS: BP 128/76; PULSE 107; TEMP 37.3; O2SAT 95
[2025-01-17] MEDS: sodium chloride 0.9% 250 ML 75 ML IV (08:47)
[2025-01-17] MEDS: palonosetron 0.25 mg/5 mL SDV IVP (08:48)
[2025-01-17] MEDS: dexamethasone 4 mg/mL INJ 5 mL 12 MG IVP (08:50)
[2025-01-17] MEDS: durvalumab 1,500 MG in sodium chloride 0.9% 250 ML 280 MG IV (09:11)
[2025-01-17] MEDS: dextrose 5% 250 ML 75 ML IV (10:18)
[2025-01-17] MEDS: leucovorin 680 MG in dextrose 5% 250 ML 62.5 MG IV (10:32)
[2025-01-17] MEDS: oxaliplatin 100 MG, oxaliplatin 46 MG in dextrose 5% 250 ML 139.6 MG IV (10:32)
[2025-01-17] MEDS: fluorouraciL 50 mg/ml MDV 100 mL 700 MG IVP (12:43)
[2025-01-17] MEDS: fluorouraciL 4,100 MG, elastomeric pump 1 PUMP in sodium chloride 0.9% (100 ml) 10 ML IV (12:43)
[2025-01-17 12:56] VITALS: BP 130/75; PULSE 100; TEMP 37.2; O2SAT 96
[2025-01-24 14:26] LABS: Basophils % 0.4 %; Eosinophils # 0.2 10^3/uL (0.0-0.8); Eosinophils % 5.3 %; Hematocrit 37.8 % (36-47); Lymphocytes # 0.9 10^3/uL (0.8-4.8); Lymphocytes % 19.6 %; Mean Corpuscular Hemoglobin 31.7 pg (27-33); Mean Platelet Volume 10.8 fL (7.4-10.4); Monocytes # 0.1 10^3/uL (0.2-0.9); Monocytes % 2.9 %; Neutrophils # 3.21 10^3/uL (1.8-7.7); Neutrophils % 71.6 %; Nucleated Red Blood Cells % 0 %; Platelet Count 137 10^3/cmm (157-399); Red Blood Count 3.82 10^6/uL (3.85-5.65); White Blood Count 4.49 10^3/uL (3.29-11.43)
[2025-01-24 14:45] LABS: Alanine Aminotransferase 12 U/L (0-33); Albumin Level 3.8 g/dL (3.5-5.2); Alkaline Phosphatase 116 U/L (35-105); Anion Gap 14.8 (5-19); Aspartate Amino Transferase 18 U/L (0-32); Blood Urea Nitrogen 17 mg/dL (8-23); Calcium 8.8 mg/dL (8.5-10.5); Carbon Dioxide 23 mmol/L (22-29); Chloride 108 mmol/L (98-107); Globulin 2.6 g/dL (1.3-4.6); Glucose 147 mg/dL (65-115); Osmolality Calculated 298 mOsm/kg (285-295); Potassium 3.8 mmol/L (3.5-5.1); Sodium 142 mmol/L (136-145); Total Bilirubin 0.2 mg/dL (0.15-1.2); Total Protein 6.4 g/dL (6.6-8.7)
[2025-01-31 08:32] LABS: Basophils % 0.3 %; Eosinophils # 0.2 10^3/uL (0.0-0.8); Eosinophils % 5.7 %; Hematocrit 35.2 % (36-47); Lymphocytes % 28.3 %; Mean Corpuscular HGB Conc 32.4 g/dL (30-55); Mean Corpuscular Hemoglobin 31.9 pg (27-33); Mean Corpuscular Volume 98.6 fl (85-98); Mean Platelet Volume 10.8 fL (7.4-10.4); Monocytes # 0.3 10^3/uL (0.2-0.9); Monocytes % 9.2 %; Neutrophils # 1.89 10^3/uL (1.8-7.7); Neutrophils % 56.2 %; Nucleated Red Blood Cells % 0 %; Platelet Count 152 10^3/cmm (157-399); Red Blood Count 3.57 10^6/uL (3.85-5.65); Red Cell Distribution Width 13.3 % (12.1-15.1); White Blood Count 3.36 10^3/uL (3.29-11.43)
[2025-01-31 08:49] LABS: Alanine Aminotransferase 14 U/L (0-33); Albumin Level 3.8 g/dL (3.5-5.2); Alkaline Phosphatase 122 U/L (35-105); Anion Gap 13.8 (5-19); Aspartate Amino Transferase 21 U/L (0-32); Blood Urea Nitrogen 15 mg/dL (8-23); Carbon Dioxide 24 mmol/L (22-29); Chloride 107 mmol/L (98-107); Globulin 2.8 g/dL (1.3-4.6); Glucose 143 mg/dL (65-115); Osmolality Calculated 295 mOsm/kg (285-295); Potassium 3.8 mmol/L (3.5-5.1); Sodium 141 mmol/L (136-145); Total Bilirubin 0.2 mg/dL (0.15-1.2); Total Protein 6.6 g/dL (6.6-8.7)
[2025-01-31] MEDS: dextrose 5% 250 ML 75 ML IV (09:42)
[2025-01-31] MEDS: dexamethasone 4 mg/mL INJ 5 mL 12 MG IVP (09:43)
[2025-01-31] MEDS: palonosetron 0.25 mg/5 mL SDV IVP (09:45)
[2025-01-31] MEDS: oxaliplatin 100 MG, oxaliplatin 46 MG in dextrose 5% 250 ML 139.6 MG IV (10:06)
[2025-01-31] MEDS: leucovorin 680 MG in dextrose 5% 250 ML 135 MG IV (10:07)
[2025-01-31] MEDS: fluorouraciL 50 mg/ml MDV 100 mL 700 MG IVP (12:46)
[2025-01-31 12:50] VITALS: BP 145/80; PULSE 105; RESP 17; TEMP 37.2; O2SAT 95
[2025-01-31] MEDS: fluorouraciL 4,100 MG, elastomeric pump 1 PUMP in sodium chloride 0.9% (100 ml) 10 ML IV (12:55)
== END 2025-02-06 23:59 | disposition home or self-care (01) ==
PROVIDERS: PCP Nurse Practitioner Family; Visit Provider Internal Medicine Medical Oncology
DX: Z53.9 Procedure and treatment not carried out, unspecified reason (principal); Z45.1 Encounter for adjustment and management of infusion pump
CPT/HCPCS: 36591; 80053; 84443; 85025; 96368; 96375; 96409; 96411; 96413; 96415; 96416; 96417; 96523; 99214; 99215; A4222; J0640; J1100; J2469; J7050; J7060; J9173; J9190; J9263

== ENCOUNTER 2025-03-02 11:45 | Oncology outpatient (recurring) (ONCR) | payer MEDICARE, SELFPAY ==
[2025-02-14 08:17] LABS: Basophils % 0.7 %; Eosinophils # 0.1 10^3/uL (0.0-0.8); Eosinophils % 2.7 %; Hematocrit 33.8 % (36-47); Mean Corpuscular HGB Conc 31.4 g/dL (30-55); Mean Corpuscular Hemoglobin 31.5 pg (27-33); Mean Corpuscular Volume 100.3 fl (85-98); Mean Platelet Volume 11.3 fL (7.4-10.4); Monocytes # 0.6 10^3/uL (0.2-0.9); Monocytes % 19.7 %; Neutrophils # 1.24 10^3/uL (1.8-7.7); Neutrophils % 42.2 %; Nucleated Red Blood Cells % 0 %; Platelet Count 122 10^3/cmm (157-399); Red Blood Count 3.37 10^6/uL (3.85-5.65); Red Cell Distribution Width 14.8 % (12.1-15.1); White Blood Count 2.94 10^3/uL (3.29-11.43)
[2025-02-14 08:22] LABS: Alanine Aminotransferase 15 U/L (0-33); Albumin Level 3.7 g/dL (3.5-5.2); Alkaline Phosphatase 115 U/L (35-105); Anion Gap 14.9 (5-19); Aspartate Amino Transferase 17 U/L (0-32); Blood Urea Nitrogen 21 mg/dL (8-23); Calcium 8.9 mg/dL (8.5-10.5); Carbon Dioxide 24 mmol/L (22-29); Chloride 105 mmol/L (98-107); Globulin 2.9 g/dL (1.3-4.6); Glucose 222 mg/dL (65-115); Osmolality Calculated 300 mOsm/kg (285-295); Potassium 3.9 mmol/L (3.5-5.1); Sodium 140 mmol/L (136-145); Total Bilirubin 0.2 mg/dL (0.15-1.2); Total Protein 6.6 g/dL (6.6-8.7)
[2025-02-14 10:20] LABS: Thyroid Stimulating Hormone 28.78 uIU/mL (0.27-4.20)
[2025-02-14] MEDS: sodium chloride 0.9% 250 ML 75 ML IV (10:31)
[2025-02-14] MEDS: dexamethasone 4 mg/mL INJ 5 mL 12 MG IVP (10:31)
[2025-02-14] MEDS: palonosetron 0.25 mg/5 mL SDV IVP (10:32)
[2025-02-14] MEDS: durvalumab 1,500 MG in sodium chloride 0.9% 250 ML 280 MG IV (10:38)
[2025-02-14] MEDS: leucovorin 680 MG in dextrose 5% 250 ML 79.5 MG IV (11:45)
[2025-02-14] MEDS: dextrose 5% 250 ML 75 ML IV (11:46)
[2025-02-14] MEDS: oxaliplatin 100 MG, oxaliplatin 46 MG in dextrose 5% 250 ML 139.6 MG IV (11:46)
[2025-02-14] MEDS: fluorouraciL 4,100 MG, elastomeric pump 1 PUMP in sodium chloride 0.9% (100 ml) 10 ML IV (14:07)
[2025-02-14] MEDS: fluorouraciL 50 mg/ml MDV 100 mL 700 MG IVP (14:07)
[2025-02-14 14:18] VITALS: BP 136/76; PULSE 95; RESP 16; TEMP 37.2; O2SAT 98
[2025-02-16 13:07] VITALS: BP 124/73; PULSE 105; RESP 16; TEMP 36.3; O2SAT 97
[2025-02-28 09:06] LABS: Basophils % 0.8 %; Eosinophils # 0.2 10^3/uL (0.0-0.8); Eosinophils % 4.3 %; Hematocrit 31.7 % (36-47); Lymphocytes # 0.7 10^3/uL (0.8-4.8); Lymphocytes % 17.5 %; Mean Corpuscular HGB Conc 32.5 g/dL (30-55); Mean Corpuscular Hemoglobin 32.1 pg (27-33); Mean Corpuscular Volume 98.8 fl (85-98); Mean Platelet Volume 11.6 fL (7.4-10.4); Monocytes # 0.6 10^3/uL (0.2-0.9); Monocytes % 15.5 %; Neutrophils # 2.43 10^3/uL (1.8-7.7); Neutrophils % 61.6 %; Nucleated Red Blood Cells % 0 %; Platelet Count 116 10^3/cmm (157-399); Red Blood Count 3.21 10^6/uL (3.85-5.65); Red Cell Distribution Width 16.9 % (12.1-15.1); White Blood Count 3.94 10^3/uL (3.29-11.43)
[2025-02-28 09:29] LABS: Alanine Aminotransferase 17 U/L (0-33); Albumin Level 3.8 g/dL (3.5-5.2); Alkaline Phosphatase 129 U/L (35-105); Anion Gap 14.5 (5-19); Aspartate Amino Transferase 23 U/L (0-32); Blood Urea Nitrogen 10 mg/dL (8-23); Calcium 8.7 mg/dL (8.5-10.5); Carbon Dioxide 25 mmol/L (22-29); Chloride 108 mmol/L (98-107); Free T4 Free Thyroxine 1.23 ng/dL (0.82-1.77); Globulin 2.7 g/dL (1.3-4.6); Glucose 119 mg/dL (65-115); Osmolality Calculated 298 mOsm/kg (285-295); Potassium 3.5 mmol/L (3.5-5.1); Sodium 144 mmol/L (136-145); T3 Free 1.3 PG/ML (2.0-4.4); Thyroid Stimulating Hormone 50.34 uIU/mL (0.27-4.20); Total Bilirubin 0.4 mg/dL (0.15-1.2); Total Protein 6.5 g/dL (6.6-8.7)
[2025-02-28] MEDS: dexamethasone 4 mg/mL INJ 5 mL 12 MG IVP (10:06)
[2025-02-28] MEDS: dextrose 5% 250 ML 75 ML IV (10:06)
[2025-02-28] MEDS: palonosetron 0.25 mg/5 mL SDV IVP (10:10)
[2025-02-28] MEDS: leucovorin 680 MG in dextrose 5% 250 ML 135 MG IV (10:57)
[2025-02-28] MEDS: oxaliplatin 100 MG, oxaliplatin 46 MG in dextrose 5% 250 ML 139.6 MG IV (10:58)
[2025-02-28] MEDS: fluorouraciL 50 mg/ml MDV 100 mL 700 MG IVP (13:07)
[2025-02-28] MEDS: fluorouraciL 4,100 MG, elastomeric pump 1 PUMP in sodium chloride 0.9% (100 ml) 10 ML IV (13:16)
[2025-02-28 13:23] VITALS: BP 144/83; PULSE 99; O2SAT 96
== END 2025-03-08 23:59 | disposition home or self-care (01) ==
PROVIDERS: Internal Medicine Medical Oncology; Nurse Practitioner Family; PCP Nurse Practitioner Family; Visit Provider Internal Medicine
DX: Z53.9 Procedure and treatment not carried out, unspecified reason; Z45.1 Encounter for adjustment and management of infusion pump
CPT/HCPCS: 80053; 84439; 84443; 84481; 85025; 96360; 96361; 96368; 96375; 96409; 96411; 96413; 96415; 96416; 96417; 96523; 99214; A4222; J0640; J1100; J2469; J7050; J7060; J9173; J9190; J9263

== ENCOUNTER 2025-04-07 11:00 | Oncology outpatient (recurring) (ONCR) | payer MEDICARE, SELFPAY ==
[2025-03-14 08:35] LABS: Eosinophils # 0.1 10^3/uL (0.0-0.8); Eosinophils % 4.4 %; Hematocrit 30.1 % (36-47); Lymphocytes # 0.5 10^3/uL (0.8-4.8); Lymphocytes % 25.1 %; Mean Corpuscular HGB Conc 33.6 g/dL (30-55); Mean Corpuscular Volume 98.4 fl (85-98); Mean Platelet Volume 12.2 fL (7.4-10.4); Monocytes # 0.5 10^3/uL (0.2-0.9); Monocytes % 22.2 %; Neutrophils % 46.3 %; Nucleated Red Blood Cells % 0 %; Platelet Count 95 10^3/cmm (157-399); Red Blood Count 3.06 10^6/uL (3.85-5.65); Red Cell Distribution Width 19.2 % (12.1-15.1); White Blood Count 2.03 10^3/uL (3.29-11.43)
[2025-03-14 08:59] LABS: Alanine Aminotransferase 17 U/L (0-33); Albumin Level 3.2 g/dL (3.5-5.2); Alkaline Phosphatase 105 U/L (35-105); Anion Gap 15.2 (5-19); Aspartate Amino Transferase 27 U/L (0-32); Blood Urea Nitrogen 10 mg/dL (8-23); Calcium 8.5 mg/dL (8.5-10.5); Carbon Dioxide 22 mmol/L (22-29); Chloride 106 mmol/L (98-107); Creatinine Clr Calc Pharmacy 42.3866; Globulin 2.6 g/dL (1.3-4.6); Glucose 132 mg/dL (65-115); Osmolality Calculated 291 mOsm/kg (285-295); Potassium 3.2 mmol/L (3.5-5.1); Sodium 140 mmol/L (136-145); Total Bilirubin 0.3 mg/dL (0.15-1.2); Total Protein 5.8 g/dL (6.6-8.7)
[2025-03-14 09:24] LABS: Neutrophils # 0.94 10^3/uL (1.8-7.7)
[2025-03-14] MEDS: sodium chlor 0.9% + KCl 40 mEq 40 MEQ/1,000 ML BAG 250 MEQ IV (10:15)
[2025-03-14 10:33] LABS: Free T4 Free Thyroxine 1.28 ng/dL (0.82-1.77); T3 Free 1.2 PG/ML (2.0-4.4)
--- NOTE | 2025-03-17 10:30 | PETR_ITS ---
PROCEDURE INFORMATION: Exam: PET/CT Skull Base to Mid-thigh Exam date and time: 03/17/2025 11:30 AM Age: 75 years old Clinical indication: Condition or disease; Primary cancer: Lung cancer rul; Prior surgery; Surgery date: 6+ months; Surgery type: Port, gb LABS AND CLINICAL REPORTS: Glucose: 97 mg/dl Treatment strategy for malignancy (PET staging): Restaging (PS) TECHNIQUE: Imaging protocol: Following at least four-hour fasting and following the injection of radiopharmaceutical, low dose CT images were obtained. Then, PET images were obtained. Attenuation corrected images were constructed using the CT scan. Fused images of PET and CT were reviewed. The standardized uptake values (SUV) reported below are maximum values within a region of interest, expressed in gm/ml. Exam includes orbital meatal line to mid-thigh. SUV normalization method: BodyWeight Radiopharmaceutical: 11.87 mCi F-18 FDG (Fluorodeoxyglucose), IV. Time of imaging post radiopharmaceutical administration: 47 minutes Injection site: LAC COMPARISON: PT PET skull to thigh SUBS [id number] 09/30/2024 1:05 PM FINDINGS: Tubes, catheters and devices: Right chest port terminates at the superior cavoatrial junction. Brain: Visualized brain has normal physiologic uptake. Pharynx: No abnormal uptake. Larynx: No abnormal uptake. Lungs, pleura and trachea: Stable right apical soft tissue thickening with SUV max 3.3, previously 3.6. Heart: Normal physiologic uptake. Mediastinal space: No abnormal uptake. Esophagus: Segmental FDG uptake at the upper thoracic esophagus with SUV max 4.5 with more avid FDG uptake at the distal esophagus showing SUV max 7.3 on axial image 114. There may be mild underlying soft tissue thickening. Liver: No abnormal uptake. Gallbladder and biliary ducts: No abnormal uptake. Prior cholecystectomy. Pancreas: No abnormal uptake. Spleen: No abnormal uptake. Adrenal glands: No abnormal uptake. Kidneys and ureters: Asymmetric left renal atrophy with decreased uptake. Normal physiologic uptake on the right. Couple simple appearing right renal cysts. Stomach and bowel: Interval right colon postsurgical anastomosis without evidence of thickening or FDG avidity. Multifocal uptake along the colon without discrete underlying CT abnormality. There is some liquid contents within the proximal colon. Vasculature: No abnormal uptake. Heavy systemic atherosclerotic calcification without aortic aneurysm. Lymph nodes: No abnormal uptake. No lymphadenopathy in the head, neck, chest, abdomen, pelvis, and extremities. Skeleton: Degenerative change along the spine and mildly at the sacroiliac joints. C5-7 ACDF. Soft tissues: See Esophagus finding. METRICS: Mediastinal blood pool: SUV mean 2.1 Liver uptake: SUV mean 2.6 PET/PET skull to thigh SUBS [id number] IMPRESSION: 1. Stable right apical posttreatment changes. 2. Interval right colon postsurgical change without abnormal thickening or FDG avidity at the anastomosis. 3. Multifocal FDG uptake along the colon without discrete underlying CT abnormality is favored physiologic or inflammatory. 4. FDG uptake at the distal greater than upper thoracic esophagus with possible mild underlying soft tissue thickening may be esophagitis, neoplasm not entirely excluded. 5. Additional chronic and incidental findings as above.
[2025-03-21 08:46] LABS: Basophils # 0.1 10^3/uL (0.0-0.1); Basophils % 0.8 %; Eosinophils # 0.1 10^3/uL (0.0-0.8); Eosinophils % 0.8 %; Hematocrit 28.4 % (36-47); Lymphocytes # 0.7 10^3/uL (0.8-4.8); Lymphocytes % 7.6 %; Mean Corpuscular HGB Conc 32.4 g/dL (30-55); Mean Corpuscular Hemoglobin 33.9 pg (27-33); Mean Corpuscular Volume 104.8 fl (85-98); Mean Platelet Volume 10.5 fL (7.4-10.4); Monocytes # 1.4 10^3/uL (0.2-0.9); Neutrophils # 6.46 10^3/uL (1.8-7.7); Neutrophils % 71.2 %; Nucleated Red Blood Cells % 0 %; Platelet Count 177 10^3/cmm (157-399); Red Blood Count 2.71 10^6/uL (3.85-5.65); Red Cell Distribution Width 22.7 % (12.1-15.1); White Blood Count 9.07 10^3/uL (3.29-11.43)
[2025-03-21 09:09] LABS: Alanine Aminotransferase 12 U/L (0-33); Albumin Level 3.1 g/dL (3.5-5.2); Alkaline Phosphatase 140 U/L (35-105); Anion Gap 15.1 (5-19); Aspartate Amino Transferase 17 U/L (0-32); Blood Urea Nitrogen 16 mg/dL (8-23); Calcium 8.2 mg/dL (8.5-10.5); Carbon Dioxide 23 mmol/L (22-29); Chloride 102 mmol/L (98-107); Creatinine Clr Calc Pharmacy 42.6475; Globulin 2.6 g/dL (1.3-4.6); Glucose 429 mg/dL (65-115); Osmolality Calculated 302 mOsm/kg (285-295); Potassium 4.1 mmol/L (3.5-5.1); Sodium 136 mmol/L (136-145); Total Bilirubin 0.3 mg/dL (0.15-1.2); Total Protein 5.7 g/dL (6.6-8.7)
[2025-03-21] MEDS: sodium chloride 0.9% 250 ML 75 ML IV (11:17)
[2025-03-21] MEDS: durvalumab 1,500 MG in sodium chloride 0.9% 250 ML 280 MG IV (11:25)
[2025-03-21] MEDS: palonosetron 0.25 mg/5 mL SDV IVP (12:48)
[2025-03-21] MEDS: dexamethasone 4 mg/mL INJ 5 mL 12 MG IVP (12:48)
[2025-03-21] MEDS: dextrose 5% 250 ML 75 ML IV (13:17)
[2025-03-21] MEDS: oxaliplatin 100 MG, oxaliplatin 46 MG in dextrose 5% 250 ML 139.6 MG IV (13:20)
[2025-03-21] MEDS: leucovorin 680 MG in dextrose 5% 250 ML 62.5 MG IV (13:20)
[2025-03-21] MEDS: fluorouraciL 50 mg/ml MDV 100 mL 700 MG IVP (17:02)
[2025-03-21] MEDS: fluorouraciL 4,100 MG, elastomeric pump 1 PUMP in sodium chloride 0.9% (100 ml) 10 ML IV (17:03)
[2025-03-21 17:05] VITALS: BP 116/70; PULSE 91; RESP 17; TEMP 37.1; O2SAT 96
[2025-04-05 08:37] LABS: Basophils % 0.5 %; Eosinophils # 0.1 10^3/uL (0.0-0.8); Eosinophils % 2.3 %; Hematocrit 30.3 % (36-47); Lymphocytes # 0.8 10^3/uL (0.8-4.8); Lymphocytes % 21.4 %; Mean Corpuscular HGB Conc 32.7 g/dL (30-55); Mean Corpuscular Hemoglobin 35.4 pg (27-33); Mean Corpuscular Volume 108.2 fl (85-98); Mean Platelet Volume 11.4 fL (7.4-10.4); Monocytes # 0.7 10^3/uL (0.2-0.9); Monocytes % 19.1 %; Neutrophils # 2.15 10^3/uL (1.8-7.7); Neutrophils % 56.2 %; Nucleated Red Blood Cells % 0 %; Platelet Count 151 10^3/cmm (157-399); Red Cell Distribution Width 23.6 % (12.1-15.1); White Blood Count 3.83 10^3/uL (3.29-11.43)
[2025-04-05 09:08] LABS: Carcinoembryonic Antigen 14.3 ng/mL (0.0-4.7); Free T4 Free Thyroxine 1.54 ng/dL (0.82-1.77); T3 Free 1.8 PG/ML (2.0-4.4); Thyroid Stimulating Hormone 32.27 uIU/mL (0.27-4.20)
[2025-04-05 09:19] LABS: Alanine Aminotransferase 15 U/L (0-33); Albumin Level 3.6 g/dL (3.5-5.2); Alkaline Phosphatase 132 U/L (35-105); Anion Gap 17.1 (5-19); Aspartate Amino Transferase 26 U/L (0-32); Blood Urea Nitrogen 14 mg/dL (8-23); Calcium 9.1 mg/dL (8.5-10.5); Carbon Dioxide 22 mmol/L (22-29); Chloride 104 mmol/L (98-107); Creatinine Clr Calc Pharmacy 35.2034; Glucose 70 mg/dL (65-115); Osmolality Calculated 289 mOsm/kg (285-295); Potassium 3.1 mmol/L (3.5-5.1); Sodium 140 mmol/L (136-145); Total Bilirubin 0.3 mg/dL (0.15-1.2); Total Protein 6.6 g/dL (6.6-8.7)
[2025-04-05] MEDS: dexamethasone 4 mg/mL INJ 5 mL 12 MG IVP (10:41)
[2025-04-05] MEDS: palonosetron 0.25 mg/5 mL SDV IVP (10:41)
[2025-04-05] MEDS: dextrose 5% 250 ML 75 ML IV (10:41)
[2025-04-05] MEDS: LEUCOVORIN IV (11:15)
[2025-04-05] MEDS: DEXTROSE 5% IV (11:15)
[2025-04-05] MEDS: oxaliplatin 100 MG, oxaliplatin 42 MG in dextrose 5% 250 ML 139.2 MG IV (11:16)
[2025-04-05] MEDS: fluorouraciL 4,000 MG, elastomeric pump 1 PUMP in sodium chloride 0.9% (100 ml) 12 ML 2 MG IV (13:40)
[2025-04-05] MEDS: fluorouraciL 50 mg/ml MDV 100 mL 650 MG IVP (13:40)
[2025-04-05 13:50] VITALS: BP 128/74; PULSE 100; RESP 16; TEMP 36.4; O2SAT 95
[2025-04-07 10:58] VITALS: BP 121/72; PULSE 117; RESP 17; TEMP 36.6; O2SAT 99
== END 2025-04-08 23:59 | disposition home or self-care (01) ==
PROVIDERS: Nurse Practitioner Family; PCP Nurse Practitioner Family; Visit Provider Internal Medicine Medical Oncology
DX: Z53.9 Procedure and treatment not carried out, unspecified reason; Z45.1 Encounter for adjustment and management of infusion pump
CPT/HCPCS: 78815; 80053; 82378; 84439; 84443; 84481; 85025; 87045; 87427; 87449; 96365; 96366; 96368; 96374; 96375; 96409; 96411; 96413; 96415; 96416; 96417; 96523; 99214; A4222; A9552; J0640; J1100; J2469; J7050; J7060; J9173; J9190; J9263; J9999

== ENCOUNTER 2025-04-28 10:30 | Oncology outpatient (recurring) (ONCR) | payer MEDICARE, SELFPAY ==
[2025-04-19 09:22] LABS: Basophils % 0.5 %; Eosinophils # 0.1 10^3/uL (0.0-0.8); Eosinophils % 1.8 %; Hematocrit 28.9 % (36-47); Lymphocytes # 0.8 10^3/uL (0.8-4.8); Lymphocytes % 19.4 %; Mean Corpuscular HGB Conc 32.5 g/dL (30-55); Mean Corpuscular Hemoglobin 36.6 pg (27-33); Mean Corpuscular Volume 112.5 fl (85-98); Mean Platelet Volume 13.3 fL (7.4-10.4); Monocytes # 0.7 10^3/uL (0.2-0.9); Monocytes % 18.9 %; Neutrophils # 2.32 10^3/uL (1.8-7.7); Neutrophils % 59.1 %; Nucleated Red Blood Cells % 0 %; Platelet Count 66 10^3/cmm (157-399); Red Blood Count 2.57 10^6/uL (3.85-5.65); Red Cell Distribution Width 23.3 % (12.1-15.1); White Blood Count 3.92 10^3/uL (3.29-11.43)
[2025-04-19 09:41] LABS: Alanine Aminotransferase 13 U/L (0-33); Albumin Level 3.6 g/dL (3.5-5.2); Alkaline Phosphatase 128 U/L (35-105); Anion Gap 14.7 (5-19); Aspartate Amino Transferase 25 U/L (0-32); Blood Urea Nitrogen 10 mg/dL (8-23); Calcium 9.3 mg/dL (8.5-10.5); Carbon Dioxide 21 mmol/L (22-29); Chloride 109 mmol/L (98-107); Globulin 2.9 g/dL (1.3-4.6); Glucose 117 mg/dL (65-115); Osmolality Calculated 292 mOsm/kg (285-295); Potassium 3.7 mmol/L (3.5-5.1); Sodium 141 mmol/L (136-145); Total Bilirubin 0.3 mg/dL (0.15-1.2); Total Protein 6.5 g/dL (6.6-8.7)
[2025-04-26 09:28] LABS: Basophils % 1.2 %; Eosinophils # 0.1 10^3/uL (0.0-0.8); Eosinophils % 3.5 %; Lymphocytes # 0.9 10^3/uL (0.8-4.8); Lymphocytes % 26.1 %; Mean Corpuscular HGB Conc 32.3 g/dL (30-55); Mean Corpuscular Volume 114.8 fl (85-98); Mean Platelet Volume 11.4 fL (7.4-10.4); Monocytes # 0.9 10^3/uL (0.2-0.9); Monocytes % 25.2 %; Neutrophils % 40.5 %; Nucleated Red Blood Cells % 0 %; Platelet Count 135 10^3/cmm (157-399); Red Cell Distribution Width 21.8 % (12.1-15.1); White Blood Count 3.45 10^3/uL (3.29-11.43)
[2025-04-26 09:45] LABS: Alanine Aminotransferase 11 U/L (0-33); Albumin Level 3.6 g/dL (3.5-5.2); Alkaline Phosphatase 142 U/L (35-105); Anion Gap 15.8 (5-19); Aspartate Amino Transferase 26 U/L (0-32); Blood Urea Nitrogen 10 mg/dL (8-23); Calcium 8.8 mg/dL (8.5-10.5); Carbon Dioxide 22 mmol/L (22-29); Chloride 106 mmol/L (98-107); Globulin 2.9 g/dL (1.3-4.6); Glucose 216 mg/dL (65-115); Lactate Dehydrogenase 225 U/L (135-214); Osmolality Calculated 296 mOsm/kg (285-295); Potassium 3.8 mmol/L (3.5-5.1); Sodium 140 mmol/L (136-145); Total Bilirubin 0.4 mg/dL (0.15-1.2); Total Protein 6.5 g/dL (6.6-8.7)
[2025-04-26 10:26] LABS: Iron 66 ug/dL (37-145); Percent Saturation 23.7 % (20-50); Total Iron Binding Capacity 278 mcg/dl; Unsaturated Iron Binding 212 ug/dL (112-347)
[2025-04-26] MEDS: dexamethasone 4 mg/mL INJ 5 mL 12 MG IVP (11:35)
[2025-04-26] MEDS: sodium chloride 0.9% 250 ML 75 ML IV (11:37)
[2025-04-26] MEDS: palonosetron 0.25 mg/5 mL SDV IVP (11:38)
[2025-04-26] MEDS: durvalumab 1,500 MG in sodium chloride 0.9% 250 ML 280 MG IV (11:56)
[2025-04-26 12:19] LABS: Folate Level > 20.0 ng/mL (4.8-37.3)
[2025-04-26] MEDS: dextrose 5% 250 ML 75 ML IV (12:56)
[2025-04-26] MEDS: leucovorin 660 MG in dextrose 5% 250 ML 62.5 MG IV (13:02)
[2025-04-26] MEDS: oxaliplatin 140 MG in dextrose 5% 250 ML 139 MG IV (13:02)
[2025-04-26] MEDS: fluorouraciL 3,950 MG, elastomeric pump 1 PUMP in sodium chloride 0.9% (100 ml) 13 ML IV (15:16)
[2025-04-26 15:23] VITALS: BP 115/70; PULSE 100; RESP 18; TEMP 36.6; O2SAT 98
== END 2025-05-08 23:59 | disposition home or self-care (01) ==
PROVIDERS: Internal Medicine; Nurse Practitioner Family; PCP Nurse Practitioner Family; Visit Provider Nurse Practitioner
DX: Z53.9 Procedure and treatment not carried out, unspecified reason; Z45.1 Encounter for adjustment and management of infusion pump
CPT/HCPCS: 80053; 82746; 83540; 83550; 83615; 85025; 96368; 96375; 96413; 96415; 96416; 96417; 96523; 99213; 99214; A4222; J0640; J1100; J2469; J7050; J7060; J9173; J9190; J9263

== ENCOUNTER 2025-05-05 10:06 | Inpatient (IN) | payer MEDICARE, SELFPAY ==
--- OUTSIDE RECORDS SUMMARY | 2024-09-03 04:00 | XMS_ITS ---
Author Organization [facility] Address [address] [place] [address] Support Name Relationship Address , Lary Elisasad Emergency Contact [address] [place] [address] Unavailable Hermelinda Chamberlain Guarantor Unknown [phone] Care Team Providers Care Circular Knife Machine Cutter Name Role Phone Shey JAMISONN Radha Primary Care Provider Unavail able Talat Xiao Unavailable [phone] Migration, Provider Unavailable Unavailable REASON FOR VISIT EMR-Wilfrido Encounters Encounter Location Date Provider Diagnosis Migrated_Facility 0 0 09/03/2024 Provider Migration Plan Of Treatment Medication Medication Name Sig Start Date Stop Date Notes HYDROcodone-Acetaminoph en 10-325 MG Oral Tablet 0.5 Every 12 hours PRN 09/03/2018 10/03/2018 *Reorder from [facility] for eRx and Interaction Alerts* Progress Notes * WILLTisha MALLOYaDOB:1950 (75 yo F)Acc No.[id number]:09/03/2024 Patient: Hermelinda RILEY :1950 A ge:74 Y S ex:Female Address:[address] [place], [address] * Refills Stop HYDROcodone-Acetaminophen 10-325 MG Oral Tablet, 0.5 Every 12 hours PRN Subjective: * Chief Complaints: * E MR-Wilfrido * Medical History: * Surgical History: * Hospitalization/Major Diagno stic Procedure: * Medications: Objective: * Vitals: * Physical Examination: Assessment: Plan: * Treatment: * Procedure Codes: * * Date:
--- OUTSIDE RECORDS SUMMARY | 2024-09-04 04:00 | XMS_ITS ---
Author Organization [facility] Address [address] [place] [address] Support Name Relationship Address , Lary Leo Emergency Contact [address] [place] [address] Unavailable Hermelinda Dumont Guarantor Unknown [phone] Care Team Providers Care Magazine Grinder Loader Name Role Phone Radha Kat APRN Primary Care Provider Unavail able Talat Xiao Unavailable [phone] Migration, Provider Unavailable Unavailable Allergies Allergen (clinical drug ingredient) Drug/Non Drug Allergy documented on EMR Reaction Allergy Type Onset Date Status Substance with 9-uyodtdu-6-methylgl utaryl-coenzyme A reductase inhibitor mechanism of action (substance) [id number] REDUCTASE INHIBITORS (uncoded) blurry vision. Allergy Active Substance with sulfonamide structure and antibacterial mechanism of action (substance) SULFA (SULFONAMIDE ANTIBIOTICS) (uncoded) rash Allergy Active Azithromycin , Urticaria (disorder) , Drug Allergy Active erythromycin Erythromycin , Drug Allergy A ctive gabapentin Gabapentin Swelling Drug Allergy Activ e indomethacin Indocin hives Drug Allergy Acti ve indomethacin Indomethacin , Drug Allergy A ctive pregabalin Lyrica Mood Swings/Increase d Blood Sugar Drug Allergy Active doxycycline Doxycycline , Drug Allergy Act yonathan phenylephrine Phenylephrine , Drug Allergy Active REASON FOR VISIT EMR-Wilfrido Medications Medication SIG (Take, Route, Frequency, Duration) Notes Start Date End Date Status Glucophage *Reorder from [facility] for eRx and Interaction Alerts* Active Levemir [facility]* Active Levothyroxine *Reorder from [facility] for eRx and Interaction Alerts* Active Chantix *[facility]* Active Maxidex *[facility]* Active Topamax *Pick strength-f orm from [facility] for eRX* Active Encounters Encounter Location Date Provider Diagnosis Migrated_Facility 0 0 09/04/2024 Provider Migration Plan Of Treatment No Information Progress Notes * Mervat DUMONTB:1950 (75 yo F)Acc No.[id number]:09/04/2024 Patient: Hermelinda RILEY :1950 A ge:74 Y S ex:Female Address:[address] [place] [address], [address] Subjective: * Chief Complaints: * E MR-Wilfrido * Medical History: * Surgical History: A ppendectomy Cervical spine surgery Cubital tunnel surgery Gastric bypass surgery Lumbar spine surgery * Hospitalization/Major Diagno stic Procedure: * Family History: M igrated Family History: : Cancer, D iabetes, H eart disease. * Social History: M igrated Social History: M igrated Social History: Alcoholic beverages? - No, C urrently on disability? - No, D rug or substance abuse? - No, I am interested in quitting. - Yes, M arital Status - , Nonprescription drug use? - No, S moking - 1/2 PPD, S moking status (MU) - Current every day smoker, W orking currently? - No. * Medications: T akingMaxidex , Notes to Pharmacist: *Pick strength-form from [facility] for eRX*Levemir , Notes to Pharmacist: *Pick strength-form from [facility] for eRX*Topamax , Notes to Pharmacist: *Pick strength-form from [facility] for eRX*Glucophage , Notes to Pharmacist: *Reorder from [facility] for eRx and Interaction Alerts*Chantix , Notes to Pharmacist: *Pick strength-form from [facility] for eRX*Levothyroxine , Notes to Pharmacist: *Reorder from [facility] for eRx and Interaction Alerts*Taking Maxidex , Notes to Pharmacist: *Pick strength-form from [facility] for eRX*Taking Levemir , Notes to Pharmacist: *Pick strength-form from [facility] for eRX*Taking Topamax , Notes to Pharmacist: *Pick strength-form from [facility] for eRX*Taking Glucophage , Notes to Pharmacist: *Reorder from [facility] for eRx and Interaction Alerts*Taking Chantix , Notes to Pharmacist: *Pick strength-form from [facility] for eRX*Taking Levothyroxine , Notes to Pharmacist: *Reorder from [facility] for eRx and Interaction Alerts* * Allergies: S ULFA (SULFONAMIDE ANTIBIOTICS): rash - CadykkhRHLIPHC-KXR-QKC REDUCTASE INHIBITORS: blurry vision. - AllergyGabapentin: Swelling - AllergyIndocin: hives - AllergyLyrica: Mood Swings/Increased Blood Sugar - AllergyDoxycycline: , - AllergyIndomethacin: , - AllergyPhenylephrine: , - AllergyErythromycin: , - AllergyAzithromycin: , Urticaria (disorder) , - Allergy Objective: * Vitals: * Physical Examination: Assessment: Plan: * Treatment: * Procedure Codes: * * Date:
[2025-05-05] VITALS (48 sets, daily range): BP systolic 80–139; BP diastolic 32–90; PULSE 86–119; RESP 17–36; TEMP 35.7–36.4; O2SAT 90–100; BMI 24.5; BMI 21.9
--- NOTE | 2025-05-05 10:12 | XR_ITS ---
WS: [id number] Exam: XR chest 1V portable [id number] Date/Time of Exam: 05/05/2025 10:12 AM Reason For Exam: Chest pain Comparison 11/22/2024. Lungs are fully expanded. Soft tissue mass seen in the RIGHT superior pulmonary sulcus. Heart size is normal. No pleural effusions. Right-sided port ends at the cavoatrial junction. Fusion hardware in the lower C-spine. XR/XR chest 1V portable [id number] IMPRESSION: 1. Soft tissue mass seen in the RIGHT superior pulmonary sulcus. 2. Right-sided Chemo-Port in satisfactory position.
[2025-05-05 10:31] LABS: Alveolar-Arterial Oxygen Gradi 0.6 mmHg (5-10); Arterial Blood Gas Hematocrit 28.9 % (37-47); Blood Gas Allen Test Pos; Blood Gas Operator Identificat WALCI; Blood Gas Sample Site Radial, right; Blood Gas Sample Type Arterial; Carboxyhemoglobin 1.6 %THgb (0.4-20.1); Glucose Level-ABG 663.0 mg/dL (70-115); HCO3 ABG 3.6 mmol/L (22-26); Ionized Calcium Level - ABG 1.3 mmol/L (1.1-1.4); Methemoglobin 1.5 % (0.4-1.5); Oxygen Saturation ABG 98.3; PO2 ABG 125.0 mmHg (80.0-100.0); PO2 FiO2 Ratio Arterial Blood 595; Potassium Level - ABG 5.0 mmol/L (3.5-5.0); Sodium Level - ABG 139.0 mmol/L (131-143)
[2025-05-05 10:32] LABS: ABG PCO2 13.9 mmHg (35-45); ABG PH Result 7.02 (7.35-7.45)
--- OUTSIDE RECORDS SUMMARY | 2025-05-05 10:34 | XMS_ITS | Clinical Summary ---
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 Gender Identity Not on file Sexual Orientation Not on file Plan of Treatment Health Maintenance Due Date Last Done Comments DTAP/TDAP/TD VACCINES (1 - Tdap) 01/09/1971 BREAST CANCER SCREENING 1992 COLORECTAL SCREENING 01/09/1997 Colorectal Cancer Screening 01/09/1997 FIT-DNA Q 3 years 01/09/1997 FIT/FOBT Q 1 year 01/09/1997 Flex Sig/CT Colonography Q 5 years 01/09/1997 PNEUMOCOCCAL VACCINE 50+ YEA RS (1 of 1 - PCV) 01/09/2002 ZOSTER VACCINE (1 of 2) 01/09/2002 OSTEOPOROSIS SCREENING 01/09/2017 INFLUENZA VACCINE (#1) 2024 09/24/2014, 2011 RSV VACCINE (60+ or ) (1 - 1-dose 75+ series) 01/09/2027
--- OUTSIDE RECORDS SUMMARY | 2025-05-05 10:35 | XMS_ITS | Patient Health Record ---
Author Organization [facility] Address [address] [place] [address] Support Name Relationship Address , Lary Ortegaelis Emergency Contact [address] [place], [place] [address] Unavailable Hermelinda Chamberlain Guarantor Unknown [phone] Care Team Providers Care Chief Guard Name Role Phone Radha Kat APRN Primary Care Provider Unavail able Talat Xiao Unavailable [phone] Migration, Provider Unavailable Unavailable Allergies Allergen (clinical drug ingredient) Drug/Non Drug Allergy documented on EMR Reaction Allergy Type Onset Date Status erythromycin Erythromycin , Drug Allergy A ctive gabapentin Gabapentin Swelling Drug Allergy Activ e indomethacin Indocin hives Drug Allergy Acti ve Azithromycin , Urticaria (disorder) , Drug Allergy Active indomethacin Indomethacin , Drug Allergy A ctive pregabalin Lyrica Mood Swings/Increase d Blood Sugar Drug Allergy Active doxycycline Doxycycline , Drug Allergy Act yonathan phenylephrine Phenylephrine , Drug Allergy Active Substance with 0-nhaisxl-7-methylgl utaryl-coenzyme A reductase inhibitor mechanism of action (substance) Statins blurry vision. Drug Allergy Active Substance with sulfonamide structure and antibacterial mechanism of action (substance) Sulfa Antibiotics rash Drug Allergy Active phenylephrine Phenylephrine , Drug Allergy Active Azithromycin , Urticaria (disorder) , Drug Allergy Active doxycycline Doxycycline , Drug Allergy Act yonathan erythromycin Erythromycin , Drug Allergy A ctive indomethacin Indomethacin , Drug Allergy A ctive Reason For Referral No Information Medications Medication SIG (Take, Route, Frequency, Duration) Notes Start Date End Date Status Glucagon 1 MG/ML Injectable Solution Glucagon 1 MG/ML Injectable Solution 6 Active Ergocalciferol 71326 UNT Oral Capsule Ergocalciferol 70902 UNT Oral Capsule 4 Active sennosides, CARE HOME 8.6 MG Oral Tablet [Senokot] sennosides, CARE HOME 8.6 MG Oral Tablet [Senokot] 5 Active Docusate Sodium 100 MG Oral Tablet Docusate Sodium 100 MG Oral Tablet 5 Active insulin detemir 100 UNT/ML Injectable Solution insulin detemir 100 UNT/ML Injectable Solution 6 Active Aspirin 325 MG Enteric Coated Tablet Aspirin 325 MG Enteric Coated Tablet 2 Active Chantix *Pick strength-f orm from [facility] for eRX* Active Losartan Potassium 25 MG Oral Tablet Losartan Potassium 25 MG Oral Tablet 5 Active tizanidine 2 MG Oral Tablet tizanidine 2 MG Oral Tablet 8 Active Maxidex *Pick strength-f orm from [facility] for eRX* Active Nortriptyline 25 MG Oral Capsule Nortriptyline 25 MG Oral Capsule 5 Active Topamax *Pick strength-f orm from [facility] for eRX* Active Glucophage *Reorder from [facility] for eRx and Interaction Alerts* Active Methocarbamol 750 MG Oral Tablet Methocarbamol 750 MG Oral Tablet 8 Active Hydrochlorothiazide 25 MG / Triamterene 37.5 MG Oral Tablet Hydrochlorothiazide 25 MG / Triamterene 37.5 MG Oral Tablet 6 Active Levothyroxine *Reorder from [facility] for eRx and Interaction Alerts* Active 3 ML Insulin, Aspart, Human 100 UNT/ML Pen Injector [NovoLog] 3 ML Insulin, Aspart, Human 100 UNT/ML Pen Injector [NovoLog] 5 Active Levemir *Pick strength-f orm from [facility] for eRX* Active Acetaminophen / Hydrocodone Acetaminophen / Hydrocodone 5 Active Hydrochlorothiazide 25 MG / Triamterene 37.5 MG Oral Capsule Hydrochlorothiazide 25 MG / Triamterene 37.5 MG Oral Capsule 8 Active Levothyroxine Sodium 0.125 MG Oral Tablet Levothyroxine Sodium 0.125 MG Oral Tablet 5 Active varenicline 1 MG Oral Tablet varenicline 1 MG Oral Tablet 6 Active tizanidine 4 MG Oral Capsule tizanidine 4 MG Oral Capsule 8 Active Alendronic acid 70 MG Oral Tablet Alendronic acid 70 MG Oral Tablet 5 Active Colesevelam hydrochloride 625 MG Oral Tablet Colesevelam hydrochloride 625 MG Oral Tablet 5 Active Calcium Carbonate 1250 MG / Cholecalciferol 200 UNT Oral Tablet Calcium Carbonate 1250 MG / Cholecalciferol 200 UNT Oral Tablet 5 Active topiramate 25 MG Oral Tablet topiramate 25 MG Oral Tablet 5 Active Immunizations Vaccine Route Administration Date Status Comme nts Influenza (split), 3 yrs and above Unknown 08/23/2018 Others Admin When: 2018 Influenza (whole), CPT 52981 Inactive Unknown 08/09/2017 Administered Pneumococcal conjugate PCV 7 Unknown 08/23/2018 Others Admin When: ? Social History PHQ-9 Question Answer Notes Little interest or pleasure in doing things Not at all Feeling down, depressed, or hopeless Not at all Trouble falling or staying asleep, or sleeping t oo much More than half the days Feeling tired or having little energy Several da ys Poor appetite or overeating Not at all Feeling bad about yourself, or that you are a failure, or have let yourself or your family down Not at all Trouble concentrating on thi ngs, such as reading the newspaper or watching television Not at all Moving or speaking so slowly that other people could have noticed. Or the opposite ? being so fidgety or restless that you have been moving around a lot more than usual Not at all Thoughts that you would be b danny off , or of hurting yourself in some way Not at all Total Score 3 Interpretation Minimal Depression Problems Problem Type SNOMED Code ICD Code Onset Dates Problem Status W/U Status Risk Notes Problem Lung field abnormal (931855348) Other nonspecific abnormal finding of lung field (R91.8) Active confirmed Encounters Encounter Location Date Provider Diagnosis Migrated_Facility 0 0 09/03/2024 Provider Migration Migrated_Facility 0 0 09/04/2024 Provider Migration Plan Of Treatment No Information Insurance Providers Payer Name Payer Address Payer Phone Subscriber Number Group Number Insured Name Patient Relationship to Insured Coverage Start Date Coverage End Date [employer] Medicare Replacement [address] [address] [place] [address] [id number] CintiaHermelinda Self - patient is the insured Medical (General) History Surgical History Surgery Date(Month/Year) Appendectomy Cubital tunnel surgery Lumbar spine surgery Gastric bypass surgery Cervical spine surgery
--- NOTE | 2025-05-05 10:38 | W.ED.AMS ---
HPI - Altered Mental Status General: Chief Complaint: Altered Mental Status Stated Complaint: high blood glucose Time Seen by Provider: 05/05/25 10:07 History of Present Illness: 75-year-old female with a history of lung cancer, type 2 diabetes, hypertension, hypothyroidism and hyperlipidemia who presents emergency room with altered mental status by ambulance. She receives chemotherapy and follows with oncology here. Apparently she been confused since yesterday. Blood glucose has been elevated. Upon arrival she can give me no history. She is very confused. Somewhat agitated. Related Data Home Medications ?Medication ?Instructions ?Recorded ?Confirmed topiramate 25 mg tablet 50 mg PO .QHS 12/07/20 05/05/25 loratadine 10 mg capsule 10 mg PO DAILY PRN allergy symptoms 12/12/20 05/05/25 insulin aspart U-100 100 unit/mL See Rx Instructions SUBCUT TID PRN 06/10/22 05/05/25 (3 mL) subcutaneous pen (Novolog high blood sugar FlexPen U-100 Insulin aspart) diphenhydramine HCl 25 mg capsule 25 mg PO .hs PRN Sleep 10/20/22 05/05/25 (Benadryl) insulin glargine 100 unit/mL (3 20 unit SUBCUT BEDTIME 05/19/23 05/05/25 mL) subcutaneous pen (Lantus Solostar U-100 Insulin) ascorbic acid (vitamin C) 500 mg 500 mg PO DAILY 06/02/23 05/05/25 tablet fluticasone furoate 100 1 inh inhalation DAILY 05/05/25 05/05/25 mcg/actuation blister powder for inhalation (Arnuity Ellipta) guaifenesin 600 mg tablet, 600 mg PO BID PRN Congestion 05/05/25 05/05/25 extended release 12 hr (Mucinex) hydrocodone 10 mg-acetaminophen 1 tab PO Q6H PRN Pain 05/05/25 05/05/25 325 mg tablet levothyroxine 200 mcg tablet 200 mcg PO QAM 05/05/25 05/05/25 naphazo HCl 0.025 %-hyprome 0.2 1 drp ophthalmic (eye) QID PRN Dry 05/05/25 05/05/25 %-ps 80 0.5 %-Zn sulf 0.25 % eye Eyes drops (Clear Eyes Complete) pantoprazole 40 mg tablet,delayed 40 mg PO DAILY 05/05/25 05/05/25 release (Protonix) vit no.95-ferrous 1 tab PO DAILY 05/05/25 05/05/25 fumarate 28 mg-folic acid 800 mcg tablet () Previous Rx's ?Medication ?Instructions ?Recorded albuterol sulfate 90 mcg/actuation 2 inh inhalation .Q4-6h PRN 05/05/23 aerosol inhaler wheezing #8.5 grams lorazepam 1 mg tablet 0.5 - 1 mg (0.5 - 1 x 1 mg) PO Q6H 01/04/25 PRN severe nausea #30 tabs ondansetron HCl 4 mg tablet 4 mg PO Q6H PRN nausea and 01/04/25 vomiting #30 tabs prochlorperazine maleate 10 mg 10 mg PO Q4H PRN mild nausea #30 01/04/25 tablet (Compazine) tabs diphenoxylate-atropine 2.5 1 tab PO Q6H PRN diarrhea #30 tabs 04/05/25 mg-0.025 mg tablet (Lomotil) potassium chloride 10 mEq 10 meq PO BID #60 caps 04/05/25 capsule,extended release amoxicillin 500 mg-potassium 1 tab PO BID 7 days #14 tabs 04/19/25 clavulanate 125 mg tablet (Augmentin) durvalumab 50 mg/mL intravenous 1,207 mg (24.14 mL) IV Q28D 6 05/03/25 solution doses #30 mL Allergies Allergy/AdvReac Type Severity Reaction Status Date / Time azithromycin Allergy rash Verified 04/26/25 09:37 phenylephrine Allergy rash Verified 04/26/25 09:37 Mvjpyky-LCQ-BlI Reductase Allergy Blindness Verified 04/26/25 09:37 Inhibitor (Acksjfc-Czb-Yuj Reductase Inhibitor) Sulfa (Sulfonamide Allergy rash Verified 04/26/25 09:37 Antibiotics) Review of Systems General: Reports: ROS unobtainable due to medical condition PFSH ED PFSH: Medical History Family history of colon cancer Osteoarthritis Hypertension Type 2 diabetes mellitus 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 Cancer of right lung Dyslipidemia Peripheral arterial occlusive disease Hx of smoking Hx of recurrent urinary tract infection Rupture of colon Surgical History S/P right hemicolectomy History of elbow surgery Left [id number] Port-A-Cath in place History of cholecystectomy 1995 History of appendectomy 1957 Hx of neck surgery Hx of colonoscopy 10 yrs ago History of back surgery Family History Father Hypertension CAD (coronary artery disease) Chronic kidney disease (CKD) Diabetes Mother Cancer Lung disease Grandfather Stroke Denies family history of Clotting disorder Dementia Suicide Anesthesia complication Bleeding disorder Social History Smoking and tobacco/nicotine status: former use of tobacco/nicotine Quit status (tobacco/nicotine): has quit using Year quit tobacco: June 2022 Former quit date comment: 50 years Second hand smoke exposure: Yes Alcohol intake: never Substance/Drug Use: never Physical Exam Narrative: General: Agitated, appears ill Skin: Warm, dry. Head: Normocephalic, atraumatic. Neck: Supple, trachea midline. Eye: Extraocular movements are intact. Ears, nose, mouth and throat: Dry oral mucosa Cardiovascular: Regular, Normal peripheral perfusion. Respiratory: Lungs are clear to auscultation, respirations are non-labored, breath sounds are equal, Symmetrical chest wall expansion. Gastrointestinal: Soft, Nontender, Non distended Musculoskeletal: Normal ROM, no deformity. Neurological: Agitated and confused but no obvious focal motor deficits. Psychiatric: Unable to assess Course Vital Signs: Vital signs: Vital Signs Temperature 97.5 F L 05/05/25 10:06 Pulse Rate 115 H 05/05/25 10:06 Respiratory Rate 24 H 05/05/25 10:06 Blood Pressure 117/49 05/05/25 10:06 Pulse Oximetry 100 05/05/25 10:06 Oxygen Delivery Me thod Room Air 05/05/25 10:06 MDM - Altered Mental Status Medical Decision Making Medical decision making: Differential diagnosis including but not limited to and based on the above HPI, review of systems and physical exam: In this patient with altered mental status: Stroke. Hypoglycemia. Metabolic encephalopathy. Infections such as pneumonia, urinary tract infection, Covid-19, Influenza. Electrolyte abnormalities such as hypernatremia. Renal failure / uremia. Hepatic encephalopathy. Hypoxemia. Hypercapnic respiratory failure. Psychosis. Drug or alcohol intoxication. Medication overdose. Orders placed to evaluate differential diagnosis based on the above differential, HPI and physical exam AB. with an O2 sat of 95% on room air. Metabolic acidosis. Insulin drip started at this time with a glucose of over 600. Chest x-ray: Soft tissue mass in the right superior pulmonary sulcus. No obvious infiltrates. Right-sided tunneled cath. This was reviewed and interpreted by myself the emergency room physician. I also reviewed the radiology report. Lab Review: Laboratory results were reviewed and interpreted by myself the emergency room physician. Significant leukocytosis with a white count of 26,000. Stable anemia with hemoglobin of 9. BUN and creatinine are elevated over baseline at 22 and 1.6. Potassium mildly elevated at 5.3. Glucose elevated at 641. I reviewed the patient's medical record. Reexamination: Patient has remained encephalopathic. Still somewhat tachycardic. Blood pressure has remained stable though. No oxygen requirement. No increased work of breathing. Consultation: I spoke with Dr. Morgan who is on-call for the hospitalist service who agrees to admission to the intensive care unit. Assessment and plan: Metabolic encephalopathy Diabetic ketoacidosis Lactic acidosis Hyperglycemia Dehydration Presumed sepsis Acute on chronic renal insufficiency - no clear source of sepsis at this time. Urine has not yet been collected. No obvious pneumonia. No obvious skin infections. ?2.5 L normal saline bolus. Fluid volumes based on ideal body weight. 1 L in ambulance. 1.5 L in the emergency room. -Broad-spectrum antibiotics were administered. Zyvox and meropenem. -Sepsis quality measures. -Lactic acid with a reflex was ordered. -Blood cultures were ordered. ?DKA protocol. Insulin drip initiated. Fluids being given. -I discussed the patient with the hospitalist on-call who is admitting the patient. - Discussed findings and plan with patient. Answered any questions. - All laboratory values were reviewed and interpreted personally by myself, the ER physician - All imaging was reviewed and interpreted personally by myself, the ER physician. - Evaluation and treatment of this problem were appropriate in the emergency setting Critical care -I spent a total of >35 minutes of critical care time managing the patient, independent of any other practitioner. -The time involved in the performance of separately reportable procedures was not counted towards critical care time. Lab Data 05/05/25 10:50 05/05/25 10:48 Radiology Impressions Chest X-Ray 05/05/25 10:12 IMPRESSION: 1. Soft tissue mass seen in the RIGHT superior pulmonary sulcus. 2. Right-sided Chemo-Port in satisfactory position. Laboratory Results WBC 26.53 10^3/uL (3.29-11.43) H 05/05/25 10:50 RBC 2.39 10^6/uL (3.85-5.65) L 05/05/25 10:50 Hgb 9.20 g/dL (11.27-16.99) L 05/05/25 10:50 Hct 30.6 % (36-47) L 05/05/25 10:50 MCV 128.0 fl (85-98) H 05/05/25 10:50 MCH 38.5 pg (27-33) H 05/05/25 10:50 MCHC 30.1 g/dL (30-55) 05/05/25 10:50 RDW 17.1 % (12.1-15.1) H 05/05/25 10:50 Plt Count 118 10^3/cmm (157-399) L 05/05/25 10:50 MPV 12.9 fL (7.4-10.4) H 05/05/25 10:50 Neut % (Auto) 86.3 % 05/05/25 10:50 Lymph % (Auto) 5.4 % 05/05/25 10:50 Gonzales % (Auto) 5.5 % 05/05/25 10:50 Eos % (Auto) 0.1 % 05/05/25 10:50 Baso % (Auto) 0.4 % 05/05/25 10:50 Neut # (Auto) 22.91 10^3/uL (1.8-7.7) H 05/05/25 10:50 Lymph # (Auto) 1.4 10^3/uL (0.8-4.8) 05/05/25 10:50 Gonzales # (Auto) 1.5 10^3/uL (0.2-0.9) H 05/05/25 10:50 Eos # (Auto) 0.0 10^3/uL (0.0-0.8) 05/05/25 10:50 Baso # (Auto) 0.1 10^3/uL (0.0-0.1) 05/05/25 10:50 Nucleated RBC % (auto) 0.5 % 05/05/25 10:50 Nucleated RBCs # 0.1 /100WBC 05/05/25 10:50 Specimen Type Arterial 05/05/25 10:20 Sample Site Radial, right 05/05/25 10:20 ABG pH 7.02 (7.35-7.45) L* 05/05/25 10:20 ABG pCO2 13.9 mmHg (35-45) L* 05/05/25 10:20 ABG pO2 125.0 mmHg (80.0-100.0) H 05/05/25 10:20 ABG PO2/FiO2 Ratio 595 05/05/25 10:20 ABG HCO3 3.6 mmol/L (22-26) L 05/05/25 10:20 ABG O2 Saturation 98.3 05/05/25 10:20 ABG Base Excess -25.5 mmol/L (-2.0-2.0) L 05/05/25 10:20 Neville Test Pos 05/05/25 10:20 A-a O2 Gradient 0.6 mmHg (5-10) L 05/05/25 10:20 Hematocrit 28.9 % (37-47) L 05/05/25 10:20 Hgb O2 Saturation 95.2 % (95-100) 05/05/25 10:20 Carboxyhemoglobin 1.6 %THgb (0.4-20.1) 05/05/25 10:20 Methemoglobin 1.5 % (0.4-1.5) 05/05/25 10:20 Total Hemoglobin 9.4 g/dL (12-16) L 05/05/25 10:20 Sodium 139.0 mmol/L (131-143) 05/05/25 10:20 Potassium 5.0 mmol/L (3.5-5.0) 05/05/25 10:20 Glucose 663.0 mg/dL (70-115) H 05/05/25 10:20 Ionized Calcium 1.3 mmol/L (1.1-1.4) 05/05/25 10:20 O2 Delivery Device Room air 05/05/25 10:20 FiO2 21.0 % 05/05/25 10:20 Sole Leather Cutting Machine Operator ID [place] 05/05/25 10:20 Sodium 137 mmol/L (136-145) 05/05/25 10:48 Potassium 5.3 mmol/L (3.5-5.1) H 05/05/25 10:48 Chloride 96 mmol/L (98-107) L 05/05/25 10:48 Carbon Dioxide 4 mmol/L (22-29) L* 05/05/25 10:48 Anion Gap 42.3 (5-19) H 05/05/25 10:48 BUN 22 mg/dL (8-23) 05/05/25 10:48 Creatinine 1.6 mg/dL (0.5-0.9) H 05/05/25 10:48 GFR Calculation Not Reportable 05/05/25 10:48 Glucose 641 mg/dL (65-115) H* 05/05/25 10:48 POC Glucose > 600 mg/dL (70-110) H* 05/05/25 11:29 Calculated Osmolality 317 mOsm/kg (285-295) H 05/05/25 10:48 Lactic Acid 6.3 mmol/L (0.5-2.2) H* 05/05/25 10:48 Calcium 9.1 mg/dL (8.5-10.5) 05/05/25 10:48 Total Bilirubin 0.3 mg/dL (0.15-1.2) 05/05/25 10:48 AST 22 U/L (0-32) 05/05/25 10:48 ALT 14 U/L (0-33) 05/05/25 10:48 Alkaline Phosphatase 146 U/L (35-105) H 05/05/25 10:48 Troponin T Baseline 163 ng/L (0-10) H* 05/05/25 10:48 C-Reactive Protein 11.6 mg/L (0.0-4.9) H 05/05/25 10:48 Total Protein 6.6 g/dL (6.6-8.7) 05/05/25 10:48 Albumin 3.4 g/dL (3.5-5.2) L 05/05/25 10:48 Globulin 3.2 g/dL (1.3-4.6) 05/05/25 10:48 Procalcitonin 1.55 ng/mL (0-0.5) H 05/05/25 10:48 Urine Color Yellow (Yellow) 05/05/25 10:30 Urine Appearance Clear (CLEAR) 05/05/25 10:30 Urine pH 5.0 (5-7) 05/05/25 10:30 Ur Specific [place] 1.022 (1.005-1.030) 05/05/25 10:30 Urine Protein 1+ (Negative) A 05/05/25 10:30 Urine Glucose (UA) 3+ (Normal) H 05/05/25 10:30 Urine Ketones 3+ (Negative) H 05/05/25 10:30 Urine Blood Trace (Negative) A 05/05/25 10:30 Urine Nitrate Negative (Negative) 05/05/25 10:30 Urine Bilirubin Negative (Negative) 05/05/25 10:30 Urine Urobilinogen 0.2 mg/dL (Negative) 05/05/25 10:30 Ur Leukocyte Esterase Negative (Negative) 05/05/25 10:30 Amorphous Sediment Not Reportable 05/05/25 10:30 Serum Ketones Positive (Negative) H 05/05/25 10:48 All radiology interpretation(s) finalized by discharge Discharge Plan Discharge Patient Disposition: Admitted As Inpatient Admit Provider: Yani Morgan Clinical Impression: Diabetic keto-acidosis, Acute metabolic encephalopathy, Acute on chronic renal insufficiency, Dehydration, Lactic acidosis, Sepsis Condition: Stable Coding Level of Care Code ED Bandage Winding Machine Operator for Simon Ash
[2025-05-05 11:07] LABS: Hematocrit 30.6 % (36-47); Hemoglobin 9.20 g/dL (11.27-16.99); Mean Corpuscular HGB Conc 30.1 g/dL (30-55); Mean Corpuscular Hemoglobin 38.5 pg (27-33); Mean Corpuscular Volume 128.0 fl (85-98); Nucleated Red Blood Cells % 0.5 %; Platelet Count 118 10^3/cmm (157-399); Red Blood Count 2.39 10^6/uL (3.85-5.65); White Blood Count 26.53 10^3/uL (3.29-11.43)
[2025-05-05 11:15] LABS: Ketone (Acetest) Serum Positive (Negative)
[2025-05-05] MEDS: INSULIN REGULAR IN 0.9 % NACL 100 UNIT/100 ML BAG 6.5 UNIT IV (11:15)
[2025-05-05 11:25] LABS: Alanine Aminotransferase 14 U/L (0-33); Albumin Level 3.4 g/dL (3.5-5.2); Alkaline Phosphatase 146 U/L (35-105); Anion Gap 42.3 (5-19); Aspartate Amino Transferase 22 U/L (0-32); Blood Urea Nitrogen 22 mg/dL (8-23); Calcium 9.1 mg/dL (8.5-10.5); Chloride 96 mmol/L (98-107); Creatinine Clr Calc Pharmacy 29.0512; Globulin 3.2 g/dL (1.3-4.6); Osmolality Calculated 317 mOsm/kg (285-295); Potassium 5.3 mmol/L (3.5-5.1); Sodium 137 mmol/L (136-145); Total Protein 6.6 g/dL (6.6-8.7)
[2025-05-05 11:30] LABS: Carbon Dioxide 4 mmol/L (22-29); Glucose 641 mg/dL (65-115); Lactic Sepsis W/Reflex 6.3 mmol/L (0.5-2.2); Troponin(5th) Baseline 163 ng/L (0-10)
[2025-05-05 11:32] LABS: Procalcitonin 1.55 ng/mL (0-0.5)
[2025-05-05 11:57] LABS: Glucose Urine UA 3+ (Normal); Nitrate Urine Negative (Negative); Specific Gravity, Urine 1.022 (1.005-1.030)
--- NOTE | 2025-05-05 11:58 | ECG_ITS ---
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 Measurements Intervals [place] Rate: 111 P: 75 WA: 112 QRS: 62 QRSD: 91 T: 115 QT: 360 QTc: 489 Interpretive Statements SINUS TACHYCARDIA WITH SHORT WA INTERVAL POSSIBLE LEFT ATRIAL ENLARGEMENT [-0.1mV P-WAVE IN V1/V2] MODERATE ST DEPRESSION [0.05+ mV ST DEPRESSION] Compared to ECG 11/22/2024 09:25:27 Short WA interval now present ST (T wave) deviation now present Sinus rhythm no longer present T-wave abnormality no longer present Electronically Signed On 05-11-2025 09:41:03 CDT by James Moore M.D. [email or web address]
[2025-05-05 12:47] LABS: Reflex Lactate Order REFLEX LACTIC ORDERD
[2025-05-05 13:03] LABS: UA Slide Review UA Slide Review Perf
[2025-05-05 13:15] LABS: Glucose 632 mg/dL (65-115)
[2025-05-05 13:16] LABS: Troponin 5 2HR 149.4 ng/L (0-10); Troponin 5 2HR Delta -13.6 ABS# (0-10)
[2025-05-05 13:17] LABS: Respiratory Syncytial Virus Ce NEGATIVE (Negative); SARS-CoV-2 PCR NEGATIVE (Negative)
[2025-05-05] MEDS: linezolid premix 600 MG/300 ML PREMIX 300 MG IV (13:42)
[2025-05-05 13:58] LABS: Thyroid Stimulating Hormone 1.00 uIU/mL (0.27-4.20)
[2025-05-05 14:12] LABS: Lactic Acid level (Lactate) 4.4 mmol/L (0.5-2.2)
[2025-05-05 14:49] LABS: Arterial Blood Gas Hematocrit 26.9 % (37-47); Blood Gas Allen Test Pos; Blood Gas Operator Identificat GD; Blood Gas Sample Site Radial, right; Blood Gas Sample Type Arterial; HCO3 ABG 3.2 mmol/L (22-26); PO2 ABG 124.0 mmHg (80.0-100.0); PO2 FiO2 Ratio Arterial Blood 590
[2025-05-05 14:50] LABS: ABG PCO2 14.4 mmHg (35-45); ABG PH Result 6.95 (7.35-7.45)
[2025-05-05] MEDS: heparin drip 25,000 UNIT/500 ML PREMIX 17 UNIT IV (15:03)
[2025-05-05] MEDS: heparin 5,000 unit/mL INJ 1 mL IVP (15:04)
[2025-05-05 15:57] LABS: Anion Gap 37.2 (5-19); Blood Urea Nitrogen 24 mg/dL (8-23); Calcium 8.0 mg/dL (8.5-10.5); Chloride 106 mmol/L (98-107); Creatinine Clr Calc Pharmacy 34.0005; Osmolality Calculated 323 mOsm/kg (285-295); Potassium 4.2 mmol/L (3.5-5.1); Sodium 142 mmol/L (136-145)
[2025-05-05] MEDS: norepinephrine 4 MG/250 ML BAG 30 MG IV (16:06)
--- NOTE | 2025-05-05 16:12 | ECG_ITS ---
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 Measurements Intervals [place] Rate: 110 P: 74 NC: 133 QRS: 51 QRSD: 88 T: 83 QT: 358 QTc: 486 Interpretive Statements SINUS TACHYCARDIA NONSPECIFIC ST & T-WAVE ABNORMALITY Compared to ECG 05/05/2025 11:58:36 T-wave abnormality now present Short NC interval no longer present ST (T wave) deviation no longer present Electronically Signed On 05-11-2025 09:39:48 CDT by James Moore M.D. [email or web address]
[2025-05-05 16:42] LABS: Carbon Dioxide 3 mmol/L (22-29); Glucose 548 mg/dL (65-115)
--- NOTE | 2025-05-05 16:56 | P.HP_ITS ---
Providers/Chief Complaint 2 Admitting Physician: Yani Morgan MD Primary Care Provider: Liliana Kat APRN Chief Complaint: high blood glucose History of Present Illness Hermelinda Chamberlain is a 75 year old female with a past medical history of lung cancer which is currently in remission, recent history of being diagnosed with colon cancer status post right hemicolectomy, followed by oncology. Patient is currently on treatment with durvalumab and FOLFOX, however FOLFOX has recently been on hold due to neutropenia. She has been brought to the emergency room today by her via EMS due to altered mental status. Patient's states that she was in her usual state of health until last evening when she started developing multiple episodes of nausea and vomiting. She tested her blood sugar last evening and this was at 70 at that time. Patient continued to become increasingly weak and became altered by this morning, where and her was unable to awaken her. Her speech was garbled and made no sense. He tested blood sugar this morning and it was at 800. She was brought to the emergency room in the setting where she was found to be in DKA. ABG upon arrival showed a pH of 7.02, PCO2 of 13.9, bicarb of 3.6, O2 sat of 95% on room air. Glucose was at greater than 600 at bedtime. She has now been started on insulin drip and has been brought to the ICU where she has additionally been started on a bicarb infusion. Chest x-ray has shown a soft tissue mass at the right superior pulmonary sulcus which has been pre-existing from before, on recent PET scan this was not FDG avid.She has a port to her right chest wall. denies any recent illness such as cough dyspnea chest pain palpitations syncope abdominal pain. Patient has chronic diarrhea since her hemicolectomy, he does not think this is changed over baseline, however the multiple episodes of vomiting are unusual for the patient. Patient was noted to be acutely ill, severely dehydrated and exhibiting signs of Kussmaul's breathing related to severe metabolic acidosis. She is being admitted to the ICU. Review of Systems 2 General: Reports: ROS unobtainable due to mental status Medications/Allergies Home Medications ?Medication ?Instructions ?Recorded ?Confirmed ?Last Taken ?Type topiramate 25 mg tablet 50 mg PO .QHS 12/07/2005/0505/04/25 History loratadine 10 mg capsule 10 mg PO DAILY PRN allergy s ymptoms 12/12/20 05/05/25 11/30/24 History insulin aspart U-100 100 unit/mL See Rx Instructions S UBCUT TID PRN 06/10/22 05/05/25 05/04/25 History (3 mL) subcutaneous pen (Novolog high blood sugar FlexPen U-100 Insulin aspart) diphenhydramine HCl 25 mg capsule 25 mg PO .hs PRN Sle ep 10/20/22 05/05/25 11/29/24 History (Benadryl) albuterol sulfate 90 mcg/actuation 2 inh inhalation .Q 4-6h PRN 05/05/23 05/05/25 11/29/24 Rx aerosol inhaler wheezing #8.5 grams insulin glargine 100 unit/mL (3 20 unit SUBCUT BEDTIME 05/19/23 05/05/25 05/04/25 History mL) subcutaneous pen (Lantus Solostar U-100 Insulin) ascorbic acid (vitamin C) 500 mg 500 mg PO DAILY 06/0205/05/25 05/04/25 History tablet lorazepam 1 mg tablet 0.5 - 1 mg (0.5 - 1 x 1 mg) PO Q6H 01/04/25 05/05/25 Unknown Rx PRN severe nausea #30 tabs ondansetron HCl 4 mg tablet 4 mg PO Q6H PRN nausea and 01/04/25 05/05/25 Unknown Rx vomiting #30 tabs prochlorperazine maleate 10 mg 10 mg PO Q4H PRN mild n ausea #30 01/04/25 05/05/25 Unknown Rx tablet (Compazine) tabs diphenoxylate-atropine 2.5 1 tab PO Q6H PRN diarrhea # 30 tabs 04/05/25 05/05/25 Unknown Rx mg-0.025 mg tablet (Lomotil) potassium chloride 10 mEq 10 meq PO BID #60 caps 04/0505/05/25 05/04/25 Rx capsule,extended release amoxicillin 500 mg-potassium 1 tab PO BID 7 days #14 t abs 04/19/25 05/05/25 Unknown Rx clavulanate 125 mg tablet (Augmentin) durvalumab 50 mg/mL intravenous 1,207 mg (24.14 mL) IV Q28D 6 05/03/25 05/05/25 05/03/25 Rx solution doses #30 mL fluticasone furoate 100 1 inh inhalation DAILY 05/0505/05/25 05/04/25 History mcg/actuation blister powder for inhalation (Arnuity Ellipta) guaifenesin 600 mg tablet, 600 mg PO BID PRN Congestio n 05/05/25 05/05/25 Unknown History extended release 12 hr (Mucinex) hydrocodone 10 mg-acetaminophen 1 tab PO Q6H PRN Pain 05/05/25 05/05/25 Unknown History 325 mg tablet levothyroxine 200 mcg tablet 200 mcg PO QAM 05/05/25 0 05/05/25 05/05/25 History naphazo HCl 0.025 %-hyprome 0.2 1 drp ophthalmic (eye) QID PRN Dry 05/05/25 05/05/25 Unknown History %-ps 80 0.5 %-Zn sulf 0.25 % eye Eyes drops (Clear Eyes Complete) pantoprazole 40 mg tablet,delayed 40 mg PO DAILY 05/0505/05/25 05/04/25 History release (Protonix) vit no.95-ferrous 1 tab PO DAILY 05/05/2505/04/25 History fumarate 28 mg-folic acid 800 mcg tablet () Allergies Allergy/AdvReac Type Severity Reaction Status Date / Time azithromycin Allergy rash Verified 04/26/25 09:37 phenylephrine Allergy rash Verified 04/26/25 09:37 Xlhfqpn-CWP-NkM Reductase Allergy Blindness Verified 04/26/25 09:37 Inhibitor (Ajmbfgt-Ffc-Sfx Reductase Inhibitor) Sulfa (Sulfonamide Allergy rash Verified 04/26/25 09:37 Antibiotics) PFSH Acute 2 PFSH: Medical History Family history of colon cancer Osteoarthritis Hypertension Type 2 diabetes mellitus 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 Cancer of right lung Dyslipidemia Peripheral arterial occlusive disease Hx of smoking Hx of recurrent urinary tract infection Rupture of colon Surgical History S/P right hemicolectomy History of elbow surgery Left [id number] Port-A-Cath in place History of cholecystectomy 1995 History of appendectomy 195 Hx of neck surgery Hx of colonoscopy 10 yrs ago History of back surgery Family History Father Hypertension CAD (coronary artery disease) Chronic kidney disease (CKD) Diabetes Mother Cancer Lung disease Grandfather Stroke Denies family history of Clotting disorder Dementia Suicide Anesthesia complication Bleeding disorder Social History Smoking and tobacco/nicotine status: former use of tobacco/nicotine Quit status (tobacco/nicotine): has quit using Year quit tobacco: June 2022 Former quit date comment: 50 years Second hand smoke exposure: Yes Alcohol intake: never Substance/Drug Use: never Vitals/I&O/Wt Last Vital Signs Temp 96.2 F L 05/05/25 15:30 Pulse 112 H 05/05/25 15:30 Resp 27 H 05/05/25 15:30 BP 98/52 05/05/25 15:30 Pulse Ox 100 05/05/25 15:30 O2 Del Method Room Air 05/05/25 10:06 05/05/25 05/05/25 05/05/25 06:59 14:59 22:59 Intake Total 821.233 / 821.233 14.667 / 835.900 Balance 821.233 / 821.233 14.667 / 835.900 Weight last 48 hrs Weight 61.5 kg Weight 64.864 kg Physical Exam 2 Narrative: General: Acutely ill-appearing, dehydrated, Kussmaul's breathing HEENT: PERRLA, pupils bilaterally equal and reactive, pallors not present Chest: Normal vesicular breath sounds, no added sounds, equal good air entry bilaterally CVS: S1-S2 regular, no murmurs, no tachycardia, no gallops, no rubs Abdomen: Soft, nontender, no organomegaly, bowel sounds present Neuro: Noted to have Kussmaul's breathing, will turn head [id number], attempts to open eyes on asking name etc. Moves lower extremity to painful stimulus. Data 05/05/25 10:50 05/05/25 15:01 Other Labs: Radiology Impressions Chest X-Ray 05/05/25 10:12 IMPRESSION: 1. Soft tissue mass seen in the RIGHT superior pulmonary sulcus. 2. Right-sided Chemo-Port in satisfactory position. Laboratory Results WBC 26.53 10^3/uL (3.29-11.43) H 05/05/25 10:50 RBC 2.39 10^6/uL (3.85-5.65) L 05/05/25 10:50 Hgb 9.20 g/dL (11.27-16.99) L 05/05/25 10:50 Hct 30.6 % (36-47) L 05/05/25 10:50 MCV 128.0 fl (85-98) H 05/05/25 10:50 MCH 38.5 pg (27-33) H 05/05/25 10:50 MCHC 30.1 g/dL (30-55) 05/05/25 10:50 RDW 17.1 % (12.1-15.1) H 05/05/25 10:50 Plt Count 118 10^3/cmm (157-399) L 05/05/25 10:50 MPV 12.9 fL (7.4-10.4) H 05/05/25 10:50 Neut % (Auto) 86.3 % 05/05/25 10:50 Lymph % (Auto) 5.4 % 05/05/25 10:50 [place] % (Auto) 5.5 % 05/05/25 10:50 Eos % (Auto) 0.1 % 05/05/25 10:50 Baso % (Auto) 0.4 % 05/05/25 10:50 Neut # (Auto) 22.91 10^3/uL (1.8-7.7) H 05/05/25 10:50 Lymph # (Auto) 1.4 10^3/uL (0.8-4.8) 05/05/25 10:50 [place] # (Auto) 1.5 10^3/uL (0.2-0.9) H 05/05/25 10:50 Eos # (Auto) 0.0 10^3/uL (0.0-0.8) 05/05/25 10:50 Baso # (Auto) 0.1 10^3/uL (0.0-0.1) 05/05/25 10:50 Nucleated RBC % (auto) 0.5 % 05/05/25 10:50 Nucleated RBCs # 0.1 /100WBC 05/05/25 10:50 Specimen Type Arterial 05/05/25 14:30 Sample Site Radial, right 05/05/25 14:30 ABG pH 6.95 (7.35-7.45) L* 05/05/25 14:30 ABG pCO2 14.4 mmHg (35-45) L* 05/05/25 14:30 ABG pO2 124.0 mmHg (80.0-100.0) H 05/05/25 14:30 ABG PO2/FiO2 Ratio 590 05/05/25 14:30 ABG HCO3 3.2 mmol/L (22-26) L 05/05/25 14:30 ABG O2 Saturation 98.3 05/05/25 10:20 ABG Base Excess -27.0 mmol/L (-2.0-2.0) L 05/05/25 14:30 [place] Test Pos 05/05/25 14:30 A-a O2 Gradient 0.6 mmHg (5-10) L 05/05/25 10:20 Hematocrit 26.9 % (37-47) L 05/05/25 14:30 Hgb O2 Saturation 95.2 % (95-100) 05/05/25 10:20 Carboxyhemoglobin 1.6 %THgb (0.4-20.1) 05/05/25 10:20 Methemoglobin 1.5 % (0.4-1.5) 05/05/25 10:20 Total Hemoglobin 9.4 g/dL (12-16) L 05/05/25 10:20 Sodium 139.0 mmol/L (131-143) 05/05/25 10:20 Potassium 5.0 mmol/L (3.5-5.0) 05/05/25 10:20 Glucose 663.0 mg/dL (70-115) H 05/05/25 10:20 Ionized Calcium 1.3 mmol/L (1.1-1.4) 05/05/25 10:20 O2 Delivery Device Room air 05/05/25 14:30 FiO2 21.0 % 05/05/25 14:30 Pulling Machine Operator ID [id number] 05/05/25 14:30 Sodium 142 mmol/L (136-145) 05/05/25 15:01 Potassium 4.2 mmol/L (3.5-5.1) 05/05/25 15:01 Chloride 106 mmol/L (98-107) 05/05/25 15:01 Carbon Dioxide 3 mmol/L (22-29) L* 05/05/25 15:01 Anion Gap 37.2 (5-19) H 05/05/25 15:01 BUN 24 mg/dL (8-23) H 05/05/25 15:01 Creatinine 1.4 mg/dL (0.5-0.9) H 05/05/25 15:01 GFR Calculation Not Reportable 05/05/25 15:01 Glucose 548 mg/dL (65-115) H* 05/05/25 15:01 POC Glucose 526 mg/dL (70-110) H* 05/05/25 15:59 Calculated Osmolality 323 mOsm/kg (285-295) H 05/05/25 15:01 Lactic Acid 6.3 mmol/L (0.5-2.2) H* 05/05/25 10:48 Lactic Acid (Sepsis) 4.4 mmol/L (0.5-2.2) H* 05/05/25 13:50 Calcium 8.0 mg/dL (8.5-10.5) L 05/05/25 15:01 Total Bilirubin 0.3 mg/dL (0.15-1.2) 05/05/25 10:48 AST 22 U/L (0-32) 05/05/25 10:48 ALT 14 U/L (0-33) 05/05/25 10:48 Alkaline Phosphatase 146 U/L (35-105) H 05/05/25 10:48 Troponin T Baseline 163 ng/L (0-10) H* 05/05/25 10:48 Troponin T 120 Minute 149.4 ng/L (0-10) H 05/05/25 12:23 Delta Troponin T -13.6 ABS# (0-10) L 05/05/25 12:23 C-Reactive Protein 11.6 mg/L (0.0-4.9) H 05/05/25 10:48 Total Protein 6.6 g/dL (6.6-8.7) 05/05/25 10:48 Albumin 3.4 g/dL (3.5-5.2) L 05/05/25 10:48 Globulin 3.2 g/dL (1.3-4.6) 05/05/25 10:48 Procalcitonin 1.55 ng/mL (0-0.5) H 05/05/25 10:48 TSH 1.00 uIU/mL (0.27-4.20) 05/05/25 10:48 Urine Color Yellow (Yellow) 05/05/25 10:30 Urine Appearance Clear (CLEAR) 05/05/25 10:30 Urine pH 5.0 (5-7) 05/05/25 10:30 Ur Specific [place] 1.022 (1.005-1.030) 05/05/25 10:30 Urine Protein 1+ (Negative) A 05/05/25 10:30 Urine Glucose (UA) 3+ (Normal) H 05/05/25 10:30 Urine Ketones 3+ (Negative) H 05/05/25 10:30 Urine Blood Trace (Negative) A 05/05/25 10:30 Urine Nitrate Negative (Negative) 05/05/25 10:30 Urine Bilirubin Negative (Negative) 05/05/25 10:30 Urine Urobilinogen 0.2 mg/dL (Negative) 05/05/25 10:30 Ur Leukocyte Esterase Negative (Negative) 05/05/25 10:30 Urine RBC 0-2 /hpf (0-2) 05/05/25 10:30 Urine WBC 0-5 /hpf (0-5) 05/05/25 10:30 Ur Squamous Epith Cells 0-5 /hpf (0-5) 05/05/25 10:30 Amorphous Sediment Not Reportable 05/05/25 10:30 Urine Bacteria None seen /hpf (NONE) 05/05/25 10:30 Hyaline Casts 3.71 /lpf 05/05/25 10:30 Serum Ketones Positive (Negative) H 05/05/25 10:48 Influenza A (PCR) Negative (Negative) 05/05/25 10:30 Influenza Type B (PCR) Negative (Negative) 05/05/25 10:30 RSV (PCR) Negative (Negative) 05/05/25 10:30 SARS-CoV-2 (PCR) Negative (Negative) 05/05/25 10:30 Micro: Microbiology 05/05/25 10:48 Blood Culture - Preliminary Blood SPECIMEN COLLECTED 05/05/25 10:50 Blood Culture - Preliminary Blood SPECIMEN COLLECTED A&P Assessment and plan (1) Diabetic keto-acidosis: Start patient on insulin drip as per DKA/HHS protocol with target blood sugars between 100-130 Normal saline at 150 cc/h. We will switch to D5 NS once blood sugar less than 250. Monitor BMP every 4 hours, ABG every 4 hrs. Once potassium less than 4 we will add 20 mg of potassium to IV fluids. Monitor saturations. Maintain over 90%. Transition to sliding scale and long-acting insulin once anion gap resolves. (2) Acute metabolic encephalopathy: Acute metabolic encephalopathy related to DKA. Patient currently has low GCS, Will monitor this closely. Currently she is maintaining oxygen saturation of 100% on room air. Should there be any deterioration of her respiratory status that is low threshold for intubation and mechanical ventilation. (3) Intractable nausea and vomiting: likely related to DKA Will obtain CT of the abdomen and pelvis when she is clinically more stable. (4) Lactic acidosis: Most likely related to DKA, ketoacidosis (5) Diarrhea: Patient's reports this is chronic diarrhea, does not think frequency has changed Will check C. difficile PCR today in case infective diarrhea. (6) Leukocytosis: Be related to severe dehydration from DKA, underlying infection not excluded at this point Chest x-ray without any consolidation. Blood cultures have been taken and currently pending C. difficile to be tested. Urine analysis with 3+ ketones, negative nitrate leukocyte esterase or WBCs, not likely UTI. (7) Severe dehydration: (8) Elevated troponin: Elevated troponins with baseline at 163, awaiting 2-hour and 6-hour trend. EKG without acute ST-T wave changes This may be related to NSTEMI versus type II WI from DKA. Will check echocardiogram Start heparin drip while undergoing evaluation Aspirin to be given rectally. Plan Dvt ppx: heparin drip Full code PDMP PDMP Reviewed: Not Reviewed Attestations 2 Medical Necessity Statement*: Greater than 2 midnight stay is anticipated Critical Care Time: The high probability of a clinically significant, sudden or life threatening deterioration of the patient's [enodcrine, cardiac, respiratory] system(s) required my full and direct attention, intervention and personal management. The critical care time is as shown. This time is in addition to time spent performing any reported procedures but includes the following: [x] Data and vital sign review and interpretation [x] Patient assessment, examination and intervention [x] Documentation [x] Medication orders and management Critical Care Time (min): 60 Coding Level of Care Code Critical Care >/= 30 minutes Diagnoses Diabetic keto-acidosis E11.10 Acute metabolic encephalopathy G93.41 Intractable nausea and vomiting R11.2 Lactic acidosis E87.20 Diarrhea R19.7 Leukocytosis D72.829 Severe dehydration E86.0 Elevated troponin R79.89
[2025-05-05 18:45] LABS: Troponin 5 6HR Delta -21.5 ng/L (0-12)
[2025-05-05 18:46] LABS: Troponin 5 6HR 141.5 ng/L (0-10)
[2025-05-05] MEDS: cefepime 1,000 mg SDV 1000 MG IVP (19:38)
[2025-05-05] MEDS: INSULIN REGULAR IN 0.9 % NACL 100 UNIT/100 ML BAG 16 UNIT IV (21:10)
[2025-05-05 21:43] LABS: Base Excess VBG -13.2 mmol/L (-3.0-3.0); Blood Gas Sample Site Brachial, right; Blood Gas Sample Type Arterial; HCO3 VBG 12.4 mmol/L (24-28); PCO2 VBG 27.0 mmHg (41-51); PO2 VBG 71.5 mmHg (25-40); Venous Blood Gas Hematocrit 27.3 % (37-47); pH VBG 7.27 (7.32-7.42)
[2025-05-05 22:11] LABS: Anion Gap 24.4 (5-19); Blood Urea Nitrogen 20 mg/dL (8-23); Calcium 7.8 mg/dL (8.5-10.5); Carbon Dioxide 11 mmol/L (22-29); Chloride 110 mmol/L (98-107); Creatinine Clr Calc Pharmacy 34.0005; Glucose 186 mg/dL (65-115); Lactate (Lactic Acid level) 2.2 mmol/L (0.5-2.2); Magnesium 1.7 mg/dL (1.7-2.3); Osmolality Calculated 301 mOsm/kg (285-295); Potassium 3.4 mmol/L (3.5-5.1); Sodium 142 mmol/L (136-145)
--- NOTE | 2025-05-05 22:53 | P.PN_ITS ---
Subjective 2 Subjective: Called to evaluate potential need for central line. Patient had been on bicarb fluid, insulin drip and potassium phosphate replacement today. She was due for ABG. I do see changes to VBG but that was not successful. Also chela repeat lactic acid phosphorus and mag. In order to avoid placing central line I did bolus remainder of normal saline and pushed an amp of bicarb. Right upper arm IV had infiltrated. Patient has remaining her Chemo-Port and a right forearm IV. Patient states she has not missed her insulin at home but she is getting chemo recently. Serum bicarb was as low as 3. Vitals/I&O/Wt Last Vital Signs Temp 96.2 F L 05/05/25 15:30 Pulse 117 H 05/05/25 17:00 Resp 20 H 05/05/25 17:00 BP 105/58 05/05/25 17:00 Pulse Ox 100 05/05/25 17:00 O2 Del Method Room Air 05/05/25 17:00 05/05/25 05/05/25 05/05/25 06:59 14:59 22:59 Intake Total 821.233 / 821.233 352.934 / 1174.167 Balance 821.233 / 821.233 352.934 / 1174.167 Weight last 48 hrs Weight 61.5 kg Weight 64.864 kg Physical Exam 2 Narrative: General well-developed well-nourished female in no acute cardiopulmonary distress but mildly tachypneic at 20 CV regular rhythm borderline tachycardic at 100 to 115 lungs clear to auscultation upper lung ying Abdomen soft nontender Calves no edema Urinary Catheter Management: Awad: Cath Placed During This Visit: yes Reason for Continuing Indwelling Catheter: Accurate Measurement of Urinary Output in Critically Ill Patients Urinary Catheter Date of Insertion: 05/05/25 Urinary Catheter Time of Insertion: 17:20 Data 05/05/25 10:50 05/05/25 21:20 Micro: Microbiology 05/05/25 10:48 Blood Culture - Preliminary Blood SPECIMEN COLLECTED 05/05/25 10:50 Blood Culture - Preliminary Blood SPECIMEN COLLECTED A&P Assessment and plan (1) Diabetic keto-acidosis: Initially was resistant between 1048 and 1501 but significant improvement on 2120 labs with pH now 7.27 and serum bicarb 11. Glucose is 178. Switch to D5 W with 150 mEq sodium bicarb to run at 250 cc an hour. Wean Levophed off. Blood pressure is running 90 systolic patient's mentation is clear Continue insulin drip until anion gap is closed and serum bicarb over 22. The patient's fluid will be changed to D5 half NS with 20 mill colons KCl per liter following this bag. Give oral potassium 40 mill equivalents x 1 now. Additional LR bolus 1 L now (2) Severe dehydration: Additional LR bolus 1 L now (3) Elevated troponin: Troponin is trending down and to protect diabetes Dr. Morgan stopped heparin drip and put her on Lovenox (4) Acute on chronic renal insufficiency: As above complete bicarb drip and hydrate. PDMP PDMP Reviewed: Not Reviewed Attestations 2 Medical Necessity Statement*: Patient remains on insulin drip for DKA and acute kidney injury. Anticipate she will need greater than 2 midnights in the hospital Critical Care Time: Critical Care Time (min): 60 Coding Level of Care Code Critical Care >/= 30 minutes Critical care time (in minutes): 60 The high probability of a clinically significant, sudden or life threatening deterioration, as referenced in this documentation, required my full and direct attention, intervention and personal management. The critical care time shown is in addition to time spent performing any reported separately billable procedures and includes the following: [x] Data and vital sign review and interpretation [x ] Patient assessment, examination and intervention [x] Medication orders and management [x] Patient/Family updates as able [x] Care Coordination and Documentation. Diagnoses Diabetic keto-acidosis E11.10 Severe dehydration E86.0 Elevated troponin R79.89 Acute on chronic renal insufficiency N28.9; N18.9 Time Spent (min) 60
[2025-05-06] VITALS (34 sets, daily range): BP systolic 65–123; BP diastolic 35–68; PULSE 92–112; RESP 14–28; TEMP 36.8; O2SAT 91–98
[2025-05-06] MEDS: INSULIN REGULAR IN 0.9 % NACL 100 UNIT/100 ML BAG 16 UNIT IV (00:18)
[2025-05-06] MEDS: potassium phosphate (mMol PO4) 30 MMOL in sodium chloride 0.9% (100 ml) 100 ML 25 MMOL IV (00:25)
[2025-05-06 02:26] LABS: Base Excess VBG -1.5 mmol/L (-3.0-3.0); Blood Gas Operator Identificat SAM; Blood Gas Sample Type Venous; HCO3 VBG 23.5 mmol/L (24-28); PCO2 VBG 39.4 mmHg (41-51); PO2 VBG 22.2 mmHg (25-40); Venous Blood Gas Hematocrit 23.5 % (37-47); pH VBG 7.38 (7.32-7.42)
[2025-05-06 02:49] LABS: Anion Gap 15.3 (5-19); Blood Urea Nitrogen 18 mg/dL (8-23); Calcium 7.5 mg/dL (8.5-10.5); Carbon Dioxide 23 mmol/L (22-29); Chloride 109 mmol/L (98-107); Creatinine Clr Calc Pharmacy 39.6673; Glucose 108 mg/dL (65-115); Osmolality Calculated 300 mOsm/kg (285-295); Potassium 3.3 mmol/L (3.5-5.1); Sodium 144 mmol/L (136-145)
[2025-05-06] MEDS: D5-NS 0.45% + KCL 20 mEq 20 MEQ/1,000 ML BAG 200 MEQ IV (03:59)
[2025-05-06 04:18] LABS: Hematocrit 21.2 % (36-47); Hemoglobin 7.10 g/dL (11.27-16.99); Mean Corpuscular HGB Conc 33.5 g/dL (30-55); Mean Corpuscular Hemoglobin 38.8 pg (27-33); Mean Corpuscular Volume 115.8 fl (85-98); Nucleated Red Blood Cells % 0.2 %; Platelet Count 52 10^3/cmm (157-399); Red Blood Count 1.83 10^6/uL (3.85-5.65); White Blood Count 13.21 10^3/uL (3.29-11.43)
[2025-05-06 04:42] LABS: Alanine Aminotransferase 11 U/L (0-33); Albumin Level 2.7 g/dL (3.5-5.2); Alkaline Phosphatase 103 U/L (35-105); Anion Gap 17.5 (5-19); Aspartate Amino Transferase 23 U/L (0-32); Blood Urea Nitrogen 16 mg/dL (8-23); Calcium 7.5 mg/dL (8.5-10.5); Carbon Dioxide 21 mmol/L (22-29); Chloride 111 mmol/L (98-107); Creatinine Clr Calc Pharmacy 39.6673; Globulin 1.9 g/dL (1.3-4.6); Glucose 88 mg/dL (65-115); Osmolality Calculated 303 mOsm/kg (285-295); Potassium 3.5 mmol/L (3.5-5.1); Sodium 146 mmol/L (136-145); Total Protein 4.6 g/dL (6.6-8.7)
[2025-05-06 04:44] LABS: Estmated Average Glucose 177; Hemoglobin A1C 7.8 % (4.0-6.0)
[2025-05-06] MEDS: cefepime 1,000 mg SDV 1000 MG IVP ×2 (05:07→17:13)
[2025-05-06] MEDS: insulin glargine 100 units/1 mL 20 UNIT SUBCUT ×2 (05:07→21:59)
[2025-05-06] MEDS: magnesium sulfate premix 1 GM/100 ML PIGGYBACK IV (05:15)
[2025-05-06] MEDS: calcium gluconate 0.9% NaCL 1 GM/50 ML PREMIX IV ×2 (05:20→05:56)
--- NOTE | 2025-05-06 08:38 | PC.NURSE ---
Dr. Moore came to bedside plan for VERO today
[2025-05-06 09:04] LABS: Anion Gap 18.2 (5-19); Blood Urea Nitrogen 16 mg/dL (8-23); Calcium 7.7 mg/dL (8.5-10.5); Carbon Dioxide 20 mmol/L (22-29); Chloride 110 mmol/L (98-107); Glucose 183 mg/dL (65-115); Osmolality Calculated 304 mOsm/kg (285-295); Potassium 4.2 mmol/L (3.5-5.1); Sodium 144 mmol/L (136-145)
[2025-05-06 09:06] LABS: Creatinine Clr Calc Pharmacy 44.7690
--- NOTE | 2025-05-06 11:37 | PHA.VACGOAL ---
Vancomycin Goal - Goal Vancomycin Goal:: 15-20 mg/L Vancomycin Indication:: Other - Therapy Current therapy:: Cefepime Day of therpy:: Day [1]of [] . Actual body weight (kg): 66.7 kg - Data Labs: WBC 13.21 10^3/uL (3.29-11.43) H 05/06/25 03:19 RBC 1.83 10^6/uL (3.85-5.65) L 05/06/25 03:19 Hgb 7.10 g/dL (11.27-16.99) L 05/06/25 03:19 Hct 21.2 % (36-47) L D 05/06/25 03:19 MCV 115.8 fl (85-98) H D 05/06/25 03:19 MCH 38.8 pg (27-33) H 05/06/25 03:19 MCHC 33.5 g/dL (30-55) D 05/06/25 03:19 RDW 16.6 % (12.1-15.1) H 05/06/25 03:19 Sodium 144 mmol/L (136-145) 05/06/25 08:35 Potassium 4.2 mmol/L (3.5-5.1) 05/06/25 08:35 Chloride 110 mmol/L (98-107) H 05/06/25 08:35 Carbon Dioxide 20 mmol/L (22-29) L 05/06/25 08:35 Anion Gap 18.2 (5-19) 05/06/25 08:35 BUN 16 mg/dL (8-23) 05/06/25 08:35 Creatinine 1.1 mg/dL (0.5-0.9) H 05/06/25 08:35 GFR Calculation Not Reportable 05/06/25 08:35 Treatment plan:: new consult Regimen:: Load dose of 1250 mg given. Started on maintenance dose of 750 mg q24h.
[2025-05-06 15:42] LABS: C.Diff PCR (Lab) POSITIVE (Negative)
[2025-05-06 15:44] LABS: Clostridioides Difficile Toxin NEGATIVE (Negative)
[2025-05-06 16:35] LABS: Alanine Aminotransferase 12 U/L (0-33); Albumin Level 2.9 g/dL (3.5-5.2); Alkaline Phosphatase 105 U/L (35-105); Anion Gap 17.6 (5-19); Aspartate Amino Transferase 29 U/L (0-32); Blood Urea Nitrogen 15 mg/dL (8-23); Calcium 7.8 mg/dL (8.5-10.5); Carbon Dioxide 20 mmol/L (22-29); Chloride 108 mmol/L (98-107); Creatinine Clr Calc Pharmacy 49.2459; Globulin 2.3 g/dL (1.3-4.6); Glucose 119 mg/dL (65-115); Osmolality Calculated 296 mOsm/kg (285-295); Potassium 3.6 mmol/L (3.5-5.1); Sodium 142 mmol/L (136-145); Total Protein 5.2 g/dL (6.6-8.7)
--- NOTE | 2025-05-06 17:11 | USCV_ITS ---
Hermelinda Chamberlain Age: 75 Gender: F : 1950 Exam Date: 05/06/2025 08:14 Ordering Phys: Yani Morgan MD Technologist: Exam Location: [facility] [place] Indication: sob cp BP: 113 / 50 HR: 100 Rhythm: Sinus Technical Quality: Adequate MEASUREMENTS (Male / Female) Normal Values 2D ECHO LV Diastolic Diameter PLAX 4.1 cm 4.2 - 5.9 / 3.9 - 5.3 cm IVS Diastolic Thickness 1.3 cm 0.6 - 1.0 / 0.6 - 0.9 cm IVS Systolic Thickness 1.5 cm LVPW Diastolic Thickness 1.1 cm 0.6 - 1.0 / 0.6 - 0.9 cm LVPW Systolic Thickness 1.8 cm LVOT Diameter 2.0 cm LV Ejection Fraction 2D Teich 60.1 % LV Ejection Fraction MOD 4C 56.9 % LV Ejection Fraction MOD 2C 68.6 % LV Ejection Fraction 2C AL 69.6 % LA Diameter 3.4 cm RA Systolic Volume 4C AL 23.2 ml RA Systolic Volume 4C MOD 23.3 ml LA Sys Volume AL 36.9 cm cubed LA Sys Volume Index AL 22.4 cm cubed/m squared Aorta at Sinotubular Diameter 3.0 cm IVC Diameter 1.6 cm M-MODE LA Ao Ratio MM 1.0 AV Cusp Separation MM 1.8 cm DOPPLER AV Peak Velocity 151.0 cm/s LVOT Peak Velocity 100.0 cm/s AV Area Cont Eq vti 2.4 cm squared AV Area Cont Eq pk 2.1 cm squared MV Peak Velocity 144.0 cm/s MV Area PHT 5.0 cm squared Mitral E to A Ratio 1.1 TV Peak Velocity 267.0 cm/s TR Peak Velocity 295.0 cm/s TR Peak Gradient 34.8 mmHg TV Peak E Velocity 120.0 cm/s PV Peak Velocity 104.0 cm/s FINDINGS Left Ventricle Left ventricle is normal size. LV systolic function is normal with EF of 55-60%. No regional wall motion abnormalities seen. Right Ventricle Normal in size and function Right Atrium Normal in size Left Atrium Normal in size Mitral Valve Structurally normal mitral valve. Trace mitral regurgitation Aortic Valve Structurally normal aortic valve. No significant stenosis or regurgitation. Tricuspid Valve Mild tricuspid regurgitation. RVSP is 35-40 mmHg. This is consistent with mild pulmonary hypertension. Pulmonic Valve Not well visualized Pericardium Normal Aorta Normal in size IVC Appears to be normal CONCLUSIONS LV systolic function is normal with EF of 55-60% Trace mitral regurgitation Mild tricuspid regurgitation Mild pulmonary hypertension No comparison studies are available. James Moore MD (Electronically Signed) Final Date: 06 May 2025 13:31 S
[2025-05-06] MEDS: VANCOMYCIN ADD-Vantage 750 MG in 0.9% NaCl ADD-Vantage 250 ML 250 MG IV (17:13)
--- NOTE | 2025-05-06 17:14 | P.PN_ITS ---
Subjective 2 Subjective: Anion gap closed overnight. She has been transitioned to Lantus 20 units daily and low-dose insulin sliding scale. HbA1c returned at 7.8. Off Levophed this afternoon. Vitals/I&O/Wt Last Vital Signs Temp 96.2 F L 05/05/25 15:30 Pulse 96 05/06/25 16:00 Resp 17 05/06/25 16:00 BP 109/59 05/06/25 16:00 Pulse Ox 96 05/06/25 16:00 O2 Del Method Room Air 05/05/25 17:00 05/06/25 05/06/25 05/06/25 06:59 14:59 22:59 Intake Total 5305.317 / 6559.484 200 / 200 Output Total 1200 / 1200 Balance 4105.317 / 5359.484 200 / 200 Weight last 48 hrs Weight 66.7 kg Weight 61.5 kg Weight 64.864 kg Physical Exam 2 Narrative: General: Awake alert and oriented, no acute distress HEENT: PERRLA, pupils bilaterally equal and reactive, pallors not present Chest: Normal vesicular breath sounds, no added sounds, equal good air entry bilaterally CVS: S1-S2 regular, no murmurs, no tachycardia, no gallops, no rubs Abdomen: Soft, nontender, no organomegaly, bowel sounds present Neuro: Awake alert oriented, able to hold a full conversation. Significantly improved compared to yesterday. Urinary Catheter Management: Awad: Cath Placed During This Visit: yes Reason for Continuing Indwelling Catheter: Accurate Measurement of Urinary Output in Critically Ill Patients Urinary Catheter Date of Insertion: 05/05/25 Urinary Catheter Time of Insertion: 17:20 Data 05/06/25 03:19 05/06/25 15:43 Micro: Microbiology 05/05/25 10:48 Blood Culture - Preliminary Blood NEGATIVE TO DATE 05/05/25 10:50 Blood Culture - Preliminary Blood NEGATIVE TO DATE A&P Assessment and plan (1) Diabetic keto-acidosis: Start patient on insulin drip as per DKA/HHS protocol with target blood sugars between 100-130 Normal saline at 150 cc/h. We will switch to D5 NS once blood sugar less than 250. Monitor BMP every 4 hours, ABG every 4 hrs. Once potassium less than 4 we will add 20 mg of potassium to IV fluids. Monitor saturations. Maintain over 90%. Transition to sliding scale and long-acting insulin once anion gap resolves. (2) Acute metabolic encephalopathy: Acute metabolic encephalopathy related to DKA. Patient currently has low GCS, Will monitor this closely. Currently she is maintaining oxygen saturation of 100% on room air. Should there be any deterioration of her respiratory status that is low threshold for intubation and mechanical ventilation. (3) Intractable nausea and vomiting: likely related to DKA Will obtain CT of the abdomen and pelvis when she is clinically more stable. (4) Lactic acidosis: Most likely related to DKA, ketoacidosis (5) Diarrhea: Patient's reports this is chronic diarrhea, does not think frequency has changed Will check C. difficile PCR today in case infective diarrhea. (6) Leukocytosis: Be related to severe dehydration from DKA, underlying infection not excluded at this point Chest x-ray without any consolidation. Blood cultures have been taken and currently pending C. difficile to be tested. Urine analysis with 3+ ketones, negative nitrate leukocyte esterase or WBCs, not likely UTI. (7) Severe dehydration: (8) Elevated troponin: Elevated troponins with baseline at 163, awaiting 2-hour and 6-hour trend. EKG without acute ST-T wave changes This may be related to NSTEMI versus type II WI from DKA. Will check echocardiogram Start heparin drip while undergoing evaluation Aspirin to be given rectally. Plan Dvt ppx: heparin drip Full code May 06, 2025 Patient is significantly improved today. She is awake alert oriented x 3. Anion gap has closed. Fingersticks are well-controlled. She is currently on Lantus 20 units daily and also low-dose insulin sliding scale. Maintained on D5 infusion today at 50 cc an hour in view of hypernatremia. Sodium at 146 today. Repeat CMP at 4 PM shows improving sodium at 142. HbA1c at 7.8. Leukocytosis is trending down. Patient had diarrhea today, tested positive for C. difficile PCR. Started on Dificid 200 mg p.o. twice daily. Will aim to discontinue antibiotics including cefepime and vancomycin next 24 hours if other infectious evaluation remains negative. Troponin series trended down, suspect elevated troponins were related to type II WI related to DKA. Echocardiogram showing a normal LV function of EF 55 to 60%, no regional wall motion abnormalities, trace MR. Discontinue full dose Lovenox as started yesterday. Resume patient's other home medications including levothyroxine, Protonix, topiramate. Transfer out of ICU to [facility] today. PDMP PDMP Reviewed: Not Reviewed Attestations 2 Medical Necessity Statement*: DKA has resolved. C. difficile positive, start Dificid, d/c lovenox Coding Level of Care Code Acute Code for Chg Fwd Diagnoses Diabetic keto-acidosis E11.10 Acute metabolic encephalopathy G93.41 Intractable nausea and vomiting R11.2 Lactic acidosis E87.20 Diarrhea R19.7 Leukocytosis D72.829 Severe dehydration E86.0 Elevated troponin R79.89
[2025-05-07] VITALS (76 sets, daily range): BP systolic 121–146; BP diastolic 57–104; PULSE 65–97; RESP 7–32; TEMP 36.5–37.1; O2SAT 93–98
[2025-05-07 05:35] LABS: Hematocrit 22.3 % (36-47); Hemoglobin 7.50 g/dL (11.27-16.99); Mean Corpuscular HGB Conc 33.6 g/dL (30-55); Mean Corpuscular Hemoglobin 38.5 pg (27-33); Mean Corpuscular Volume 114.4 fl (85-98); Nucleated Red Blood Cells % 0 %; Platelet Count 49 10^3/cmm (157-399); Red Blood Count 1.95 10^6/uL (3.85-5.65); White Blood Count 11.03 10^3/uL (3.29-11.43)
[2025-05-07] MEDS: cefepime 1,000 mg SDV 1000 MG IVP (05:38)
[2025-05-07 05:56] LABS: Alanine Aminotransferase 12 U/L (0-33); Albumin Level 2.7 g/dL (3.5-5.2); Alkaline Phosphatase 105 U/L (35-105); Anion Gap 13.9 (5-19); Aspartate Amino Transferase 33 U/L (0-32); Blood Urea Nitrogen 10 mg/dL (8-23); Calcium 7.5 mg/dL (8.5-10.5); Carbon Dioxide 20 mmol/L (22-29); Chloride 111 mmol/L (98-107); Creatinine Clr Calc Pharmacy 61.0828; Globulin 2.3 g/dL (1.3-4.6); Glucose 64 mg/dL (65-115); Osmolality Calculated 291 mOsm/kg (285-295); Sodium 142 mmol/L (136-145); Total Protein 5.0 g/dL (6.6-8.7)
[2025-05-07 06:03] LABS: Potassium 2.9 mmol/L (3.5-5.1)
[2025-05-07 06:56] LABS: Magnesium 1.7 mg/dL (1.7-2.3)
[2025-05-07] MEDS: potassium phosphate (mMol PO4) 30 MMOL in sodium chloride 0.9% (100 ml) 100 ML 25 MMOL IV (07:22)
[2025-05-07] MEDS: ondansetron 2 mg/ML SDV 2 mL 4 MG IVP ×2 (09:22→23:37)
--- NOTE | 2025-05-07 12:41 | PM.PN ---
Subjective Subjective: Patient remains alert awake and oriented. Potassium today is at 2.9. She was hypoglycemic this morning with blood sugar at 64. Medications: Reviewed: Yes Vitals/I&O/Wt Last Vital Signs Temp 98.8 F 05/07/25 09:45 Pulse 91 05/07/25 12:00 Resp 29 H 05/07/25 12:00 BP 130/73 05/07/25 11:00 Pulse Ox 97 05/07/25 12:00 O2 Del Method Room Air 05/07/25 12:00 05/06/25 05/07/25 05/07/25 22:59 06:59 14:59 Intake Total 3800 / 4000 957.5 / 4957.5 310 / 310 Output Total 1150 / 2150 900 / 3050 1800 / 1800 Balance 2650 / 1850 57.5 / 1907.5 -1490 / -1490 Weight last 48 hrs Weight 65.5 kg Weight 66.7 kg Weight 61.5 kg Physical Exam Narrative: General: Awake alert and oriented, no acute distress HEENT: PERRLA, pupils bilaterally equal and reactive, pallors not present Chest: Normal vesicular breath sounds, no added sounds, equal good air entry bilaterally CVS: S1-S2 regular, no murmurs, no tachycardia, no gallops, no rubs Abdomen: Soft, nontender, no organomegaly, bowel sounds present Neuro: Awake alert oriented, able to hold a full conversation. Continues to imporve significantly. Urinary Catheter Management: Awad: Cath Placed During This Visit: yes Reason for Continuing Indwelling Catheter: Accurate Measurement of Urinary Output in Critically Ill Patients Urinary Catheter Date of Insertion: 05/05/25 Urinary Catheter Time of Insertion: 17:20 Data 05/07/25 04:17 05/07/25 04:17 Micro: Microbiology 05/05/25 10:48 Blood Culture - Preliminary Blood NEGATIVE TO DATE 05/05/25 10:50 Blood Culture - Preliminary Blood NEGATIVE TO DATE A&P Assessment and plan (1) Diabetic keto-acidosis: Start patient on insulin drip as per DKA/HHS protocol with target blood sugars between 100-130 Normal saline at 150 cc/h. We will switch to D5 NS once blood sugar less than 250. Monitor BMP every 4 hours, ABG every 4 hrs. Once potassium less than 4 we will add 20 mg of potassium to IV fluids. Monitor saturations. Maintain over 90%. Transition to sliding scale and long-acting insulin once anion gap resolves. (2) Acute metabolic encephalopathy: Acute metabolic encephalopathy related to DKA. Patient currently has low GCS, Will monitor this closely. Currently she is maintaining oxygen saturation of 100% on room air. Should there be any deterioration of her respiratory status that is low threshold for intubation and mechanical ventilation. (3) Intractable nausea and vomiting: likely related to DKA Will obtain CT of the abdomen and pelvis when she is clinically more stable. (4) Lactic acidosis: Most likely related to DKA, ketoacidosis (5) Diarrhea: Patient's reports this is chronic diarrhea, does not think frequency has changed Will check C. difficile PCR today in case infective diarrhea. (6) Leukocytosis: Be related to severe dehydration from DKA, underlying infection not excluded at this point Chest x-ray without any consolidation. Blood cultures have been taken and currently pending C. difficile to be tested. Urine analysis with 3+ ketones, negative nitrate leukocyte esterase or WBCs, not likely UTI. (7) Severe dehydration: (8) Elevated troponin: Elevated troponins with baseline at 163, awaiting 2-hour and 6-hour trend. EKG without acute ST-T wave changes This may be related to NSTEMI versus type II ID from DKA. Will check echocardiogram Start heparin drip while undergoing evaluation Aspirin to be given rectally. (9) C. difficile diarrhea: (10) Hypokalemia: Plan Dvt ppx: heparin drip Full code May 06, 2025 Patient is significantly improved today. She is awake alert oriented x 3. Anion gap has closed. Fingersticks are well-controlled. She is currently on Lantus 20 units daily and also low-dose insulin sliding scale. Maintained on D5 infusion today at 50 cc an hour in view of hypernatremia. Sodium at 146 today. Repeat CMP at 4 PM shows improving sodium at 142. HbA1c at 7.8. Leukocytosis is trending down. Patient had diarrhea today, tested positive for C. difficile PCR. Started on Dificid 200 mg p.o. twice daily. Will aim to discontinue antibiotics including cefepime and vancomycin next 24 hours if other infectious evaluation remains negative. Troponin series trended down, suspect elevated troponins were related to type II ID related to DKA. Echocardiogram showing a normal LV function of EF 55 to 60%, no regional wall motion abnormalities, trace MR. Discontinue full dose Lovenox as started yesterday. Resume patient's other home medications including levothyroxine, Protonix, topiramate. Transfer out of ICU to [facility] today. May 07, 2025 Patient remains alert awake and oriented. Anion gap remains closed. She was hypoglycemic this morning. Dose of Lantus has been reduced to 10 units daily. Insulin sliding scale has been continued. Discontinue D5 infusion today as hypernatremia has resolved. Hyperkalemia this morning which has been repleted with IV and oral potassium supplementation. Repeat CMP at 4 PM today. Continue Dificid for C. difficile diarrhea. Patient still reports multiple episodes of diarrhea, but they are small-volume and mostly after eating. Likely that hypokalemia is currently related to ongoing GI losses. Encourage oral p.o. intake. Discontinue cefepime as no other infectious source found other than the C. difficile. Patient noted to have low hemoglobin at 7.5 today. Additionally platelets noted to be at 49,000.Patient reports that she did resume FOLFOX 2 weeks ago. Reports that it was stopped for pancytopenia in the past where her platelets had dropped to below number of 66,000. However it was resumed once platelets showed recovery. Last infusion was 2 weeks ago. Suspect that both anemia and thrombocytopenia may be related to recent chemotherapy. Monitor for any signs of active bleeding. Check fecal occult blood testing. Discontinue Lovenox prophylaxis and use SCDs only for DVT ppx in view of falling platelets. Transfuse packed red blood cells if hemoglobin less than 7. Continue midodrine 10mg TID to maintain BP. Awaiting bed to transfer out of ICU . Encourage OOB ambulation. PDMP PDMP Reviewed: Not Reviewed Attestations Medical Necessity Statement*: adjust lantus, falling platelets and HB, monitor closely, c diff diarrhea Coding Level of Care Code Acute Code for Chg Fwd Diagnoses Diabetic keto-acidosis E11.10 Acute metabolic encephalopathy G93.41 Intractable nausea and vomiting R11.2 Lactic acidosis E87.20 Diarrhea R19.7 Leukocytosis D72.829 Severe dehydration E86.0 Elevated troponin R79.89 C. difficile diarrhea A04.72 Hypokalemia E87.6
--- NOTE | 2025-05-07 12:49 | USR_ITS ---
PROCEDURE INFORMATION: Exam: US Abdomen, Limited; Right Upper Quadrant Exam date and time: 05/07/2025 1:57 PM Age: 75 years old Clinical indication: Abnormal findings; Abnormal lab test; Other: Thrombocytopenia; Prior surgery; Surgery date: 6+ months; Surgery type: Gb removed. Appendectomy; Additional info: Assess for hemoperitoneum, thrombocytopenia with falling hb, assess for any abdominal TECHNIQUE: Imaging protocol: Real time ultrasound of the abdomen with image documentation. Limited exam focused on the right upper quadrant. COMPARISON: PT PET skull to thigh SUBS [id number] 03/17/2025 11:30 AM FINDINGS: Liver: Normal. No masses. Gallbladder: Gallbladder has been removed. Common bile duct is not dilated measuring 7 mm. Biliary ducts: See Gallbladder finding. Pancreas: Pancreas is unremarkable. There are multiple simple appearing renal cysts measuring up to 3 cm. Kidneys otherwise unremarkable. No calculi or hydronephrosis. Right kidney: Normal. No mass. No hydronephrosis. Intraperitoneal space: There is no free fluid seen in the right upper quadrant. Other findings: There is unremarkable overall size, contour and echotexture. No masses detected. US/US abdomen limited [id number] IMPRESSION: 1. No acute abnormalities. 2. Prior cholecystectomy. 3. Multiple benign-appearing right renal cysts.
--- NOTE | 2025-05-07 12:57 | PC.NURSE ---
Patient states she does not like the smell of afternoon meal, 25% of morning meal consumed and 25% of afternoon meal. Patient and her were encouraged to bring a meal from home if preferred. Patient offered saltine crackers and vanilla pudding. Patient states the smell of hospital food is making her nauseous. Zofran doll eye setter per MAR, patient states this relieves her nausea until food is offered again.
[2025-05-07 13:15] LABS: Ferritin 645 ng/mL (15-150); Iron 80 ug/dL (37-145); Total Iron Binding Capacity 210 mcg/dl; Unsaturated Iron Binding 130 ug/dL (112-347)
[2025-05-07 13:30] LABS: Vitamin B12 429 pg/mL (232-1245)
[2025-05-07 16:13] LABS: Hematocrit 24.1 % (36-47); Hemoglobin 8.00 g/dL (11.27-16.99); Mean Corpuscular HGB Conc 33.2 g/dL (30-55); Mean Corpuscular Hemoglobin 38.8 pg (27-33); Mean Corpuscular Volume 117.0 fl (85-98); Nucleated Red Blood Cells % 0.2 %; Platelet Count 50 10^3/cmm (157-399); Red Blood Count 2.06 10^6/uL (3.85-5.65); White Blood Count 9.55 10^3/uL (3.29-11.43)
[2025-05-07 16:37] LABS: Alanine Aminotransferase 14 U/L (0-33); Albumin Level 2.9 g/dL (3.5-5.2); Alkaline Phosphatase 116 U/L (35-105); Anion Gap 15.4 (5-19); Aspartate Amino Transferase 35 U/L (0-32); Blood Urea Nitrogen 8 mg/dL (8-23); Calcium 7.8 mg/dL (8.5-10.5); Carbon Dioxide 22 mmol/L (22-29); Chloride 108 mmol/L (98-107); Creatinine Clr Calc Pharmacy 54.2958; Globulin 2.6 g/dL (1.3-4.6); Glucose 109 mg/dL (65-115); Osmolality Calculated 293 mOsm/kg (285-295); Potassium 3.4 mmol/L (3.5-5.1); Sodium 142 mmol/L (136-145); Total Protein 5.5 g/dL (6.6-8.7)
[2025-05-07] MEDS: insulin glargine 100 units/1 mL 10 UNIT SUBCUT (20:34)
--- NOTE | 2025-05-07 22:37 | PC.NURSE ---
Report given to LORRIE Peterson. Patient moved to room and transferred to med surg bed.
--- NOTE | 2025-05-07 23:10 | PC.NURSE ---
Patient and belongings transfered to [facility]. Report called, patient taken in ICU bed.
[2025-05-08 04:10] VITALS: BP 132/74; PULSE 82; RESP 17; TEMP 36.5; O2SAT 94
[2025-05-08 06:20] LABS: Hematocrit 27.7 % (36-47); Hemoglobin 9.20 g/dL (11.27-16.99); Mean Corpuscular HGB Conc 33.2 g/dL (30-55); Mean Corpuscular Hemoglobin 38.0 pg (27-33); Mean Corpuscular Volume 114.5 fl (85-98); Nucleated Red Blood Cells % 0 %; Platelet Count 54 10^3/cmm (157-399); Red Blood Count 2.42 10^6/uL (3.85-5.65); White Blood Count 8.14 10^3/uL (3.29-11.43)
[2025-05-08 06:33] LABS: Alanine Aminotransferase 14 U/L (0-33); Albumin Level 3.1 g/dL (3.5-5.2); Alkaline Phosphatase 133 U/L (35-105); Anion Gap 16.1 (5-19); Aspartate Amino Transferase 36 U/L (0-32); Blood Urea Nitrogen 7 mg/dL (8-23); Calcium 8.1 mg/dL (8.5-10.5); Carbon Dioxide 20 mmol/L (22-29); Chloride 109 mmol/L (98-107); Creatinine Clr Calc Pharmacy 54.3015; Globulin 2.8 g/dL (1.3-4.6); Glucose 51 mg/dL (65-115); Osmolality Calculated 289 mOsm/kg (285-295); Potassium 3.1 mmol/L (3.5-5.1); Sodium 142 mmol/L (136-145); Total Protein 5.9 g/dL (6.6-8.7)
[2025-05-08 06:36] LABS: Magnesium 1.8 mg/dL (1.7-2.3)
[2025-05-08 08:00] VITALS: BP 95/59; PULSE 86; RESP 19; TEMP 36.7; O2SAT 97
--- NOTE | 2025-05-08 08:10 | PC.SOCIAL ---
IMM Update Pg. 2 of IMM Updated and reviewed with patient, who verbalized understanding. Copy provided at bedside.
[2025-05-08 11:02] VITALS: BP 108/68; PULSE 86; RESP 19; TEMP 36.7; O2SAT 98
--- NOTE | 2025-05-08 14:45 | P.PN_ITS ---
Vitals/I&O/Wt Last Vital Signs Temp 98.1 F 05/08/25 11:02 Pulse 86 05/08/25 11:02 Resp 19 H 05/08/25 11:02 BP 108/68 05/08/25 11:02 Pulse Ox 98 05/08/25 11:02 O2 Del Method Room Air 05/08/25 11:02 05/07/25 05/08/25 05/08/25 22:59 06:59 14:59 Intake Total 200 / 710 240 / 950 600 / 600 Output Total 2200 / 4000 Balance -2000 / -3290 240 / -3050 600 / 600 Weight last 48 hrs Weight 65.516 kg Weight 65.5 kg Physical Exam 2 Narrative: General: Awake alert and oriented, no acute distress HEENT: PERRLA, pupils bilaterally equal and reactive, pallors not present Chest: Normal vesicular breath sounds, no added sounds, equal good air entry bilaterally CVS: S1-S2 regular, no murmurs, no tachycardia, no gallops, no rubs Abdomen: Soft, nontender, no organomegaly, bowel sounds present Neuro: Awake alert oriented, Urinary Catheter Management: Awad: Cath Placed During This Visit: yes Reason for Continuing Indwelling Catheter: Accurate Measurement of Urinary Output in Critically Ill Patients Urinary Catheter Date of Insertion: 05/05/25 Urinary Catheter Time of Insertion: 17:20 Data 05/08/25 05:25 05/08/25 05:25 Micro: Microbiology 05/07/25 14:35 Occult Blood (FIT) - Final Stool Routine Collection A&P Assessment and plan (1) Diabetic keto-acidosis: Start patient on insulin drip as per DKA/HHS protocol with target blood sugars between 100-130 Normal saline at 150 cc/h. We will switch to D5 NS once blood sugar less than 250. Monitor BMP every 4 hours, ABG every 4 hrs. Once potassium less than 4 we will add 20 mg of potassium to IV fluids. Monitor saturations. Maintain over 90%. Transition to sliding scale and long-acting insulin once anion gap resolves. (2) Acute metabolic encephalopathy: Acute metabolic encephalopathy related to DKA. Patient currently has low GCS, Will monitor this closely. Currently she is maintaining oxygen saturation of 100% on room air. Should there be any deterioration of her respiratory status that is low threshold for intubation and mechanical ventilation. (3) Intractable nausea and vomiting: likely related to DKA Will obtain CT of the abdomen and pelvis when she is clinically more stable. (4) Lactic acidosis: Most likely related to DKA, ketoacidosis (5) Diarrhea: Patient's reports this is chronic diarrhea, does not think frequency has changed Will check C. difficile PCR today in case infective diarrhea. (6) Leukocytosis: Be related to severe dehydration from DKA, underlying infection not excluded at this point Chest x-ray without any consolidation. Blood cultures have been taken and currently pending C. difficile to be tested. Urine analysis with 3+ ketones, negative nitrate leukocyte esterase or WBCs, not likely UTI. (7) Severe dehydration: (8) Elevated troponin: Elevated troponins with baseline at 163, awaiting 2-hour and 6-hour trend. EKG without acute ST-T wave changes This may be related to NSTEMI versus type II UT from DKA. Will check echocardiogram Start heparin drip while undergoing evaluation Aspirin to be given rectally. (9) C. difficile diarrhea: (10) Hypokalemia: Plan Dvt ppx: heparin drip Full code May 06, 2025 Patient is significantly improved today. She is awake alert oriented x 3. Anion gap has closed. Fingersticks are well-controlled. She is currently on Lantus 20 units daily and also low-dose insulin sliding scale. Maintained on D5 infusion today at 50 cc an hour in view of hypernatremia. Sodium at 146 today. Repeat CMP at 4 PM shows improving sodium at 142. HbA1c at 7.8. Leukocytosis is trending down. Patient had diarrhea today, tested positive for C. difficile PCR. Started on Dificid 200 mg p.o. twice daily. Will aim to discontinue antibiotics including cefepime and vancomycin next 24 hours if other infectious evaluation remains negative. Troponin series trended down, suspect elevated troponins were related to type II UT related to DKA. Echocardiogram showing a normal LV function of EF 55 to 60%, no regional wall motion abnormalities, trace MR. Discontinue full dose Lovenox as started yesterday. Resume patient's other home medications including levothyroxine, Protonix, topiramate. Transfer out of ICU to [facility] today. May 07, 2025 Patient remains alert awake and oriented. Anion gap remains closed. She was hypoglycemic this morning. Dose of Lantus has been reduced to 10 units daily. Insulin sliding scale has been continued. Discontinue D5 infusion today as hypernatremia has resolved. Hyperkalemia this morning which has been repleted with IV and oral potassium supplementation. Repeat CMP at 4 PM today. Continue Dificid for C. difficile diarrhea. Patient still reports multiple episodes of diarrhea, but they are small-volume and mostly after eating. Likely that hypokalemia is currently related to ongoing GI losses. Encourage oral p.o. intake. Discontinue cefepime as no other infectious source found other than the C. difficile. Patient noted to have low hemoglobin at 7.5 today. Additionally platelets noted to be at 49,000.Patient reports that she did resume FOLFOX 2 weeks ago. Reports that it was stopped for pancytopenia in the past where her platelets had dropped to below number of 66,000. However it was resumed once platelets showed recovery. Last infusion was 2 weeks ago. Suspect that both anemia and thrombocytopenia may be related to recent chemotherapy. Monitor for any signs of active bleeding. Check fecal occult blood testing. Discontinue Lovenox prophylaxis and use SCDs only for DVT ppx in view of falling platelets. Transfuse packed red blood cells if hemoglobin less than 7. Continue midodrine 10mg TID to maintain BP. Awaiting bed to transfer out of ICU . Encourage OOB ambulation. 05/08/2025 Seen this morning. States diarrhea has not really improved too much however her nausea is getting better. She made a comment saying this is the first time I have not vomited after eating. Labs indicate thrombocytopenia with platelets 54, hemoglobin 9.2 Potassium 3.1 today. Creatinine 0.9. Phosphorus 1.9. Will order K-Phos 40 x 1 FOBT is pending at this time. Continue SCDs for DVT prophylaxis Blood sugar was low this morning at 51. Discussed with her regarding that. She is on Lantus 10 units at bedtime. She states that at home if her sugar was low at night she would not have given herself Lantus. She states she titrates according to her sugars. She states she is well aware of how to manage her blood sugar and she would like to go home. I will dose reduce Lantus to 5 units at bedtime. Hemoglobin A1c 7.8. At home she used to take Lantus 20. She will need to go home on 10 days of vancomycin at time of discharge. Peripheral smear is pending. I believe her pancytopenia may be secondary to chemo. Will consider discharge in a.m. if patient continues to improve and remained stable. PDMP PDMP Reviewed: Not Reviewed Attestations 2 Medical Necessity Statement*: adjust lantus, falling platelets and HB, monitor closely, c diff diarrhea Diagnoses Diabetic keto-acidosis E11.10 Acute metabolic encephalopathy G93.41 Intractable nausea and vomiting R11.2 Lactic acidosis E87.20 Diarrhea R19.7 Leukocytosis D72.829 Severe dehydration E86.0 Elevated troponin R79.89 C. difficile diarrhea A04.72 Hypokalemia E87.6
[2025-05-08 15:42] VITALS: BP 120/65; PULSE 93; RESP 19; TEMP 36.5; O2SAT 96
[2025-05-08] MEDS: potassium phosphate (mEq K) 40 MEQ in sodium chloride 0.9% (100 ml) 100 ML 27.25 MEQ IV (18:08)
[2025-05-08 19:41] VITALS: BP 112/52; BP 78/50; PULSE 92; RESP 16; TEMP 36.8; O2SAT 96
[2025-05-08] MEDS: insulin glargine 100 units/1 mL 5 UNIT SUBCUT (22:11)
[2025-05-08 23:56] VITALS: BP 111/59; PULSE 95; RESP 16; TEMP 36.8; O2SAT 97
[2025-05-09 04:00] VITALS: BP 99/61; PULSE 89; RESP 18; TEMP 36.8; O2SAT 96
[2025-05-09 04:28] LABS: Hematocrit 26.1 % (36-47); Hemoglobin 8.30 g/dL (11.27-16.99); Mean Corpuscular HGB Conc 31.8 g/dL (30-55); Mean Corpuscular Hemoglobin 38.1 pg (27-33); Mean Corpuscular Volume 119.7 fl (85-98); Nucleated Red Blood Cells % 0 %; Platelet Count 49 10^3/cmm (157-399); Red Blood Count 2.18 10^6/uL (3.85-5.65); White Blood Count 5.51 10^3/uL (3.29-11.43)
[2025-05-09 04:49] LABS: Alanine Aminotransferase 12 U/L (0-33); Albumin Level 2.8 g/dL (3.5-5.2); Alkaline Phosphatase 122 U/L (35-105); Anion Gap 15.5 (5-19); Aspartate Amino Transferase 29 U/L (0-32); Blood Urea Nitrogen 10 mg/dL (8-23); Calcium 8.0 mg/dL (8.5-10.5); Carbon Dioxide 21 mmol/L (22-29); Chloride 112 mmol/L (98-107); Creatinine Clr Calc Pharmacy 51.6484; Globulin 2.6 g/dL (1.3-4.6); Glucose 133 mg/dL (65-115); Magnesium 1.8 mg/dL (1.7-2.3); Osmolality Calculated 299 mOsm/kg (285-295); Potassium 4.5 mmol/L (3.5-5.1); Sodium 144 mmol/L (136-145); Total Protein 5.4 g/dL (6.6-8.7)
[2025-05-09 08:08] VITALS: BP 128/76; PULSE 98; RESP 18; TEMP 36.6; O2SAT 97
--- NOTE | 2025-05-09 08:41 | P.DS_ITS ---
Discharge Providers Date of Admission: 05/05/25 12:15 Date of Discharge: May 09, 2025 Attending Provider at Admission: Yani Morgan MD Attending Provider at Discharge: Jennifer Latham MD Primary Care Provider: Liliana Kat APRN Diagnoses at Discharge Discharge Diagnosis (1) Diabetic keto-acidosis: Status: Resolved (2) Acute metabolic encephalopathy: Status: Resolved (3) Intractable nausea and vomiting: Status: Resolved (4) Lactic acidosis: Status: Resolved (5) Diarrhea: Status: Acute (6) Leukocytosis: Status: Resolved (7) Severe dehydration: Status: Resolved (8) Elevated troponin: Status: Acute (9) C. difficile diarrhea: Status: Acute (10) Hypokalemia: Status: Resolved Reason for Visit Reason for Visit: high blood glucose Hospital Course Hospital Course Patient was initially admitted to the hospital with severe DKA. She received usual management with insulin drip. DKA resolved. She was transition to Lantus and insulin sliding scale after which she developed hypoglycemia therefore Lantus dosing was decreased further. She was encephalopathic on arrival however mental status improved going forward. She does have a history of cancer for which she is currently on immunotherapy and also received FOLFOX chemotherapy 2 weeks ago. Patient has thrombocytopenia and anemia which is related to chemotherapy. FOBT was negative. C. difficile positive. She was maintained on fidaxomicin in the hospital. However because the medication was expensive patient was unable to get that as an outpatient. I personally talked to pharmacy staff and ordered oral vancomycin for her. Pharmacy will be delivering the patient the oral vancomycin to her house today. Patient's platelet counts are 49-52,000 range. Discussed with oncology over the phone. Dr. Love reviewed patient's chart and stated that he wanted to see the patient early next week prior to her next chemo treatment. He stated no other treatment indicated at this time for her cell counts. She will have repeat labs done on Thursday and see oncology next week. Patient demonstrates understanding. She states usually she can manage her blood sugar really well at home and adjust her Lantus and sliding scale insulin dosing. However when she has chemo and receives steroids her b lood sugar goes very high and that is what precipitated the DKA at this time. Physical Exam Narrative: General: Awake alert and oriented, no acute distress HEENT: PERRLA, pupils bilaterally equal and reactive, pallors not present Chest: Normal vesicular breath sounds, no added sounds, equal good air entry bilaterally CVS: S1-S2 regular, no murmurs, no tachycardia, no gallops, no rubs Abdomen: Soft, nontender, no organomegaly, bowel sounds present Neuro: Awake alert oriented, Urinary Catheter Management: Awad: Cath Placed During This Visit: yes Reason for Continuing Indwelling Catheter: Other Urinary Catheter Date of Insertion: 05/05/25 Urinary Catheter Time of Insertion: 17:20 Discharge Data Studies Completed and Pending Completed Studies During Hospitalization Category Date Time Status XR chest 1V portable [id number] Stat Exams 05/05/25 10:12 Completed CV. echo complete* [id number] Routine Ultrasound 05/06/25 17:11 Completed US abdomen limited [id number] Routine Ultrasound 05/07/25 12:49 Completed Pending at discharge Category Date Time Status Blood Culture Stat Lab 05/05/25 10:48 Results VBG [Venous Blood Gas] Q6H Lab 05/05/25 04:00 Results Radiology Impressions Chest X-Ray 05/05/25 10:12 IMPRESSION: 1. Soft tissue mass seen in the RIGHT superior pulmonary sulcus. 2. Right-sided Chemo-Port in satisfactory position. Abdomen Ultrasound 05/07/25 12:49 IMPRESSION: 1. No acute abnormalities. 2. Prior cholecystectomy. 3. Multiple benign-appearing right renal cysts. ADDENDUM: 05/07/25 1511 Please disregard the sentence attached to other findings. Laboratory Results WBC 5.51 10^3/uL (3.29-11.43) 05/09/25 03:43 RBC 2.18 10^6/uL (3.85-5.65) L 05/09/25 03:43 Hgb 8.30 g/dL (11.27-16.99) L 05/09/25 03:43 Hct 26.1 % (36-47) L 05/09/25 03:43 MCV 119.7 fl (85-98) H 05/09/25 03:43 MCH 38.1 pg (27-33) H 05/09/25 03:43 MCHC 31.8 g/dL (30-55) 05/09/25 03:43 RDW 17.1 % (12.1-15.1) H 05/09/25 03:43 Plt Count 49 10^3/cmm (157-399) L 05/09/25 03:43 MPV 13.0 fL (7.4-10.4) H 05/09/25 03:43 Neut % (Auto) 79.6 % 05/09/25 03:43 Lymph % (Auto) 9.3 % 05/09/25 03:43 [place] % (Auto) 10.0 % 05/09/25 03:43 Eos % (Auto) 0.4 % 05/09/25 03:43 Baso % (Auto) 0.2 % 05/09/25 03:43 Neut # (Auto) 4.39 10^3/uL (1.8-7.7) 05/09/25 03:43 Lymph # (Auto) 0.5 10^3/uL (0.8-4.8) L 05/09/25 03:43 [place] # (Auto) 0.6 10^3/uL (0.2-0.9) 05/09/25 03:43 Eos # (Auto) 0.0 10^3/uL (0.0-0.8) 05/09/25 03:43 Baso # (Auto) 0.0 10^3/uL (0.0-0.1) 05/09/25 03:43 Nucleated RBC % (auto) 0 % 05/09/25 03:43 Nucleated RBCs # 0.0 /100WBC 05/09/25 03:43 Specimen Type Venous 05/06/25 02:22 Sample Site Brachial, right 05/05/25 21:32 ABG pH 6.95 (7.35-7.45) L* 05/05/25 14:30 ABG pCO2 14.4 mmHg (35-45) L* 05/05/25 14:30 ABG pO2 124.0 mmHg (80.0-100.0) H 05/05/25 14:30 ABG PO2/FiO2 Ratio 590 05/05/25 14:30 ABG HCO3 3.2 mmol/L (22-26) L 05/05/25 14:30 ABG O2 Saturation 98.3 05/05/25 10:20 ABG Base Excess -27.0 mmol/L (-2.0-2.0) L 05/05/25 14:30 [place]ille Test N/a 05/06/25 02:22 VBG pH 7.38 (7.32-7.42) 05/06/25 02:22 VBG pCO2 39.4 mmHg (41-51) L 05/06/25 02:22 VBG pO2 22.2 mmHg (25-40) L 05/06/25 02:22 VBG HCO3 23.5 mmol/L (24-28) L 05/06/25 02:22 VBG Base Excess -1.5 mmol/L (-3.0-3.0) 05/06/25 02:22 VBG Hematocrit 23.5 % (37-47) L 05/06/25 02:22 A-a O2 Gradient 0.6 mmHg (5-10) L 05/05/25 10:20 Hematocrit 26.9 % (37-47) L 05/05/25 14:30 Hgb O2 Saturation 95.2 % (95-100) 05/05/25 10:20 Carboxyhemoglobin 1.6 %THgb (0.4-20.1) 05/05/25 10:20 Methemoglobin 1.5 % (0.4-1.5) 05/05/25 10:20 Total Hemoglobin 9.4 g/dL (12-16) L 05/05/25 10:20 Sodium 139.0 mmol/L (131-143) 05/05/25 10:20 Potassium 5.0 mmol/L (3.5-5.0) 05/05/25 10:20 Glucose 663.0 mg/dL (70-115) H 05/05/25 10:20 Ionized Calcium 1.3 mmol/L (1.1-1.4) 05/05/25 10:20 O2 Delivery Device None 05/06/25 02:22 FiO2 21.0 % 05/06/25 02:22 Shipping/Receiving Clerk ID [place] 05/06/25 02:22 Sodium 144 mmol/L (136-145) 05/09/25 03:43 Potassium 4.5 mmol/L (3.5-5.1) 05/09/25 03:43 Chloride 112 mmol/L (98-107) H 05/09/25 03:43 Carbon Dioxide 21 mmol/L (22-29) L 05/09/25 03:43 Anion Gap 15.5 (5-19) 05/09/25 03:43 BUN 10 mg/dL (8-23) 05/09/25 03:43 Creatinine 0.9 mg/dL (0.5-0.9) 05/09/25 03:43 GFR Calculation Not Reportable 05/09/25 03:43 Glucose 133 mg/dL (65-115) H 05/09/25 03:43 POC Glucose 123 mg/dL (70-110) H 05/09/25 06:03 Estimat Average Glucose 177 05/06/25 03:19 Hemoglobin A1c 7.8 % (4.0-6.0) H 05/06/25 03:19 Calculated Osmolality 299 mOsm/kg (285-295) H 05/09/25 03:43 Lactic Acid 6.3 mmol/L (0.5-2.2) H* 05/05/25 10:48 Lactic Acid (Sepsis) 4.4 mmol/L (0.5-2.2) H* 05/05/25 13:50 Lactate 2.2 mmol/L (0.5-2.2) 05/05/25 21:20 Calcium 8.0 mg/dL (8.5-10.5) L 05/09/25 03:43 Phosphorus 1.9 mg/dL (2.5-4.5) L 05/08/25 05:25 Magnesium 1.8 mg/dL (1.7-2.3) 05/09/25 03:43 Iron 80 ug/dL (37-145) 05/07/25 04:17 TIBC 210 mcg/dl 05/07/25 04:17 % Saturation 38.0 % (20-50) 05/07/25 04:17 Unsat Iron Binding 130 ug/dL (112-347) 05/07/25 04:17 Ferritin 645 ng/mL (15-150) H 05/07/25 04:17 Total Bilirubin 0.2 mg/dL (0.15-1.2) 05/09/25 03:43 AST 29 U/L (0-32) 05/09/25 03:43 ALT 12 U/L (0-33) 05/09/25 03:43 Alkaline Phosphatase 122 U/L (35-105) H 05/09/25 03:43 Troponin T Baseline 163 ng/L (0-10) H* 05/05/25 10:48 Troponin T 120 Minute 149.4 ng/L (0-10) H 05/05/25 12:23 Delta Troponin T -13.6 ABS# (0-10) L 05/05/25 12:23 Troponin T Hi Sens 6Hr 141.5 ng/L (0-10) H 05/05/25 18:06 Troponin T Hi Sens 6Hr Delta -21.5 ng/L (0-12) L 05/05/25 18:06 C-Reactive Protein 11.6 mg/L (0.0-4.9) H 05/05/25 10:48 Total Protein 5.4 g/dL (6.6-8.7) L 05/09/25 03:43 Albumin 2.8 g/dL (3.5-5.2) L 05/09/25 03:43 Globulin 2.6 g/dL (1.3-4.6) 05/09/25 03:43 Vitamin B12 429 pg/mL (232-1245) 05/07/25 04:17 Folate > 20.0 ng/mL (4.8-37.3) 05/07/25 04:17 Procalcitonin 1.55 ng/mL (0-0.5) H 05/05/25 10:48 TSH 1.00 uIU/mL (0.27-4.20) 05/05/25 10:48 Urine Color Yellow (Yellow) 05/05/25 10:30 Urine Appearance Clear (CLEAR) 05/05/25 10:30 Urine pH 5.0 (5-7) 05/05/25 10:30 Ur Specific [place] 1.022 (1.005-1.030) 05/05/25 10:30 Urine Protein 1+ (Negative) A 05/05/25 10:30 Urine Glucose (UA) 3+ (Normal) H 05/05/25 10:30 Urine Ketones 3+ (Negative) H 05/05/25 10:30 Urine Blood Trace (Negative) A 05/05/25 10:30 Urine Nitrate Negative (Negative) 05/05/25 10:30 Urine Bilirubin Negative (Negative) 05/05/25 10:30 Urine Urobilinogen 0.2 mg/dL (Negative) 05/05/25 10:30 Ur Leukocyte Esterase Negative (Negative) 05/05/25 10:30 Urine RBC 0-2 /hpf (0-2) 05/05/25 10:30 Urine WBC 0-5 /hpf (0-5) 05/05/25 10:30 Ur Squamous Epith Cells 0-5 /hpf (0-5) 05/05/25 10:30 Amorphous Sediment Not Reportable 05/05/25 10:30 Urine Bacteria None seen /hpf (NONE) 05/05/25 10:30 Hyaline Casts 3.71 /lpf 05/05/25 10:30 Serum Ketones Positive (Negative) H 05/05/25 10:48 C. difficile (PCR) Positive (Negative) H 05/06/25 11:00 C.difficile Tox Confrm Negative (Negative) 05/06/25 11:00 Influenza A (PCR) Negative (Negative) 05/05/25 10:30 Influenza Type B (PCR) Negative (Negative) 05/05/25 10:30 RSV (PCR) Negative (Negative) 05/05/25 10:30 SARS-CoV-2 (PCR) Negative (Negative) 05/05/25 10:30 Vitals Last Vital Signs Temp 98 F 05/09/25 08:08 Pulse 98 05/09/25 08:08 Resp 18 05/09/25 08:08 BP 128/76 05/09/25 08:08 Pulse Ox 97 05/09/25 08:08 O2 Del Method Room Air 05/09/25 08:08 Discharge Plan Discharge Patient Disposition: Home Condition: Stable Prescriptions: New midodrine 5 mg Tablet 10 mg PO TID Qty: 60 0RF Dificid 200 mg Tablet 200 mg PO Q12H 10 Days Qty: 20 0RF Continued topiramate 25 mg tablet 50 mg PO .QHS loratadine 10 mg capsule 10 mg PO DAILY PRN (Reason: allergy symptoms) insulin aspart U-100 [Novolog FlexPen U-100 Insulin] 100 unit/mL (3 mL) insulin pen See Rx Instructions SUBCUT TID PRN (Reason: high blood sugar) Rx Instructions: sliding scale subcutaneously three times daily PRN; sliding scale - max of 50 units daily diphenhydramine HCl [Benadryl] 25 mg capsule 25 mg PO .hs PRN (Reason: Sleep) albuterol sulfate 90 mcg/actuation HFA aerosol inhaler 2 inh inhalation .Q4-6h PRN (Reason: wheezing) Qty: 8.5 0RF ascorbic acid (vitamin C) 500 mg tablet 500 mg PO DAILY diphenoxylate-atropine [Lomotil] 2.5-0.025 mg tablet 1 tab PO Q6H PRN (Reason: diarrhea) Qty: 30 2RF lorazepam 1 mg tablet 0.5 - 1 mg PO Q6H PRN (Reason: severe nausea) Qty: 30 3RF prochlorperazine maleate [Compazine] 10 mg tablet 10 mg PO Q4H PRN (Reason: mild nausea) Qty: 30 3RF ondansetron HCl 4 mg tablet 4 mg PO Q6H PRN (Reason: nausea and vomiting) Qty: 30 3RF hydrocodone-acetaminophen 10-325 mg tablet 1 tab PO Q6H PRN (Reason: Pain) PNV cmb#[id number] fumarate-FA [] 28 mg iron- 800 mcg Tablet 1 tab PO DAILY Clear Eyes Complete 0.025-0.2-0.5 % Drops 1 drp OPHTHALMIC (EYE) QID PRN (Reason: Dry Eyes) guaifenesin [Mucinex] 600 mg Tablet Extended Release 12hr 600 mg PO BID PRN (Reason: Congestion) pantoprazole [Protonix] 40 mg tablet,delayed release (DR/EC) 40 mg PO DAILY Arnuity Ellipta 100 mcg/actuation blister with device 1 inh inhalation DAILY Changed potassium chloride 10 mEq capsule, extended release 10 meq PO DAILY MDD Hypokalemia Qty: 60 0RF insulin glargine [Lantus Solostar U-100 Insulin] 100 unit/mL (3 mL) insulin pen 5 unit SUBCUT BEDTIME Qty: 3 0RF Held durvalumab 50 mg/mL solution 1,207 mg IV Q28D Qty: 30 0RF Hold Instructions: see oncology Rx Instructions: administer over 60 mins Discontinued amoxicillin-pot clavulanate [Augmentin] 500-125 mg tablet 1 tab PO BID 7 Days Qty: 14 0RF No Action levothyroxine 200 mcg tablet See Rx Instructions .ROUTE .COMPLEX Qty: 30 3RF Dose Instruction: TAKE 1 TABLET BY MOUTH ONCE DAILY IN THE MORNING WITH FULL GLASS OF WATER. NO FOOD OR DRINK FOR ONE HOUR. (DOSE INCREASE) Rx Instructions: TAKE 1 TABLET BY MOUTH ONCE DAILY IN THE MORNING WITH FULL GLASS OF WATER. NO FOOD OR DRINK FOR ONE HOUR. (DOSE INCREASE) Discharge Orders: Discharge Order (Routine); Ordered 05/09/25 Ordered By: Jennifer Latham Other Ambulatory Orders: Basic Metabolic Panel (Routine) Timeframe: 20250512 Facility: [facility] - Location: Lab - Main Lab Ordered By: Jennifer Latham Referrals: Liliana Kat APRN [Primary Care Provider, Family Practice] - 1-3 days Roderick Beatty MD [Hospitalist, Oncology] - 4-7 days Referral Note: We have notified your physician's clinic of the need for a follow-up appointment to be scheduled. If you have not heard from them within the next 2 business days, please call them directly. Discharge Diet: GI Soft Patient Instructions: Midodrine (By mouth), Fidaxomicin (By mouth) (Dificid), Dehydration (DC), Diabetic Ketoacidosis (DC), C. Diff (Clostridioides Difficile) Infection (DC), Altered Mental Status (ED), Opioid Safety, Patient Portal & Pedro Instructions Discharge Attestations Time Spent in Discharge Care*: greater than 30 min Quality Metrics Clinical Quality Measures [ No reported AMI, CVA or VTE this stay] Coding Level of Care Code Acute Code for Chg Fwd Diagnoses Diabetic keto-acidosis E11.10 Acute metabolic encephalopathy G93.41 Intractable nausea and vomiting R11.2 Lactic acidosis E87.20 Diarrhea R19.7 Leukocytosis D72.829 Severe dehydration E86.0 Elevated troponin R79.89 C. difficile diarrhea A04.72 Hypokalemia E87.6
[2025-05-09 12:21] VITALS: BP 137/70; PULSE 94; RESP 18; TEMP 36.8; O2SAT 99
== END 2025-05-09 13:25 | disposition home or self-care (01) | DRG 637 ==
LOC: ER 10:44 → ICU 12:15 → MEDSURG 05-07 22:23
PROVIDERS: Internal Medicine; Admitting Provider Student in an Organized Health Care Education/Training Program; Emergency Provider Emergency Medicine; PCP Nurse Practitioner Family; Visit Provider Internal Medicine
DX: E11.10 Type 2 diabetes mellitus with ketoacidosis without coma (principal); G93.41 Metabolic encephalopathy; I21.A1 Myocardial infarction type 2; A04.72 Enterocolitis due to Clostridium difficile, not specified as recurrent; N17.9 Acute kidney failure, unspecified; C18.9 Malignant neoplasm of colon, unspecified; E86.0 Dehydration; E87.6 Hypokalemia; E03.9 Hypothyroidism, unspecified; E78.5 Hyperlipidemia, unspecified; D69.59 Other secondary thrombocytopenia; T45.1X5A Adverse effect of antineoplastic and immunosuppressive drugs, initial encounter; D64.81 Anemia due to antineoplastic chemotherapy; E11.22 Type 2 diabetes mellitus with diabetic chronic kidney disease; N18.9 Chronic kidney disease, unspecified; E11.649 Type 2 diabetes mellitus with hypoglycemia without coma; Z79.60 Long term (current) use of unspecified immunomodulators and immunosuppressants; Z79.4 Long term (current) use of insulin; Z79.891 Long term (current) use of opiate analgesic; Z85.118 Personal history of other malignant neoplasm of bronchus and lung; Z95.828 Presence of other vascular implants and grafts; Z87.891 Personal history of nicotine dependence; Z90.49 Acquired absence of other specified parts of digestive tract
CPT/HCPCS: 36415; 36416; 36592; 36600; 51702; 71045; 76705; 80048; 80051; 80053; 81001; 82009; 82274; 82330; 82607; 82728; 82746; 82803; 82805; 82947; 82962; 83036; 83540; 83550; 83605; 83735; 84100; 84145; 84443; 84484; 85025; 86140; 87040; 87324; 87493; 87637; 93005; 93306; 96365; 96366; 96367; 96372; 96374; 96375; 96376; 99291; 99292; J0612; J0692; J1644; J1650; J1815; J2020; J2185; J2405; J3370; J3475; J7030; J7050; J7070; J7120; J9999

== ENCOUNTER 2025-06-07 09:00 | Oncology outpatient (recurring) (ONCR) | payer MEDICARE, SELFPAY ==
[2025-05-17 07:43] LABS: Hematocrit 30.7 % (36-47); Hemoglobin 9.90 g/dL (11.27-16.99); Mean Corpuscular HGB Conc 32.2 g/dL (30-55); Mean Corpuscular Hemoglobin 38.5 pg (27-33); Mean Corpuscular Volume 119.5 fl (85-98); Nucleated Red Blood Cells % 0 %; Platelet Count 169 10^3/cmm (157-399); Red Blood Count 2.57 10^6/uL (3.85-5.65); White Blood Count 4.90 10^3/uL (3.29-11.43)
[2025-05-17 08:15] LABS: Alanine Aminotransferase 10 U/L (0-33); Albumin Level 3.3 g/dL (3.5-5.2); Alkaline Phosphatase 138 U/L (35-105); Anion Gap 18.9 (5-19); Aspartate Amino Transferase 19 U/L (0-32); Blood Urea Nitrogen 11 mg/dL (8-23); Calcium 8.9 mg/dL (8.5-10.5); Carbon Dioxide 20 mmol/L (22-29); Chloride 105 mmol/L (98-107); Creatinine Clr Calc Pharmacy 35.8890; Free T4 Free Thyroxine 1.81 ng/dL (0.82-1.77); Globulin 3.2 g/dL (1.3-4.6); Glucose 137 mg/dL (65-115); Osmolality Calculated 292 mOsm/kg (285-295); Potassium 3.9 mmol/L (3.5-5.1); Sodium 140 mmol/L (136-145); Thyroid Stimulating Hormone 0.40 uIU/mL (0.27-4.20); Total Protein 6.5 g/dL (6.6-8.7)
[2025-05-17 11:31] VITALS: BP 127/61; PULSE 90; TEMP 36.5; O2SAT 95
[2025-05-24 08:22] LABS: Hematocrit 32.0 % (36-47); Hemoglobin 10.30 g/dL (11.27-16.99); Mean Corpuscular HGB Conc 32.2 g/dL (30-55); Mean Corpuscular Hemoglobin 38.3 pg (27-33); Mean Corpuscular Volume 119.0 fl (85-98); Nucleated Red Blood Cells % 0 %; Platelet Count 122 10^3/cmm (157-399); Red Blood Count 2.69 10^6/uL (3.85-5.65); White Blood Count 5.47 10^3/uL (3.29-11.43)
[2025-05-24 08:44] LABS: Alanine Aminotransferase 13 U/L (0-33); Albumin Level 3.4 g/dL (3.5-5.2); Alkaline Phosphatase 128 U/L (35-105); Anion Gap 16.9 (5-19); Aspartate Amino Transferase 28 U/L (0-32); Blood Urea Nitrogen 13 mg/dL (8-23); Calcium 9.1 mg/dL (8.5-10.5); Carbon Dioxide 21 mmol/L (22-29); Chloride 110 mmol/L (98-107); Creatinine Clr Calc Pharmacy 51.9992; Ferritin 225 ng/mL (15-150); Globulin 3.2 g/dL (1.3-4.6); Glucose 101 mg/dL (65-115); Iron 80 ug/dL (37-145); Osmolality Calculated 298 mOsm/kg (285-295); Potassium 3.9 mmol/L (3.5-5.1); Sodium 144 mmol/L (136-145); Total Iron Binding Capacity 226 mcg/dl; Total Protein 6.6 g/dL (6.6-8.7); Unsaturated Iron Binding 146 ug/dL (112-347)
[2025-05-24 08:58] LABS: Vitamin B12 500 pg/mL (232-1245)
[2025-05-24] MEDS: durvalumab 1,500 MG in sodium chloride 0.9% 250 ML 280 MG IV (09:49)
[2025-05-24 11:00] VITALS: BP 112/72; PULSE 88; RESP 16; TEMP 36.5; O2SAT 96
[2025-06-07 09:13] LABS: Hematocrit 31.9 % (36-47); Hemoglobin 10.30 g/dL (11.27-16.99); Mean Corpuscular HGB Conc 32.3 g/dL (30-55); Mean Corpuscular Hemoglobin 36.3 pg (27-33); Mean Corpuscular Volume 112.3 fl (85-98); Nucleated Red Blood Cells % 0 %; Platelet Count 171 10^3/cmm (157-399); Red Blood Count 2.84 10^6/uL (3.85-5.65); White Blood Count 5.97 10^3/uL (3.29-11.43)
[2025-06-07 09:29] LABS: Alanine Aminotransferase 8 U/L (0-33); Albumin Level 3.5 g/dL (3.5-5.2); Alkaline Phosphatase 133 U/L (35-105); Anion Gap 17.5 (5-19); Aspartate Amino Transferase 14 U/L (0-32); Blood Urea Nitrogen 12 mg/dL (8-23); Calcium 9.2 mg/dL (8.5-10.5); Carbon Dioxide 22 mmol/L (22-29); Chloride 106 mmol/L (98-107); Creatinine Clr Calc Pharmacy 51.9992; Globulin 3.1 g/dL (1.3-4.6); Glucose 179 mg/dL (65-115); Osmolality Calculated 298 mOsm/kg (285-295); Potassium 3.5 mmol/L (3.5-5.1); Sodium 142 mmol/L (136-145); Total Protein 6.6 g/dL (6.6-8.7)
[2025-06-07] MEDS: dexamethasone 4 mg/mL INJ 5 mL 12 MG IVP (10:55)
[2025-06-07] MEDS: DEXTROSE 5% IV (11:54)
[2025-06-07] MEDS: leucovorin 650 MG in dextrose 5% 250 ML 62.5 MG IV (11:54)
[2025-06-07] MEDS: OXALIPLATIN IV (11:54)
[2025-06-07] MEDS: fluorouraciL 3,900 MG, elastomeric pump 1 PUMP in sodium chloride 0.9% (100 ml) 14 ML IV (14:32)
== END 2025-06-08 23:59 | disposition home or self-care (01) ==
PROVIDERS: Nurse Practitioner; PCP Nurse Practitioner Family; Visit Provider Internal Medicine
DX: Z53.9 Procedure and treatment not carried out, unspecified reason; Z51.11 Encounter for antineoplastic chemotherapy; C18.2 Malignant neoplasm of ascending colon; Z79.52 Long term (current) use of systemic steroids; Z79.631 Long term (current) use of antimetabolite agent; Z87.891 Personal history of nicotine dependence; Z79.899 Other long term (current) drug therapy; Z90.49 Acquired absence of other specified parts of digestive tract; Z92.3 Personal history of irradiation
CPT/HCPCS: 80053; 82607; 82728; 82746; 83010; 83540; 83550; 83615; 84439; 84443; 84481; 85025; 96360; 96361; 96413; 99213; 99214; A4222; J0640; J1100; J2469; J7030; J7050; J7060; J9173; J9190; J9263

== ENCOUNTER 2025-06-30 10:30 | Oncology outpatient (recurring) (ONCR) | payer MEDICARE, SELFPAY ==
[2025-06-21 08:04] LABS: Hematocrit 30.4 % (36-47); Hemoglobin 9.80 g/dL (11.27-16.99); Mean Corpuscular HGB Conc 32.2 g/dL (30-55); Mean Corpuscular Hemoglobin 35.0 pg (27-33); Mean Corpuscular Volume 108.6 fl (85-98); Nucleated Red Blood Cells % 0 %; Platelet Count 123 10^3/cmm (157-399); Red Blood Count 2.80 10^6/uL (3.85-5.65); White Blood Count 5.68 10^3/uL (3.29-11.43)
[2025-06-21 08:28] LABS: Alanine Aminotransferase 14 U/L (0-33); Albumin Level 3.4 g/dL (3.5-5.2); Alkaline Phosphatase 148 U/L (35-105); Anion Gap 22.7 (5-19); Aspartate Amino Transferase 20 U/L (0-32); Blood Urea Nitrogen 20 mg/dL (8-23); Calcium 8.9 mg/dL (8.5-10.5); Carbon Dioxide 17 mmol/L (22-29); Chloride 102 mmol/L (98-107); Creatinine Clr Calc Pharmacy 36.2234; Globulin 3.0 g/dL (1.3-4.6); Glucose 311 mg/dL (65-115); Osmolality Calculated 300 mOsm/kg (285-295); Potassium 3.7 mmol/L (3.5-5.1); Sodium 138 mmol/L (136-145); Total Protein 6.4 g/dL (6.6-8.7)
[2025-06-22 08:23] VITALS: BP 111/64; PULSE 106; TEMP 36.1; O2SAT 99
[2025-06-23 08:06] VITALS: BP 116/66; PULSE 100; RESP 16; TEMP 36.4; O2SAT 99
[2025-06-23 09:16] VITALS: BP 118/68; PULSE 103; RESP 16; TEMP 36.1; O2SAT 99
[2025-06-28 08:11] LABS: Hematocrit 33.4 % (36-47); Hemoglobin 10.70 g/dL (11.27-16.99); Mean Corpuscular HGB Conc 32.0 g/dL (30-55); Mean Corpuscular Hemoglobin 34.4 pg (27-33); Mean Corpuscular Volume 107.4 fl (85-98); Nucleated Red Blood Cells % 0 %; Platelet Count 201 10^3/cmm (157-399); Red Blood Count 3.11 10^6/uL (3.85-5.65); White Blood Count 4.33 10^3/uL (3.29-11.43)
[2025-06-28 08:30] LABS: Alanine Aminotransferase 14 U/L (0-33); Albumin Level 3.2 g/dL (3.5-5.2); Alkaline Phosphatase 149 U/L (35-105); Anion Gap 13.4 (5-19); Aspartate Amino Transferase 24 U/L (0-32); Blood Urea Nitrogen 9 mg/dL (8-23); Calcium 8.5 mg/dL (8.5-10.5); Carbon Dioxide 23 mmol/L (22-29); Chloride 107 mmol/L (98-107); Creatinine Clr Calc Pharmacy 54.5146; Ferritin 225 ng/mL (15-150); Globulin 3.3 g/dL (1.3-4.6); Glucose 128 mg/dL (65-115); Iron 46 ug/dL (37-145); Magnesium 1.6 mg/dL (1.7-2.3); Osmolality Calculated 290 mOsm/kg (285-295); Potassium 3.4 mmol/L (3.5-5.1); Sodium 140 mmol/L (136-145); Total Iron Binding Capacity 189 mcg/dl; Total Protein 6.5 g/dL (6.6-8.7); Unsaturated Iron Binding 143 ug/dL (112-347)
[2025-06-28 08:36] LABS: Carcinoembryonic Antigen 8.9 ng/mL (0.0-4.7)
[2025-06-28 08:46] LABS: Vitamin B12 598 pg/mL (232-1245)
[2025-06-28] MEDS: durvalumab 1,500 MG in sodium chloride 0.9% 250 ML 280 MG IV (09:30)
[2025-06-28] MEDS: dexamethasone 4 mg/mL INJ 5 mL 12 MG IVP (10:39)
[2025-06-28] MEDS: leucovorin 640 MG in dextrose 5% 250 ML 140 MG IV (10:58)
[2025-06-28] MEDS: DEXTROSE 5% IV (10:58)
[2025-06-28] MEDS: OXALIPLATIN IV (10:58)
[2025-06-28] MEDS: fluorouraciL 3,800 MG, elastomeric pump 1 PUMP in sodium chloride 0.9% (100 ml) 16 ML IV (13:13)
[2025-06-28 13:19] VITALS: BP 132/69; PULSE 100; RESP 18
[2025-06-30 10:30] VITALS: BP 118/69; PULSE 98; RESP 16; TEMP 36.4; O2SAT 98
== END 2025-07-09 23:59 | disposition home or self-care (01) ==
PROVIDERS: Nurse Practitioner; Nurse Practitioner Family; PCP Nurse Practitioner Family; Visit Provider Internal Medicine
DX: Z45.1 Encounter for adjustment and management of infusion pump; Z95.828 Presence of other vascular implants and grafts; Z53.9 Procedure and treatment not carried out, unspecified reason
CPT/HCPCS: 80053; 82378; 82607; 82728; 82746; 83010; 83540; 83550; 83615; 83735; 85025; 86880; 96360; 96375; 96413; 96415; 96416; 96417; 96523; 99213; 99214; A4222; J0640; J1100; J2469; J7030; J7050; J7060; J9173; J9190; J9263

== ENCOUNTER 2025-08-04 13:30 | Oncology outpatient (recurring) (ONCR) | payer MEDICARE, SELFPAY ==
[2025-07-12 08:31] LABS: Hematocrit 33.9 % (36-47); Hemoglobin 10.90 g/dL (11.27-16.99); Mean Corpuscular HGB Conc 32.2 g/dL (30-55); Mean Corpuscular Hemoglobin 34.2 pg (27-33); Mean Corpuscular Volume 106.3 fl (85-98); Nucleated Red Blood Cells % 0 %; Platelet Count 142 10^3/cmm (157-399); Red Blood Count 3.19 10^6/uL (3.85-5.65); White Blood Count 6.06 10^3/uL (3.29-11.43)
[2025-07-12 08:51] LABS: Alanine Aminotransferase 25 U/L (0-33); Albumin Level 3.6 g/dL (3.5-5.2); Alkaline Phosphatase 144 U/L (35-105); Anion Gap 14.5 (5-19); Aspartate Amino Transferase 36 U/L (0-32); Blood Urea Nitrogen 10 mg/dL (8-23); Calcium 9.0 mg/dL (8.5-10.5); Carbon Dioxide 24 mmol/L (22-29); Chloride 104 mmol/L (98-107); Creatinine Clr Calc Pharmacy 48.2978; Globulin 3.5 g/dL (1.3-4.6); Glucose 111 mg/dL (65-115); Osmolality Calculated 288 mOsm/kg (285-295); Potassium 3.5 mmol/L (3.5-5.1); Sodium 139 mmol/L (136-145); Total Protein 7.1 g/dL (6.6-8.7)
[2025-07-12] MEDS: dexamethasone 4 mg/mL INJ 5 mL 12 MG IVP (11:04)
[2025-07-12] MEDS: leucovorin 640 MG in dextrose 5% 250 ML 62.5 MG IV (11:50)
[2025-07-12] MEDS: OXALIPLATIN IV (11:50)
[2025-07-12] MEDS: DEXTROSE 5% IV (11:50)
[2025-07-12 14:16] VITALS: BP 110/65; PULSE 94; RESP 17; TEMP 36.8; O2SAT 95
[2025-07-12] MEDS: fluorouraciL 3,800 MG, elastomeric pump 1 PUMP in sodium chloride 0.9% (100 ml) 16 ML IV (14:19)
[2025-07-26 07:42] LABS: Hematocrit 32.8 % (36-47); Hemoglobin 10.50 g/dL (11.27-16.99); Mean Corpuscular HGB Conc 32.0 g/dL (30-55); Mean Corpuscular Hemoglobin 34.2 pg (27-33); Mean Corpuscular Volume 106.8 fl (85-98); Nucleated Red Blood Cells % 0 %; Platelet Count 93 10^3/cmm (157-399); Red Blood Count 3.07 10^6/uL (3.85-5.65); White Blood Count 5.46 10^3/uL (3.29-11.43)
[2025-07-26 07:58] LABS: Alanine Aminotransferase 19 U/L (0-33); Albumin Level 3.5 g/dL (3.5-5.2); Alkaline Phosphatase 123 U/L (35-105); Aspartate Amino Transferase 27 U/L (0-32); Blood Urea Nitrogen 14 mg/dL (8-23); Calcium 8.6 mg/dL (8.5-10.5); Carbon Dioxide 22 mmol/L (22-29); Chloride 110 mmol/L (98-107); Creatinine Clr Calc Pharmacy 43.4680; Globulin 3.1 g/dL (1.3-4.6); Glucose 48 mg/dL (65-115); Osmolality Calculated 292 mOsm/kg (285-295); Sodium 142 mmol/L (136-145); Total Protein 6.6 g/dL (6.6-8.7)
[2025-07-26 08:00] LABS: Anion Gap 13.8 (5-19); Potassium 3.8 mmol/L (3.5-5.1)
[2025-07-26] MEDS: dexamethasone 4 mg/mL INJ 5 mL 12 MG IVP (09:02)
[2025-07-26] MEDS: durvalumab 1,500 MG in sodium chloride 0.9% 250 ML 280 MG IV (09:48)
[2025-07-26] MEDS: leucovorin 640 MG in dextrose 5% 250 ML 125 MG IV (11:19)
[2025-07-26] MEDS: DEXTROSE 5% IV (11:19)
[2025-07-26] MEDS: OXALIPLATIN IV (11:19)
[2025-07-26] MEDS: fluorouraciL 3,850 MG, elastomeric pump 1 PUMP in sodium chloride 0.9% (100 ml) 15 ML IV (13:50)
[2025-07-26 13:52] VITALS: BP 100/50; PULSE 103; RESP 16; TEMP 36.2; O2SAT 98
--- NOTE | 2025-08-04 13:30 | PETR_ITS ---
PROCEDURE INFORMATION: Exam: PET/CT Skull Base to Mid-thigh Exam date and time: 08/04/2025 2:10 PM Age: 75 years old Clinical indication: Condition or disease; Primary cancer: Lung cancer; Condition/disease: Compare to previous; Malignant neoplasm of upper lobe, RT bronchus or lung; Additional info: Cancer right lung; Compare to previous, would like this 08/04/25 LABS AND CLINICAL REPORTS: Glucose: 118 mg/dl Treatment strategy for malignancy (PET staging): Restaging (PS) TECHNIQUE: Imaging protocol: Following at least four-hour fasting and following the injection of radiopharmaceutical, low dose CT images were obtained. Then, PET images were obtained. Attenuation corrected images were constructed using the CT scan. Fused images of PET and CT were reviewed. The standardized uptake values (SUV) reported below are maximum values within a region of interest, expressed in gm/ml. Exam includes orbital meatal line to mid-thigh. SUV normalization method: BodyWeight Radiopharmaceutical: 11.9 mCi F-18 FDG (Fluorodeoxyglucose), IV. Time of imaging post radiopharmaceutical administration: 46 minutes Injection site: RAC COMPARISON: PT PET skull to thigh SUBS [id number] 03/17/2025 11:30 AM FINDINGS: Tubes, catheters and devices: Right chest port terminates at the superior cavoatrial junction. Brain: Visualized brain has normal physiologic uptake. Pharynx: No abnormal uptake. Larynx: No abnormal uptake. Lungs, pleura and trachea: Stable right apical soft tissue thickening with SUV max 3.1, previously 3.3. Heart: Normal physiologic uptake. Coronary arteries: Heavy coronary artery calcification. Mediastinal space: No abnormal uptake. Esophagus: Decreased low-level FDG uptake at upper esophagus without underlying CT abnormality showing SUV max 3.1 on axial image 80, previously 4.5. This is near the level of right apical soft tissue thickening. Resolution of distal esophageal uptake. Liver: No abnormal uptake. Gallbladder and biliary ducts: No abnormal uptake. Prior cholecystectomy. Pancreas: No abnormal uptake. Spleen: No abnormal uptake. Adrenal glands: No abnormal uptake. Kidneys and ureters: Asymmetric left renal atrophy with decreased uptake. Normal physiologic uptake on the right. Couple simple appearing right renal cysts. Stomach and bowel: Stable right colon postsurgical anastomosis without evidence of thickening or FDG avidity. Long segment distal transverse and proximal descending colon FDG uptake is likely benign physiologic or inflammatory. Interval appearance of multiple left abdominal small bowel loops located lateral to descending colon. No bowel dilatation to suggest obstruction. Vasculature: No abnormal uptake. Heavy systemic atherosclerotic calcification without aortic aneurysm. Lymph nodes: No abnormal uptake. No lymphadenopathy in the head, neck, chest, abdomen, pelvis, and extremities. Skeleton: Degenerative change along the spine and mildly at the sacroiliac joints. Mild thoracolumbar spine levoconvex curvature. C5-7 ACDF. Soft tissues: No abnormal uptake in the visualized head, neck, chest, abdomen, pelvis, and extremities. METRICS: Mediastinal blood pool: SUV mean 2.0 Liver uptake: SUV mean 2.5 PET/PET skull to thigh INIT [id number] IMPRESSION: 1. Stable right apical posttreatment changes. 2. Interval right colon postsurgical change without abnormal thickening or FDG avidity at the anastomosis. 3. Long segment distal transverse and proximal descending colon FDG uptake is likely benign physiologic or inflammatory. 4. Decreased low-level upper thoracic esophagus FDG uptake without underlying CT abnormality is favored benign inflammatory posttreatment change. 5. Interval appearance of multiple left abdominal small bowel loops located lateral to descending colon suspicious for internal hernia. No evidence of obstruction. 6. Additional chronic and incidental findings as above.
== END 2025-08-08 23:59 | disposition home or self-care (01) ==
LOC: ONCMED 08-07 09:05
PROVIDERS: Nurse Practitioner; PCP Nurse Practitioner Family; Visit Provider Internal Medicine
DX: Z53.9 Procedure and treatment not carried out, unspecified reason; C34.11 Malignant neoplasm of upper lobe, right bronchus or lung; K63.89 Other specified diseases of intestine
CPT/HCPCS: 78815; 80053; 85025; 96368; 96375; 96413; 96415; 96416; 96417; 96523; 99214; A4222; A9552; J0640; J1100; J2469; J7050; J7060; J9173; J9190; J9263

== ENCOUNTER 2025-08-23 07:30 | Oncology outpatient (recurring) (ONCR) | payer MEDICARE, SELFPAY ==
[2025-08-09 08:25] LABS: Hematocrit 35.2 % (36-47); Hemoglobin 11.40 g/dL (11.27-16.99); Mean Corpuscular HGB Conc 32.4 g/dL (30-55); Mean Corpuscular Hemoglobin 33.8 pg (27-33); Mean Corpuscular Volume 104.5 fl (85-98); Nucleated Red Blood Cells % 0 %; Platelet Count 100 10^3/cmm (157-399); Red Blood Count 3.37 10^6/uL (3.85-5.65); White Blood Count 5.04 10^3/uL (3.29-11.43)
[2025-08-09 08:45] LABS: Alanine Aminotransferase 17 U/L (0-33); Albumin Level 3.8 g/dL (3.5-5.2); Alkaline Phosphatase 136 U/L (35-105); Anion Gap 18.5 (5-19); Aspartate Amino Transferase 26 U/L (0-32); Blood Urea Nitrogen 13 mg/dL (8-23); Calcium 9.1 mg/dL (8.5-10.5); Carbon Dioxide 21 mmol/L (22-29); Chloride 104 mmol/L (98-107); Creatinine Clr Calc Pharmacy 36.3805; Globulin 3.4 g/dL (1.3-4.6); Glucose 163 mg/dL (65-115); Osmolality Calculated 294 mOsm/kg (285-295); Potassium 3.5 mmol/L (3.5-5.1); Sodium 140 mmol/L (136-145); Total Protein 7.2 g/dL (6.6-8.7)
[2025-08-09] MEDS: dexamethasone 4 mg/mL INJ 5 mL 12 MG IVP (09:48)
[2025-08-09] MEDS: leucovorin 640 MG in dextrose 5% 250 ML 62.5 MG IV (10:24)
[2025-08-09] MEDS: DEXTROSE 5% IV (10:24)
[2025-08-09] MEDS: OXALIPLATIN IV (10:24)
[2025-08-09] MEDS: fluorouraciL 3,800 MG, elastomeric pump 1 PUMP in sodium chloride 0.9% (100 ml) 16 ML IV (13:00)
[2025-08-09 13:09] VITALS: BP 131/74; PULSE 94; RESP 16; TEMP 36.3; O2SAT 99
[2025-08-23 07:48] LABS: Hematocrit 32.0 % (36-47); Hemoglobin 10.40 g/dL (11.27-16.99); Mean Corpuscular HGB Conc 32.5 g/dL (30-55); Mean Corpuscular Hemoglobin 33.9 pg (27-33); Mean Corpuscular Volume 104.2 fl (85-98); Nucleated Red Blood Cells % 0 %; Platelet Count 81 10^3/cmm (157-399); Red Blood Count 3.07 10^6/uL (3.85-5.65); White Blood Count 5.67 10^3/uL (3.29-11.43)
[2025-08-23 08:04] LABS: Alanine Aminotransferase 17 U/L (0-33); Albumin Level 3.8 g/dL (3.5-5.2); Alkaline Phosphatase 148 U/L (35-105); Anion Gap 15.7 (5-19); Aspartate Amino Transferase 26 U/L (0-32); Blood Urea Nitrogen 13 mg/dL (8-23); Calcium 8.9 mg/dL (8.5-10.5); Carbon Dioxide 22 mmol/L (22-29); Chloride 105 mmol/L (98-107); Creatinine Clr Calc Pharmacy 43.6566; Globulin 3.0 g/dL (1.3-4.6); Glucose 122 mg/dL (65-115); Osmolality Calculated 289 mOsm/kg (285-295); Potassium 3.7 mmol/L (3.5-5.1); Sodium 139 mmol/L (136-145); Total Protein 6.8 g/dL (6.6-8.7)
[2025-08-23] MEDS: durvalumab 1,500 MG in sodium chloride 0.9% 250 ML 280 MG IV (09:24)
[2025-08-23 10:48] VITALS: BP 126/71; PULSE 88; RESP 16; TEMP 36.2; O2SAT 98
== END 2025-09-08 23:59 | disposition home or self-care (01) ==
PROVIDERS: PCP Nurse Practitioner Family; Visit Provider Internal Medicine
DX: Z53.9 Procedure and treatment not carried out, unspecified reason; Z51.12 Encounter for antineoplastic immunotherapy; C34.11 Malignant neoplasm of upper lobe, right bronchus or lung; Z85.038 Personal history of other malignant neoplasm of large intestine; R19.7 Diarrhea, unspecified; Z87.891 Personal history of nicotine dependence; G62.9 Polyneuropathy, unspecified; D69.6 Thrombocytopenia, unspecified
CPT/HCPCS: 80053; 85025; 96368; 96375; 96413; 96415; 96416; 96523; 99214; A4222; J0640; J1100; J2469; J7050; J7060; J9173; J9190; J9263

== ENCOUNTER 2025-09-20 08:53 | Oncology outpatient (recurring) (ONCR) | payer MEDICARE, SELFPAY ==
[2025-09-20 09:18] LABS: Hematocrit 35.3 % (36-47); Hemoglobin 11.30 g/dL (11.27-16.99); Mean Corpuscular HGB Conc 32.0 g/dL (30-55); Mean Corpuscular Hemoglobin 33.7 pg (27-33); Mean Corpuscular Volume 105.4 fl (85-98); Nucleated Red Blood Cells % 0 %; Platelet Count 213 10^3/cmm (157-399); Red Blood Count 3.35 10^6/uL (3.85-5.65); White Blood Count 9.02 10^3/uL (3.29-11.43)
[2025-09-20 10:04] LABS: Alanine Aminotransferase 20 U/L (0-33); Albumin Level 3.9 g/dL (3.5-5.2); Alkaline Phosphatase 158 U/L (35-105); Anion Gap 18.2 (5-19); Aspartate Amino Transferase 24 U/L (0-32); Blood Urea Nitrogen 18 mg/dL (8-23); Calcium 9.3 mg/dL (8.5-10.5); Carbon Dioxide 20 mmol/L (22-29); Chloride 108 mmol/L (98-107); Globulin 3.7 g/dL (1.3-4.6); Glucose 55 mg/dL (65-115); Osmolality Calculated 295 mOsm/kg (285-295); Potassium 3.2 mmol/L (3.5-5.1); Sodium 143 mmol/L (136-145); Thyroid Stimulating Hormone 2.68 uIU/mL (0.27-4.20); Total Protein 7.6 g/dL (6.6-8.7); Vitamin B12 449 pg/mL (232-1245)
[2025-09-20] MEDS: durvalumab 1,500 MG in sodium chloride 0.9% 250 ML 280 MG IV (10:46)
[2025-09-20 11:27] VITALS: BP 122/71; PULSE 94; RESP 17; TEMP 36.6; O2SAT 96
== END 2025-10-08 23:59 | disposition home or self-care (01) ==
PROVIDERS: Nurse Practitioner; PCP Nurse Practitioner Family; Visit Provider Internal Medicine
DX: Z51.12 Encounter for antineoplastic immunotherapy (principal); C34.11 Malignant neoplasm of upper lobe, right bronchus or lung; Z85.038 Personal history of other malignant neoplasm of large intestine; R19.7 Diarrhea, unspecified; G62.9 Polyneuropathy, unspecified; D69.6 Thrombocytopenia, unspecified; K46.9 Unspecified abdominal hernia without obstruction or gangrene; E03.9 Hypothyroidism, unspecified; R71.8 Other abnormality of red blood cells; E87.6 Hypokalemia; Z95.828 Presence of other vascular implants and grafts; Z92.3 Personal history of irradiation; Z79.899 Other long term (current) drug therapy; Z87.891 Personal history of nicotine dependence
CPT/HCPCS: 80053; 82607; 82746; 83615; 84443; 85025; 96413; 99213; A4222; J7050; J9173

== ENCOUNTER → 2025-10-11 09:55 | Outpatient (BNVA) | payer MEDICARE, SELFPAY | PROVIDERS: PCP Nurse Practitioner Family; Visit Provider Surgery | DX: C18.2 Malignant neoplasm of ascending colon (principal); L05.91 Pilonidal cyst without abscess | CPT/HCPCS: 99214 ==

== ENCOUNTER 2025-10-18 09:30 | Oncology outpatient (recurring) (ONCR) | payer MEDICARE, SELFPAY ==
[2025-10-18 08:32] LABS: Hematocrit 35.9 % (36-47); Hemoglobin 11.80 g/dL (11.27-16.99); Mean Corpuscular HGB Conc 32.9 g/dL (30-55); Mean Corpuscular Hemoglobin 33.1 pg (27-33); Mean Corpuscular Volume 100.6 fl (85-98); Nucleated Red Blood Cells % 0 %; Platelet Count 183 10^3/cmm (157-399); Red Blood Count 3.57 10^6/uL (3.85-5.65); White Blood Count 7.56 10^3/uL (3.29-11.43)
[2025-10-18 08:59] LABS: Carcinoembryonic Antigen 11.6 ng/mL (0.0-4.7)
[2025-10-18 09:10] LABS: Alanine Aminotransferase 21 U/L (0-33); Albumin Level 4.0 g/dL (3.5-5.2); Alkaline Phosphatase 179 U/L (35-105); Anion Gap 16.7 (5-19); Aspartate Amino Transferase 24 U/L (0-32); Blood Urea Nitrogen 26 mg/dL (8-23); Calcium 9.5 mg/dL (8.5-10.5); Carbon Dioxide 22 mmol/L (22-29); Chloride 106 mmol/L (98-107); Globulin 3.3 g/dL (1.3-4.6); Glucose 82 mg/dL (65-115); Osmolality Calculated 296 mOsm/kg (285-295); Potassium 3.7 mmol/L (3.5-5.1); Sodium 141 mmol/L (136-145); Total Protein 7.3 g/dL (6.6-8.7)
[2025-10-18] MEDS: durvalumab 1,500 MG in sodium chloride 0.9% 250 ML 280 MG IV (10:18)
[2025-10-18 11:35] VITALS: BP 101/66; PULSE 68; RESP 18; TEMP 36.1; O2SAT 97
== END 2025-11-08 23:59 | disposition home or self-care (01) ==
PROVIDERS: Nurse Practitioner Family; PCP Nurse Practitioner Family; Visit Provider Internal Medicine
DX: Z51.12 Encounter for antineoplastic immunotherapy (principal); C34.11 Malignant neoplasm of upper lobe, right bronchus or lung; C18.2 Malignant neoplasm of ascending colon; L98.9 Disorder of the skin and subcutaneous tissue, unspecified; Z79.899 Other long term (current) drug therapy; Z92.3 Personal history of irradiation; Z95.828 Presence of other vascular implants and grafts; Z87.891 Personal history of nicotine dependence
CPT/HCPCS: 80053; 82378; 83615; 85025; 96413; 99214; A4222; J7050; J9173